=== PATIENT | male | born 1975 | race Two or more races ===

== ENCOUNTER 2017-04-29 06:54 | Emergency (ER) | payer SELFPAY, BC ==
[2017-04-29 07:35] LABS: ADD MAN DIFF? NO
[2017-04-29 07:49] LABS: ANION GAP 8 (6-14); BLOOD UREA NITROGEN 11 mg/dL (8-26); BUN/CREATININE RATIO 14 (6-20); CALCIUM 9.4 mg/dL (8.5-10.1); CARBON DIOXIDE 31 mmol/L (21-32); CHLORIDE 102 mmol/L (98-107); CREATININE 0.8 mg/dL (0.7-1.3); GFR 107.1; GLUCOSE 107 mg/dL (70-99); POTASSIUM 3.3 mmol/L (3.5-5.1); SODIUM 141 mmol/L (136-145)
[2017-04-29] MEDS: MULTIVIT INFUSN,ADULT 4,VIT K 10 ML, THIAMINE 100 MG, FOLIC ACID 1 MG in IV NORMAL SALI... IV ×2 (07:50)
[2017-04-29 07:55] LABS: ALBUMIN 4.3 g/dL (3.4-5.0); ALBUMIN/GLOBULIN RATIO 1.1 (1.0-1.7); ALK PHOS 90 U/L (46-116); ALT (SGPT) 22 U/L (16-63); AST (SGOT) 18 U/L (15-37); LIPASE 106 U/L (73-393); TOTAL BILIRUBIN 0.2 mg/dL (0.2-1.0); TOTAL PROTEIN 8.3 g/dL (6.4-8.2)
[2017-04-29 07:58] LABS: SALIC < 2.8 mg/dL (2.8-20.0)
[2017-04-29 07:58] LABS: TROPONINI < 0.017 ng/mL (0.000-0.055)
[2017-04-29] MEDS: ONDANSETRON PF 4 MG/2 ML VIAL. IV ×2 (07:58)
[2017-04-29] MEDS: ASPIRIN 325 MG TABLET PO ×2 (07:58)
[2017-04-29] MEDS: FAMOTIDINE 20 MG/2 ML VIAL IVP ×2 (07:58)
[2017-04-29 07:59] LABS: ACETAMIN < 2.0 mcg/ml (10-30)
[2017-04-29 08:00] LABS: BASO % 0 % (0-3); EOS # 0.1 x10^3/uL (0.0-0.7); EOS % 1 % (0-3); HEMATOCRIT 44.3 % (39.0-53.0); HEMOGLOBIN 14.8 g/dL (13.0-17.5); LYMPH # 2.4 x10^3/uL (1.0-4.8); LYMPH % 38 % (24-48); MEAN CORPUSCULAR HEMOGLOBIN 30 pg (25-35); MEAN CORPUSCULAR HGB CONC 34 g/dL (31-37); MEAN CORPUSCULAR VOLUME 90 fL (79-100); MONO # 0.5 x10^3/uL (0.0-1.1); MONO % 7 % (0-9); NEUT # 3.3 x10^3uL (1.8-7.7); NEUT % 53 % (31-73); PLATELET COUNT 190 x10^3/uL (140-400); RED BLOOD COUNT 4.93 x10^6/uL (4.30-5.70); WHITE BLOOD COUNT 6.2 x10^3/uL (4.0-11.0)
[2017-04-29 08:02] LABS: CKMB MASS 1.5 ng/mL (0.0-3.6); CREATINE KINASE 155 U/L (39-308)
[2017-04-29 08:02] LABS: NT-PRO BNP 11 pg/mL (0-124)
[2017-04-29] MEDS: IV NORMAL SALINE 1000ML BAG 1,000 ML IV ×2 (08:02)
[2017-04-29 08:03] LABS: BILIRUBIN,URINE NEGATIVE (NEG); CLARITY,URINE CLEAR; COLOR,URINE YELLOW; GLUCOSE,URINE NEGATIVE (NEG); NITRITE,URINE NEGATIVE (NEG); PROTEIN,URINE NEGATIVE (NEG-TRACE); UROBILINOGEN,URINE 0.2 mg/dL (0.2 mg/dL)
[2017-04-29 08:09] LABS: BARBITURATES NEG (NEG); BENZODIAZEPINES NEG (NEG); CANNABINOIDS NEG (NEG); COCAINE NEG (NEG); METHADONE NEG (NEG); OPIATES NEG (NEG); PHENCYCLIDINE NEG (NEG)
[2017-04-29 08:17] LABS: AMPHETAMINE/METHAMPHETAMINE POS (NEG); ETHANOL, URINE POS (NEG)
[2017-04-29 08:18] LABS: BACTERIA,URINE 0 /HPF (0-FEW); RBC,URINE 0 /HPF (0-2); SQUAMOUS EPITHELIAL CELL,UR FEW /LPF; WBC,URINE 0 /HPF (0-4)
[2017-04-29 09:23] LABS: NEGATIVE OBC STREP NEG; POSITIVE OBC STREP POS
[2017-04-29 09:26] LABS: INR 0.9 (0.8-1.1); PROTHROMBIN TIME PATIENT 11.8 SEC (11.7-14.0)
[2017-04-29] MEDS: KETOROLAC 30 MG/ML INJ. IV ×2 (09:33)
[2017-04-29] MEDS: POTASSIUM CHLORIDE 20 MEQ TABLET.ER. PO ×2 (09:33)
== END 2017-04-29 09:52 | disposition home or self-care (01) ==
LOC: ER 06:54
DX: R00.2 Palpitations (principal); F15.90 Other stimulant use, unspecified, uncomplicated; F10.10 Alcohol abuse, uncomplicated; E86.0 Dehydration; J02.0 Streptococcal pharyngitis
CPT/HCPCS: 36415; 71045; 80053; 80307; 80329; 81001; 82553; 83690; 83735; 83880; 84484; 85025; 85610; 87880; 93005; 96365; 96375; 99285-25; J1885; J2060; J2405; J7030; S0028

== ENCOUNTER 2017-04-30 14:53 | Emergency (ER) | payer SELFPAY ==
[2017-04-30] MEDS: diphenhydrAMINE 50 MG/ML VIAL IM ×2 (15:58)
== END 2017-04-30 17:00 | disposition home or self-care (01) ==
LOC: ER 14:53
DX: F41.9 Anxiety disorder, unspecified (principal); F15.90 Other stimulant use, unspecified, uncomplicated; R00.2 Palpitations; M79.1 Myalgia
CPT/HCPCS: 93005; 96372; 99283-25; J1200

== ENCOUNTER → 2017-08-03 | Outpatient (CLI) | payer OTHER | END | disposition home or self-care (01) | LOC: KCIC CT 11:00 | DX: J32.9 Chronic sinusitis, unspecified (principal); J34.2 Deviated nasal septum; M27.40 Unspecified cyst of jaw | CPT/HCPCS: 70486 ==

== ENCOUNTER → 2018-11-13 | Outpatient (CLI) | payer OTHER ==
[2017-04-30 15:13] VITALS: BP 132/89
[~2018-11-13] MED LIST: AMOX875T PO; DIPH25CA58 PO
--- NOTE | 2018-11-13 12:15 | KCIC ---
EXAM: Chest, 2 views. HISTORY: Cough. COMPARISON: 04/29/2017 FINDINGS: 2 views of the chest are obtained. There is no infiltrate, pleural effusion or pneumothorax. There is hyperinflation likely due to inspiratory effort. The heart is normal in size. IMPRESSION: No acute pulmonary finding. Electronically signed by: Shyann Oliveros MD (11/13/2018 12:12 PM) [place] [id number]
== END | disposition home or self-care (01) ==
LOC: KCIC 10:54
PROVIDERS: ATTEND Family Medicine
DX: R05 Cough (principal)
CPT/HCPCS: 71046

== ENCOUNTER 2019-03-22 18:31 | Emergency (ER) | payer OTHER ==
[~2019-03-22] VITALS: Ht 177.8 cm; Wt 63.5 kg
[2019-03-22] MEDS ORDERED: IV NORMAL SALINE 1000ML BAG 1,000 ML IV SCH (19:02)
--- NOTE | 2019-03-22 19:02 | PHYS DOC ---
Past Medical History Past Medical History: No Pertinent History Past Surgical History: No Surgical History Additional Information: "I SMOKE 5 CIGARETTES A DAY" Alcohol Use: Occasionally Drug Use: None Attending Signature I have participated in the care of this patient and I have reviewed and agree with all pertinent clinical information above including history, exam, and recommendations. Adult General Chief Complaint Chief Complaint: CHEST PAIN HPI HPI 44-year-old male presents to the emergency department with complaints of chest pain, palpitations. Patient states drinking makes his chest pain worse, he describes it more of a sharp sensation. Bilaterally. No radiation of the pain. He denies any nausea, vomiting, shortness of breath this time. He does state that he smokes something last night unsure exactly what it was possibly methamphetamines possibly some other sort of drug. Review of Systems Review of Systems Constitutional: Denies fever or chills [] Respiratory: Denies cough or shortness of breath [] Cardiovascular: No additional information not addressed in HPI [] GI: Denies abdominal pain, nausea, vomiting, bloody stools or diarrhea [] Musculoskeletal: Denies back pain or joint pain [] Integument: Denies rash or skin lesions [] Neurologic: Denies headache, focal weakness or sensory changes [] All other systems were reviewed and found to be within normal limits, except as documented in this note. Current Medications Current Medications Current Medications Medications (Trade) Dose Ordered Sig/Cresencio Start Time Stop Time Status Last Admin Dose Admin Al Hydroxide/Mg Hydroxide (Mylanta Plus Xs) 30 ml 1X ONCE 03/22/19 20:45 03/22/19 20:46 DC 03/22/19 20:49 30 ML Aspirin (Children'S Aspirin) 324 mg 1X ONCE 03/22/19 19:15 03/22/19 19:16 DC 03/22/19 19:55 324 MG Nitroglycerin (Nitrostat) 0.4 mg PRN Q5MIN PRN 03/22/19 19:15 03/22/19 21:29 DC 03/22/19 19:56 0.4 MG Sodium Chloride 1,000 ml @ 1,000 mls/hr Q1H 03/22/19 19:02 03/22/19 20:01 DC 03/22/19 19:45 1,000 MLS/HR Allergies Allergies Allergies Coded Allergies Type Severity Reaction Last Updated Verified No Known Drug Allergies 04/29/17 No Physical Exam Physical Exam Constitutional: Well developed, well nourished, no acute distress, non-toxic appearance. [] Cardiovascular:Heart rate regular rhythm, no murmur [] Lungs & Thorax: Bilateral breath sounds clear to auscultation [] Abdomen: Bowel sounds normal, soft, no tenderness, no masses, no pulsatile masses. [] Skin: Warm, dry, no erythema, no rash. [] Back: No tenderness, no CVA tenderness. [] Extremities: No tenderness, no edema. [] Neurologic: Alert and oriented X 3, no focal deficits noted. [] Psychologic: Affect normal, judgement normal, mood normal. [] Current Patient Data Vital Signs Vital Signs Date Time Temp Pulse Resp B/P (MAP) Pulse Ox O2 Delivery O2 Flow Rate FiO2 03/22/19 21:16 78 16 125/75 (92) 100 Room Air 03/22/19 18:42 98.6 98.6 Lab Values Laboratory Tests Test 03/22/19 19:00 03/22/19 19:45 03/22/19 21:03 White Blood Count 7.2 x10^3/uL (4.0-11.0) Red Blood Count 4.56 x10^6/uL (4.30-5.70) Hemoglobin 13.6 g/dL (13.0-17.5) Hematocrit 40.5 % (39.0-53.0) Mean Corpuscular Volume 89 fL (79-100) Mean Corpuscular Hemoglobin 30 pg (25-35) Mean Corpuscular Hemoglobin Concent 34 g/dL (31-37) Red Cell Distribution Width 12.8 % (11.5-14.5) Platelet Count 195 x10^3/uL (140-400) Neutrophils (%) (Auto) 74 % (31-73) H Lymphocytes (%) (Auto) 21 % (24-48) L Monocytes (%) (Auto) 6 % (0-9) Eosinophils (%) (Auto) 0 % (0-3) Basophils (%) (Auto) 0 % (0-3) Neutrophils # (Auto) 5.3 x10^3/uL (1.8-7.7) Lymphocytes # (Auto) 1.5 x10^3/uL (1.0-4.8) Monocytes # (Auto) 0.4 x10^3/uL (0.0-1.1) Eosinophils # (Auto) 0.0 x10^3/uL (0.0-0.7) Basophils # (Auto) 0.0 x10^3/uL (0.0-0.2) Sodium Level 139 mmol/L (136-145) Potassium Level 4.0 mmol/L (3.5-5.1) Chloride Level 100 mmol/L (98-107) Carbon Dioxide Level 29 mmol/L (21-32) Anion Gap 10 (6-14) Blood Urea Nitrogen 5 mg/dL (8-26) L Creatinine 0.7 mg/dL (0.7-1.3) Estimated GFR (Cockcroft-Gault) 123.7 BUN/Creatinine Ratio 7 (6-20) Glucose Level 110 mg/dL (70-99) H Calcium Level 10.0 mg/dL (8.5-10.1) Magnesium Level 1.9 mg/dL (1.8-2.4) Total Bilirubin 0.4 mg/dL (0.2-1.0) Aspartate Amino Transferase (AST) 20 U/L (15-37) Alanine Aminotransferase (ALT) 20 U/L (16-63) Alkaline Phosphatase 89 U/L (46-116) Troponin I Quantitative < 0.017 ng/mL (0.000-0.055) Total Protein 8.7 g/dL (6.4-8.2) H Albumin 4.5 g/dL (3.4-5.0) Albumin/Globulin Ratio 1.1 (1.0-1.7) Urine Opiates Screen Neg (NEG) Urine Methadone Screen Neg (NEG) Urine Barbiturates Neg (NEG) Urine Phencyclidine Screen Neg (NEG) Urine Amphetamine/Methamphetamine Pos (NEG) Urine Benzodiazepines Screen Neg (NEG) Urine Cocaine Screen Neg (NEG) Urine Cannabinoids Screen Neg (NEG) Urine Ethyl Alcohol Pos (NEG) POC Troponin I 0.00 ng/ml (<0.08) Laboratory Tests 03/22/19 19:00 Laboratory Tests 03/22/19 19:00 EKG EKG EKG evaluated 1849, normal axis, normal sinus rhythm, heart rate 94, no evidence of ST elevation SD[] Radiology/Procedures Radiology/Procedures [] Course & Med Decision Making Course & Med Decision Making Pertinent Labs and Imaging studies reviewed. (See chart for details) []44-year-old male presents to the emergency department with complaints of chest pain, palpitations. Patient states drinking makes his chest pain worse, he describes it more of a sharp sensation. Bilaterally. No radiation of the pain. He denies any nausea, vomiting, shortness of breath this time. He does state that he smokes something last night unsure exactly what it was possibly methamp hetamines possibly some other sort of drug. Laboratory values reviewed, white blood cell count 7.2, troponin negative, urine drug screen reveals evidence of methamphetamines. Patient complains of indigestion, Maalox given in the emergency department Chest x-ray reveals no evidence of acute cardio pulmonary process or consolidation. Discussed patient's palpitations likely associated with underlying methamphetamine use. Heart rate currently 100. Given negative workup will plan discharge further follow up as an outpatient patient's primary care physician. Dragon Disclaimer Dragon Disclaimer This electronic medical record was generated, in whole or in part, using a voice recognition dictation system. The HEART Score for CP Pts HEART Score for Chest Pain: HEART Score for Chest Pain Response (Comments) Value History Slighlty/Non-Suspicious 0 ECG Normal 0 Age < 45 0 Risk Factors 1 or 2 Risk Factors 1 Troponin < Normal Limit 0 Total 1 Risk Factors: Risk Factors: DM, Current or recent (<one month) smoker, HTN, HLP, family history of CAD, obesity. Risk Scores: Score 0 - 3: 2.5% MACE over next 6 weeks - Discharge Home Score 4 - 6: 20.3% MACE over next 6 weeks - Admit for Clinical Observation Score 7 - 10: 72.7% MACE over next 6 weeks - Early Invasive Strategies Departure Departure Impression: Primary Impression: Atypical chest pain Additional Impression: Substance abuse Disposition: HOME, SELF-CARE Condition: STABLE Referrals: RACQUEL BHAT MD (PCP) Patient Instructions: Chest Pain (Nonspecific), [id number] Additional Instructions: Recommend follow up with PCP 3 - 5 days Return to the ER with worsening symptoms, intractable pain, fever, altered mental status Tylenol/Motrin as needed for pain Rx provided for carafate to help with burning in epigastric region Scripts Sucralfate (CARAFATE) 1 Gm/10 Ml Oral.susp 10 ML PO BID for 6 Days, #120 ML 0 Refills before food Prov: SAIDA MILLARD MD 03/22/19 Problem Qualifiers SAIDA MILLARD MD Mar 22, 2019 19:02
[2019-03-22 19:08] LABS: BASO % 0 % (0-3); EOS % 0 % (0-3); HEMATOCRIT 40.5 % (39.0-53.0); HEMOGLOBIN 13.6 g/dL (13.0-17.5); LYMPH # 1.5 x10^3/uL (1.0-4.8); LYMPH % 21 % (24-48); MEAN CORPUSCULAR HEMOGLOBIN 30 pg (25-35); MEAN CORPUSCULAR HGB CONC 34 g/dL (31-37); MEAN CORPUSCULAR VOLUME 89 fL (79-100); MONO # 0.4 x10^3/uL (0.0-1.1); MONO % 6 % (0-9); NEUT # 5.3 x10^3/uL (1.8-7.7); NEUT % 74 % (31-73); PLATELET COUNT 195 x10^3/uL (140-400); RED BLOOD COUNT 4.56 x10^6/uL (4.30-5.70); RED CELL DISTRIBUTION WIDTH 12.8 % (11.5-14.5); WHITE BLOOD COUNT 7.2 x10^3/uL (4.0-11.0)
[2019-03-22] MEDS ORDERED: ASPIRIN CHEWABLE 81 MG TABLET. PO ONE (19:15)
[2019-03-22] MEDS ORDERED: NITROGLYCERIN SUBLINGUAL 0.4 MG BOTTLE OF 25. SL PRN (19:15)
[2019-03-22 19:23] LABS: CREATININE 0.7 mg/dL (0.7-1.3); GFR 123.7
[2019-03-22 19:28] LABS: ALBUMIN 4.5 g/dL (3.4-5.0); ALBUMIN/GLOBULIN RATIO 1.1 (1.0-1.7); MAGNESIUM 1.9 mg/dL (1.8-2.4); TOTAL BILIRUBIN 0.4 mg/dL (0.2-1.0); TOTAL PROTEIN 8.7 g/dL (6.4-8.2)
[2019-03-22 19:59] LABS: AMPHETAMINE/METHAMPHETAMINE POS (NEG); BARBITURATES NEG (NEG); BENZODIAZEPINES NEG (NEG); CANNABINOIDS NEG (NEG); COCAINE NEG (NEG); METHADONE NEG (NEG); OPIATES NEG (NEG); PHENCYCLIDINE NEG (NEG)
--- NOTE | 2019-03-22 20:22 | RAD ---
Examination: PORTABLE CHEST 1V History: Chest pain Comparison/Correlation: 11/13/2018 two-view chest x-ray exam Findings: Portable upright frontal view chest was obtained. Heart size and pulmonary vasculature are normal. No infiltrate or pleural effusion. No pneumothorax. Bony structures are unremarkable. Impression: No suspicious process. Electronically signed by: Gasper Young MD (03/22/2019 8:19 PM) [facility]
[2019-03-22] MEDS ORDERED: MAG HYDROX/ALUMINUM HYD/SIMETH 30 ML ORAL.SUSP PO ONE (20:45)
[2019-03-22] MEDS ORDERED: SUCR1ORA5 PO (20:53)
[2019-03-22 21:16] VITALS: BP 125/75
--- NOTE | 2019-03-24 12:47 | EKG ---
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
== END 2019-03-22 21:20 | disposition home or self-care (01) ==
LOC: ER 18:31
DX: R07.89 Other chest pain (principal); R00.2 Palpitations; F17.210 Nicotine dependence, cigarettes, uncomplicated
CPT/HCPCS: 36415; 71045; 80053; 80307; 83735; 84484; 85025; 93005; 99285; J7030

== ENCOUNTER → 2019-08-23 | Outpatient (CLI) | payer OTHER ==
[~2019-08-23] MED LIST changes: +SUCR1ORA5 PO
--- NOTE | 2019-08-23 10:03 | RAD ---
ABDOMEN COMPLETE History: Left upper quadrant abdominal pain for 2 months Comparison: October 20, 2015 Findings: Multiple sonographic images of the abdomen are submitted. Abdominal aortic caliber is within normal limits up to 1.9 cm. There is no abnormality of the visualized pancreas. There is segmental visualization of the inferior vena cava. Hepatic echotexture is within normal limits, no focal hepatic lesion demonstrated. Right lobe of the liver measured 13.3 cm longitudinal. Right kidney measured 10.2 x 4.7 x 3.7 cm, no hydronephrosis. Left kidney measured 10.6 x 4.2 x 5.6 cm, no hydronephrosis. Gallbladder is present without intraluminal abnormality, wall thickening, or pericholecystic fluid. Spleen measured up to about 9.3 cm although suboptimally seen due to bowel gas. Impression: 1. Spleen is suboptimally seen due to bowel gas, not obviously enlarged. Electronically signed by: Bay Flower MD (08/23/2019 9:59 AM) [id number]
--- NOTE | 2019-08-23 12:17 | RAD ---
MRI Brain without contrast History:Headache Technique: Multiplanar, multisequential noncontrast MR imaging was performed of the brain. Comparison: None Findings: There is some motion degradation. There is no evidence of recent infarct or cytotoxic edema. The ventricles, sulci, and cisterns are within normal limits in size and configuration. There is no significant midline shift, intraaxial mass effect, or focal abnormal extra-axial fluid collection. Allowing for motion, there is no convincing focal signal abnormality including hemosiderin deposition of the brain parenchyma. There is preservation of the major intracranial flow-voids at the skull base. The cerebellar tonsils are normal in location. There is no significant abnormality of the pineal gland or pituitary gland. There is patchy minimal ethmoid air cell mucosal thickening bilaterally. There is likely small right maxillary sinus mucous retention cyst 0.5 cm. The mastoid air cells are aerated. There is preserved marrow signal of the clivus. Impression: 1. No significant intracranial abnormality is identified. Electronically signed by: Bay Flower MD (08/23/2019 12:14 PM) [id number]
== END | disposition home or self-care (01) ==
LOC: US 09:02
PROVIDERS: ATTEND Family Medicine
DX: J34.89 Other specified disorders of nose and nasal sinuses (principal); J34.1 Cyst and mucocele of nose and nasal sinus; R10.12 Left upper quadrant pain
CPT/HCPCS: 70551; 76700

== ENCOUNTER → 2020-01-07 | Outpatient (CLI) | payer OTHER ==
--- NOTE | 2020-01-07 15:13 | KCIC ---
LUMBAR SPINE MIN 4V History: Low back pain, fall about 4-5 days ago, persistent pain Comparison: None. Findings: 5 views of the lumbar spine are submitted. Lumbar vertebral body stature and AP alignment are preserved. Intervertebral disc spaces are overall maintained. No acute osseous abnormality is identified by radiographs. Small calcification in the left pelvis is more likely due to phlebolith. Impression: 1. No acute osseous abnormality is identified by radiographs. Electronically signed by: Bay Flower MD (01/07/2020 3:10 PM) [id number]
== END ==
LOC: KCIC 12:50
PROVIDERS: ATTEND Family Medicine
DX: M54.5 Low back pain (principal)
CPT/HCPCS: 72110

== ENCOUNTER 2020-01-22 23:09 | Emergency (ER) | payer OTHER ==
[~2020-01-22] VITALS: Ht 175.3 cm; Wt 65.0 kg
[2020-01-22] MEDS ORDERED: IV NORMAL SALINE 1000ML BAG 1,000 ML IV ONE (23:30)
--- NOTE | 2020-01-22 23:53 | RAD ---
INDICATION: Reason: sob / Spl. Instructions: / History: COMPARISON: February 2019 FINDINGS: Single view of chest obtained. Cardiac silhouette is similar to prior. No definite focal airspace consolidation. No gross osseous destructive lesion IMPRESSION: * No focal airspace consolidation. Electronically signed by: Alfredo Chu MD (01/22/2020 11:51 PM) [id number]
--- NOTE | 2020-01-22 23:56 | PHYS DOC ---
Past Medical History Past Medical History: GERD Past Surgical History: No Surgical History Smoking Status: Never Smoker Alcohol Use: None Drug Use: None General Adult EDM: Chief Complaint: SHORTNESS OF BREATH HPI: HPI: Patient is a 45 year old male past medical history GERD presents with multiple chief complaints. Patient states he has had right-sided chest discomfort x2 months. He complains of shortness of breath x1 month. He complains of occipital headache x1 year and a sore throat x5 days. During my HPI he also started complaining of left-sided neck pain. He states this pain just started as I was examining him. Patient denies any fevers or chills there is no cough. Review of Systems: Review of Systems: Constitutional: Denies fever or chills. [] Eyes: Denies change in visual acuity. [] HENT: Denies nasal congestion positive sore throat. [] Respiratory: Denies cough or positive shortness of breath. [] Cardiovascular: Denies edema. [Positive chest pain] GI: Denies abdominal pain, nausea, vomiting, bloody stools or diarrhea. [] : Denies dysuria. [] Musculoskeletal: Denies back pain or joint pain. [Positive neck pain] Integument: Denies rash. [] Neurologic: Denies , focal weakness or sensory changes. [Positive headache] Endocrine: Denies polyuria or polydipsia. [] Lymphatic: Denies swollen glands. [] Psychiatric: Denies depression or anxiety. [] Heart Score: HEART Score for Chest Pain: HEART Score for Chest Pain Response (Comments) Value History Slighlty/Non-Suspicious 0 ECG Normal 0 Age < 45 0 Risk Factors No Risk Factors 0 Troponin < Normal Limit 0 Total 0 Risk Factors: Risk Factors: DM, Current or recent (<one month) smoker, HTN, HLP, family history of CAD, obesity. Risk Scores: Score 0 - 3: 2.5% MACE over next 6 weeks - Discharge Home Score 4 - 6: 20.3% MACE over next 6 weeks - Admit for Clinical Observation Score 7 - 10: 72.7% MACE over next 6 weeks - Early Invasive Strategies Current Medications: Current Medications Medications (Trade) Dose Ordered Sig/Cresencio Start Time Stop Time Status Last Admin Dose Admin Sodium Chloride 1,000 ml @ 1,000 mls/hr 1X ONCE 01/22/20 23:30 01/23/20 00:29 01/22/20 23:45 1,000 MLS/HR Allergies: Allergies: Allergies Coded Allergies Type Severity Reaction Last Updated Verified No Known Drug Allergies 04/29/17 No Physical Exam: PE: Constitutional: Well developed, well nourished, no acute distress, non-toxic appearance. [] HENT: Normocephalic, atraumatic, bilateral external ears normal, t, no oral exudates, nose normal. [pharyngeal erythema] Eyes: PERRLA, EOMI, conjunctiva normal, no discharge. [] Neck: Normal range of motion, no tenderness, supple, no stridor. [] Cardiovascular:Heart rate regular rhythm, no murmur [] Lungs & Thorax: Bilateral breath sounds clear to auscultation [] Abdomen: Bowel sounds normal, soft, no tenderness, no masses, no pulsatile masses. [] Skin: Warm, dry, no erythema, no rash. [] Back: No tenderness, no CVA tenderness. [] Extremities: No tenderness, no cyanosis, no clubbing, ROM intact, no edema. [] Neurologic: Alert and oriented X 3, normal motor function, normal sensory function, no focal deficits noted. [] Psychologic: Affect normal, judgement normal, mood normal. [] Current Patient Data: Vital Signs: Vital Signs Date Time Temp Pulse Resp B/P (MAP) Pulse Ox O2 Delivery O2 Flow Rate FiO2 01/22/20 23:19 98.0 74 24 114/79 (91) Room Air 98.0 EKG: EKG: [] 2323 heart rate 66 normal sinus rhythm no acute VT Radiology/Procedures: Radiology/Procedures: [] Impression: COMPARISON: February 2019 FINDINGS: Single view of chest obtained. Cardiac silhouette is similar to prior. No definite focal airspace consolidation. No gross osseous destructive lesion IMPRESSION: * No focal airspace consolidation. Course & Med Decision Making: Course & Med Decision Making Pertinent Labs and Imaging studies reviewed. (See chart for details) []Patient states he is concerned about a stroke-- despite his symptoms ongoing x 1 year. Patient requesting treatment with ASA-- states previous ER visit and was treated with ASA with improvement. Patient declined toradol. Treated with Decadron for throat pain. Patient requesting "medicated drink" states he was previously given during another ER visit and it helped with his chest pain. Patient also requesting acid reflux medication. Patient treated with GI cocktail. At this time I do not see any emergent conditions that require hospitalization or further work-up at this time. Patient can be discharged home with instructions to follow-up with his primary care physician. Patient will be placed on Zithromax. Patient advised he can get [id number] medications for acid reflux. Dragon Disclaimer: Dragon Disclaimer: This electronic medical record was generated, in whole or in part, using a voice recognition dictation system. Departure Departure Impression: Primary Impression: Sore throat Additional Impressions: Shortness of breath Chest pain Neck pain Disposition: DC HOME SELF CARE/HOMELESS Condition: STABLE Referrals: RACQUEL BHAT MD (PCP) Patient Instructions: Shortness of Breath, Sore Throat Additional Instructions: You have been tested for or diagnosed with COVID-19. It is an infection caused by a new type of coronavirus. COVID-19 will cause cold-like or mild flu symptoms in most. It c an cause more severe symptoms like problems breathing in some. There is no treatment for COVID-19. The body will clear the infection over time. Self-care will help to ease discomfort. Steps to Take: Self-Care Rest as needed. Healthy habits may help you feel better. Steps include: Choose healthy foods including fruits and vegetables. Drink water throughout the day. Get plenty of sleep each night. If you smoke, try to quit. It may ease breathing. Avoid alcohol. Keep Others Healthy The virus can spread to others. Droplets are released every time you sneeze or cough. The droplets can get into the mouth, nose, or eyes of people near you and lead to infection. To lower the chances of spreading COVID-19 to others: Stay at home until your doctor has said it is safe to leave. If you tested positive this will mean staying isolated until both of the following are true: At least 7 days have passed since the start of illness. You are free of fever for at least 72 hours without the use of medicine. During this time: - Avoid public areas, events, or transportation. Do not return to work or school until your doctor has said it is safe to do so. - Call ahead if you need to go to a medical center. Let them know you may have COVID-19. It will help them guide you where to go. They may also ask you to wear a facemask when you come to the office. - If you call for emergency medical services, let them know you may have COVID- 19. While at home: - Try to avoid close contact with others. Stay about 6 feet away. - If possible, spend most of your time in a separate room from others. - Use a face mask if you will be in close contact with others such as sharing a room or vehicle. - Have someone wipe down common surfaces in the home. Use household buffing wheel inspector every day on areas like doorknobs, counters, or sinks. - Cough or sneeze into a tissue. Throw the tissue away right after use. If a tissue is not available, cough or sneeze into your elbow. - Wash your hands often. Wash them after sneezing or coughing. Use soap and water and wash for at least 20 seconds. Alcohol based hand janitor cleaner can be used if soap and water is not available. - Do not prepare food for others. Avoid sharing personal items like forks, spoons, or toothbrushes. - Avoid close contact with pets while you are sick. There is no evidence of the virus passing to pets. This is a safety step until more is known about this virus. Isolation can be frustrating. Social interaction can help. Keep in touch with friends and family through phone and tech options. You can still interact with others in your home, just keep a safe distance of about 6 feet. Follow-up: Your doctors office will check in with you to see if there are any changes in your health. You may be asked to keep track of symptoms to share with them. They will also let you know when you are clear to be in public again. Problems to Look Out For: Contact your doctor if your recovery is not going as you expect. Get emergency care if you have problems such as: - Trouble breathing - Nonstop chest pain or pressure - Changes in awareness, confusion, or problems waking - Lips or face have bluish color - Worsening of symptoms If you think you have an emergency, call for emergency medical services right away. [facility] Azithromycin (ZITHROMAX) 250 Mg Tablet 1 PKG PO UD, #6 TAB Prov: JESUS HERR I DO 01/23/20 JESUS HERR I DO Jan 22, 2020 23:56
[2020-01-22 23:59] LABS: BASO % 0 % (0-3); EOS % 0 % (0-3); HEMATOCRIT 40.1 % (39.0-53.0); HEMOGLOBIN 13.6 g/dL (13.0-17.5); LYMPH # 1.1 x10^3/uL (1.0-4.8); LYMPH % 18 % (24-48); MEAN CORPUSCULAR HEMOGLOBIN 30 pg (25-35); MEAN CORPUSCULAR HGB CONC 34 g/dL (31-37); MEAN CORPUSCULAR VOLUME 88 fL (79-100); MONO # 0.5 x10^3/uL (0.0-1.1); MONO % 8 % (0-9); NEUT # 4.7 x10^3/uL (1.8-7.7); NEUT % 74 % (31-73); PLATELET COUNT 180 x10^3/uL (140-400); RED BLOOD COUNT 4.54 x10^6/uL (4.30-5.70); RED CELL DISTRIBUTION WIDTH 13.8 % (11.5-14.5); WHITE BLOOD COUNT 6.4 x10^3/uL (4.0-11.0)
[2020-01-23 00:09] LABS: CALCIUM 9.4 mg/dL (8.5-10.1); CREATININE 0.8 mg/dL (0.7-1.3); GFR 105.5; POTASSIUM 3.5 mmol/L (3.5-5.1)
[2020-01-23 00:14] LABS: ALBUMIN 4.5 g/dL (3.4-5.0); ALBUMIN/GLOBULIN RATIO 1.3 (1.0-1.7); TOTAL BILIRUBIN 0.5 mg/dL (0.2-1.0); TOTAL PROTEIN 8.1 g/dL (6.4-8.2)
[2020-01-23] MEDS: KETOROLAC 30 MG/ML VIAL. IVP ONE ×2 (00:23)
[2020-01-23] MEDS ORDERED: ASPIRIN 325 MG TABLET PO ONE (00:45)
[2020-01-23] MEDS ORDERED: AZIT250T PO (01:05)
[2020-01-23] MEDS ORDERED: BENZOCAINE ONE 20% MUCOSAL SPRAY. MM (01:15)
[2020-01-23] MEDS ORDERED: LIDO:MAALOX 1:1 20 ML SINGLE DOSE. SWSW ONE (01:15)
[2020-01-23 01:18] VITALS: BP 104/68
--- NOTE | 2020-01-24 11:37 | NUR ---
IP: Attempted to call COVID results. No answer. Unable to leave a message.
== END 2020-01-23 01:36 | disposition home or self-care (01) ==
LOC: ER 23:09
DX: J02.9 Acute pharyngitis, unspecified (principal); R06.02 Shortness of breath; R07.89 Other chest pain; M54.2 Cervicalgia; Z20.828 Contact with and (suspected) exposure to other viral communicable diseases; K21.9 Gastro-esophageal reflux disease without esophagitis
CPT/HCPCS: 36415; 71045; 80053; 84484; 85025; 93005; 96360; 99285; C9803; J7030; U0003; J1885

== ENCOUNTER 2020-02-01 14:43 | Emergency (ER) | payer OTHER ==
[~2020-02-01] VITALS: Ht 175.3 cm; Wt 68.0 kg
[~2020-02-01 14:43] MED LIST changes: +AZIT250T PO
[2020-02-01] MEDS ORDERED: LIDO:MAALOX 1:1 20 ML SINGLE DOSE. SWSW ONE (17:00)
[2020-02-01] MEDS ORDERED: IV NORMAL SALINE 1000ML BAG 1,000 ML IV ONE ×2 (17:00→18:15)
[2020-02-01] MEDS ORDERED: ASPIRIN 325 MG TABLET PO ONE (17:00)
[2020-02-01] MEDS ORDERED: DEXAMETHASONE SOD PHOS 4 MG/ML VIAL IVP ONE (17:00)
[2020-02-01 17:09] LABS: BASO # 0.1 x10^3/uL (0.0-0.2); BASO % 1 % (0-3); EOS % 0 % (0-3); HEMATOCRIT 37.1 % (39.0-53.0); HEMOGLOBIN 12.5 g/dL (13.0-17.5); LYMPH # 1.3 x10^3/uL (1.0-4.8); LYMPH % 16 % (24-48); MEAN CORPUSCULAR HEMOGLOBIN 30 pg (25-35); MEAN CORPUSCULAR HGB CONC 34 g/dL (31-37); MEAN CORPUSCULAR VOLUME 88 fL (79-100); MONO # 0.4 x10^3/uL (0.0-1.1); MONO % 6 % (0-9); NEUT # 6.1 x10^3/uL (1.8-7.7); NEUT % 77 % (31-73); PLATELET COUNT 178 x10^3/uL (140-400); RED BLOOD COUNT 4.21 x10^6/uL (4.30-5.70); RED CELL DISTRIBUTION WIDTH 13.9 % (11.5-14.5); WHITE BLOOD COUNT 7.9 x10^3/uL (4.0-11.0)
[2020-02-01 17:18] LABS: CALCIUM 9.6 mg/dL (8.5-10.1); CREATININE 0.8 mg/dL (0.7-1.3); GFR 105.5; POTASSIUM 3.9 mmol/L (3.5-5.1)
[2020-02-01 17:25] LABS: ALBUMIN 4.2 g/dL (3.4-5.0); ALBUMIN/GLOBULIN RATIO 1.2 (1.0-1.7); C-REACTIVE PROTEIN 3.2 mg/L (0-3.3); TOTAL BILIRUBIN 0.4 mg/dL (0.2-1.0); TOTAL PROTEIN 7.6 g/dL (6.4-8.2)
--- NOTE | 2020-02-01 17:35 | ED.ADGEN ---
Past Medical History Past Medical History: GERD Past Surgical History: No Surgical History Smoking Status: Never Smoker Alcohol Use: None Drug Use: None General Adult EDM: Chief Complaint: SHORTNESS OF BREATH HPI: HPI: Patient is a 45-year-old male who presents to the emergency room complaining of 1 day of cough, muscle pain, headache, reflux. He states that he felt completely normal yesterday. Today he feels like he cannot breathe and when he coughs black stuff comes up. He has a history of reflux and feels like anytime he eats or drinks anything it is coming back up. He has a right-sided pounding headache for the last 2 hours. He has not had any fevers that he knows of. She is requesting IV hydration and aspirin. He is not sure if he has been around anyone who has been ill. Review of Systems: Review of Systems: Negative other than noted Current Medications: Current Medications Medications (Trade) Dose Ordered Sig/Cresencio Start Time Stop Time Status Last Admin Dose Admin Acetaminophen (Tylenol) 650 mg 1X ONCE 02/01/20 18:00 02/01/20 18:05 DC Aspirin (Sandy Aspirin) 325 mg 1X ONCE 02/01/20 17:00 02/01/20 17:01 DC 02/01/20 17:23 325 MG Dexamethasone Sodium Phosphate (Decadron) 10 mg 1X ONCE 02/01/20 17:00 02/01/20 17:01 DC 02/01/20 17:23 10 MG Diazepam (Valium) 5 mg 1X ONCE 02/01/20 18:15 02/01/20 18:18 DC 02/01/20 18:37 5 MG Diphenhydramine HCl (Benadryl) 25 mg 1X ONCE 02/01/20 17:45 02/01/20 17:46 DC 02/01/20 18:13 25 MG Multi-Ingredient Mouthwash/Gargle (Gi Cocktail) 20 ml 1X ONCE 02/01/20 17:00 02/01/20 17:01 DC 02/01/20 17:22 20 ML Prochlorperazine Edisylate (Compazine) 10 mg 1X ONCE 02/01/20 17:45 02/01/20 17:46 DC 02/01/20 18:13 10 MG Sodium Chloride 1,000 ml @ 1,000 mls/hr 1X ONCE 02/01/20 18:15 02/01/20 19:14 DC Allergies: Allergies: Allergies Coded Allergies Type Severity Reaction Last Updated Verified No Known Drug Allergies 04/29/17 No Physical Exam: PE: General: Awake, alert, NAD. Well Nourished, well hydrated. Cooperative HEENT: Atraumatic, EOMI, PERRL, airway patent, moist oral mucosa Neck: Supple, trachea midline Respiratory: CTA bilaterally, normal effort, no wheezing/crackles CV: RRR, no murmur, cap refill <2 GI: Soft, nondistended, nontender, no masses MSK: No obvious deformities Skin: Warm, dry, intact Neuro: A&O x3, speech NL, sensory and motor grossly intact, no focal deficits Psych: Normal affect, normal mood, not suicidal or homicidal Current Patient Data: Labs: Laboratory Tests Test 02/01/20 16:57 White Blood Count 7.9 x10^3/uL (4.0-11.0) Red Blood Count 4.21 x10^6/uL (4.30-5.70) L Hemoglobin 12.5 g/dL (13.0-17.5) L Hematocrit 37.1 % (39.0-53.0) L Mean Corpuscular Volume 88 fL (79-100) Mean Corpuscular Hemoglobin 30 pg (25-35) Mean Corpuscular Hemoglobin Concent 34 g/dL (31-37) Red Cell Distribution Width 13.9 % (11.5-14.5) Platelet Count 178 x10^3/uL (140-400) Neutrophils (%) (Auto) 77 % (31-73) H Lymphocytes (%) (Auto) 16 % (24-48) L Monocytes (%) (Auto) 6 % (0-9) Eosinophils (%) (Auto) 0 % (0-3) Basophils (%) (Auto) 1 % (0-3) Neutrophils # (Auto) 6.1 x10^3/uL (1.8-7.7) Lymphocytes # (Auto) 1.3 x10^3/uL (1.0-4.8) Monocytes # (Auto) 0.4 x10^3/uL (0.0-1.1) Eosinophils # (Auto) 0.0 x10^3/uL (0.0-0.7) Basophils # (Auto) 0.1 x10^3/uL (0.0-0.2) D-Dimer (Janie) < 0.27 ug/mlFEU Sodium Level 140 mmol/L (136-145) Potassium Level 3.9 mmol/L (3.5-5.1) Chloride Level 103 mmol/L (98-107) Carbon Dioxide Level 29 mmol/L (21-32) Anion Gap 8 (6-14) Blood Urea Nitrogen 12 mg/dL (8-26) Creatinine 0.8 mg/dL (0.7-1.3) Estimated GFR (Cockcroft-Gault) 105.5 BUN/Creatinine Ratio 15 (6-20) Glucose Level 89 mg/dL (70-99) Calcium Level 9.6 mg/dL (8.5-10.1) Total Bilirubin 0.4 mg/dL (0.2-1.0) Aspartate Amino Transferase (AST) 19 U/L (15-37) Alanine Aminotransferase (ALT) 28 U/L (16-63) Alkaline Phosphatase 70 U/L (46-116) Lactate Dehydrogenase 186 U/L (85-227) Creatine Kinase 113 U/L (39-308) Troponin I Quantitative < 0.017 ng/mL (0.000-0.055) C-Reactive Protein, Quantitative 3.2 mg/L (0-3.3) BU-Qgn-N-Type Natriuretic Peptide 212 pg/mL (0-124) H Total Protein 7.6 g/dL (6.4-8.2) Albumin 4.2 g/dL (3.4-5.0) Albumin/Globulin Ratio 1.2 (1.0-1.7) Laboratory Tests 02/01/20 16:57 Laboratory Tests 02/01/20 16:57 Vital Signs: Vital Signs Date Time Temp Pulse Resp B/P (MAP) Pulse Ox O2 Delivery O2 Flow Rate FiO2 02/01/20 15:27 97.0 77 16 114/75 (88) 100 Room Air 97.0 EKG: EKG: [] Heart Score: Risk Factors: Risk Factors: DM, Current or recent (<one month) smoker, HTN, HLP, family history of CAD, obesity. Risk Scores: Score 0 - 3: 2.5% MACE over next 6 weeks - Discharge Home Score 4 - 6: 20.3% MACE over next 6 weeks - Admit for Clinical Observation Score 7 - 10: 72.7% MACE over next 6 weeks - Early Invasive Strategies Radiology/Procedures: Radiology/Procedures: [][facility] [address] [place] [address] IMAGING REPORT Signed PATIENT: HARIKA FALCON ACCOUNT: [id number] : 1975 LOCATION: ER AGE: 45 SEX: M EXAM STATUS: REG ER ORD. PHYSICIAN: MELISSA ZAVALA MD REASON: sudden headache PROCEDURE: CT HEAD WO CONTRAST EXAM: CT Head without IV contrast CLINICAL HISTORY: sudden headache COMPARISON: None. TECHNIQUE: Routine CT of the head without contrast. PQRS compliance statement - One or more of the following individualized dose reduction techniques were utilized for this study: 1. Automated exposure control 2. Adjustment of the mA and/or kV according to patient size 3. Use of iterative reconstruction technique FINDINGS: There is no evidence of hemorrhage, mass or extra-axial fluid collection. Carlos-white differentiation is maintained with no evidence of edema. There is no mass effect or shift of the intracranial structures. The ventricles, basilar cisterns and cortical sulci are normal in size and configuration for the patients stated age. The cerebellum and brainstem are unremarkable. The calvarium demonstrates no evidence of fracture or focal lesion. There is normal aeration of the visualized paranasal sinuses and mastoid air cells. The visualized portions of the orbits are normal. IMPRESSION: No evidence for acute intracranial process. Electronically signed by: Herson Tiwari MD (02/01/2020 7:08 PM) [facility] DICTATED and SIGNED BY: HERSON TIWARI MD DATE: 02/01/20 190 [facility] [address] [place] [address] IMAGING REPORT Signed PATIENT: HARIKA FALCON ACCOUNT: [id number] : 1975 LOCATION: ER AGE: 45 SEX: M EXAM STATUS: REG ER ORD. PHYSICIAN: MELISSA ZAVALA MD REASON: cough, covid? PROCEDURE: CHEST AP ONLY Exam: Chest one view INDICATION: Cough, Covid TECHNIQUE: Frontal view of the chest Comparisons: 01/22/2020 FINDINGS: The cardiomediastinal silhouette and pulmonary vessels are within normal limits. The lung and pleural spaces are clear. IMPRESSION: No acute cardiopulmonary process. Electronically signed by: Dilshad Moreno MD (02/01/2020 5:39 PM) [id number] DICTATED and SIGNED BY: DILSHAD MORENO MD DATE: 02/01/20 1739 Course & Med Decision Making: Course & Med Decision Making Pertinent Labs and Imaging studies reviewed. (See chart for details) Patient is a 45-year-old male who presents to the emergency room with headache, URI symptoms, shortness of breath, nausea. This does raise concern for possible coronavirus 19. Chest x-ray and risk stratifying labs will be ordered. Patient will be given aspirin, IV fluids, steroids. On re-evaluation patient admits to using cocaine today and then developing severe headache with syncope. Will add CT head. Patient discussed with oncoming physician who will assume care. Received signout from Dr. Zavala regarding Mr. Lanza. Patient had some URI symptoms concerning for coronavirus and has been swabbed for this. Later in the process patient used cocaine and had a headache afterwards. On my assessment patient sleeping comfortably no acute distress. CT the head is negative. Patient stable for discharge. Patient was instructed to stop using cocaine and have COVID-19 precautions. Dragon Disclaimer: Dragon Disclaimer: This electronic medical record was generated, in whole or in part, using a voice recognition dictation system. Departure Departure Impression: Primary Impression: Shortness of breath Additional Impressions: Headache Acid reflux Cocaine abuse Disposition: 01 DC HOME SELF CARE/HOMELESS Condition: STABLE Referrals: RACQUEL BHAT MD (PCP) 2-3 DAYS Patient Instructions: Cocaine Abuse-Brief, General Headache Without Cause, Viral Syndrome Additional Instructions: EMERGENCY DEPARTMENT GENERAL DISCHARGE INSTRUCTIONS THANK YOU for coming to [facility] Emergency Department (ED) today and trusting us with your care. We trust that you had a positive experience in our Emergency Department. If you wish to speak to the department Management you can contact the supervisor cigarette making department at . YOUR FOLLOW UP INSTRUCTIONS ARE FOLLOWS: Do you have a private doctor? If you do not have a private doctor, please ask for a resource list of physicians or clinics that may be able to assist you with follow up care. The Emergency Physician has interpreted your x-rays. The X-ray specialist will also review them. If there is a change in the findings you will be notified in 48 hours when at all possible. A lab test or lab culture may have been done, your results will be reviewed and you will be notified if you need a change in treatment. ADDITIONAL INSTRUCTIONS AND INFORMATION Your care today has been supervised by a physician who is specially trained in emergency care. Many problems require more than one evaluation for a complete diagnosis and treatment. We recommend that you schedule your follow up appointment as recommended to ensure complete treatment of your illness or injury. If you are unable to obtain follow up care and continue to have a problem, or if your condition worsens we recommend that you return to the ED. We are not able to safely determine your condition over the phone nor are we able to give sound medical advice over the phone. For these safety reasons, if you call for medical advice we will ask you to come to the ED for further evaluation If you have any questions regarding these discharge instructions please call the ED at . SAFETY INFORMATION In the interest of safety, wellness, and injury prevention; we encourage you to wear your seatbelt, if you smoke; quit smoking, and we encourage your family to use protective helmet for bicycling and other sporting events that present an increased risk for head injury. IF YOUR SYMPTOMS WORSEN OR NEW SYMPTOMS DEVELOP, OR YOU HAVE CONCERNS ABOUT YOUR CONDITION; OR IF YOUR CONDITION WORSENS WHILE YOU ARE WAITING FOR YOUR FOLLOW UP APPOINTMENT; EITHER CONTACT YOUR PRIMARY CARE DOCTOR, THE PHYSICIAN WHOSE NAME AND NUMBER YOU WERE GIVEN, OR RETURN TO THE ED IMMEDIATELY. You have been tested for or diagnosed with COVID-19. It is an infection caused by a new type of coronavirus. COVID-19 will cause cold-like or mild flu symptoms in most. It can cause more severe symptoms like problems breathing in some. There is no treatment for COVID-19. The body will clear the infection over time. Self-care will help to ease discomfort. Steps to Take: Self-Care Rest as needed. Healthy habits may help you feel better. Steps include: Choose healthy foods including fruits and vegetables. Drink water throughout the day. Get plenty of sleep each night. If you smoke, try to quit. It may ease breathing. Avoid alcohol. Keep Others Healthy The virus can spread to others. Droplets are released every time you sneeze or cough. The droplets can get into the mouth, nose, or eyes of people near you and lead to infection. To lower the chances of spreading COVID-19 to others: Stay at home until your doctor has said it is safe to leave. If you tested positive this will mean staying isolated until both of the following are true: At least 7 days have passed since the start of illness. You are free of fever for at least 72 hours without the use of medicine. During this time: - Avoid public areas, events, or transportation. Do not return to work or school until your doctor has said it is safe to do so. - Call ahead if you need to go to a medical center. Let them know you may have COVID-19. It will help them guide you where to go. They may also ask you to wear a facemask when you come to the office. - If you call for emergency medical services, let them know you may have COVID- 19. While at home: - Try to avoid close contact with others. Stay about 6 feet away. - If possible, spend most of your time in a separate room from others. - Use a face mask if you will be in close contact with others such as sharing a room or vehicle. - Have someone wipe down common surfaces in the home. Use household it trainee every day on areas like doorknobs, counters, or sinks. - Cough or sneeze into a tissue. Throw the tissue away right after use. If a tissue is not available, cough or sneeze into your elbow. - Wash your hands often. Wash them after sneezing or coughing. Use soap and water and wash for at least 20 seconds. Alcohol based hand drycleaner can be used if soap and water is not available. - Do not prepare food for others. Avoid sharing personal items like forks, spoons, or toothbrushes. - Avoid close contact with pets while you are sick. There is no evidence of the virus passing to pets. This is a safety step until more is known about this virus. Isolation can be frustrating. Social interaction can help. Keep in touch with friends and family through phone and tech options. You can still interact with others in your home, just keep a safe distance of about 6 feet. Follow-up: Your doctors office will check in with you to see if there are any changes in your health. You may be asked to keep track of symptoms to share with them. They will also let you know when you are clear to be in public again. Problems to Look Out For: Contact your doctor if your recovery is not going as you expect. Get emergency care if you have problems such as: - Trouble breathing - Nonstop chest pain or pressure - Changes in awareness, confusion, or problems waking - Lips or face have bluish color - Worsening of symptoms If you think you have an emergency, call for emergency medical services right away. As taken from [facility] Health Problem Qualifiers MELISSA ZAVALA MD Feb 01, 2020 17:35 JAZMÍN CANTU MD Feb 01, 2020 19:52
--- NOTE | 2020-02-01 17:42 | RAD ---
Exam: Chest one view INDICATION: Cough, Covid TECHNIQUE: Frontal view of the chest Comparisons: 01/22/2020 FINDINGS: The cardiomediastinal silhouette and pulmonary vessels are within normal limits. The lung and pleural spaces are clear. IMPRESSION: No acute cardiopulmonary process. Electronically signed by: Dilshad Garduno MD (02/01/2020 5:39 PM) [id number]
[2020-02-01] MEDS ORDERED: diphenhydrAMINE HCL 25 MG CAPSULE PO ONE (17:45)
[2020-02-01] MEDS ORDERED: PROCHLORPERAZINE 10 MG/2 ML VIAL. IV ONE (17:45)
[2020-02-01] MEDS ORDERED: ACETAMINOPHEN 325 MG TABLET. PO ONE (18:00)
[2020-02-01] MEDS ORDERED: diazePAM 5 MG TABLET PO ONE (18:15)
--- NOTE | 2020-02-01 18:40 | EKG ---
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
[2020-02-01 19:01] VITALS: BP 104/56
--- NOTE | 2020-02-01 19:11 | RAD ---
EXAM: CT Head without IV contrast CLINICAL HISTORY: sudden headache COMPARISON: None. TECHNIQUE: Routine CT of the head without contrast. PQRS compliance statement - One or more of the following individualized dose reduction techniques were utilized for this study: 1. Automated exposure control 2. Adjustment of the mA and/or kV according to patient size 3. Use of iterative reconstruction technique FINDINGS: There is no evidence of hemorrhage, mass or extra-axial fluid collection. Carlos-white differentiation is maintained with no evidence of edema. There is no mass effect or shift of the intracranial structures. The ventricles, basilar cisterns and cortical sulci are normal in size and configuration for the patients stated age. The cerebellum and brainstem are unremarkable. The calvarium demonstrates no evidence of fracture or focal lesion. There is normal aeration of the visualized paranasal sinuses and mastoid air cells. The visualized portions of the orbits are normal. IMPRESSION: No evidence for acute intracranial process. Electronically signed by: Herson Coyle MD (02/01/2020 7:08 PM) CAN
--- NOTE | 2020-02-04 18:04 | NUR ---
IP: Informed pt of negative COVID test. Pt verbalized understanding.
== END 2020-02-01 20:15 | disposition home or self-care (01) ==
LOC: ER 14:43
DX: R06.02 Shortness of breath (principal); Z20.828 Contact with and (suspected) exposure to other viral communicable diseases; R51.9 Headache, unspecified; K21.9 Gastro-esophageal reflux disease without esophagitis; F14.10 Cocaine abuse, uncomplicated; R05 Cough
CPT/HCPCS: 36415; 70450; 71045; 80053; 82550; 83615; 83880; 84484; 85025; 85379; 86140; 93005; 96361; 96374; 96375; 99285; C9803; J0780; J1100; J7030; Q0163; U0003; 96365

== ENCOUNTER 2020-07-11 04:21 | Emergency (ER) | payer OTHER ==
[~2020-07-11] VITALS: Ht 172.7 cm; Wt 72.7 kg
[2020-07-11] MEDS ORDERED: ONDANSETRON PF 4 MG/2 ML VIAL. IVP ONE (04:45)
[2020-07-11] MEDS ORDERED: IV NORMAL SALINE 1000ML BAG 1,000 ML IV SCH (04:45)
[2020-07-11] MEDS ORDERED: FAMOTIDINE 20 MG/2 ML VIAL IVP ONE (04:45)
[2020-07-11 04:59] LABS: BASO % 0 % (0-3); EOS % 0 % (0-3); HEMATOCRIT 39.1 % (39.0-53.0); HEMOGLOBIN 13.3 g/dL (13.0-17.5); LYMPH # 1.1 x10^3/uL (1.0-4.8); LYMPH % 11 % (24-48); MEAN CORPUSCULAR HEMOGLOBIN 30 pg (25-35); MEAN CORPUSCULAR HGB CONC 34 g/dL (31-37); MEAN CORPUSCULAR VOLUME 89 fL (79-100); MONO # 0.5 x10^3/uL (0.0-1.1); MONO % 6 % (0-9); NEUT # 8.1 x10^3/uL (1.8-7.7); NEUT % 83 % (31-73); PLATELET COUNT 199 x10^3/uL (140-400); RED BLOOD COUNT 4.41 x10^6/uL (4.30-5.70); RED CELL DISTRIBUTION WIDTH 12.9 % (11.5-14.5); WHITE BLOOD COUNT 9.7 x10^3/uL (4.0-11.0)
[2020-07-11 05:00] LABS: BILIRUBIN,URINE NEGATIVE (NEG); CLARITY,URINE CLEAR; COLOR,URINE YELLOW; NITRITE,URINE NEGATIVE (NEG); PH,URINE 6.5 (<5.0-8.0); PROTEIN,URINE NEGATIVE (NEG-TRACE); UROBILINOGEN,URINE 0.2 mg/dL (0.2 mg/dL)
[2020-07-11 05:11] LABS: BACTERIA,URINE 0 /HPF (0-FEW)
--- NOTE | 2020-07-11 05:13 | RAD ---
XR CHEST 1V Clinical History: Reason: CHEST PAIN, SOB / Spl. Instructions: / History: Technique: AP view of the chest was obtained at 07/11/2020 4:51 AM. Comparison: February 01, 2020. Findings: The cardiomediastinal silhouette is normal. The pulmonary vasculature is normal. The lungs and pleura l margins are clear. Impression: No evidence of an acute cardiopulmonary process. Electronically signed by: Danny Smart III, MD (07/11/2020 5:11 AM) [facility]
[2020-07-11 05:29] LABS: CALCIUM 8.8 mg/dL (8.5-10.1); CREATININE 0.7 mg/dL (0.7-1.3); GFR 123.1; POTASSIUM 3.9 mmol/L (3.5-5.1)
[2020-07-11 05:33] LABS: ALBUMIN 4.7 g/dL (3.4-5.0); ALBUMIN/GLOBULIN RATIO 1.3 (1.0-1.7); MAGNESIUM 1.8 mg/dL (1.8-2.4); TOTAL BILIRUBIN 0.3 mg/dL (0.2-1.0); TOTAL PROTEIN 8.2 g/dL (6.4-8.2)
[2020-07-11 05:33] LABS: BARBITURATES NEG (NEG); BENZODIAZEPINES NEG (NEG); CANNABINOIDS NEG (NEG); COCAINE POS (NEG); METHADONE NEG (NEG); OPIATES NEG (NEG); PHENCYCLIDINE NEG (NEG)
[2020-07-11 05:34] LABS: AMPHETAMINE/METHAMPHETAMINE NEG (NEG)
--- NOTE | 2020-07-11 05:54 | PHYS DOC ---
Past Medical History Past Medical History: GERD Past Surgical History: No Surgical History Smoking Status: Never Smoker Alcohol Use: None Drug Use: None Adult General Chief Complaint Chief Complaint: MULTIPLE COMPLAINTS HPI HPI Patient is a 45 year old male no significant pathologic presents emergency department complaining new onset of chest pain. Patient states that approximate 3 hours prior to arrival he started having new onset of left anterior chest pain radiation to left shoulder as well as new onset of nausea. Denies any associated vomiting. Does complain of some sensation of shortness of breath primarily when he takes deep breath. Denies any fevers, chills or cough or recent sick contacts. Does admit to using a large amount of cocaine last night because he states that he was been stressed out by home life Review of Systems Review of Systems Constitutional: Denies fever or chills [] Eyes: Denies change in visual acuity, redness, or eye pain [] HENT: Denies nasal congestion or sore throat [] Respiratory: Denies cough or shortness of breath [] Cardiovascular: No additional information not addressed in HPI [] GI: Denies abdominal pain, nausea, vomiting, bloody stools or diarrhea [] : Denies dysuria or hematuria [] Musculoskeletal: Denies back pain or joint pain [] Integument: Denies rash or skin lesions [] Neurologic: Denies headache, focal weakness or sensory changes [] Endocrine: Denies polyuria or polydipsia [] All other systems were reviewed and found to be within normal limits, except as documented in this note. Current Medications Current Medications Current Medications Medications (Trade) Dose Ordered Sig/Cresencio Start Time Stop Time Status Last Admin Dose Admin Famotidine (Pepcid Vial) 20 mg 1X ONCE 07/11/20 04:45 07/11/20 04:46 DC 07/11/20 05:03 20 MG Lorazepam (Ativan Inj) 0.5 mg 1X ONCE 07/11/20 05:00 07/11/20 05:01 DC 07/11/20 05:03 0.5 MG Ondansetron HCl (Zofran) 4 mg 1X ONCE 07/11/20 04:45 07/11/20 04:46 DC 07/11/20 05:03 4 MG Sodium Chloride 1,000 ml @ 1,000 mls/hr Q1H 07/11/20 04:45 07/11/20 05:45 DC 07/11/20 05:03 1,000 MLS/HR Allergies Allergies Allergies Coded Allergies Type Severity Reaction Last Updated Verified No Known Drug Allergies 04/29/17 No Physical Exam Physical Exam Constitutional: Well developed, well nourished, no acute distress, non-toxic appearance. [] HENT: Normocephalic, atraumatic, bilateral external ears normal, oropharynx moist, no oral exudates, nose normal. [] Eyes: PERRLA, EOMI, conjunctiva normal, no discharge. [] Neck: Normal range of motion, no tenderness, supple, no stridor. [] Cardiovascular:Heart rate regular rhythm, no murmur [] Lungs & Thorax: Bilateral breath sounds clear to auscultation [] Abdomen: Bowel sounds normal, soft, no tenderness, no masses, no pulsatile masses. [] Skin: Warm, dry, no erythema, no rash. [] Back: No tenderness, no CVA tenderness. [] Extremities: No tenderness, no cyanosis, no clubbing, ROM intact, no edema. [] Neurologic: Alert and oriented X 3, normal motor function, normal sensory function, no focal deficits noted. [] Psychologic: Affect normal, judgement normal, mood normal. [] Current Patient Data Lab Values Laboratory Tests Test 07/11/20 04:35 07/11/20 04:40 White Blood Count 9.7 x10^3/uL (4.0-11.0) Red Blood Count 4.41 x10^6/uL (4.30-5.70) Hemoglobin 13.3 g/dL (13.0-17.5) Hematocrit 39.1 % (39.0-53.0) Mean Corpuscular Volume 89 fL (79-100) Mean Corpuscular Hemoglobin 30 pg (25-35) Mean Corpuscular Hemoglobin Concent 34 g/dL (31-37) Red Cell Distribution Width 12.9 % (11.5-14.5) Platelet Count 199 x10^3/uL (140-400) Neutrophils (%) (Auto) 83 % (31-73) H Lymphocytes (%) (Auto) 11 % (24-48) L Monocytes (%) (Auto) 6 % (0-9) Eosinophils (%) (Auto) 0 % (0-3) Basophils (%) (Auto) 0 % (0-3) Neutrophils # (Auto) 8.1 x10^3/uL (1.8-7.7) H Lymphocytes # (Auto) 1.1 x10^3/uL (1.0-4.8) Monocytes # (Auto) 0.5 x10^3/uL (0.0-1.1) Eosinophils # (Auto) 0.0 x10^3/uL (0.0-0.7) Basophils # (Auto) 0.0 x10^3/uL (0.0-0.2) Urine Collection Type Void Urine Color Yellow Urine Clarity Clear Urine pH 6.5 (<5.0-8.0) Urine Specific [place] 1.010 (1.000-1.030) Urine Protein Negative mg/dL (NEG-TRACE) Urine Glucose (UA) 100 mg/dL (NEG) Urine Ketones (Stick) Negative mg/dL (NEG) Urine Blood Negative (NEG) Urine Nitrite Negative (NEG) Urine Bilirubin Negative (NEG) Urine Urobilinogen Dipstick 0.2 mg/dL (0.2 mg/dL) Urine Leukocyte Esterase Negative (NEG) Urine RBC 3-5 /HPF (0-2) Urine WBC 1-4 /HPF (0-4) Urine Squamous Epithelial Cells Few /LPF Urine Bacteria 0 /HPF (0-FEW) Sodium Level 140 mmol/L (136-145) Potassium Level 3.9 mmol/L (3.5-5.1) Chloride Level 101 mmol/L (98-107) Carbon Dioxide Level 27 mmol/L (21-32) Anion Gap 12 (6-14) Blood Urea Nitrogen 12 mg/dL (8-26) Creatinine 0.7 mg/dL (0.7-1.3) Estimated GFR (Cockcroft-Gault) 123.1 BUN/Creatinine Ratio 17 (6-20) Glucose Level 124 mg/dL (70-99) H Calcium Level 8.8 mg/dL (8.5-10.1) Magnesium Level 1.8 mg/dL (1.8-2.4) Total Bilirubin 0.3 mg/dL (0.2-1.0) Aspartate Amino Transferase (AST) 28 U/L (15-37) Alanine Aminotransferase (ALT) 60 U/L (16-63) Alkaline Phosphatase 87 U/L (46-116) Troponin I Quantitative < 0.017 ng/mL (0.000-0.055) Total Protein 8.2 g/dL (6.4-8.2) Albumin 4.7 g/dL (3.4-5.0) Albumin/Globulin Ratio 1.3 (1.0-1.7) Lipase 77 U/L (73-393) Urine Opiates Screen Neg (NEG) Urine Methadone Screen Neg (NEG) Urine Barbiturates Neg (NEG) Urine Phencyclidine Screen Neg (NEG) Urine Amphetamine/Methamphetamine Neg (NEG) Urine Benzodiazepines Screen Neg (NEG) Urine Cocaine Screen Pos (NEG) Urine Cannabinoids Screen Neg (NEG) Urine Ethyl Alcohol Neg (NEG) Laboratory Tests 07/11/20 04:35 Laboratory Tests 07/11/20 04:35 EKG EKG [] Radiology/Procedures Radiology/Procedures [] Course & Med Decision Making Course & Med Decision Making Pertinent Labs and Imaging studies reviewed. (See chart for details) 45-year-old male presenting emergency department likely suffering side effects from significant cocaine use. EKG was obtained without any evidence of ST elevation VA. Troponin negative. Patient symptoms resolved with Ativan. At this time will discharge home. I counseled the patient on the significance of cocaine use and potential dangers. Patient verbalized understanding agreement discharge plan Dragon Disclaimer Dragon Disclaimer This electronic medical record was generated, in whole or in part, using a voice recognition dictation system. Departure Departure Impression: Primary Impression: Chest pain Disposition: HOME / SELF CARE / HOMELESS Condition: GOOD Referrals: SON ROMAN MD Patient Instructions: Chest Pain (Nonspecific) Additional Instructions: EMERGENCY DEPARTMENT GENERAL DISCHARGE INSTRUCTIONS Thank you for coming to [facility] Emergency Department (ED) today and trusting us with you care. We trust that you had a positive experience in our Emergency Department. If you wish to speak to the department management, you may call the Director at [phone]. YOUR FOLLOW UP INSTRUCTIONS ARE FOLLOWS: 1. Do you have a private Doctor? If you do not have a private doctor, please ask for a resource list of physicians or clinics that may be able to assist you with follow up care. 2. The Emergency Physicain has interpreted your x-rays. The X-Ray specialist will also review them. If there is a change in the findings, you will be notified in 48 hours when at all possible. 3. A lab test or culture has been done, your results will be reviewed and you will be notified if you need a change in treatment. ADDITIONAL INSTRUCTIONS AND INFORMATION: 1. Your care today has been supervised by a physician who is specially trained in emergency care. Many problems require more than one evaluation for a complete diagnosis and treatment. We recommend that you schedule your follow up appointment as recommended to ensure complete treatment of you illness or injury. If you are unable to obtain follow up care and continue to have a problem, or if your condition worsens, we recommend that you return to the ED. 2. We are not able to safely determine your condition over the phone nor are we able to give sound medical advice over the phone. For these safety reasons, if you call for medical advice we will ask you to come to the ED for further evaluation. 3. If you have any questions regarding these discharge instructions please call the ED at [phone]. SAFETY INFORMATION: In the interest of safety, wellness, and injury prevention; we encourage you to wear your sealbelt, if you smoke; quite smoking, and we encourage family to use a protective helmet for bicycling and other sporting events that present an increased risk for head injury. IF YOUR SYMPTOMS WORSEN OR NEW SYMPTOMS DEVELOP, OR YOU HAVE CONCERNS ABOUT YOUR CONDITION; OR IF YOUR CONDITION WORSENS WHILE YOU ARE WAITING FOR YOUR FOLLOW UP APPOINTMENT; EITHER CONTACT YOUR PRIMARY CARE DOCTOR, THE PHYSICIAN WHOSE NAME AND NUMBER YOU WERE GIVEN, OR RETURN TO THE ED IMMEDIATELY. JIGNA CHISHOLM MD Jul 11, 2020 05:54
[2020-07-11] MEDS ORDERED: ASPIRIN ENTERIC COATED 81 MG TABLET.DR. PO ONE (06:00)
[2020-07-11] MEDS ORDERED: ASPIRIN 325 MG TABLET PO ONE (06:00)
--- NOTE | 2020-07-11 06:28 | EKG ---
[facility] [address] [place] [address] Test Date: 2020-07-11 Test Time: 04:29:04 Pat Name: HARIKA FALCON Department: Room: Gender: M Rn Neurosurgical: : 1975 Requested By: JIGNA CHISHOLM Order Number: [id number] Reading MD: Measurements Intervals [place] Rate: 76 P: 51 GA: 142 QRS: 57 QRSD: 82 T: 38 QT: 372 QTc: 423 Interpretive Statements SINUS RHYTHM LEFT ATRIAL ABNORMALITY ABNORMAL ECG RI6.01 No previous ECG available for comparison
[2020-07-11 06:37] VITALS: BP 103/65
== END 2020-07-11 06:40 | disposition home or self-care (01) ==
LOC: ER 04:21
DX: R07.89 Other chest pain (principal); R06.02 Shortness of breath; R11.0 Nausea; K21.9 Gastro-esophageal reflux disease without esophagitis; F14.90 Cocaine use, unspecified, uncomplicated
CPT/HCPCS: 36415; 71045; 80053; 80307; 81001; 83690; 83735; 84484; 85025; 93005; 96361; 96374; 96375; 99285; J2060; J2405; J3490; J7030

== ENCOUNTER 2020-09-13 15:28 | Inpatient (IN) | payer OTHER ==
[~2020-09-13] VITALS: Ht 175.3 cm; Wt 61.1 kg
[2020-09-13] MEDS ORDERED: fentaNYL PF VIAL 100 MCG/2 ML VIAL IVP ONE (16:30)
[2020-09-13] MEDS ORDERED: ONDANSETRON PF 4 MG/2 ML VIAL. IVP ONE (16:30)
[2020-09-13] MEDS ORDERED: CONTRAST GIVEN. MC PRN (16:45)
[2020-09-13] MEDS ORDERED: IV NORMAL SALINE 1000ML BAG 1,000 ML IV ONE ×2 (16:45→18:00)
[2020-09-13] MEDS ORDERED: IOHEXOL 300 MG/ML 100ML VIAL. IV ONE (16:45)
--- NOTE | 2020-09-13 16:49 | RAD ---
Exam: CT head INDICATION: Numbness on right side with headache TECHNIQUE: Sequential axial images through the head were obtained without the administration of IV co ntrast. Exposure: One or more of the following in the visualized dose reduction techniques were utilized for this examination: 1. Automated exposure control 2. Adjustment of the MA and/or KV according to patient size 3. Use of iterative of reconstructive technique Comparisons: None FINDINGS: No focal parenchymal lesion or hemorrhage is identified. There is no midline shift or sulcal effaceme nt. No acute vascular territory infarction is identified. Wetzel-white distinction is preserved. The ventricular system is within normal limits without compression hydrocephalus. The basal cisterns are well maintained. The visualized portions of the paranasal sinuses and mastoid air cells are well-pneumatized. No acute fractures. IMPRESSION: No acute intracranial abnormality. Electronically signed by: Dilshad Garduno MD (09/13/2020 4:47 PM) [facility]
--- NOTE | 2020-09-13 17:13 | RAD ---
Exam: CT of abdomen and pelvis with contrast INDICATION: Abdominal tenderness, left-sided pain TECHNIQUE: Sequential axial images through the abdomen and pelvis obtained following the administrati on of 75 mL of Isovue-370 IV contrast. Sagittal and coronal reformatted images were reconstructed fro m the axial data and reviewed. Exposure: One or more of the following in the visualized dose reduction techniques were utilized for this examination: 1. Automated exposure control 2. Adjustment of the MA and/or KV according to patient size 3. Use of iterative of reconstructive technique Comparisons: None FINDINGS: Heart size is normal. No pericardial visualized lung bases are clear. No pleural effusion. Liver, spleen, pancreas, gallbladder and adrenals are unremarkable. No perinephric inflammation or hydronephrosis. No renal or ureteral calculi are identified. Bladder is decompressed not well evaluated. Prostate is not enlarged. There is a soft tissue mass which is enhancing noted in the right hemiabdomen mesentery measuring theron roximately 5.0 x 4.1 cm. Large and small bowel are unremarkable. Appendix is normal. No free intra-abdominal air or fluid. No obstruction. Abdominal aorta has a normal course and caliber. Abdominal vasculature is patent. No enlarged intra-abdominal lymph nodes are identified. No suspicious osseous lesions or acute fractures. IMPRESSION: There is a 5.0 x 4.1 cm soft tissue mass centered within the mesentery of the right hemiabdomen. This is nonspecific in etiology differential considerations include GIST. Correlate for malignancy histor y. MRI of the abdomen without and with contrast would better evaluate. Electronically signed by: Dilshad Garduno MD (09/13/2020 5:11 PM) [facility]
--- NOTE | 2020-09-13 17:23 | PHYS DOC ---
Past Medical History Past Medical History: Anxiety, GERD Past Surgical History: No Surgical History Smoking Status: Current Every Day Smoker Alcohol Use: None Drug Use: None General Adult EDM: Chief Complaint: MULTIPLE COMPLAINTS HPI: HPI: Patient is a 45 year old Male who presents with this morning began having right side of the face, right arm and leg numbness or heaviness and tingling that he rates about a 4 out of 10. He states that he also had some nausea and is having left-sided abdominal pain with pain with urination also. This all started 2 hours prior to arrival. Patient denies fever, vomiting, diarrhea, constipation, cough, focal weakness, vision change, syncope, dizziness. He has a history of smoking, anxiety, GERD. Patient admits to smoking cocaine yesterday. He states he did this once before a couple years ago and ended up in the hospital. Patient states that he has not slept all night. Review of Systems: Review of Systems: Constitutional: Denies fever or chills. [] Eyes: Denies change in visual acuity. [] HENT: Denies nasal congestion or sore throat. [] Respiratory: Denies cough or shortness of breath. [] Cardiovascular: Denies chest pain or edema. [] GI: + abdominal pain, +nausea, denies vomiting, bloody stools or diarrhea. [] : Denies dysuria. [] Musculoskeletal: Denies back pain or joint pain. [] Integument: Denies rash. [] Neurologic: + Right-sided headache, denies focal weakness or sensory changes. + Tingling and numbness to right side of face, arm and leg [] Endocrine: Denies polyuria or polydipsia. [] Lymphatic: Denies swollen glands. [] Psychiatric: Denies depression or anxiety. [] Heart Score: C/O Chest Pain: Yes HEART Score for Chest Pain: HEART Score for Chest Pain Response (Comments) Value History Slighlty/Non-Suspicious 0 ECG Normal 0 Age < 45 0 Risk Factors 1 or 2 Risk Factors 1 Troponin < Normal Limit 0 Total 1 Risk Factors: Risk Factors: DM, Current or recent (<one month) smoker, HTN, HLP, family history of CAD, obesity. Risk Scores: Score 0 - 3: 2.5% MACE over next 6 weeks - Discharge Home Score 4 - 6: 20.3% MACE over next 6 weeks - Admit for Clinical Observation Score 7 - 10: 72.7% MACE over next 6 weeks - Early Invasive Strategies Current Medications: Current Medications Medications (Trade) Dose Ordered Sig/[facility] Start Time Stop Time Status Last Admin Dose Admin Fentanyl Citrate (Fentanyl 2ml Vial) 50 mcg 1X ONCE 09/13/20 16:30 09/13/20 16:31 DC Info (CONTRAST GIVEN -- Rx MONITORING) 1 each PRN DAILY PRN 09/13/20 16:45 09/15/20 16:44 Iohexol (Omnipaque 300 Mg/ml) 75 ml 1X ONCE 09/13/20 16:45 09/13/20 16:46 DC 09/13/20 16:57 75 ML Ondansetron HCl (Zofran) 4 mg 1X ONCE 09/13/20 16:30 09/13/20 16:31 DC Sodium Chloride 1,000 ml @ 1,000 mls/hr 1X ONCE 09/13/20 16:45 09/13/20 17:44 Allergies: Allergies: Allergies Coded Allergies Type Severity Reaction Last Updated Verified No Known Drug Allergies 04/29/17 No Physical Exam: PE: Constitutional: Well developed, well nourished, no acute distress, non-toxic appearance. [] HENT: Normocephalic, atraumatic, bilateral external ears normal, oropharynx moist, no oral exudates, nose normal. [] Eyes: PERRLA, EOMI, conjunctiva normal, no discharge. [] Neck: Normal range of motion, no tenderness, supple, no stridor. [] Cardiovascular:Heart rate regular rhythm, no murmur [] Lungs & Thorax: Bilateral breath sounds clear to auscultation [] Abdomen: Bowel sounds normal, soft, no tenderness, no masses, no pulsatile masses. [] Skin: Warm, dry, no erythema, no rash. [] Back: No tenderness, no CVA tenderness. [] Extremities: No tenderness, no cyanosis, no clubbing, ROM intact, no edema. [] Neurologic: Alert and oriented X 3, normal motor function, normal sensory function, no focal deficits noted. [] Psychologic: Affect normal, judgement normal, mood normal. Anxious [] Current Patient Data: Labs: Laboratory Tests Test 09/13/20 16:09 Glucose (Fingerstick) 91 mg/dL (70-99) Vital Signs: Vital Signs Date Time Temp Pulse Resp B/P (MAP) Pulse Ox O2 Delivery O2 Flow Rate FiO2 09/13/20 15:50 99.2 97 20 122/76 (91) 100 Room Air 99.2 EKG: EK and read by Dr. Castro as a sinus tachycardia no STEMI Radiology/Procedures: Radiology/Procedures: [] Impression: [id number] [place] [id number] IMAGING REPORT Signed PATIENT: HARIKA FALCON ACCOUNT: [id number] : 1975 LOCATION: ER AGE: 45 SEX: M EXAM STATUS: REG ER ORD. PHYSICIAN: TESSY ZAMBRANO APRN REASON: numbness on right side with headache PROCEDURE: CT HEAD WO CONTRAST Exam: CT head INDICATION: Numbness on right side with headache TECHNIQUE: Sequential axial images through the head were obtained without the administration of IV contrast. Exposure: One or more of the following in the visualized dose reduction techniques were utilized for this examination: 1. Automated exposure control 2. Adjustment of the MA and/or KV according to patient size 3. Use of iterative of reconstructive technique Comparisons: None FINDINGS: No focal parenchymal lesion or hemorrhage is identified. There is no midline shift or sulcal effacement. No acute vascular territory infarction is identified. Wetzel-white distinction is preserved. The ventricular system is within normal limits without compression hydrocephal us. The basal cisterns are well maintained. The visualized portions of the paranasal sinuses and mastoid air cells are well-pneumatized. No acute fractures. IMPRESSION: No acute intracranial abnormality. Electronically signed by: Dilshad Moreno MD (09/13/2020 4:47 PM) [facility] DICTATED and SIGNED BY: DILSHAD MORENO MD DATE: 09/13/20 [id number] [id number] [place] [address] IMAGING REPORT Signed PATIENT: HARIKA FALCON ACCOUNT: [id number] : 1975 LOCATION: ER AGE: 45 SEX: M EXAM STATUS: REG ER ORD. PHYSICIAN: TESSY ZAMBRANO APRN REASON: abd tenderness, left sided pain PROCEDURE: CT ABD PELV W/ IV CONTRST ONLY Exam: CT of abdomen and pelvis with contrast INDICATION: Abdominal tenderness, left-sided pain TECHNIQUE: Sequential axial images through the abdomen and pelvis obtained following the administration of 75 mL of Isovue-370 IV contrast. Sagittal and coronal reformatted images were reconstructed from the axial data and reviewed. Exposure: One or more of the following in the visualized dose reduction techniques were utilized for this examination: 1. Automated exposure control 2. Adjustment of the MA and/or KV according to patient size 3. Use of iterative of reconstructive technique Comparisons: None FINDINGS: Heart size is normal. No pericardial visualized lung bases are clear. No pleural effusion. Liver, spleen, pancreas, gallbladder and adrenals are unremarkable. No perinephric inflammation or hydronephrosis. No renal or ureteral calculi are identified. Bladder is decompressed not well evaluated. Prostate is not enlarged. There is a soft tissue mass which is enhancing noted in the right hemiabdomen mesentery measuring approximately 5.0 x 4.1 cm. Large and small bowel are unremarkable. Appendix is normal. No free intra- abdominal air or fluid. No obstruction. Abdominal aorta has a normal course and caliber. Abdominal vasculature is patent. No enlarged intra-abdominal lymph nodes are identified. No suspicious osseous lesions or acute fractures. IMPRESSION: There is a 5.0 x 4.1 cm soft tissue mass centered within the mesentery of the right hemiabdomen. This is nonspecific in etiology differential considerations include GIST. Correlate for malignancy history. MRI of the abdomen without and with contrast would better evaluate. Electronically signed by: Dilshad Moreno MD (09/13/2020 5:11 PM) [facility] DICTATED and SIGNED BY: DILSHAD MORENO MD DATE: 09/13/20 [id number] [facility] [address] [place], [place] [id number] IMAGING REPORT Signed PATIENT: HARIKA FALCON ACCOUNT: [id number] : 1975 LOCATION: ER AGE: 45 SEX: M EXAM STATUS: REG ER ORD. PHYSICIAN: TESSY ZAMBRANO APRN REASON: neuro symptoms PROCEDURE: PORTABLE CHEST 1V EXAM: XR CHEST 1V 09/13/2020 4:40 PM CLINICAL INDICATION: Neuro symptoms COMPARISON: Chest radiograph 07/11/2020 TECHNIQUE: AP upright view of the chest FINDINGS: The heart and mediastinum are normal. Lungs are well-expanded and clear. No consolidation, pleural effusion, or pneumothorax. Pulmonary vascularity is normal. The thoracic skeleton is intact. There is contrast in the left kidney from recent CT scan. IMPRESSION: No acute cardiopulmonary abnormality. Electronically signed by: Madeleine Fuchs MD (09/13/2020 5:36 PM) [id number] DICTATED and SIGNED BY: MADELEINE FUCHS MD DATE: 09/13/20 [id number] 0 Course & Med Decision Making: Course & Med Decision Making Pertinent Labs and Imaging studies reviewed. (See chart for details) See HPI. Patient is having left sided abdominal tenderness with palpation. Abdomen is otherwise soft and nontender. No CVA tenderness. Denies concern for sexually transmitted disease or penile discharge. He had also stated that at times he feels like his heart is beating fast. His EKG just show a sinus tachycardia at 102. There is no STEMI. Only thing that was abnormal and an NIH scale was less than sensation on the right arm and leg. Patient states that he only has right sided headache when he closes his eyes. He is afebrile. Ambulatory to the ED room and ambulatory into the ED. He is moving all of his extremities equally with equal strengths. Skin pink warm and dry. He is alert and oriented x4. Speaks in full clear sentences. Lungs are clear to auscultation all lobes. Patient admitted by Dr. Franco. [] Garth Disclaimer: Garth Disclaimer: This electronic medical record was generated, in whole or in part, using a voice recognition dictation system. Departure Departure Impression: Primary Impression: Abdominal mass Qualified Codes: R19.00 - Intra-abdominal and pelvic swelling, mass and lump, unspecified site Additional Impression: Cocaine use Disposition: ADMITTED INPATIENT Admitting Physician: BRENDA Condition: STABLE Referrals: NO PCP (PCP) TESSY ZAMBRANO APRN Sep 13, 2020 17:23
[2020-09-13 17:27] LABS: BILIRUBIN,URINE NEGATIVE (NEG); CLARITY,URINE CLEAR; COLOR,URINE YELLOW; NITRITE,URINE NEGATIVE (NEG); PROTEIN,URINE 30 mg/dL (NEG-TRACE); UROBILINOGEN,URINE 0.2 mg/dL (0.2 mg/dL)
[2020-09-13 17:28] LABS: BASO % 0 % (0-3); EOS % 0 % (0-3); HEMATOCRIT 37.5 % (39.0-53.0); HEMOGLOBIN 12.9 g/dL (13.0-17.5); LYMPH # 1.4 x10^3/uL (1.0-4.8); LYMPH % 20 % (24-48); MEAN CORPUSCULAR HEMOGLOBIN 31 pg (25-35); MEAN CORPUSCULAR HGB CONC 34 g/dL (31-37); MEAN CORPUSCULAR VOLUME 89 fL (79-100); MONO # 0.6 x10^3/uL (0.0-1.1); MONO % 8 % (0-9); NEUT % 71 % (31-73); PLATELET COUNT 184 x10^3/uL (140-400); RED BLOOD COUNT 4.19 x10^6/uL (4.30-5.70); RED CELL DISTRIBUTION WIDTH 13.1 % (11.5-14.5)
[2020-09-13 17:36] LABS: BARBITURATES NEG (NEG); BENZODIAZEPINES NEG (NEG); CANNABINOIDS NEG (NEG); COCAINE POS (NEG); METHADONE NEG (NEG); OPIATES NEG (NEG); PHENCYCLIDINE NEG (NEG)
[2020-09-13 17:37] LABS: CALCIUM 9.1 mg/dL (8.5-10.1); GFR 81.6; POTASSIUM 3.8 mmol/L (3.5-5.1)
--- NOTE | 2020-09-13 17:38 | RAD ---
EXAM: XR CHEST 1V 09/13/2020 4:40 PM CLINICAL INDICATION: Neuro symptoms COMPARISON: Chest radiograph 07/11/2020 TECHNIQUE: AP upright view of the chest FINDINGS: The heart and mediastinum are normal. Lungs are well-expanded and clear. No consolidatio n, pleural effusion, or pneumothorax. Pulmonary vascularity is normal. The thoracic skeleton is int act. There is contrast in the left kidney from recent CT scan. IMPRESSION: No acute cardiopulmonary abnormality. Electronically signed by: Madeleine Fuchs MD (09/13/2020 5:36 PM) [id number]
[2020-09-13 17:40] LABS: AMPHETAMINE/METHAMPHETAMINE NEG (NEG)
[2020-09-13 17:43] LABS: ALBUMIN 4.3 g/dL (3.4-5.0); ALBUMIN/GLOBULIN RATIO 1.3 (1.0-1.7); TOTAL BILIRUBIN 0.4 mg/dL (0.2-1.0); TOTAL PROTEIN 7.6 g/dL (6.4-8.2)
[2020-09-13 17:46] LABS: BACTERIA,URINE 0 /HPF (0-FEW); RBC,URINE OCC /HPF (0-2); WBC,URINE OCC /HPF (0-4)
--- NOTE | 2020-09-13 17:56 | EKG ---
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
[2020-09-13] MEDS ORDERED: ACETAMINOPHEN 500 MG TABLET PO ONE (22:30)
[2020-09-14] VITALS (7 sets, daily range): BP systolic 90–104; BP diastolic 48–69
[2020-09-14] MEDS ORDERED: ACET325T9 PO (01:26)
--- NOTE | 2020-09-14 08:53 | PDOC1 ---
History and Physical Date of Admission Date of Admission DATE: 09/14/20 TIME: 08:51 Identification/Chief Complaint Chief Complaint right upper abdominal discomfort, right facial numbness that has improved since admit History of Present Illness History of Present Illness 45 year old Male from [place] who presented to the ER began having right side of the face, right arm and leg numbness or heaviness and tingling that he rates about a 4 out of 10. He states that he also had some nausea and is having left-sided abdominal pain with pain with urination as well //. RIGHT leg paresthesia described as medial upper leg radiates to right ankle Patient denies fever, vomiting, diarrhea, constipation, cough, focal weakness, vision change, syncope, dizziness. He has a history of smoking, anxiety, GERD. Patient admits to smoking cocaine yesterday. he has lost 20 lbs in last year on CT Abdomen, a 5.0 x 4.1 cm soft tissue mass is centered within the mesentery of the right hemiabdomen. // differential considerations include GIST. Correlate for malignancy MRI of the abdomen would better evaluate. plan GI CONSULT / GEN SURGERY CONSULT Neurology consult Past Medical History Past Medical History Past Medical History Past Medical History Past Medical History: Anxiety, GERD Past Surgical History: No Surgical History Smoking Status: Current Every Day Smoker Alcohol Use: None Drug Use: None FHX COPD Cardiovascular: No pertinent hx Pulmonary: No pertinent hx GI: GERD Psych: Anxiety, Addictions Infectious disease: No pertinent hx ENT: No pertinent hx Renal/: No pertinent hx Endocrine: No pertinent hx Dermatology: No pertinent hx Family History Family History: Diabetes, Heart Disease Family History: Parent (father) Social History Smoke: <1 pack per day ALCOHOL: occassional Drugs: Cocaine Current Problem List Problem List Problems Medical Problems: (1) Abdominal mass Status: Acute (2) Cocaine use Status: Acute Current Medications Current Medications Current Medications Ondansetron HCl (Zofran) 4 mg 1X ONCE IVP Last administered on 09/13/20at 16:30; Start 09/13/20 at 16:30; Stop 09/13/20 at 16:31; Status DC Fentanyl Citrate (Fentanyl 2ml Vial) 50 mcg 1X ONCE IVP ; Start 09/13/20 at 16:30; Stop 09/13/20 at 16:31; Status DC Iohexol (Omnipaque 300 Mg/ml) 75 ml 1X ONCE IV Last administered on 09/13/20at 16:57; Start 09/13/20 at 16:45; Stop 09/13/20 at 16:46; Status DC Info (CONTRAST GIVEN -- Rx MONITORING) 1 each PRN DAILY PRN MC SEE COMMENTS; Start 09/13/20 at 16:45; Stop 09/15/20 at 16:44 Sodium Chloride 1,000 ml @ 1,000 mls/hr 1X ONCE IV Last administered on 09/13/20at 16:45; Start 09/13/20 at 16:45; Stop 09/13/20 at 17:44; Status DC Sodium Chloride 1,000 ml @ 1,000 mls/hr 1X ONCE IV Last administered on 09/13/20at 18:00; Start 09/13/20 at 18:00; Stop 09/13/20 at 18:59; Status DC Acetaminophen (Tylenol) 1,000 mg 1X ONCE PO Last administered on 09/13/20at 22:30; Start 09/13/20 at 22:30; Stop 09/13/20 at 22:31; Status DC Active Scripts Active Reported Tylenol (Acetaminophen) 325 Mg Tablet 1,000 Mg PO PRN Q6HRS PRN Allergies Allergies: Coded Allergies: No Known Drug Allergies (Unverified , 04/29/17) ROS Review of System Constitutional: Denies fever or chills. [] Eyes: Denies change in visual acuity. [] HENT: Denies nasal congestion or sore throat. [] Respiratory: Denies cough or shortness of breath. [] Cardiovascular: Denies chest pain or edema. [] GI: + abdominal pain, +nausea, denies vomiting, bloody stools or diarrhea. [] : Denies dysuria. [] Musculoskeletal: Denies back pain or joint pain. [] Integument: Denies rash. [] Neurologic: + Right-sided headache, denies focal weakness or sensory changes. + Tingling and numbness to right side of face, arm and leg [] improved since admit Endocrine: Denies polyuria or polydipsia. [] Lymphatic: Denies swollen glands. [] Psychiatric: Denies depression or anxiety. [] 14 pt ros otherwise neg PSYCHOLOGICAL ROS: No: Anxiety, Behavioral Disorder, Concentration difficultie, Decreased libido, Depression, Disorientation, Hallucinations, Hostility, Irritablity, Memory difficulties, Mood Swings, Obsessive thoughts, Physical abuse, Sexual abuse, Sleep disturbances, Suicidal ideation, Other Eyes: No Blurry vision, No Decreased vision, No Double vision, No Dry eyes, No Excessive tearing, No Eye Pain, No Itchy Eyes, No Loss of vision, No Photophobia, No Scotomata, No Uses contacts, No Uses glasses, No Other HEENT: YES: Heacaches; No: Visual Changes, Hearing change, Nasal congestion, Nasal discharge, Oral lesions, Sinus pain, Sore Throat, Epistaxis, Sneezing, Snoring, Tinnitus, Vertigo, Vocal changes, Other ALLERGY AND IMMUNOLOGY: No: Hives, Insect Bite Sensitivity, Itchy/Watery Eyes, Nasal Congestion, Post Nasal Drip, Seasonal Allergies, Other Hematological and Lymphatic: No: Bleeding Problems, Blood Clots, Blood Transfusions, Brusing, Night Sweats, Pallor, Swollen Lymph Nodes, Other ENDOCRINE: No: Breast Changes, Galactorrhea, Hair Pattern Changes, Hot Flashes, Malaise/lethargy, Mood Swings, Palpitations, Polydipsia/polyuria, Skin Changes, Temperature Intolerance, Unexpected Weight Changes, Other Breast: No New/Changing Breast Lumps, No Nipple changes, No Nipple discharge, No Other Cardiovascular: No Chest Pain, No Palpitations, No Orthopnea, No Paroxysmal Noc. Dyspnea, No Edema, No Lt Headedness, No Other Gastrointestinal: Yes Abdominal Pain; No Nausea, No Vomiting, No Diarrhea, No Constipation, No Melena, No Hematochezia, No Other Genitourinary: No Dysuria, No Frequency, No Incontinence, No Hematuria, No Retention, No Discharge, No Urgency, No Pain, No Flank Pain, No Other, No , No , No , No , No , No , No Neurological: Yes Gait Disturbance; No Behavorial Changes, No Bowel/Bladder ControlChng, No Confusion, No Dizziness, No Headaches, No Impaired Coord/balance, No Memory Loss, No Numbness/Tingling, No Seizures, No Speech Problems, No Tremors, No Visual Changes, No Weakness, No Other Skin: Yes Dry Skin; No Eczema, No Hair Changes, No Lumps, No Mole Changes, No Mottling, No Nail Changes, No Pruritus, No Rash, No Skin Lesion Changes, No Other, No Acne Physical Exam Physical Exam Constitutional: Well developed, well nourished, no acute distress, non-toxic appearance. [] HENT: Normocephalic, atraumatic, bilateral external ears normal, oropharynx m oist, no oral exudates, nose normal. [] Eyes: PERRLA, EOMI, conjunctiva normal, no discharge. [] Neck: Normal range of motion, no tenderness, supple, no stridor. [] Cardiovascular:Heart rate regular rhythm, no murmur [] Lungs & Thorax: Bilateral breath sounds clear to auscultation [] Abdomen: Bowel sounds normal, soft, no tenderness, no masses, no pulsatile masses. [] Skin: Warm, dry, no erythema, no rash. [] Back: No tenderness, no CVA tenderness. [] Extremities: No tenderness, no cyanosis, no clubbing, ROM intact, no edema. [] Neurologic: Alert and oriented X 3, normal motor function, normal sensory function, no focal deficits noted. [] Psychologic: Affect normal, judgment normal, mood normal. Anxious [] General: Alert, Oriented X3, Cooperative, No acute distress HEENT: Atraumatic, PERRLA, EOMI, Mucous membr. moist/pink Lungs: Clear to auscultation, Normal air movement Heart: S1S2, RRR, no jug vein distention Breasts: Not examined Abdomen: Normal bowel sounds, Soft, No tenderness, Other (thin) Rectal Exam: not examined PELVIC: Examination not indicated Extremities: No cyanosis Neuro: Normal speech, Strength at 5/5 X4 ext, Sensation intact, Cranial nerves 3-12 NL Psych/Mental Status: Mental status NL, Mood NL Vitals Vitals Vital Signs Date Time Temp Pulse Resp B/P (MAP) Pulse Ox O2 Delivery O2 Flow Rate FiO2 09/14/20 07:00 97.9 52 17 90/48 (62) 97 Room Air 97.9 Labs Labs Laboratory Tests Test 09/13/20 16:09 09/13/20 17:10 Glucose (Fingerstick) 91 mg/dL (70-99) White Blood Count 7.0 x10^3/uL (4.0-11.0) Red Blood Count 4.19 x10^6/uL (4.30-5.70) Hemoglobin 12.9 g/dL (13.0-17.5) Hematocrit 37.5 % (39.0-53.0) Mean Corpuscular Volume 89 fL (79-100) Mean Corpuscular Hemoglobin 31 pg (25-35) Mean Corpuscular Hemoglobin Concent 34 g/dL (31-37) Red Cell Distribution Width 13.1 % (11.5-14.5) Platelet Count 184 x10^3/uL (140-400) Neutrophils (%) (Auto) 71 % (31-73) Lymphocytes (%) (Auto) 20 % (24-48) Monocytes (%) (Auto) 8 % (0-9) Eosinophils (%) (Auto) 0 % (0-3) Basophils (%) (Auto) 0 % (0-3) Neutrophils # (Auto) 5.0 x10^3/uL (1.8-7.7) Lymphocytes # (Auto) 1.4 x10^3/uL (1.0-4.8) Monocytes # (Auto) 0.6 x10^3/uL (0.0-1.1) Eosinophils # (Auto) 0.0 x10^3/uL (0.0-0.7) Basophils # (Auto) 0.0 x10^3/uL (0.0-0.2) Urine Collection Type Unknown Urine Color Yellow Urine Clarity Clear Urine pH 6.0 (<5.0-8.0) Urine Specific [place] >=1.030 (1.000-1.030) Urine Protein 30 mg/dL (NEG-TRACE) Urine Glucose (UA) Negative mg/dL (NEG) Urine Ketones (Stick) >=80 mg/dL (NEG) Urine Blood Negative (NEG) Urine Nitrite Negative (NEG) Urine Bilirubin Negative (NEG) Urine Urobilinogen Dipstick 0.2 mg/dL (0.2 mg/dL) Urine Leukocyte Esterase Negative (NEG) Urine RBC Occ /HPF (0-2) Urine WBC Occ /HPF (0-4) Urine Squamous Epithelial Cells Few /LPF Urine Bacteria 0 /HPF (0-FEW) Urine Mucus Slight /LPF Sodium Level 144 mmol/L (136-145) Potassium Level 3.8 mmol/L (3.5-5.1) Chloride Level 107 mmol/L (98-107) Carbon Dioxide Level 25 mmol/L (21-32) Anion Gap 12 (6-14) Blood Urea Nitrogen 15 mg/dL (8-26) Creatinine 1.0 mg/dL (0.7-1.3) Estimated GFR (Cockcroft-Gault) 81.6 BUN/Creatinine Ratio 15 (6-20) Glucose Level 85 mg/dL (70-99) Calcium Level 9.1 mg/dL (8.5-10.1) Total Bilirubin 0.4 mg/dL (0.2-1.0) Aspartate Amino Transf (AST/SGOT) 14 U/L (15-37) Alanine Aminotransferase (ALT/SGPT) 18 U/L (16-63) Alkaline Phosphatase 65 U/L (46-116) Troponin I Quantitative < 0.017 ng/mL (0.000-0.055) Total Protein 7.6 g/dL (6.4-8.2) Albumin 4.3 g/dL (3.4-5.0) Albumin/Globulin Ratio 1.3 (1.0-1.7) Lipase 51 U/L (73-393) Urine Opiates Screen Neg (NEG) Urine Methadone Screen Neg (NEG) Urine Barbiturates Neg (NEG) Urine Phencyclidine Screen Neg (NEG) Urine Amphetamine/Methamphetamine Neg (NEG) Urine Benzodiazepines Screen Neg (NEG) Urine Cocaine Screen Pos (NEG) Urine Cannabinoids Screen Neg (NEG) Ethyl Alcohol Level < 10 mg/dL (0-10) Urine Ethyl Alcohol Neg (NEG) Laboratory Tests Test 09/13/20 16:09 09/13/20 17:10 Glucose (Fingerstick) 91 mg/dL (70-99) White Blood Count 7.0 x10^3/uL (4.0-11.0) Red Blood Count 4.19 x10^6/uL (4.30-5.70) Hemoglobin 12.9 g/dL (13.0-17.5) Hematocrit 37.5 % (39.0-53.0) Mean Corpuscular Volume 89 fL (79-100) Mean Corpuscular Hemoglobin 31 pg (25-35) Mean Corpuscular Hemoglobin Concent 34 g/dL (31-37) Red Cell Distribution Width 13.1 % (11.5-14.5) Platelet Count 184 x10^3/uL (140-400) Neutrophils (%) (Auto) 71 % (31-73) Lymphocytes (%) (Auto) 20 % (24-48) Monocytes (%) (Auto) 8 % (0-9) Eosinophils (%) (Auto) 0 % (0-3) Basophils (%) (Auto) 0 % (0-3) Neutrophils # (Auto) 5.0 x10^3/uL (1.8-7.7) Lymphocytes # (Auto) 1.4 x10^3/uL (1.0-4.8) Monocytes # (Auto) 0.6 x10^3/uL (0.0-1.1) Eosinophils # (Auto) 0.0 x10^3/uL (0.0-0.7) Basophils # (Auto) 0.0 x10^3/uL (0.0-0.2) Urine Collection Type Unknown Urine Color Yellow Urine Clarity Clear Urine pH 6.0 (<5.0-8.0) Urine Specific [place] >=1.030 (1.000-1.030) Urine Protein 30 mg/dL (NEG-TRACE) Urine Glucose (UA) Negative mg/dL (NEG) Urine Ketones (Stick) >=80 mg/dL (NEG) Urine Blood Negative (NEG) Urine Nitrite Negative (NEG) Urine Bilirubin Negative (NEG) Urine Urobilinogen Dipstick 0.2 mg/dL (0.2 mg/dL) Urine Leukocyte Esterase Negative (NEG) Urine RBC Occ /HPF (0-2) Urine WBC Occ /HPF (0-4) Urine Squamous Epithelial Cells Few /LPF Urine Bacteria 0 /HPF (0-FEW) Urine Mucus Slight /LPF Sodium Level 144 mmol/L (136-145) Potassium Level 3.8 mmol/L (3.5-5.1) Chloride Level 107 mmol/L (98-107) Carbon Dioxide Level 25 mmol/L (21-32) Anion Gap 12 (6-14) Blood Urea Nitrogen 15 mg/dL (8-26) Creatinine 1.0 mg/dL (0.7-1.3) Estimated GFR (Cockcroft-Gault) 81.6 BUN/Creatinine Ratio 15 (6-20) Glucose Level 85 mg/dL (70-99) Calcium Level 9.1 mg/dL (8.5-10.1) Total Bilirubin 0.4 mg/dL (0.2-1.0) Aspartate Amino Transf (AST/SGOT) 14 U/L (15-37) Alanine Aminotransferase (ALT/SGPT) 18 U/L (16-63) Alkaline Phosphatase 65 U/L (46-116) Troponin I Quantitative < 0.017 ng/mL (0.000-0.055) Total Protein 7.6 g/dL (6.4-8.2) Albumin 4.3 g/dL (3.4-5.0) Albumin/Globulin Ratio 1.3 (1.0-1.7) Lipase 51 U/L (73-393) Urine Opiates Screen Neg (NEG) Urine Methadone Screen Neg (NEG) Urine Barbiturates Neg (NEG) Urine Phencyclidine Screen Neg (NEG) Urine Amphetamine/Methamphetamine Neg (NEG) Urine Benzodiazepines Screen Neg (NEG) Urine Cocaine Screen Pos (NEG) Urine Cannabinoids Screen Neg (NEG) Ethyl Alcohol Level < 10 mg/dL (0-10) Urine Ethyl Alcohol Neg (NEG) Images Images PATIENT: HARIKA FALCON ACCOUNT: [id number] : 1975 LOCATION: ER AGE: 45 SEX: M EXAM STATUS: REG ER ORD. PHYSICIAN: TESSY ZAMBRANO APRN REASON: numbness on right side with headache PROCEDURE: CT HEAD WO CONTRAST Exam: CT head INDICATION: Numbness on right side with headache TECHNIQUE: Sequential axial images through the head were obtained without the administration of IV contrast. Exposure: One or more of the following in the visualized dose reduction techniques were utilized for this examination: 1. Automated exposure control 2. Adjustment of the MA and/or KV according to patient size 3. Use of iterative of reconstructive technique Comparisons: None FINDINGS: No focal parenchymal lesion or hemorrhage is identified. There is no midline shift or sulcal effacement. No acute vascular territory infarction is identified. Wetzel-white distinction is preserved. The ventricular system is within normal limits without compression hydrocephalus. The basal cisterns are well maintained. The visualized portions of the paranasal sinuses and mastoid air cells are well- pneumatized. No acute fractures. IMPRESSION: No acute intracranial abnormality. Electronically signed by: Dilshad Moreno MD (09/13/2020 4:47 PM) [facility] PATIENT: HARIKA FALCON ACCOUNT: [id number] : 1975 LOCATION: ER AGE: 45 SEX: M EXAM STATUS: REG ER ORD. PHYSICIAN: TESSY ZAMBRANO APRN REASON: abd tenderness, left sided pain PROCEDURE: CT ABD PELV W/ IV CONTRST ONLY Exam: CT of abdomen and pelvis with contrast INDICATION: Abdominal tenderness, left-sided pain TECHNIQUE: Sequential axial images through the abdomen and pelvis obtained following the administration of 75 mL of Isovue-370 IV contrast. Sagittal and coronal reformatted images were reconstructed from the axial data and reviewed. Exposure: One or more of the following in the visualized dose reduction techniques were utilized for this examination: 1. Automated exposure control 2. Adjustment of the MA and/or KV according to patient size 3. Use of iterative of reconstructive technique Comparisons: None FINDINGS: Heart size is normal. No pericardial visualized lung bases are clear. No pleural effusion. Liver, spleen, pancreas, gallbladder and adrenals are unremarkable. No perinephric inflammation or hydronephrosis. No renal or ureteral calculi are identified. Bladder is decompressed not well evaluated. Prostate is not enlarged. There is a soft tissue mass which is enhancing noted in the right hemiabdomen mesentery measuring approximately 5.0 x 4.1 cm. Large and small bowel are unremarkable. Appendix is normal. No free intra- abdominal air or fluid. No obstruction. Abdominal aorta has a normal course and caliber. Abdominal vasculature is patent. No enlarged intra-abdominal lymph nodes are identified. No suspicious osseous lesions or acute fractures. IMPRESSION: There is a 5.0 x 4.1 cm soft tissue mass centered within the mesentery of the right hemiabdomen. This is nonspecific in etiology differential considerations include GIST. Correlate for malignancy history. MRI of the abdomen without and with contrast would better evaluate. Electronically signed by: Dilshad Moreno MD (09/13/2020 5:11 PM) [facility] DICTATED and SIGNED BY: DILSHAD MORENO MD DATE: 09/13/20 [id number] VTE Prophylaxis Ordered VTE Prophylaxis Devices: Yes VTE Pharmacological Prophylaxi: Yes Assessment/Plan Assessment/Plan IMPRESSION: Abdominal pain 5.0 x 4.1 cm soft tissue mass centered within the mesentery of the right hemiabdomen. differential considerations include GIST. Correlate for malignancy MRI of the abdomen would better evaluate. abdominal mass Cocaine use bradycardia, asymptomatic, mild Right-sided numbness/ paresthesia , headache, sinus congestion, ON ct head, No acute intracranial abnormality. will consult neurology, consider MRI HEAD unintentional weight loss Tobacco abuse disorder right lower leg paresthesia PLAN ADMITTED dvt prophylaxis mri abdomen GI CONSULT GEN SURGERY CONSULT Neurology consult consider MRI HEAD Justifications for Admission Other Justification ARMIN URBANO MD Sep 14, 2020 08:53
--- NOTE | 2020-09-14 08:58 | PDOC2 ---
GI CONSULT Date of Service: DATE: 09/14/20 TIME: 08:58 Reason For Consult: abd mass HPI: HPI: 45 y/o male admitted through ER. ER note mentions right-sided numbness. He tells me he came to the ER w/ sinus congestion, headache, and "my lung hurt." Also reports fatigue. Has also had some LLQ pain for about a month - "gurgling" - better after stooling, might be worse after eating. Additionally, one time last week had a sharp pain in right abdomen after picking up his child - quickly resolved/no recurrence. GI history includes acid reflux (previously on Nexium, Desi Hatch, and Pepcid - now Tums) and soft stools w/ occasional diarrhea after eating spicy foods. Says "I never really gain weight" but recently weight has fluctuated - might have lost some. No dysphagia, n/v, early satiety, bloating, constipation, hematochezia, or melena. No previous EGD or colonoscopy. No GB, liver, pancreas, or PUD history. No NSAIDs. Says his father and he made stupid decisions due to grief. PMH: PMH: anxiety, GERD FH: Family History: No pertinent hx (denies cancers) Social History: Smoke: <1 pack per day ALCOHOL: occassional Drugs: Cocaine, Other (tox screen + meth and alcohol (urine) in past) ROS: GEN: +fatigue HEENT: +sinus congestion CV: Denies chest pain RESP: ?SOA GI: Per HPI : Denies hematuria, dysuria ENDO: ?weight loss NEURO: +right-sided numbness +headache MSK: Denies weakness, joint pain/swelling SKIN: Denies jaundice, pruritus Vitals: Vitals: Vital Signs Date Time Temp Pulse Resp B/P (MAP) Pulse Ox O2 Delivery O2 Flow Rate FiO2 09/14/20 07:00 97.9 52 17 90/48 (62) 97 Room Air 97.9 Labs: Labs: Laboratory Tests Test 09/13/20 16:09 09/13/20 17:10 Glucose (Fingerstick) 91 mg/dL (70-99) White Blood Count 7.0 x10^3/uL (4.0-11.0) Red Blood Count 4.19 x10^6/uL (4.30-5.70) Hemoglobin 12.9 g/dL (13.0-17.5) Hematocrit 37.5 % (39.0-53.0) Mean Corpuscular Volume 89 fL (79-100) Mean Corpuscular Hemoglobin 31 pg (25-35) Mean Corpuscular Hemoglobin Concent 34 g/dL (31-37) Red Cell Distribution Width 13.1 % (11.5-14.5) Platelet Count 184 x10^3/uL (140-400) Neutrophils (%) (Auto) 71 % (31-73) Lymphocytes (%) (Auto) 20 % (24-48) Monocytes (%) (Auto) 8 % (0-9) Eosinophils (%) (Auto) 0 % (0-3) Basophils (%) (Auto) 0 % (0-3) Neutrophils # (Auto) 5.0 x10^3/uL (1.8-7.7) Lymphocytes # (Auto) 1.4 x10^3/uL (1.0-4.8) Monocytes # (Auto) 0.6 x10^3/uL (0.0-1.1) Eosinophils # (Auto) 0.0 x10^3/uL (0.0-0.7) Basophils # (Auto) 0.0 x10^3/uL (0.0-0.2) Urine Collection Type Unknown Urine Color Yellow Urine Clarity Clear Urine pH 6.0 (<5.0-8.0) Urine Specific [place] >=1.030 (1.000-1.030) Urine Protein 30 mg/dL (NEG-TRACE) Urine Glucose (UA) Negative mg/dL (NEG) Urine Ketones (Stick) >=80 mg/dL (NEG) Urine Blood Negative (NEG) Urine Nitrite Negative (NEG) Urine Bilirubin Negative (NEG) Urine Urobilinogen Dipstick 0.2 mg/dL (0.2 mg/dL) Urine Leukocyte Esterase Negative (NEG) Urine RBC Occ /HPF (0-2) Urine WBC Occ /HPF (0-4) Urine Squamous Epithelial Cells Few /LPF Urine Bacteria 0 /HPF (0-FEW) Urine Mucus Slight /LPF Sodium Level 144 mmol/L (136-145) Potassium Level 3.8 mmol/L (3.5-5.1) Chloride Level 107 mmol/L (98-107) Carbon Dioxide Level 25 mmol/L (21-32) Anion Gap 12 (6-14) Blood Urea Nitrogen 15 mg/dL (8-26) Creatinine 1.0 mg/dL (0.7-1.3) Estimated GFR (Cockcroft-Gault) 81.6 BUN/Creatinine Ratio 15 (6-20) Glucose Level 85 mg/dL (70-99) Calcium Level 9.1 mg/dL (8.5-10.1) Total Bilirubin 0.4 mg/dL (0.2-1.0) Aspartate Amino Transf (AST/SGOT) 14 U/L (15-37) Alanine Aminotransferase (ALT/SGPT) 18 U/L (16-63) Alkaline Phosphatase 65 U/L (46-116) Troponin I Quantitative < 0.017 ng/mL (0.000-0.055) Total Protein 7.6 g/dL (6.4-8.2) Albumin 4.3 g/dL (3.4-5.0) Albumin/Globulin Ratio 1.3 (1.0-1.7) Lipase 51 U/L (73-393) Urine Opiates Screen Neg (NEG) Urine Methadone Screen Neg (NEG) Urine Barbiturates Neg (NEG) Urine Phencyclidine Screen Neg (NEG) Urine Amphetamine/Methamphetamine Neg (NEG) Urine Benzodiazepines Screen Neg (NEG) Urine Cocaine Screen Pos (NEG) Urine Cannabinoids Screen Neg (NEG) Ethyl Alcohol Level < 10 mg/dL (0-10) Urine Ethyl Alcohol Neg (NEG) Allergies: Coded Allergies: No Known Drug Allergies (Unverified , 04/29/17) Medications: Current Medications Medications (Trade) Dose Ordered Sig/Cresencio Route PRN Reason Start Time Stop Time Status Last Admin Dose Admin Ondansetron HCl (Zofran) 4 mg 1X ONCE IVP 09/13/20 16:30 09/13/20 16:31 DC 09/13/20 16:30 Iohexol (Omnipaque 300 Mg/ml) 75 ml 1X ONCE IV 09/13/20 16:45 09/13/20 16:46 DC 09/13/20 16:57 Sodium Chloride 1,000 ml @ 1,000 mls/hr 1X ONCE IV 09/13/20 16:45 09/13/20 17:44 DC 09/13/20 16:45 Sodium Chloride 1,000 ml @ 1,000 mls/hr 1X ONCE IV 09/13/20 18:00 09/13/20 18:59 DC 09/13/20 18:00 Acetaminophen (Tylenol) 1,000 mg 1X ONCE PO 09/13/20 22:30 09/13/20 22:31 DC 09/13/20 22:30 Imaging: Imaging: CXR IMPRESSION: No acute cardiopulmonary abnormality. CT Head IMPRESSION: No acute intracranial abnormality. CT A/P IMPRESSION: There is a 5.0 x 4.1 cm soft tissue mass centered within the mesentery of the right hemiabdomen. This is nonspecific in etiology differential considerations include GIST. Correlate for malignancy history. MRI of the abdomen without and with contrast would better evaluate. PE: GEN: NAD, was sleeping soundly - bit difficult to rouse, thin HEENT: Atraumatic, PERRL LUNGS: CTAB HEART: bradycardic ABD: NABS, S/ND, mild LLQ discomfort EXTREMITY: No edema SKIN: No rashes, no jaundice NEURO/PSYCH: A & O 3 A/P: A/P: Right-sided numbness, headache, sinus congestion, LLQ pain, right-sided pain x 1, ?weight loss Mild anemia Soft tissue mesenteric mass in right abdomen GERD, ?IBS CRC screen - average risk +cocaine -- Varying history with abnormal imaging. Will ask for surgery opinion re: CT findings, ?need for MRI, etc. Can pursue outpt EGD and colonoscopy for chronic GI symptoms. ALYSSA BRANCH Sep 14, 2020 08:58
--- NOTE | 2020-09-14 10:35 | PDOC2 ---
FIDELINA JAMA Stephany NUCLEAR MEDICINE OFFICER 09/14/20 1035: CONSULT Date of Consult Date of Consult DATE: 09/14/20 TIME: 10:04 Reason for Consult Reason for Consult: abdominal mass Referring Physician Referring Physician: Dr Silva Identification/Chief Complaint Chief Complaint multiple complaints Source Source: Chart review, Patient History of Present Illness Reason for Visit: Patient admitted with multiple issues Reports tingling and numbness to right side of face, arm, leg--reported cocaine use prior to admission Ongoing issues with diarrhea, constipation, pain in left abdomen, nausea, complaints of pain with urinating--these have been worse seen he returned a month ago from [facility] [place] 10 years did have a previous episode with cocaine use and was hospitalized Past Medical History GI: GERD Psych: Depression Past Surgical History Past Surgical History: No pertinent history Social History <1 pack per day Drugs: Cocaine Current Problem List Problem List Problems Medical Problems: (1) Abdominal mass Status: Acute (2) Cocaine use Status: Acute Current Medications Current Medications Current Medications Ondansetron HCl (Zofran) 4 mg 1X ONCE IVP Last administered on 09/13/20at 16:30; Start 09/13/20 at 16:30; Stop 09/13/20 at 16:31; Status DC Fentanyl Citrate (Fentanyl 2ml Vial) 50 mcg 1X ONCE IVP ; Start 09/13/20 at 16:30; Stop 09/13/20 at 16:31; Status DC Iohexol (Omnipaque 300 Mg/ml) 75 ml 1X ONCE IV Last administered on 09/13/20at 16:57; Start 09/13/20 at 16:45; Stop 09/13/20 at 16:46; Status DC Info (CONTRAST GIVEN -- Rx MONITORING) 1 each PRN DAILY PRN MC SEE COMMENTS; Start 09/13/20 at 16:45; Stop 09/15/20 at 16:44 Sodium Chloride 1,000 ml @ 1,000 mls/hr 1X ONCE IV Last administered on 09/13/20at 16:45; Start 09/13/20 at 16:45; Stop 09/13/20 at 17:44; Status DC Sodium Chloride 1,000 ml @ 1,000 mls/hr 1X ONCE IV Last administered on 09/13/20at 18:00; Start 09/13/20 at 18:00; Stop 09/13/20 at 18:59; Status DC Acetaminophen (Tylenol) 1,000 mg 1X ONCE PO Last administered on 09/13/20at 22:30; Start 09/13/20 at 22:30; Stop 09/13/20 at 22:31; Status DC Active Scripts Active Reported Tylenol (Acetaminophen) 325 Mg Tablet 1,000 Mg PO PRN Q6HRS PRN Allergies Allergies: Coded Allergies: No Known Drug Allergies (Unverified , 04/29/17) ROS General: YES: Fatigue; No: Chills PSYCHOLOGICAL ROS: YES: Anxiety, Depression Eyes: No Blurry vision, No Double vision HEENT: YES: Heacaches; No: Sore Throat Hematological and Lymphatic: No: Bleeding Problems, Blood Clots Respiratory: No: Cough, Shortness of breath Cardiovascular: No Chest Pain, No Palpitations Gastrointestinal: Yes Abdominal Pain; No Nausea Genitourinary: YES Dysuria; No Hematuria Musculoskeletal: No Joint Pain, No Muscle Pain Neurological: No Impaired Coord/balance, No Numbness/Tingling Skin: No Pruritus, No Rash Physical Exam General: Cooperative, No acute distress HEENT: Atraumatic, PERRLA Lungs: Clear to auscultation, Normal air movement Heart: Regular rate, Normal S1, Normal S2 Abdomen: Soft, Other (Nontender, no peritoneal signs ) Extremities: No clubbing, No cyanosis Skin: No rashes, No breakdown Neuro: Normal speech, Sensation intact Psych/Mental Status: Mental status NL, Mood NL MUSCULOSKELETAL: No deformity, No swelling Vitals VITALS Vital Signs Date Time Temp Pulse Resp B/P (MAP) Pulse Ox O2 Delivery O2 Flow Rate FiO2 09/14/20 10:03 98.2 47 17 90/51 (64) 100 Room Air 98.2 Labs Labs Laboratory Tests Test 09/13/20 16:09 09/13/20 17:10 Glucose (Fingerstick) 91 mg/dL (70-99) White Blood Count 7.0 x10^3/uL (4.0-11.0) Red Blood Count 4.19 x10^6/uL (4.30-5.70) Hemoglobin 12.9 g/dL (13.0-17.5) Hematocrit 37.5 % (39.0-53.0) Mean Corpuscular Volume 89 fL (79-100) Mean Corpuscular Hemoglobin 31 pg (25-35) Mean Corpuscular Hemoglobin Concent 34 g/dL (31-37) Red Cell Distribution Width 13.1 % (11.5-14.5) Platelet Count 184 x10^3/uL (140-400) Neutrophils (%) (Auto) 71 % (31-73) Lymphocytes (%) (Auto) 20 % (24-48) Monocytes (%) (Auto) 8 % (0-9) Eosinophils (%) (Auto) 0 % (0-3) Basophils (%) (Auto) 0 % (0-3) Neutrophils # (Auto) 5.0 x10^3/uL (1.8-7.7) Lymphocytes # (Auto) 1.4 x10^3/uL (1.0-4.8) Monocytes # (Auto) 0.6 x10^3/uL (0.0-1.1) Eosinophils # (Auto) 0.0 x10^3/uL (0.0-0.7) Basophils # (Auto) 0.0 x10^3/uL (0.0-0.2) Urine Collection Type Unknown Urine Color Yellow Urine Clarity Clear Urine pH 6.0 (<5.0-8.0) Urine Specific [place] >=1.030 (1.000-1.030) Urine Protein 30 mg/dL (NEG-TRACE) Urine Glucose (UA) Negative mg/dL (NEG) Urine Ketones (Stick) >=80 mg/dL (NEG) Urine Blood Negative (NEG) Urine Nitrite Negative (NEG) Urine Bilirubin Negative (NEG) Urine Urobilinogen Dipstick 0.2 mg/dL (0.2 mg/dL) Urine Leukocyte Esterase Negative (NEG) Urine RBC Occ /HPF (0-2) Urine WBC Occ /HPF (0-4) Urine Squamous Epithelial Cells Few /LPF Urine Bacteria 0 /HPF (0-FEW) Urine Mucus Slight /LPF Sodium Level 144 mmol/L (136-145) Potassium Level 3.8 mmol/L (3.5-5.1) Chloride Level 107 mmol/L (98-107) Carbon Dioxide Level 25 mmol/L (21-32) Anion Gap 12 (6-14) Blood Urea Nitrogen 15 mg/dL (8-26) Creatinine 1.0 mg/dL (0.7-1.3) Estimated GFR (Cockcroft-Gault) 81.6 BUN/Creatinine Ratio 15 (6-20) Glucose Level 85 mg/dL (70-99) Calcium Level 9.1 mg/dL (8.5-10.1) Total Bilirubin 0.4 mg/dL (0.2-1.0) Aspartate Amino Transf (AST/SGOT) 14 U/L (15-37) Alanine Aminotransferase (ALT/SGPT) 18 U/L (16-63) Alkaline Phosphatase 65 U/L (46-116) Troponin I Quantitative < 0.017 ng/mL (0.000-0.055) Total Protein 7.6 g/dL (6.4-8.2) Albumin 4.3 g/dL (3.4-5.0) Albumin/Globulin Ratio 1.3 (1.0-1.7) Lipase 51 U/L (73-393) Urine Opiates Screen Neg (NEG) Urine Methadone Screen Neg (NEG) Urine Barbiturates Neg (NEG) Urine Phencyclidine Screen Neg (NEG) Urine Amphetamine/Methamphetamine Neg (NEG) Urine Benzodiazepines Screen Neg (NEG) Urine Cocaine Screen Pos (NEG) Urine Cannabinoids Screen Neg (NEG) Ethyl Alcohol Level < 10 mg/dL (0-10) Urine Ethyl Alcohol Neg (NEG) Laboratory Tests Test 09/13/20 16:09 09/13/20 17:10 Glucose (Fingerstick) 91 mg/dL (70-99) White Blood Count 7.0 x10^3/uL (4.0-11.0) Red Blood Count 4.19 x10^6/uL (4.30-5.70) Hemoglobin 12.9 g/dL (13.0-17.5) Hematocrit 37.5 % (39.0-53.0) Mean Corpuscular Volume 89 fL (79-100) Mean Corpuscular Hemoglobin 31 pg (25-35) Mean Corpuscular Hemoglobin Concent 34 g/dL (31-37) Red Cell Distribution Width 13.1 % (11.5-14.5) Platelet Count 184 x10^3/uL (140-400) Neutrophils (%) (Auto) 71 % (31-73) Lymphocytes (%) (Auto) 20 % (24-48) Monocytes (%) (Auto) 8 % (0-9) Eosinophils (%) (Auto) 0 % (0-3) Basophils (%) (Auto) 0 % (0-3) Neutrophils # (Auto) 5.0 x10^3/uL (1.8-7.7) Lymphocytes # (Auto) 1.4 x10^3/uL (1.0-4.8) Monocytes # (Auto) 0.6 x10^3/uL (0.0-1.1) Eosinophils # (Auto) 0.0 x10^3/uL (0.0-0.7) Basophils # (Auto) 0.0 x10^3/uL (0.0-0.2) Urine Collection Type Unknown Urine Color Yellow Urine Clarity Clear Urine pH 6.0 (<5.0-8.0) Urine Specific [place] >=1.030 (1.000-1.030) Urine Protein 30 mg/dL (NEG-TRACE) Urine Glucose (UA) Negative mg/dL (NEG) Urine Ketones (Stick) >=80 mg/dL (NEG) Urine Blood Negative (NEG) Urine Nitrite Negative (NEG) Urine Bilirubin Negative (NEG) Urine Urobilinogen Dipstick 0.2 mg/dL (0.2 mg/dL) Urine Leukocyte Esterase Negative (NEG) Urine RBC Occ /HPF (0-2) Urine WBC Occ /HPF (0-4) Urine Squamous Epithelial Cells Few /LPF Urine Bacteria 0 /HPF (0-FEW) Urine Mucus Slight /LPF Sodium Level 144 mmol/L (136-145) Potassium Level 3.8 mmol/L (3.5-5.1) Chloride Level 107 mmol/L (98-107) Carbon Dioxide Level 25 mmol/L (21-32) Anion Gap 12 (6-14) Blood Urea Nitrogen 15 mg/dL (8-26) Creatinine 1.0 mg/dL (0.7-1.3) Estimated GFR (Cockcroft-Gault) 81.6 BUN/Creatinine Ratio 15 (6-20) Glucose Level 85 mg/dL (70-99) Calcium Level 9.1 mg/dL (8.5-10.1) Total Bilirubin 0.4 mg/dL (0.2-1.0) Aspartate Amino Transf (AST/SGOT) 14 U/L (15-37) Alanine Aminotransferase (ALT/SGPT) 18 U/L (16-63) Alkaline Phosphatase 65 U/L (46-116) Troponin I Quantitative < 0.017 ng/mL (0.000-0.055) Total Protein 7.6 g/dL (6.4-8.2) Albumin 4.3 g/dL (3.4-5.0) Albumin/Globulin Ratio 1.3 (1.0-1.7) Lipase 51 U/L (73-393) Urine Opiates Screen Neg (NEG) Urine Methadone Screen Neg (NEG) Urine Barbiturates Neg (NEG) Urine Phencyclidine Screen Neg (NEG) Urine Amphetamine/Methamphetamine Neg (NEG) Urine Benzodiazepines Screen Neg (NEG) Urine Cocaine Screen Pos (NEG) Urine Cannabinoids Screen Neg (NEG) Ethyl Alcohol Level < 10 mg/dL (0-10) Urine Ethyl Alcohol Neg (NEG) Assessment/Plan Assessment/Plan Multiple complaints acute on chronic issues including facial/arm numbness abdominal pain, nausea, bowel issues cocaine use Imaging with abdominal mass--MRI ordered, will review with BIANKA Sullivan MD 09/14/20 1615: CONSULT Assessment/Plan Assessment/Plan Pt seen and examined. Agree with Ms. Jama's note Pt with c/o diffuse abd pain and back pain, mild TTP RUQ will ask for IR biopsy, if possible, to determine surgical vs medical management. Favor GIST tumor and hence will look towards surgical excision, pending biopsy D/w pt and pt's SO extensively. Thanks for consult! FIDELINA JAMA APRN Sep 14, 2020 10:35 BIANKA CARDENAS MD Sep 14, 2020 16:15
[2020-09-14] MEDS: PANTOPRAZOLE 40 MG TABLET.DR. PO SCH (11:57)
[2020-09-14] MEDS ORDERED: DOCUSATE SODIUM 100 MG CAPSULE. PO PRN (12:45)
[2020-09-14] MEDS ORDERED: SODIUM PHOSPHATES 19/7GM 133 ML ENEMA. PR PRN (12:45)
[2020-09-14] MEDS ORDERED: LORazepam 0.5 MG TABLET PO PRN (12:45)
[2020-09-14] MEDS ORDERED: guaiFENesin ORAL 200 MG/10 ML LIQUID. PO PRN (12:45)
[2020-09-14] MEDS ORDERED: MAG HYDROX/ALUMINUM HYD/SIMETH 30 ML ORAL.SUSP PO PRN (12:45)
[2020-09-14] MEDS ORDERED: ALBUTEROL SULFATE 2.5 MG/3 ML NEBU. NEB PRN (12:45)
[2020-09-14] MEDS ORDERED: 0.9 % SODIUM CHLORIDE 10 ML DISP.SYRIN. IV PRN (12:45)
[2020-09-14] MEDS ORDERED: ACETAMINOPHEN 325 MG TABLET. PO PRN ×2 (12:45→15:15)
[2020-09-14] MEDS ORDERED: ONDANSETRON PF 4 MG/2 ML VIAL. IV PRN (12:45)
--- NOTE | 2020-09-14 13:37 | EKG ---
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
[2020-09-14] MEDS: ENOXAPARIN 40 MG/0.4 ML SYRINGE. SQ SCH (14:00)
[2020-09-14] MEDS ORDERED: IV NORMAL SALINE 1000ML BAG 1,000 ML IV ONE (14:00)
[2020-09-14 14:33] LABS: PROTHROMBIN TIME PATIENT 13.5 SEC (11.7-14.0)
[2020-09-14] MEDS ORDERED: ASPIRIN RECTAL 300 MG SUPP. PR PRN (15:15)
--- NOTE | 2020-09-14 15:31 | PDOC2 ---
NEUROLOGY CONSULT Date of Service DOS: DATE: 09/14/20 TIME: 15:25 Reason for Consult Reason for Consult: Right-sided numbness Referring Physician Referring Physician: Dr. Bowman Source Source: Caregiver (), Chart review, Patient History of Present Illness History of Present Illness Patient is a 45-year-old right-handed male who noticed burning numbness on the right side of the face, arm, and leg starting last night after he took some cocaine. He had a bad reaction to cocaine 2 years ago. He does have some chronic abdominal pain and has been found to have an abdominal mass. There is no history of stroke, seizure, or head injury. 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 tobacco, no alcohol, cocaine rarely Current Medications Current Medications Current Medications Ondansetron HCl (Zofran) 4 mg 1X ONCE IVP Last administered on 09/13/20at 16:30; Start 09/13/20 at 16:30; Stop 09/13/20 at 16:31; Status DC Fentanyl Citrate (Fentanyl 2ml Vial) 50 mcg 1X ONCE IVP ; Start 09/13/20 at 16:30; Stop 09/13/20 at 16:31; Status DC Iohexol (Omnipaque 300 Mg/ml) 75 ml 1X ONCE IV Last administered on 09/13/20at 16:57; Start 09/13/20 at 16:45; Stop 09/13/20 at 16:46; Status DC Info (CONTRAST GIVEN -- Rx MONITORING) 1 each PRN DAILY PRN MC SEE COMMENTS; Start 09/13/20 at 16:45; Stop 09/15/20 at 16:44 Sodium Chloride 1,000 ml @ 1,000 mls/hr 1X ONCE IV Last administered on 09/13/20at 16:45; Start 09/13/20 at 16:45; Stop 09/13/20 at 17:44; Status DC Sodium Chloride 1,000 ml @ 1,000 mls/hr 1X ONCE IV Last administered on 09/13/20at 18:00; Start 09/13/20 at 18:00; Stop 09/13/20 at 18:59; Status DC Acetaminophen (Tylenol) 1,000 mg 1X ONCE PO Last administered on 09/13/20at 22:30; Start 09/13/20 at 22:30; Stop 09/13/20 at 22:31; Status DC Pantoprazole Sodium (Protonix) 40 mg DAILYAC PO Last administered on 09/14/20at 11:57; Start 09/14/20 at 11:30 Acetaminophen (Tylenol) 1,000 mg PRN Q6HRS PRN PO MILD PAIN / TEMP > 100.3'F; Start 09/14/20 at 12:45 Sodium Chloride (Normal Saline Flush) 3 ml QSHIFT PRN IV AFTER MEDS AND BLOOD DRAWS; Start 09/14/20 at 12:45 Ondansetron HCl (Zofran) 4 mg PRN Q4HRS PRN IV NAUSEA/VOMITING; Start 09/14/20 at 12:45 Al Hydroxide/Mg Hydroxide (Mylanta Plus Xs) 30 ml PRN DAILY PRN PO HEARTBURN / GAS; Start 09/14/20 at 12:45 Sodium Monofluorophosphate (Fleet Adult) 133 ml PRN DAILY PRN [place] CONSTIPATION; Start 09/14/20 at 12:45 Docusate Sodium (Colace) 100 mg PRN BID PRN PO HARD STOOLS; Start 09/14/20 at 12:45 Albuterol Sulfate (Ventolin Neb Soln) 2.5 mg PRN Q4HRS PRN NEB SHORTNESS OF BREATH; Start 09/14/20 at 12:45 Guaifenesin (Robitussin) 200 mg PRN Q4HRS PRN PO COUGH; Start 09/14/20 at 12:45 Lorazepam (Ativan) 0.5 mg PRN Q4HRS PRN PO ANXIETY / AGITATION; Start 09/14/20 at 12:45 Enoxaparin Sodium (Lovenox 40mg Syringe) 40 mg Q24H SQ ; Start 09/14/20 at 14:00 Sodium Chloride 1,000 ml @ 100 mls/hr 1X ONCE IV Last administered on 09/14/20at 14:23; Start 09/14/20 at 14:00; Stop 09/14/20 at 23:59 Sodium Chloride 1,000 ml @ 100 mls/hr Q10H IV ; Start 09/14/20 at 16:00 Acetaminophen (Tylenol) 650 mg PRN Q6HRS PRN PO MILD PAIN / TEMP > 100.3'F; Start 09/14/20 at 15:15; Stop 09/14/20 at 15:10; Status DC Aspirin (Ecotrin) 325 mg DAILYWBKFT PO ; Start 09/14/20 at 16:00 Aspirin (Aspirin Rectal Supp) 300 mg PRN DAILY PRN [place] IF UNABLE TO TAKE PO; Start 09/14/20 at 15:15 Active Scripts Active Reported Tylenol (Acetaminophen) 325 Mg Tablet 1,000 Mg PO PRN Q6HRS PRN Allergies Allergies: Coded Allergies: No Known Drug Allergies (Unverified , 04/29/17) ROS Review of System Negative for fever, chills, weight loss, shortness of breath, chest pain, indigestion, hematochezia, melena, and dysuria. Full 14-point review of systems is negative. Physical Exam Physical Examination General: Well-developed, well-nourished [place] male in no acute distress HEENT: Normocephalic andatraumatic. Temporal arteriespulsatile and nontender. Neck: Supple without bruit, no meningismus Musculoskeletal: Stability:see neurologic. Gait exam:see neurologic. Tone:see neurologic.Strength:see neurologic. Neurological: Mental Status:intact, orientation, memory, attention span/concentration, language, fund of knowledge normal. Cranial Nerves:Pupils equal and reactive to light, extraocular movements areintact, visual bennett are full to confrontation. Facial sensation is normal. There is no facial asymmetry. Vestibulo-ocular reflex is intact. Palate elevates and tongue protrudes in midline. All other cranial related problems are negative except as mentioned before.Reflexes:2+ and symmetric with flexor plantar responses. Motor:5/5 strength with normal tone and bulk. Coordination:Finger-nose finger and [id number] testing are normal. Rapid alternating movements and fine finger movements are intact. Gait:Normal, including tandem. Sensory:Right sided hemihypesthesia Vitals VITALS Vital Signs Date Time Temp Pulse Resp B/P (MAP) Pulse Ox O2 Delivery O2 Flow Rate FiO2 09/14/20 14:05 97.8 44 90/58 (69) 98 Room Air 97.8 09/14/20 10:03 17 Labs Labs Laboratory Tests Test 09/13/20 16:09 09/13/20 17:10 09/14/20 11:25 09/14/20 13:50 Glucose (Fingerstick) 91 mg/dL (70-99) White Blood Count 7.0 x10^3/uL (4.0-11.0) Red Blood Count 4.19 x10^6/uL (4.30-5.70) Hemoglobin 12.9 g/dL (13.0-17.5) Hematocrit 37.5 % (39.0-53.0) Mean Corpuscular Volume 89 fL (79-100) Mean Corpuscular Hemoglobin 31 pg (25-35) Mean Corpuscular Hemoglobin Concent 34 g/dL (31-37) Red Cell Distribution Width 13.1 % (11.5-14.5) Platelet Count 184 x10^3/uL (140-400) Neutrophils (%) (Auto) 71 % (31-73) Lymphocytes (%) (Auto) 20 % (24-48) Monocytes (%) (Auto) 8 % (0-9) Eosinophils (%) (Auto) 0 % (0-3) Basophils (%) (Auto) 0 % (0-3) Neutrophils # (Auto) 5.0 x10^3/uL (1.8-7.7) Lymphocytes # (Auto) 1.4 x10^3/uL (1.0-4.8) Monocytes # (Auto) 0.6 x10^3/uL (0.0-1.1) Eosinophils # (Auto) 0.0 x10^3/uL (0.0-0.7) Basophils # (Auto) 0.0 x10^3/uL (0.0-0.2) Urine Collection Type Unknown Urine Color Yellow Urine Clarity Clear Urine pH 6.0 (<5.0-8.0) Urine Specific [place] >=1.030 (1.000-1.030) Urine Protein 30 mg/dL (NEG-TRACE) Urine Glucose (UA) Negative mg/dL (NEG) Urine Ketones (Stick) >=80 mg/dL (NEG) Urine Blood Negative (NEG) Urine Nitrite Negative (NEG) Urine Bilirubin Negative (NEG) Urine Urobilinogen Dipstick 0.2 mg/dL (0.2 mg/dL) Urine Leukocyte Esterase Negative (NEG) Urine RBC Occ /HPF (0-2) Urine WBC Occ /HPF (0-4) Urine Squamous Epithelial Cells Few /LPF Urine Bacteria 0 /HPF (0-FEW) Urine Mucus Slight /LPF Sodium Level 144 mmol/L (136-145) Potassium Level 3.8 mmol/L (3.5-5.1) Chloride Level 107 mmol/L (98-107) Carbon Dioxide Level 25 mmol/L (21-32) Anion Gap 12 (6-14) Blood Urea Nitrogen 15 mg/dL (8-26) Creatinine 1.0 mg/dL (0.7-1.3) Estimated GFR (Cockcroft-Gault) 81.6 BUN/Creatinine Ratio 15 (6-20) Glucose Level 85 mg/dL (70-99) Calcium Level 9.1 mg/dL (8.5-10.1) Total Bilirubin 0.4 mg/dL (0.2-1.0) Aspartate Amino Transf (AST/SGOT) 14 U/L (15-37) Alanine Aminotransferase (ALT/SGPT) 18 U/L (16-63) Alkaline Phosphatase 65 U/L (46-116) Troponin I Quantitative < 0.017 ng/mL (0.000-0.055) Total Protein 7.6 g/dL (6.4-8.2) Albumin 4.3 g/dL (3.4-5.0) Albumin/Globulin Ratio 1.3 (1.0-1.7) Lipase 51 U/L (73-393) Urine Opiates Screen Neg (NEG) Urine Methadone Screen Neg (NEG) Urine Barbiturates Neg (NEG) Urine Phencyclidine Screen Neg (NEG) Urine Amphetamine/Methamphetamine Neg (NEG) Urine Benzodiazepines Screen Neg (NEG) Urine Cocaine Screen Pos (NEG) Urine Cannabinoids Screen Neg (NEG) Ethyl Alcohol Level < 10 mg/dL (0-10) Urine Ethyl Alcohol Neg (NEG) Iron Level 151 ug/dL (65-175) Total Iron Binding Capacity 266 ug/dL (250-450) Iron Saturation 57 % (15-34) Lactate Dehydrogenase 145 U/L (85-227) Vitamin B12 Level 656 pg/mL (247-911) Prothrombin Time 13.5 SEC (11.7-14.0) Prothromb Time International Ratio 1.0 (0.8-1.1) Laboratory Tests Test 09/13/20 16:09 09/13/20 17:10 09/14/20 11:25 09/14/20 13:50 Glucose (Fingerstick) 91 mg/dL (70-99) White Blood Count 7.0 x10^3/uL (4.0-11.0) Red Blood Count 4.19 x10^6/uL (4.30-5.70) Hemoglobin 12.9 g/dL (13.0-17.5) Hematocrit 37.5 % (39.0-53.0) Mean Corpuscular Volume 89 fL (79-100) Mean Corpuscular Hemoglobin 31 pg (25-35) Mean Corpuscular Hemoglobin Concent 34 g/dL (31-37) Red Cell Distribution Width 13.1 % (11.5-14.5) Platelet Count 184 x10^3/uL (140-400) Neutrophils (%) (Auto) 71 % (31-73) Lymphocytes (%) (Auto) 20 % (24-48) Monocytes (%) (Auto) 8 % (0-9) Eosinophils (%) (Auto) 0 % (0-3) Basophils (%) (Auto) 0 % (0-3) Neutrophils # (Auto) 5.0 x10^3/uL (1.8-7.7) Lymphocytes # (Auto) 1.4 x10^3/uL (1.0-4.8) Monocytes # (Auto) 0.6 x10^3/uL (0.0-1.1) Eosinophils # (Auto) 0.0 x10^3/uL (0.0-0.7) Basophils # (Auto) 0.0 x10^3/uL (0.0-0.2) Urine Collection Type Unknown Urine Color Yellow Urine Clarity Clear Urine pH 6.0 (<5.0-8.0) Urine Specific [place] >=1.030 (1.000-1.030) Urine Protein 30 mg/dL (NEG-TRACE) Urine Glucose (UA) Negative mg/dL (NEG) Urine Ketones (Stick) >=80 mg/dL (NEG) Urine Blood Negative (NEG) Urine Nitrite Negative (NEG) Urine Bilirubin Negative (NEG) Urine Urobilinogen Dipstick 0.2 mg/dL (0.2 mg/dL) Urine Leukocyte Esterase Negative (NEG) Urine RBC Occ /HPF (0-2) Urine WBC Occ /HPF (0-4) Urine Squamous Epithelial Cells Few /LPF Urine Bacteria 0 /HPF (0-FEW) Urine Mucus Slight /LPF Sodium Level 144 mmol/L (136-145) Potassium Level 3.8 mmol/L (3.5-5.1) Chloride Level 107 mmol/L (98-107) Carbon Dioxide Level 25 mmol/L (21-32) Anion Gap 12 (6-14) Blood Urea Nitrogen 15 mg/dL (8-26) Creatinine 1.0 mg/dL (0.7-1.3) Estimated GFR (Cockcroft-Gault) 81.6 BUN/Creatinine Ratio 15 (6-20) Glucose Level 85 mg/dL (70-99) Calcium Level 9.1 mg/dL (8.5-10.1) Total Bilirubin 0.4 mg/dL (0.2-1.0) Aspartate Amino Transf (AST/SGOT) 14 U/L (15-37) Alanine Aminotransferase (ALT/SGPT) 18 U/L (16-63) Alkaline Phosphatase 65 U/L (46-116) Troponin I Quantitative < 0.017 ng/mL (0.000-0.055) Total Protein 7.6 g/dL (6.4-8.2) Albumin 4.3 g/dL (3.4-5.0) Albumin/Globulin Ratio 1.3 (1.0-1.7) Lipase 51 U/L (73-393) Urine Opiates Screen Neg (NEG) Urine Methadone Screen Neg (NEG) Urine Barbiturates Neg (NEG) Urine Phencyclidine Screen Neg (NEG) Urine Amphetamine/Methamphetamine Neg (NEG) Urine Benzodiazepines Screen Neg (NEG) Urine Cocaine Screen Pos (NEG) Urine Cannabinoids Screen Neg (NEG) Ethyl Alcohol Level < 10 mg/dL (0-10) Urine Ethyl Alcohol Neg (NEG) Iron Level 151 ug/dL (65-175) Total Iron Binding Capacity 266 ug/dL (250-450) Iron Saturation 57 % (15-34) Lactate Dehydrogenase 145 U/L (85-227) Vitamin B12 Level 656 pg/mL (247-911) Prothrombin Time 13.5 SEC (11.7-14.0) Prothromb Time International Ratio 1.0 (0.8-1.1) Images Images CT head INDICATION: Numbness on right side with headache TECHNIQUE: Sequential axial images through the head were obtained without the administration of IV contrast. Exposure: One or more of the following in the visualized dose reduction techniques were utilized for this examination: 1. Automated exposure control 2. Adjustment of the MA and/or KV according to patient size 3. Use of iterative of reconstructive technique Comparisons: None FINDINGS: No focal parenchymal lesion or hemorrhage is identified. There is no midline shift or sulcal effacement. No acute vascular territory infarction is identified. Wetzel-white distinction is preserved. The ventricular system is within normal limits without compression hydrocephalus. The basal cisterns are well maintained. The visualized portions of the paranasal sinuses and mastoid air cells are well- pneumatized. No acute fractures. IMPRESSION: No acute intracranial abnormality. Assessment/Plan Assessment/Plan Impression: Stroke symptoms following cocaine use, sensory loss on the right side is the only finding. Recommendations: Carotid Doppler studies have already been done, so I will hold off on getting CT angiogram MRI of the brain Further work-up and treatment depending on the results. Patient intends to abstain from cocaine indefinitely He also needs to stop smoking, I told him, daily aspirin for now Check lipids and start statin depending on results Also undergoing GI and surgical work-up for the abdominal mass. Discussed with patient and his . Thank you for letting me help with the patient's care. YAQUELIN KULKARNI MD Sep 14, 2020 15:31
--- NOTE | 2020-09-14 15:47 | RAD ---
EXAM: Bilateral carotid duplex with waveform analysis. CLINICAL HISTORY: Paresthesia TECHNIQUE: Longitudinal and transverse sonographic images of the bilateral carotid arteries was perfo rmed utilizing grayscale, color and spectral Doppler techniques. COMPARISON: None FINDINGS: Right Carotid: No visible stenosis or significant plaque. Left Carotid: No visible stenosis or significant plaque. Vertebrals: Antegrade flow bilaterally. Right Left PSV CCA 83 113 PSV ICA 81 82 EDV ICA 32 34 PSV ECA 71 64 ICA/CCA 0.97 0.86 IMPRESSION: No stenosis of the internal carotid arteries. Consensus Panel Wetzel-scale and Doppler US Criteria for Diagnosis of ICA Stenosis Degree of Stenosis (%) ICA PSV (Cm/sec) Plaque Estimate (%)* Normal <125 None <50 <125 <50 50-69 125-230 >50 >70 but < near occlusion >230 >50 Near occlusion High, low, or undetectable Visible Total occlusion Undetectable Visible, no detectable lumen *Plaque estimate (diameter reduction) with wetzel-scale and color Doppler US Degree of Stenosis (%) ICA/CCA PSV Ratio ICA EDV (cm/sec) Normal <2.0 <40 <50 <2.0 <40 50-69 2.0-4.0 40-100 >70 but < near occlusion >4.0 >100 Near occlusion Variable Variable Total occlusion Not applicable Not applicable Electronically signed by: Madeleine Fuchs MD (09/14/2020 3:45 PM) [id number]
[2020-09-14] MEDS: ASPIRIN ENTERIC COATED 325 MG TABLET.DR. PO SCH (16:27)
[2020-09-14] MEDS: IV NORMAL SALINE 1000ML BAG 1,000 ML IV SCH ×2 (16:28→23:13)
--- NOTE | 2020-09-14 17:40 | NUR ---
Pt was see by Dr. Mcclure this AM for consult. Order noted for cardiac monitoring, NIH stroke scale, stroke education, and Neuro checks for stroke sx, sensory loss to right side of body was the only finding related to cocaine use. Spoke to Dr. Sebastian to notify of order per Dr. Mcclure. Dr. Sebastian gave order to transfer to [facility] unit. Call placed to establish bed. Waiting donkey doctor back from [facility]. Pt and his are aware of transfer. Covid rapid and PCR has been obtained at 1635 for procedure that will be performed tomorrow, CT guided biopsy of ABD mass, consents have been signed and placed in chart. Pt has been educated on procedure of what will happen.
--- NOTE | 2020-09-14 19:49 | NUR ---
Patient was transferred to [facility] per Dr. Mcclure ordered.
--- NOTE | 2020-09-14 19:50 | NUR ---
pt transferred to room 262 via bed accompanied by staff and . pt alert and oriented x4, pt answered questions appropriately. NIH scale-0 performed by leonor steel and adrianne steel, neuro check done as per order, gretchen swallow done. pt moves all extremities well w/o difficulty. pt has no s/s of swallow difficulty. assessment complete, call light in reach, explained poc , pt verbalized understanding, will cont to monitor pt status and safety.pmrn
[2020-09-15] VITALS (10 sets, daily range): BP systolic 86–127; BP diastolic 54–80
[2020-09-15] MEDS: PANTOPRAZOLE 40 MG TABLET.DR. PO SCH (07:30)
--- NOTE | 2020-09-15 07:33 | NUR ---
PT HR IN THE 30S-40S THROUGHTOUT NIGHT DR GARIBAY NOTIFIED ORDER GIVEN TO CONSULT CARDIOLOGY, WILL CONT TO MONITOR. PMRN
[2020-09-15 07:54] LABS: CHOLESTEROL/HDL RATIO 3.4
[2020-09-15] MEDS: ASPIRIN ENTERIC COATED 325 MG TABLET.DR. PO SCH (08:00)
[2020-09-15] MEDS: IV NORMAL SALINE 1000ML BAG 1,000 ML IV SCH (09:13)
--- NOTE | 2020-09-15 09:42 | PDOC ---
Date of Service: DATE: 09/15/20 TIME: 09:37 Subjective: Subjective: Now reports right-sided pain. "I've had it for awhile but ignored it." Can't really elaborate - not sure of aggravating or alleviating factors. Hasn't stooled since Monday, feels constipated. Ate yesterday - apparently tolerated. Some numbness in head. Objective: Objective: D/w nurse - MRIs ordered, noted w/ bradycardia - IR would like cardiology eval before pursuing biopsy/sedation. Refused pantoprazole. Vital Signs: Vital Signs Date Time Temp Pulse Resp B/P (MAP) Pulse Ox O2 Delivery O2 Flow Rate FiO2 09/15/20 07:50 98.3 52 18 102/58 (73) 96 Room Air 98.3 Labs: Laboratory Tests Test 09/14/20 11:25 09/14/20 13:50 09/14/20 16:30 09/15/20 06:10 Iron Level 151 ug/dL Total Iron Binding Capacity 266 ug/dL Iron Saturation 57 % Lactate Dehydrogenase 145 U/L Vitamin B12 Level 656 pg/mL Prothrombin Time 13.5 SEC Prothromb Time International Ratio 1.0 SARS-CoV-2 Antigen (Rapid) Negative Triglycerides Level 37 mg/dL Cholesterol Level 138 mg/dL LDL Cholesterol, Calculated 90 mg/dL VLDL Cholesterol, Calculated 7 mg/dL Non-HDL Cholesterol Calculated 97 mg/dL HDL Cholesterol 41 mg/dL Cholesterol/HDL Ratio 3.4 Imaging: Carotid Doppler 09/14 IMPRESSION: No stenosis of the internal carotid arteries. 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 Plans as above, will follow. Outpt scopes. Address constipation. Justicifation of Admission Dx: Justifications for Admission: Justification of Admission Dx: Yes ALYSSA BRANCH Sep 15, 2020 09:42
[2020-09-15] MEDS ORDERED: BISACODYL 5 MG TABLET.DR. PO ONE (09:45)
--- NOTE | 2020-09-15 09:46 | PDOC ---
PROGRESS NOTES Date of Service DATE: 09/15/20 TIME: 09:44 Assessment Problems Medical Problems: (1) Abdominal mass Status: Acute (2) Cocaine use Status: Acute Stroke symptoms following cocaine use, sensory loss on the right side is the only finding, improving, only subjective now. Plan Await MRI of the brain Further work-up and treatment depending on the results. Patient intends to abstain from cocaine indefinitely Stop smoking Daily aspirin Favorable lipids, does not need statin Also undergoing GI and surgical work-up for the abdominal mass. Subjective Still feels a little numb on the right side Objective Vital Signs Date Time Temp Pulse Resp B/P (MAP) Pulse Ox O2 Delivery O2 Flow Rate FiO2 09/15/20 07:50 98.3 52 18 102/58 (73) 96 Room Air 98.3 Intake and Output 09/15/20 06:59 Intake Total 1200 ml Output Total 850 ml Balance 350 ml Intake Oral 200 ml IV Total 1000 ml Output Urine Total 850 ml # Voids 1 PHYSICAL EXAM Alert. Oriented to time, place and person. PERRL. EOMI. CN: no focal findings. Muscle tone: normal. Muscle strength: 5/5 DTR: 2+ Plantar reflex: Flexor Gait: not examined in bed. Sensory exam: no abnormal findings. No cerebellar signs elicited Review of Relevant I have reviewed the following items dina (where applicable) has been applied. Labs Laboratory Tests Test 09/13/20 16:09 09/13/20 17:10 09/14/20 11:25 09/14/20 13:50 Glucose (Fingerstick) 91 mg/dL (70-99) White Blood Count 7.0 x10^3/uL (4.0-11.0) Red Blood Count 4.19 x10^6/uL (4.30-5.70) Hemoglobin 12.9 g/dL (13.0-17.5) Hematocrit 37.5 % (39.0-53.0) Mean Corpuscular Volume 89 fL (79-100) Mean Corpuscular Hemoglobin 31 pg (25-35) Mean Corpuscular Hemoglobin Concent 34 g/dL (31-37) Red Cell Distribution Width 13.1 % (11.5-14.5) Platelet Count 184 x10^3/uL (140-400) Neutrophils (%) (Auto) 71 % (31-73) Lymphocytes (%) (Auto) 20 % (24-48) Monocytes (%) (Auto) 8 % (0-9) Eosinophils (%) (Auto) 0 % (0-3) Basophils (%) (Auto) 0 % (0-3) Neutrophils # (Auto) 5.0 x10^3/uL (1.8-7.7) Lymphocytes # (Auto) 1.4 x10^3/uL (1.0-4.8) Monocytes # (Auto) 0.6 x10^3/uL (0.0-1.1) Eosinophils # (Auto) 0.0 x10^3/uL (0.0-0.7) Basophils # (Auto) 0.0 x10^3/uL (0.0-0.2) Urine Collection Type Unknown Urine Color Yellow Urine Clarity Clear Urine pH 6.0 (<5.0-8.0) Urine Specific [place] >=1.030 (1.000-1.030) Urine Protein 30 mg/dL (NEG-TRACE) Urine Glucose (UA) Negative mg/dL (NEG) Urine Ketones (Stick) >=80 mg/dL (NEG) Urine Blood Negative (NEG) Urine Nitrite Negative (NEG) Urine Bilirubin Negative (NEG) Urine Urobilinogen Dipstick 0.2 mg/dL (0.2 mg/dL) Urine Leukocyte Esterase Negative (NEG) Urine RBC Occ /HPF (0-2) Urine WBC Occ /HPF (0-4) Urine Squamous Epithelial Cells Few /LPF Urine Bacteria 0 /HPF (0-FEW) Urine Mucus Slight /LPF Sodium Level 144 mmol/L (136-145) Potassium Level 3.8 mmol/L (3.5-5.1) Chloride Level 107 mmol/L (98-107) Carbon Dioxide Level 25 mmol/L (21-32) Anion Gap 12 (6-14) Blood Urea Nitrogen 15 mg/dL (8-26) Creatinine 1.0 mg/dL (0.7-1.3) Estimated GFR (Cockcroft-Gault) 81.6 BUN/Creatinine Ratio 15 (6-20) Glucose Level 85 mg/dL (70-99) Calcium Level 9.1 mg/dL (8.5-10.1) Total Bilirubin 0.4 mg/dL (0.2-1.0) Aspartate Amino Transf (AST/SGOT) 14 U/L (15-37) Alanine Aminotransferase (ALT/SGPT) 18 U/L (16-63) Alkaline Phosphatase 65 U/L (46-116) Troponin I Quantitative < 0.017 ng/mL (0.000-0.055) Total Protein 7.6 g/dL (6.4-8.2) Albumin 4.3 g/dL (3.4-5.0) Albumin/Globulin Ratio 1.3 (1.0-1.7) Lipase 51 U/L (73-393) Urine Opiates Screen Neg (NEG) Urine Methadone Screen Neg (NEG) Urine Barbiturates Neg (NEG) Urine Phencyclidine Screen Neg (NEG) Urine Amphetamine/Methamphetamine Neg (NEG) Urine Benzodiazepines Screen Neg (NEG) Urine Cocaine Screen Pos (NEG) Urine Cannabinoids Screen Neg (NEG) Ethyl Alcohol Level < 10 mg/dL (0-10) Urine Ethyl Alcohol Neg (NEG) Iron Level 151 ug/dL (65-175) Total Iron Binding Capacity 266 ug/dL (250-450) Iron Saturation 57 % (15-34) Lactate Dehydrogenase 145 U/L (85-227) Vitamin B12 Level 656 pg/mL (247-911) Prothrombin Time 13.5 SEC (11.7-14.0) Prothromb Time International Ratio 1.0 (0.8-1.1) Test 09/14/20 16:30 09/15/20 06:10 SARS-CoV-2 Antigen (Rapid) Negative (NEGATIVE) Triglycerides Level 37 mg/dL (0-150) Cholesterol Level 138 mg/dL (0-200) LDL Cholesterol, Calculated 90 mg/dL (0-100) VLDL Cholesterol, Calculated 7 mg/dL (0-40) Non-HDL Cholesterol Calculated 97 mg/dL (0-129) HDL Cholesterol 41 mg/dL (40-60) Cholesterol/HDL Ratio 3.4 Laboratory Tests Test 09/14/20 11:25 09/14/20 13:50 09/14/20 16:30 09/15/20 06:10 Iron Level 151 ug/dL (65-175) Total Iron Binding Capacity 266 ug/dL (250-450) Iron Saturation 57 % (15-34) Lactate Dehydrogenase 145 U/L (85-227) Vitamin B12 Level 656 pg/mL (247-911) Prothrombin Time 13.5 SEC (11.7-14.0) Prothromb Time International Ratio 1.0 (0.8-1.1) SARS-CoV-2 Antigen (Rapid) Negative (NEGATIVE) Triglycerides Level 37 mg/dL (0-150) Cholesterol Level 138 mg/dL (0-200) LDL Cholesterol, Calculated 90 mg/dL (0-100) VLDL Cholesterol, Calculated 7 mg/dL (0-40) Non-HDL Cholesterol Calculated 97 mg/dL (0-129) HDL Cholesterol 41 mg/dL (40-60) Cholesterol/HDL Ratio 3.4 Medications Current Medications Ondansetron HCl (Zofran) 4 mg 1X ONCE IVP Last administered on 09/13/20at 16:30; Start 09/13/20 at 16:30; Stop 09/13/20 at 16:31; Status DC Fentanyl Citrate (Fentanyl 2ml Vial) 50 mcg 1X ONCE IVP ; Start 09/13/20 at 16:30; Stop 09/13/20 at 16:31; Status DC Iohexol (Omnipaque 300 Mg/ml) 75 ml 1X ONCE IV Last administered on 09/13/20at 16:57; Start 09/13/20 at 16:45; Stop 09/13/20 at 16:46; Status DC Info (CONTRAST GIVEN -- Rx MONITORING) 1 each PRN DAILY PRN MC SEE COMMENTS; Start 09/13/20 at 16:45; Stop 09/15/20 at 16:44 Sodium Chloride 1,000 ml @ 1,000 mls/hr 1X ONCE IV Last administered on at 16:45; Start 09/13/20 at 16:45; Stop 09/13/20 at 17:44; Status DC Sodium Chloride 1,000 ml @ 1,000 mls/hr 1X ONCE IV Last administered on 09/13/20at 18:00; Start 09/13/20 at 18:00; Stop 09/13/20 at 18:59; Status DC Acetaminophen (Tylenol) 1,000 mg 1X ONCE PO Last administered on 09/13/20at 22:30; Start 09/13/20 at 22:30; Stop 09/13/20 at 22:31; Status DC Pantoprazole Sodium (Protonix) 40 mg DAILYAC PO Last administered on 09/14/20at 11:57; Start 09/14/20 at 11:30 Acetaminophen (Tylenol) 1,000 mg PRN Q6HRS PRN PO MILD PAIN / TEMP > 100.3'F; Start 09/14/20 at 12:45 Sodium Chloride (Normal Saline Flush) 3 ml QSHIFT PRN IV AFTER MEDS AND BLOOD DRAWS; Start 09/14/20 at 12:45 Ondansetron HCl (Zofran) 4 mg PRN Q4HRS PRN IV NAUSEA/VOMITING; Start 09/14/20 at 12:45 Al Hydroxide/Mg Hydroxide (Mylanta Plus Xs) 30 ml PRN DAILY PRN PO HEARTBURN / GAS; Start 09/14/20 at 12:45 Sodium Monofluorophosphate (Fleet Adult) 133 ml PRN DAILY PRN [place] CONSTIPATION; Start 09/14/20 at 12:45 Docusate Sodium (Colace) 100 mg PRN BID PRN PO HARD STOOLS; Start 09/14/20 at 12:45 Albuterol Sulfate (Ventolin Neb Soln) 2.5 mg PRN Q4HRS PRN NEB SHORTNESS OF BREATH; Start 09/14/20 at 12:45 Guaifenesin (Robitussin) 200 mg PRN Q4HRS PRN PO COUGH; Start 09/14/20 at 12:45 Lorazepam (Ativan) 0.5 mg PRN Q4HRS PRN PO ANXIETY / AGITATION; Start 09/14/20 at 12:45 Enoxaparin Sodium (Lovenox 40mg Syringe) 40 mg Q24H SQ ; Start 09/14/20 at 14:00 Sodium Chloride 1,000 ml @ 100 mls/hr 1X ONCE IV Last administered on 09/14/20at 14:23; Start 09/14/20 at 14:00; Stop 09/14/20 at 23:59; Status DC Sodium Chloride 1,000 ml @ 100 mls/hr Q10H IV Last administered on 09/15/20at 09:13; Start 09/14/20 at 16:00 Acetaminophen (Tylenol) 650 mg PRN Q6HRS PRN PO MILD PAIN / TEMP > 100.3'F; Start 09/14/20 at 15:15; Stop 09/14/20 at 15:10; Status DC Aspirin (Ecotrin) 325 mg DAILYWBKFT PO Last administered on 09/14/20at 16:27; Start 09/14/20 at 16:00 Aspirin (Aspirin Rectal Supp) 300 mg PRN DAILY PRN [place] IF UNABLE TO TAKE PO; Start 09/14/20 at 15:15 Active Scripts Active Reported Tylenol (Acetaminophen) 325 Mg Tablet 1,000 Mg PO PRN Q6HRS PRN Vitals/I & O Vital Sign - Last 24 Hours 09/14/20 09/14/20 09/14/20 09/14/20 10:03 14:05 19:00 20:00 Temp 98.2 97.8 97.6 97.8 98.2 97.8 97.6 97.8 Pulse 47 44 46 48 Resp 17 18 18 B/P (MAP) 90/51 (64) 90/58 (69) 102/65 (77) 104/69 (81) Pulse Ox 100 98 97 98 O2 Delivery Room Air Room Air Room Air Room Air 09/14/20 09/14/20 09/15/20 09/15/20 20:30 23:00 03:35 04:42 Temp 97.9 97.7 97.9 97.7 Pulse 49 38 Resp 18 18 B/P (MAP) 94/49 (64) 86/55 (65) 95/67 (76) Pulse Ox 98 97 O2 Delivery Room Air Room Air Room Air 09/15/20 07:50 Temp 98.3 98.3 Pulse 52 Resp 18 B/P (MAP) 102/58 (73) Pulse Ox 96 O2 Delivery Room Air Intake and Output 09/14/20 09/14/20 09/15/20 14:59 22:59 06:59 Intake Total 1200 ml Output Total 850 ml Balance 350 ml Images Bilateral carotid duplex with waveform analysis. CLINICAL HISTORY: Paresthesia TECHNIQUE: Longitudinal and transverse sonographic images of the bilateral carotid arteries was performed utilizing grayscale, color and spectral Doppler techniques. COMPARISON: None FINDINGS: Right Carotid: No visible stenosis or significant plaque. Left Carotid: No visible stenosis or significant plaque. Vertebrals: Antegrade flow bilaterally. Right Left PSV CCA 83 113 PSV ICA 81 82 EDV ICA 32 34 PSV ECA 71 64 ICA/CCA 0.97 0.86 IMPRESSION: No stenosis of the internal carotid arteries. Justicifation of Admission Dx: Justifications for Admission: Justification of Admission Dx: Yes APPELBAUM,YAQUELIN S MD Sep 15, 2020 09:46
--- NOTE | 2020-09-15 09:49 | PDOC ---
FIDELINA HOGAN D[employer] TENDER 09/15/20 0949: SURGICAL PROGRESS NOTE DATE: 09/15/20 TIME: 09:45 Subjective resting feels constipated concerned with cancer Vital Signs Vital Signs Date Time Temp Pulse Resp B/P (MAP) Pulse Ox O2 Delivery O2 Flow Rate FiO2 09/15/20 07:50 98.3 52 18 102/58 (73) 96 Room Air 98.3 I&O Intake and Output 09/15/20 06:59 Intake Total 1200 ml Output Total 850 ml Balance 350 ml Intake Oral 200 ml IV Total 1000 ml Output Urine Total 850 ml # Voids 1 General: Alert, Oriented X3, Cooperative Abdomen: Soft Labs Laboratory Tests Test 09/13/20 16:09 09/13/20 17:10 09/14/20 11:25 09/14/20 13:50 Glucose (Fingerstick) 91 mg/dL (70-99) White Blood Count 7.0 x10^3/uL (4.0-11.0) Red Blood Count 4.19 x10^6/uL (4.30-5.70) Hemoglobin 12.9 g/dL (13.0-17.5) Hematocrit 37.5 % (39.0-53.0) Mean Corpuscular Volume 89 fL (79-100) Mean Corpuscular Hemoglobin 31 pg (25-35) Mean Corpuscular Hemoglobin Concent 34 g/dL (31-37) Red Cell Distribution Width 13.1 % (11.5-14.5) Platelet Count 184 x10^3/uL (140-400) Neutrophils (%) (Auto) 71 % (31-73) Lymphocytes (%) (Auto) 20 % (24-48) Monocytes (%) (Auto) 8 % (0-9) Eosinophils (%) (Auto) 0 % (0-3) Basophils (%) (Auto) 0 % (0-3) Neutrophils # (Auto) 5.0 x10^3/uL (1.8-7.7) Lymphocytes # (Auto) 1.4 x10^3/uL (1.0-4.8) Monocytes # (Auto) 0.6 x10^3/uL (0.0-1.1) Eosinophils # (Auto) 0.0 x10^3/uL (0.0-0.7) Basophils # (Auto) 0.0 x10^3/uL (0.0-0.2) Urine Collection Type Unknown Urine Color Yellow Urine Clarity Clear Urine pH 6.0 (<5.0-8.0) Urine Specific [place] >=1.030 (1.000-1.030) Urine Protein 30 mg/dL (NEG-TRACE) Urine Glucose (UA) Negative mg/dL (NEG) Urine Ketones (Stick) >=80 mg/dL (NEG) Urine Blood Negative (NEG) Urine Nitrite Negative (NEG) Urine Bilirubin Negative (NEG) Urine Urobilinogen Dipstick 0.2 mg/dL (0.2 mg/dL) Urine Leukocyte Esterase Negative (NEG) Urine RBC Occ /HPF (0-2) Urine WBC Occ /HPF (0-4) Urine Squamous Epithelial Cells Few /LPF Urine Bacteria 0 /HPF (0-FEW) Urine Mucus Slight /LPF Sodium Level 144 mmol/L (136-145) Potassium Level 3.8 mmol/L (3.5-5.1) Chloride Level 107 mmol/L (98-107) Carbon Dioxide Level 25 mmol/L (21-32) Anion Gap 12 (6-14) Blood Urea Nitrogen 15 mg/dL (8-26) Creatinine 1.0 mg/dL (0.7-1.3) Estimated GFR (Cockcroft-Gault) 81.6 BUN/Creatinine Ratio 15 (6-20) Glucose Level 85 mg/dL (70-99) Calcium Level 9.1 mg/dL (8.5-10.1) Total Bilirubin 0.4 mg/dL (0.2-1.0) Aspartate Amino Transf (AST/SGOT) 14 U/L (15-37) Alanine Aminotransferase (ALT/SGPT) 18 U/L (16-63) Alkaline Phosphatase 65 U/L (46-116) Troponin I Quantitative < 0.017 ng/mL (0.000-0.055) Total Protein 7.6 g/dL (6.4-8.2) Albumin 4.3 g/dL (3.4-5.0) Albumin/Globulin Ratio 1.3 (1.0-1.7) Lipase 51 U/L (73-393) Urine Opiates Screen Neg (NEG) Urine Methadone Screen Neg (NEG) Urine Barbiturates Neg (NEG) Urine Phencyclidine Screen Neg (NEG) Urine Amphetamine/Methamphetamine Neg (NEG) Urine Benzodiazepines Screen Neg (NEG) Urine Cocaine Screen Pos (NEG) Urine Cannabinoids Screen Neg (NEG) Ethyl Alcohol Level < 10 mg/dL (0-10) Urine Ethyl Alcohol Neg (NEG) Iron Level 151 ug/dL (65-175) Total Iron Binding Capacity 266 ug/dL (250-450) Iron Saturation 57 % (15-34) Lactate Dehydrogenase 145 U/L (85-227) Vitamin B12 Level 656 pg/mL (247-911) Prothrombin Time 13.5 SEC (11.7-14.0) Prothromb Time International Ratio 1.0 (0.8-1.1) Test 09/14/20 16:30 09/15/20 06:10 SARS-CoV-2 Antigen (Rapid) Negative (NEGATIVE) Triglycerides Level 37 mg/dL (0-150) Cholesterol Level 138 mg/dL (0-200) LDL Cholesterol, Calculated 90 mg/dL (0-100) VLDL Cholesterol, Calculated 7 mg/dL (0-40) Non-HDL Cholesterol Calculated 97 mg/dL (0-129) HDL Cholesterol 41 mg/dL (40-60) Cholesterol/HDL Ratio 3.4 Laboratory Tests Test 09/14/20 11:25 09/14/20 13:50 09/14/20 16:30 09/15/20 06:10 Iron Level 151 ug/dL (65-175) Total Iron Binding Capacity 266 ug/dL (250-450) Iron Saturation 57 % (15-34) Lactate Dehydrogenase 145 U/L (85-227) Vitamin B12 Level 656 pg/mL (247-911) Prothrombin Time 13.5 SEC (11.7-14.0) Prothromb Time International Ratio 1.0 (0.8-1.1) SARS-CoV-2 Antigen (Rapid) Negative (NEGATIVE) Triglycerides Level 37 mg/dL (0-150) Cholesterol Level 138 mg/dL (0-200) LDL Cholesterol, Calculated 90 mg/dL (0-100) VLDL Cholesterol, Calculated 7 mg/dL (0-40) Non-HDL Cholesterol Calculated 97 mg/dL (0-129) HDL Cholesterol 41 mg/dL (40-60) Cholesterol/HDL Ratio 3.4 Problem List Problems Medical Problems: (1) Abdominal mass Status: Acute (2) Cocaine use Status: Acute Assessment/Plan HR 35--IR holding off on bx,cardiac consult pending Justicifation of Admission Dx: Justifications for Admission: Justification of Admission Dx: Yes BIANKA CARDENAS MD 09/15/20 1229: SURGICAL PROGRESS NOTE Assessment/Plan Pt seen and examined. Agree with Ms. Hogan's note Pt with c/o mild bloating abd soft NTTP agree with cards and neuro w/u prior to biopsy surgical plans based on biopsy FIDELINA HOGAN APRN Sep 15, 2020 09:49 BIANKA CARDENAS MD Sep 15, 2020 12:29
--- NOTE | 2020-09-15 10:00 | PDOC ---
PROGRESS NOTES Date of Service: DATE: 09/15/20 TIME: 10:00 Chief Complaint Chief Complaint VTE Prophylaxis Ordered VTE Prophylaxis Devices: Yes VTE Pharmacological Prophylaxi: Yes Assessment/Plan Assessment/Plan IMPRESSION: Abdominal pain 5.0 x 4.1 cm soft tissue mass centered within the mesentery of the right hemiabdomen. differential considerations include GIST. Correlate for malignancy MRI of the abdomen would better evaluate. abdominal mass Cocaine use bradycardia, asymptomatic, mild Right-sided numbness/ paresthesia , headache, sinus congestion, ON ct head, No acute intracranial abnormality. will consult neurology, consider MRI HEAD unintentional weight loss Tobacco abuse disorder right lower leg paresthesia PLAN ADMITTED dvt prophylaxis mri abdomen GI CONSULT GEN SURGERY CONSULT Neurology consult consider MRI HEAD Justifications for Admission Other Justification History of Present Illness History of Present Illness Identification/Chief Complaint Chief Complaint right upper abdominal discomfort, right facial numbness that has improved since admit History of Present Illness History of Present Illness 45 year old Male from [place] who presented to the ER began having right side of the face, right arm and leg numbness or heaviness and tingling that he rates about a 4 out of 10. He states that he also had some nausea and is having left-sided abdominal pain with pain with urination as well //. RIGHT leg paresthesia described as medial upper leg radiates to right ankle Patient denies fever, vomiting, diarrhea, constipation, cough, focal weakness, vision change, syncope, dizziness. He has a history of smoking, anxiety, GERD. Patient admits to smoking cocaine yesterday. he has lost 20 lbs in last year on CT Abdomen, a 5.0 x 4.1 cm soft tissue mass is centered within the mesentery of the right hemiabdomen. // differential considerations include GIST. Correlate for malignancy MRI of the abdomen would better evaluate. plan GI CONSULT / GEN SURGERY CONSULT Neurology consult Past Medical History Past Medical History Past Medical History Past Medical History Past Medical History: Anxiety, GERD Past Surgical History: No Surgical History Smoking Status: Current Every Day Smoker Alcohol Use: None Drug Use: None FHX COPD Cardiovascular: No pertinent hx Pulmonary: No pertinent hx GI: GERD Psych: Anxiety, Addictions Infectious disease: No pertinent hx ENT: No pertinent hx Renal/: No pertinent hx Endocrine: No pertinent hx Dermatology: No pertinent hx Family History Family History: Diabetes, Heart Disease Family History: Parent (father) Social History Smoke: <1 pack per day ALCOHOL: occassional Drugs: Cocaine Current Problem List Problem List Problems Medical Problems: (1) Abdominal mass Status: Acute (2) Cocaine use Status: Acute Current Medications Current Medications Current Medications Ondansetron HCl (Zofran) 4 mg 1X ONCE IVP Last administered on 09/13/20at 16:30; Start 09/13/20 at 16:30; Stop 09/13/20 at 16:31; Status DC Fentanyl Citrate (Fentanyl 2ml Vial) 50 mcg 1X ONCE IVP ; Start 09/13/20 at 16:30; Stop 09/13/20 at 16:31; Status DC Iohexol (Omnipaque 300 Mg/ml) 75 ml 1X ONCE IV Last administered on 09/13/20at 16:57; Start 09/13/20 at 16:45; Stop 09/13/20 at 16:46; Status DC Info (CONTRAST GIVEN -- Rx MONITORING) 1 each PRN DAILY PRN MC SEE COMMENTS; Start 09/13/20 at 16:45; Stop 09/15/20 at 16:44 Sodium Chloride 1,000 ml @ 1,000 mls/hr 1X ONCE IV Last administered on 09/13/20at 16:45; Start 09/13/20 at 16:45; Stop 09/13/20 at 17:44; Status DC Sodium Chloride 1,000 ml @ 1,000 mls/hr 1X ONCE IV Last administered on 09/13/20at 18:00; Start 09/13/20 at 18:00; Stop 09/13/20 at 18:59; Status DC Acetaminophen (Tylenol) 1,000 mg 1X ONCE PO Last administered on 09/13/20at 22:30; Start 09/13/20 at 22:30; Stop 09/13/20 at 22:31; Status DC Active Scripts Active Reported Tylenol (Acetaminophen) 325 Mg Tablet 1,000 Mg PO PRN Q6HRS PRN Allergies Allergies: Coded Allergies: No Known Drug Allergies (Unverified , 04/29/17) ROS Review of System Constitutional: Denies fever or chills. [] Eyes: Denies change in visual acuity. [] HENT: Denies nasal congestion or sore throat. [] Respiratory: Denies cough or shortness of breath. [] Cardiovascular: Denies chest pain or edema. [] GI: + abdominal pain, +nausea, denies vomiting, bloody stools or diarrhea. [] : Denies dysuria. [] Musculoskeletal: Denies back pain or joint pain. [] Integument: Denies rash. [] Neurologic: + Right-sided headache, denies focal weakness or sensory changes. + Tingling and numbness to right side of face, arm and leg [] improved since admit Endocrine: Denies polyuria or polydipsia. [] Lymphatic: Denies swollen glands. [] Psychiatric: Denies depression or anxiety. [] 14 pt ros otherwise neg PSYCHOLOGICAL ROS: No: Anxiety, Behavioral Disorder, Concentration difficultie, Decreased libido, Depression, Disorientation, Hallucinations, Hostility, Irritablity, Memory difficulties, Mood Swings, Obsessive thoughts, Physical abuse, Sexual abuse, Sleep disturbances, Suicidal ideation, Other Eyes: No Blurry vision, No Decreased vision, No Double vision, No Dry eyes, No Excessive tearing, No Eye Pain, No Itchy Eyes, No Loss of vision, No Photophobia, No Scotomata, No Uses contacts, No Uses glasses, No Other HEENT: YES: Heacaches; No: Visual Changes, Hearing change, Nasal congestion, Nasal discharge, Oral lesions, Sinus pain, Sore Throat, Epistaxis, Sneezing, Snoring, Tinnitus, Vertigo, Vocal changes, Other ALLERGY AND IMMUNOLOGY: No: Hives, Insect Bite Sensitivity, Itchy/Watery Eyes, Nasal Congestion, Post Nasal Drip, Seasonal Allergies, Other Hematological and Lymphatic: No: Bleeding Problems, Blood Clots, Blood Transfusions, Brusing, Night Sweats, Pallor, Swollen Lymph Nodes, Other ENDOCRINE: No: Breast Changes, Galactorrhea, Hair Pattern Changes, Hot Flashes, Malaise/lethargy, Mood Swings, Palpitations, Polydipsia/polyuria, Skin Changes, Temperature Intolerance, Unexpected Weight Changes, Other Breast: No New/Changing Breast Lumps, No Nipple changes, No Nipple discharge, No Other Cardiovascular: No Chest Pain, No Palpitations, No Orthopnea, No Paroxysmal Noc. Dyspnea, No Edema, No Lt Headedness, No Other Gastrointestinal: Yes Abdominal Pain; No Nausea, No Vomiting, No Diarrhea, No Constipation, No Melena, No Hematochezia, No Other Genitourinary: No Dysuria, No Frequency, No Incontinence, No Hematuria, No Retention, No Discharge, No Urgency, No Pain, No Flank Pain, No Other, No , No , No , No , No , No , No Neurological: Yes Gait Disturbance; No Behavorial Changes, No Bowel/Bladder ControlChng, No Confusion, No Dizziness, No Headaches, No Impaired Coord/balance, No Memory Loss, No Numbness/Tingling, No Seizures, No Speech Problems, No Tremors, No Visual Changes, No Weakness, No Other Skin: Yes Dry Skin; No Eczema, No Hair Changes, No Lumps, No Mole Changes, No Mottling, No Nail Changes, No Pruritus, No Rash, No Skin Lesion Changes, No Other, No Acne 09-15 mri head and abdomen pending Abdominal pain 5.0 x 4.1 cm soft tissue mass centered within the mesentery of the right hemiabdomen. differential considerations include GIST. Correlate for malignancy MRI of the abdomen would better evaluate. abdominal mass Cocaine use bradycardia, asymptomatic, mild MOVED TO CVC Right-sided numbness/ paresthesia , headache, sinus congestion, ON ct head, No acute intracranial abnormality. will consult neurology, consider MRI HEAD unintentional weight loss Tobacco abuse disorder right lower leg paresthesia mri abdomen pending GI CONSULT GEN SURGERY CONSULT Neurology consult d/w RN Vitals Vitals Vital Signs Date Time Temp Pulse Resp B/P (MAP) Pulse Ox O2 Delivery O2 Flow Rate FiO2 09/15/20 07:50 98.3 52 18 102/58 (73) 96 Room Air 98.3 Physical Exam General: Alert, Oriented X3, Cooperative Heart: Regular rate, Normal S1, Normal S2 Abdomen: Soft Extremities: No cyanosis Skin: No rashes, No breakdown Labs LABS Laboratory Tests Test 09/14/20 11:25 09/14/20 13:50 09/14/20 16:30 09/15/20 06:10 Iron Level 151 ug/dL (65-175) Total Iron Binding Capacity 266 ug/dL (250-450) Iron Saturation 57 % (15-34) Lactate Dehydrogenase 145 U/L (85-227) Vitamin B12 Level 656 pg/mL (247-911) Prothrombin Time 13.5 SEC (11.7-14.0) Prothromb Time International Ratio 1.0 (0.8-1.1) SARS-CoV-2 Antigen (Rapid) Negative (NEGATIVE) Triglycerides Level 37 mg/dL (0-150) Cholesterol Level 138 mg/dL (0-200) LDL Cholesterol, Calculated 90 mg/dL (0-100) VLDL Cholesterol, Calculated 7 mg/dL (0-40) Non-HDL Cholesterol Calculated 97 mg/dL (0-129) HDL Cholesterol 41 mg/dL (40-60) Cholesterol/HDL Ratio 3.4 Assessment and Plan Assessmemt and Plan Problems Medical Problems: (1) Abdominal mass Status: Acute (2) Cocaine use Status: Acute Comment Review of Relevant I have reviewed the following items dina (where applicable) has been applied. Labs Laboratory Tests Test 09/13/20 16:09 09/13/20 17:10 09/14/20 11:25 09/14/20 13:50 Glucose (Fingerstick) 91 mg/dL (70-99) White Blood Count 7.0 x10^3/uL (4.0-11.0) Red Blood Count 4.19 x10^6/uL (4.30-5.70) Hemoglobin 12.9 g/dL (13.0-17.5) Hematocrit 37.5 % (39.0-53.0) Mean Corpuscular Volume 89 fL (79-100) Mean Corpuscular Hemoglobin 31 pg (25-35) Mean Corpuscular Hemoglobin Concent 34 g/dL (31-37) Red Cell Distribution Width 13.1 % (11.5-14.5) Platelet Count 184 x10^3/uL (140-400) Neutrophils (%) (Auto) 71 % (31-73) Lymphocytes (%) (Auto) 20 % (24-48) Monocytes (%) (Auto) 8 % (0-9) Eosinophils (%) (Auto) 0 % (0-3) Basophils (%) (Auto) 0 % (0-3) Neutrophils # (Auto) 5.0 x10^3/uL (1.8-7.7) Lymphocytes # (Auto) 1.4 x10^3/uL (1.0-4.8) Monocytes # (Auto) 0.6 x10^3/uL (0.0-1.1) Eosinophils # (Auto) 0.0 x10^3/uL (0.0-0.7) Basophils # (Auto) 0.0 x10^3/uL (0.0-0.2) Urine Collection Type Unknown Urine Color Yellow Urine Clarity Clear Urine pH 6.0 (<5.0-8.0) Urine Specific [place] >=1.030 (1.000-1.030) Urine Protein 30 mg/dL (NEG-TRACE) Urine Glucose (UA) Negative mg/dL (NEG) Urine Ketones (Stick) >=80 mg/dL (NEG) Urine Blood Negative (NEG) Urine Nitrite Negative (NEG) Urine Bilirubin Negative (NEG) Urine Urobilinogen Dipstick 0.2 mg/dL (0.2 mg/dL) Urine Leukocyte Esterase Negative (NEG) Urine RBC Occ /HPF (0-2) Urine WBC Occ /HPF (0-4) Urine Squamous Epithelial Cells Few /LPF Urine Bacteria 0 /HPF (0-FEW) Urine Mucus Slight /LPF Sodium Level 144 mmol/L (136-145) Potassium Level 3.8 mmol/L (3.5-5.1) Chloride Level 107 mmol/L (98-107) Carbon Dioxide Level 25 mmol/L (21-32) Anion Gap 12 (6-14) Blood Urea Nitrogen 15 mg/dL (8-26) Creatinine 1.0 mg/dL (0.7-1.3) Estimated GFR (Cockcroft-Gault) 81.6 BUN/Creatinine Ratio 15 (6-20) Glucose Level 85 mg/dL (70-99) Calcium Level 9.1 mg/dL (8.5-10.1) Total Bilirubin 0.4 mg/dL (0.2-1.0) Aspartate Amino Transf (AST/SGOT) 14 U/L (15-37) Alanine Aminotransferase (ALT/SGPT) 18 U/L (16-63) Alkaline Phosphatase 65 U/L (46-116) Troponin I Quantitative < 0.017 ng/mL (0.000-0.055) Total Protein 7.6 g/dL (6.4-8.2) Albumin 4.3 g/dL (3.4-5.0) Albumin/Globulin Ratio 1.3 (1.0-1.7) Lipase 51 U/L (73-393) Urine Opiates Screen Neg (NEG) Urine Methadone Screen Neg (NEG) Urine Barbiturates Neg (NEG) Urine Phencyclidine Screen Neg (NEG) Urine Amphetamine/Methamphetamine Neg (NEG) Urine Benzodiazepines Screen Neg (NEG) Urine Cocaine Screen Pos (NEG) Urine Cannabinoids Screen Neg (NEG) Ethyl Alcohol Level < 10 mg/dL (0-10) Urine Ethyl Alcohol Neg (NEG) Iron Level 151 ug/dL (65-175) Total Iron Binding Capacity 266 ug/dL (250-450) Iron Saturation 57 % (15-34) Lactate Dehydrogenase 145 U/L (85-227) Vitamin B12 Level 656 pg/mL (247-911) Prothrombin Time 13.5 SEC (11.7-14.0) Prothromb Time International Ratio 1.0 (0.8-1.1) Test 09/14/20 16:30 09/15/20 06:10 SARS-CoV-2 Antigen (Rapid) Negative (NEGATIVE) Triglycerides Level 37 mg/dL (0-150) Cholesterol Level 138 mg/dL (0-200) LDL Cholesterol, Calculated 90 mg/dL (0-100) VLDL Cholesterol, Calculated 7 mg/dL (0-40) Non-HDL Cholesterol Calculated 97 mg/dL (0-129) HDL Cholesterol 41 mg/dL (40-60) Cholesterol/HDL Ratio 3.4 Laboratory Tests Test 09/14/20 11:25 09/14/20 13:50 09/14/20 16:30 09/15/20 06:10 Iron Level 151 ug/dL (65-175) Total Iron Binding Capacity 266 ug/dL (250-450) Iron Saturation 57 % (15-34) Lactate Dehydrogenase 145 U/L (85-227) Vitamin B12 Level 656 pg/mL (247-911) Prothrombin Time 13.5 SEC (11.7-14.0) Prothromb Time International Ratio 1.0 (0.8-1.1) SARS-CoV-2 Antigen (Rapid) Negative (NEGATIVE) Triglycerides Level 37 mg/dL (0-150) Cholesterol Level 138 mg/dL (0-200) LDL Cholesterol, Calculated 90 mg/dL (0-100) VLDL Cholesterol, Calculated 7 mg/dL (0-40) Non-HDL Cholesterol Calculated 97 mg/dL (0-129) HDL Cholesterol 41 mg/dL (40-60) Cholesterol/HDL Ratio 3.4 Medications Current Medications Ondansetron HCl (Zofran) 4 mg 1X ONCE IVP Last administered on 09/13/20at 16:30; Start 09/13/20 at 16:30; Stop 09/13/20 at 16:31; Status DC Fentanyl Citrate (Fentanyl 2ml Vial) 50 mcg 1X ONCE IVP ; Start 09/13/20 at 16:30; Stop 09/13/20 at 16:31; Status DC Iohexol (Omnipaque 300 Mg/ml) 75 ml 1X ONCE IV Last administered on 09/13/20at 16:57; Start 09/13/20 at 16:45; Stop 09/13/20 at 16:46; Status DC Info (CONTRAST GIVEN -- Rx MONITORING) 1 each PRN DAILY PRN MC SEE COMMENTS; Start 09/13/20 at 16:45; Stop 09/15/20 at 16:44 Sodium Chloride 1,000 ml @ 1,000 mls/hr 1X ONCE IV Last administered on 09/13/20at 16:45; Start 09/13/20 at 16:45; Stop 09/13/20 at 17:44; Status DC Sodium Chloride 1,000 ml @ 1,000 mls/hr 1X ONCE IV Last administered on 09/13/20at 18:00; Start 09/13/20 at 18:00; Stop 09/13/20 at 18:59; Status DC Acetaminophen (Tylenol) 1,000 mg 1X ONCE PO Last administered on 09/13/20at 22:30; Start 09/13/20 at 22:30; Stop 09/13/20 at 22:31; Status DC Pantoprazole Sodium (Protonix) 40 mg DAILYAC PO Last administered on 09/14/20at 11:57; Start 09/14/20 at 11:30 Acetaminophen (Tylenol) 1,000 mg PRN Q6HRS PRN PO MILD PAIN / TEMP > 100.3'F; Start 09/14/20 at 12:45 Sodium Chloride (Normal Saline Flush) 3 ml QSHIFT PRN IV AFTER MEDS AND BLOOD DRAWS; Start 09/14/20 at 12:45 Ondansetron HCl (Zofran) 4 mg PRN Q4HRS PRN IV NAUSEA/VOMITING; Start 09/14/20 at 12:45 Al Hydroxide/Mg Hydroxide (Mylanta Plus Xs) 30 ml PRN DAILY PRN PO HEARTBURN / GAS; Start 09/14/20 at 12:45 Sodium Monofluorophosphate (Fleet Adult) 133 ml PRN DAILY PRN NC CONSTIPATION; Start 09/14/20 at 12:45 Docusate Sodium (Colace) 100 mg PRN BID PRN PO HARD STOOLS; Start 09/14/20 at 12:45 Albuterol Sulfate (Ventolin Neb Soln) 2.5 mg PRN Q4HRS PRN NEB SHORTNESS OF BREATH; Start 09/14/20 at 12:45 Guaifenesin (Robitussin) 200 mg PRN Q4HRS PRN PO COUGH; Start 09/14/20 at 12:45 Lorazepam (Ativan) 0.5 mg PRN Q4HRS PRN PO ANXIETY / AGITATION; Start 09/14/20 at 12:45 Enoxaparin Sodium (Lovenox 40mg Syringe) 40 mg Q24H SQ ; Start 09/14/20 at 14:00 Sodium Chloride 1,000 ml @ 100 mls/hr 1X ONCE IV Last administered on 09/14/20at 14:23; Start 09/14/20 at 14:00; Stop 09/14/20 at 23:59; Status DC Sodium Chloride 1,000 ml @ 100 mls/hr Q10H IV Last administered on 09/15/20at 09:13; Start 09/14/20 at 16:00 Acetaminophen (Tylenol) 650 mg PRN Q6HRS PRN PO MILD PAIN / TEMP > 100.3'F; Start 09/14/20 at 15:15; Stop 09/14/20 at 15:10; Status DC Aspirin (Ecotrin) 325 mg DAILYWBKFT PO Last administered on 09/14/20at 16:27; Start 09/14/20 at 16:00 Aspirin (Aspirin Rectal Supp) 300 mg PRN DAILY PRN NC IF UNABLE TO TAKE PO; Start 09/14/20 at 15:15 Polyethylene Glycol (miraLAX PACKET) 17 gm DAILY PO ; Start 09/15/20 at 10:00 Bisacodyl (Dulcolax Tab) 5 mg 1X ONCE PO ; Start 09/15/20 at 09:45; Stop 09/15/20 at 09:46; Status DC Active Scripts Active Reported Tylenol (Acetaminophen) 325 Mg Tablet 1,000 Mg PO PRN Q6HRS PRN Vitals/I & O Vital Sign - Last 24 Hours 09/14/20 09/14/20 09/14/20 09/14/20 10:03 14:05 19:00 20:00 Temp 98.2 97.8 97.6 97.8 98.2 97.8 97.6 97.8 Pulse 47 44 46 48 Resp 17 18 18 B/P (MAP) 90/51 (64) 90/58 (69) 102/65 (77) 104/69 (81) Pulse Ox 100 98 97 98 O2 Delivery Room Air Room Air Room Air Room Air 09/14/20 09/14/20 09/15/20 09/15/20 20:30 23:00 03:35 04:42 Temp 97.9 97.7 97.9 97.7 Pulse 49 38 Resp 18 18 B/P (MAP) 94/49 (64) 86/55 (65) 95/67 (76) Pulse Ox 98 97 O2 Delivery Room Air Room Air Room Air 09/15/20 07:50 Temp 98.3 98.3 Pulse 52 Resp 18 B/P (MAP) 102/58 (73) Pulse Ox 96 O2 Delivery Room Air Intake and Output 09/14/20 09/14/20 09/15/20 15:00 23:00 07:00 Intake Total 200 ml 1000 ml Output Total 450 ml 400 ml Balance -250 ml 600 ml Justicifation of Admission Dx: Justifications for Admission: Justification of Admission Dx: Yes ARMIN URBANO MD Sep 15, 2020 10:00
--- NOTE | 2020-09-15 11:34 | PDOC2 ---
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 He was then noted with abdominal mass. He was at 6S and was noted with bradycardia and was having paresthesia symptoms to right face and arm and leg hence he was evaluated by neurology and transferred to [facility] for further monitoring. No visual or auditory disturbances. No unilateral weakness. He has l ost 10 pounds in the last 3 months, he has been having insomnia. His father also from cardiac arrest at age 75. He has been having abdominal pain nausea or vomiting. Some chills but no recorded fever. He does not take any medications not even OTC. He smokes tobacco and occasionally smokes cocaine with last use last Monday. He denies any passing out or frequent dizziness but has been fatigue lately. No changes to his appetite. He also complains of right sided sharp chest pain and has been coughing up sputum with dark red blood. PAST MEDICAL HISTORY Past Medical History HLP not medicated PAST SURGICAL HISTORY Past Surgical History: No pertinent history FAMILY HISTORY Family History: Coronary Artery Disease (father), Diabetes (father) SOCIAL HISTORY Smoke: <1 pack per day ALCOHOL: occassional Drugs: Cocaine Lives: with Family CURRENT MEDICATIONS CURRENT MEDICATIONS Current Medications Medications (Trade) Dose Ordered Sig/Cresencio Route PRN Reason Start Time Stop Time Status Last Admin Dose Admin Pantoprazole Sodium (Protonix) 40 mg DAILYAC PO 09/14/20 11:30 09/14/20 11:57 Sodium Chloride 1,000 ml @ 100 mls/hr 1X ONCE IV 09/14/20 14:00 09/14/20 23:59 DC 09/14/20 14:23 Sodium Chloride 1,000 ml @ 100 mls/hr Q10H IV 09/14/20 16:00 09/15/20 09:13 Aspirin (Ecotrin) 325 mg DAILYWBKFT PO 09/14/20 16:00 09/14/20 16:27 ALLERGIES ALLERGIES: Coded Allergies: No Known Drug Allergies (Unverified , 2/3/18) ROS Review of System 14 point ROS evaluated with pertinent positives noted per HPI PHYSICAL EXAM General: Alert, Oriented X3, Cooperative, No acute distress HEENT: Atraumatic, Mucous membr. moist/pink Lungs: Clear to auscultation, Normal air movement Heart: Regular rate, Normal S1, Normal S2, No murmurs Abdomen: Soft, No tenderness Extremities: No cyanosis, No edema Skin: No breakdown, No significant lesion Neuro: Normal speech, Sensation intact Psych/Mental Status: Mental status NL, Mood NL MUSCULOSKELETAL: Full range of motion without pain VITALS/I&O VITALS/I&O: Vital Signs Date Time Temp Pulse Resp B/P (MAP) Pulse Ox O2 Delivery O2 Flow Rate FiO2 09/15/20 07:50 98.3 52 18 102/58 (73) 96 Room Air 98.3 I & O 09/14/20 09/14/20 09/15/20 15:00 23:00 07:00 Intake Total 200 ml 1000 ml Output Total 450 ml 400 ml Balance -250 ml 600 ml LABS Lab: Laboratory Tests Test 09/14/20 11:25 09/14/20 13:50 09/14/20 16:30 09/15/20 06:10 Iron Level 151 ug/dL (65-175) Total Iron Binding Capacity 266 ug/dL (250-450) Iron Saturation 57 % (15-34) H Lactate Dehydrogenase 145 U/L (85-227) Vitamin B12 Level 656 pg/mL (247-911) Prothrombin Time 13.5 SEC (11.7-14.0) Prothrombin Time INR 1.0 (0.8-1.1) SARS-CoV-2 Antigen (Rapid) Negative (NEGATIVE) Triglycerides Level 37 mg/dL (0-150) Cholesterol Level 138 mg/dL (0-200) LDL Cholesterol, Calculated 90 mg/dL (0-100) VLDL Cholesterol, Calculated 7 mg/dL (0-40) Non-HDL Cholesterol Calculated 97 mg/dL (0-129) HDL Cholesterol 41 mg/dL (40-60) Cholesterol/HDL Ratio 3.4 ASSESSMENT/PLAN ASSESSMENT/PLAN 1. Atypical Chest pain: pleuritic? 2. Hemoptysis 3. Abdominal pain: 5.0 x 4.1 cm soft tissue mass centered within the mesentery of the right hemiabdomen per CT 4. Sinus bradycardia: lowest in the upper 30s with no pauses and EKG SB with early repolarization 5. Fatigue 6. Hypotension 7. Cocaine use 8. Tobaccoism 9. TIA vs cocaine related paresthesia vs cerebral hypoperfusion secondary to bradycardia/hypotension Recommendations 1. Brain/abd MRI pending 2. TTE today adn TSH 3. Have dopamine on standby if any invasive procedure is warranted for biopsy 4. No AV yolette blocking agents. Continue IVF. So far good chronotropic response with PT. Monitor rhythm 5. Recommend pulmonary consult AMENA GREEN MD 09/15/20 1523: CARDIAC CONSULT ASSESSMENT/PLAN ASSESSMENT/PLAN Pt. seen and examined. Agree with above AIRPLANE FLIGHT ATTENDANT SUPERVISOR note. Supportive care. Normal SR. Adequate chronotropic response. Low suspicion for cardiac process. AMBER CASTELAN APRN Sep 15, 2020 11:34 AMENA GREEN MD Sep 15, 2020 15:23
[2020-09-15] MEDS ORDERED: GADOTERATE 7.5 MMOL/15ML VIAL. IVP ONE (11:45)
[2020-09-15] MEDS ORDERED: LIDOCAINE WITH 8.4% SOD BICARB 3 ML DISP.SYRIN. ONE (12:25)
[2020-09-15] MEDS: ENOXAPARIN 40 MG/0.4 ML SYRINGE. SQ SCH (14:00)
--- NOTE | 2020-09-15 14:17 | RAD ---
EXAM: Brain MRI without contrast. HISTORY: Left-sided numbness. Stroke. TECHNIQUE: Multiplanar, multisequence magnetic resonance imaging of the brain was performed without c ontrast. COMPARISON: Head CT dated 09/13/2020 and brain MRI dated 08/23/2019. FINDINGS: There is no restricted diffusion to suggest acute or subacute infarction. There is no susce ptibility effect to suggest hemorrhage. There is no mass effect or midline shift. There is no hydroce phalus. Evaluation for white matter lesions is limited due to motion on FLAIR images. However, no con vincing white matter lesion is seen. The orbits are unremarkable. There is a tiny right maxillary sin us mucous retention cyst. The mastoid air cells are clear. There are normal flow voids within the cer ebral vessels. There is no suspicious calvarial lesion. IMPRESSION: No acute intracranial finding. Electronically signed by: Shyann Oliveros MD (09/15/2020 2:14 PM) [id number]
[2020-09-15] MEDS ORDERED: IOHEXOL 300 MG/ML 100ML VIAL. ONE (14:29)
[2020-09-15] MEDS ORDERED: LIDOCAINE WITH 8.4% SOD BICARB 3 ML DISP.SYRIN. INJ ONE (14:45)
[2020-09-15] MEDS ORDERED: IOHEXOL 300 MG/ML 100ML VIAL. IV ONE (14:45)
[2020-09-15] MEDS ORDERED: GELATIN SPONGE SIZE 12-7MM SPONGE. ONE (14:55)
--- NOTE | 2020-09-15 15:04 | PDOC ---
BRIEF OPERATIVE NOTE Pre-Op Diagnosis Abdominal mass Post-Op Diagnosis same Procedure Performed CT biopsy Surgeon Vadim SOLORIO minimal Anesthesia Type: Local Specimens Obtained 5 x 18g cores Findings CT abdominal mass biopsy. Mass is migratory and suspected to be of omental origin VISH LOUIS MD Sep 15, 2020 15:04
--- NOTE | 2020-09-15 16:12 | NUR ---
SS following for discharge planning. SS reviewed pt chart and discussed with pt RN. Pt is from home with family and is currently on room air. PT/OT recommended home independent. SS will continue to follow for discharge planning.
--- NOTE | 2020-09-15 16:18 | PDOC ---
PULMONARY PROGRESS NOTES DATE: 09/15/20 TIME: 16:17 Vitals Vital Signs Date Time Temp Pulse Resp B/P (MAP) Pulse Ox O2 Delivery O2 Flow Rate FiO2 09/15/20 15:00 40 15 113/75 (88) 97 Room Air 09/15/20 11:06 98.7 98.7 Labs Laboratory Tests Test 09/13/20 17:10 09/14/20 11:25 09/14/20 13:50 09/14/20 16:30 White Blood Count 7.0 x10^3/uL (4.0-11.0) Red Blood Count 4.19 x10^6/uL (4.30-5.70) Hemoglobin 12.9 g/dL (13.0-17.5) Hematocrit 37.5 % (39.0-53.0) Mean Corpuscular Volume 89 fL (79-100) Mean Corpuscular Hemoglobin 31 pg (25-35) Mean Corpuscular Hemoglobin Concent 34 g/dL (31-37) Red Cell Distribution Width 13.1 % (11.5-14.5) Platelet Count 184 x10^3/uL (140-400) Neutrophils (%) (Auto) 71 % (31-73) Lymphocytes (%) (Auto) 20 % (24-48) Monocytes (%) (Auto) 8 % (0-9) Eosinophils (%) (Auto) 0 % (0-3) Basophils (%) (Auto) 0 % (0-3) Neutrophils # (Auto) 5.0 x10^3/uL (1.8-7.7) Lymphocytes # (Auto) 1.4 x10^3/uL (1.0-4.8) Monocytes # (Auto) 0.6 x10^3/uL (0.0-1.1) Eosinophils # (Auto) 0.0 x10^3/uL (0.0-0.7) Basophils # (Auto) 0.0 x10^3/uL (0.0-0.2) Urine Collection Type Unknown Urine Color Yellow Urine Clarity Clear Urine pH 6.0 (<5.0-8.0) Urine Specific [place] >=1.030 (1.000-1.030) Urine Protein 30 mg/dL (NEG-TRACE) Urine Glucose (UA) Negative mg/dL (NEG) Urine Ketones (Stick) >=80 mg/dL (NEG) Urine Blood Negative (NEG) Urine Nitrite Negative (NEG) Urine Bilirubin Negative (NEG) Urine Urobilinogen Dipstick 0.2 mg/dL (0.2 mg/dL) Urine Leukocyte Esterase Negative (NEG) Urine RBC Occ /HPF (0-2) Urine WBC Occ /HPF (0-4) Urine Squamous Epithelial Cells Few /LPF Urine Bacteria 0 /HPF (0-FEW) Urine Mucus Slight /LPF Sodium Level 144 mmol/L (136-145) Potassium Level 3.8 mmol/L (3.5-5.1) Chloride Level 107 mmol/L (98-107) Carbon Dioxide Level 25 mmol/L (21-32) Anion Gap 12 (6-14) Blood Urea Nitrogen 15 mg/dL (8-26) Creatinine 1.0 mg/dL (0.7-1.3) Estimated GFR (Cockcroft-Gault) 81.6 BUN/Creatinine Ratio 15 (6-20) Glucose Level 85 mg/dL (70-99) Calcium Level 9.1 mg/dL (8.5-10.1) Total Bilirubin 0.4 mg/dL (0.2-1.0) Aspartate Amino Transf (AST/SGOT) 14 U/L (15-37) Alanine Aminotransferase (ALT/SGPT) 18 U/L (16-63) Alkaline Phosphatase 65 U/L (46-116) Troponin I Quantitative < 0.017 ng/mL (0.000-0.055) Total Protein 7.6 g/dL (6.4-8.2) Albumin 4.3 g/dL (3.4-5.0) Albumin/Globulin Ratio 1.3 (1.0-1.7) Lipase 51 U/L (73-393) Urine Opiates Screen Neg (NEG) Urine Methadone Screen Neg (NEG) Urine Barbiturates Neg (NEG) Urine Phencyclidine Screen Neg (NEG) Urine Amphetamine/Methamphetamine Neg (NEG) Urine Benzodiazepines Screen Neg (NEG) Urine Cocaine Screen Pos (NEG) Urine Cannabinoids Screen Neg (NEG) Ethyl Alcohol Level < 10 mg/dL (0-10) Urine Ethyl Alcohol Neg (NEG) Iron Level 151 ug/dL (65-175) Total Iron Binding Capacity 266 ug/dL (250-450) Iron Saturation 57 % (15-34) Lactate Dehydrogenase 145 U/L (85-227) Vitamin B12 Level 656 pg/mL (247-911) Prothrombin Time 13.5 SEC (11.7-14.0) Prothromb Time International Ratio 1.0 (0.8-1.1) Coronavirus (COVID-19)(PCR) Negative (NEGATIVE) SARS-CoV-2 Antigen (Rapid) Negative (NEGATIVE) Test 09/15/20 06:10 Triglycerides Level 37 mg/dL (0-150) Cholesterol Level 138 mg/dL (0-200) LDL Cholesterol, Calculated 90 mg/dL (0-100) VLDL Cholesterol, Calculated 7 mg/dL (0-40) Non-HDL Cholesterol Calculated 97 mg/dL (0-129) HDL Cholesterol 41 mg/dL (40-60) Cholesterol/HDL Ratio 3.4 Laboratory Tests Test 09/14/20 16:30 09/15/20 06:10 Coronavirus (COVID-19)(PCR) Negative (NEGATIVE) SARS-CoV-2 Antigen (Rapid) Negative (NEGATIVE) Triglycerides Level 37 mg/dL (0-150) Cholesterol Level 138 mg/dL (0-200) LDL Cholesterol, Calculated 90 mg/dL (0-100) VLDL Cholesterol, Calculated 7 mg/dL (0-40) Non-HDL Cholesterol Calculated 97 mg/dL (0-129) HDL Cholesterol 41 mg/dL (40-60) Cholesterol/HDL Ratio 3.4 Medications Active Scripts Medications Dose Route/Sig Max Daily Dose Days Date Category Tylenol (Acetaminophen) 325 Mg Tablet 1,000 Mg PO PRN Q6HRS PRN 09/14/20 Reported Impression . Hemoptysis related to cocaine inhalation Tobacco dependent Shortness of air related to COPD and anxiety Monitor no additional work-up necessary HERB WAYNE MD Sep 15, 2020 16:18
--- NOTE | 2020-09-15 17:25 | CARD ---
MR#: [id number] Date of Study: 09/15/2020 Ordering Physician: AMBER CASTELAN, Referring Physician: AMBER CASTELAN Tech: Danny Traylor [facility] APPROVED REPORT EXAM: Two-dimensional and M-mode echocardiogram with Doppler and color Doppler. Other Information Quality : GoodHR: 39bpm Rhythm : Bradycardia INDICATION Chest Pain Chest pressure Abdominal mass RISK FACTORS Family History Etoh and polysubstance abuse 2D DIMENSIONS Left Atrium(2D)2.9 (1.6-4.0cm)IVSd0.8 (0.7-1.1cm) Aortic Root(2D)3.4 (2.0-3.7cm)LVDd4.6 (3.9-5.9cm) LVOT Diameter2.2 (1.8-2.4cm)PWd0.9 (0.7-1.1cm) LVDs2.8 (2.5-4.0cm)FS (%) 38.9 % SV66.4 mlLVEF(%)69.4 (>50%) Aortic Valve AoV Peak Baron.105.1cm/sAoV VTI24.5cm AO Peak GR.4.4mmHgLVOT Peak Baron.79.1cm/s AO Mean GR.2mmHgAVA (VMAX)2.90cm2 Mitral Valve MV E Cuznufwe60.4cm/sMV E Peak Gr.3mmHg MV DECEL [id number] A Uqoihcrv29.4cm/s MV E Mean Gr.1mmHgE/A Ratio1.5 Pulmonary Valve PV Peak Pjhydjtm84.2cm/s Tricuspid Valve TR P. Sugysuvt753tt/sTR Peak Gr.18mmHg LEFT VENTRICLE The left ventricle is normal size. There is normal left ventricular wall thickness. The left ventricu lar systolic function is normal and the ejection fraction is within normal range. EF 55% There is nor mal LV segmental wall motion. The left ventricular diastolic function and filling is normal for age. No left ventricle thrombus noted on this study. RIGHT VENTRICLE The right ventricle is normal size. There is normal right ventricular wall thickness. The right ventr icular systolic function is normal. ATRIA The left atrium size is normal. The right atrium size is normal. The interatrial septum is intact wit h no evidence for an atrial septal defect or patent foramen ovale as noted on 2-D or Doppler imaging. AORTIC VALVE The aortic valve is normal in structure and function. Doppler and Color Flow revealed no significant aortic regurgitation. There is no significant aortic valvular stenosis. There is no aortic valvular v egetation. MITRAL VALVE The mitral valve is normal in structure and function. There is no evidence of mitral valve prolapse. There is no mitral valve stenosis. Doppler and Color-flow revealed trace to mild mitral regurgitation . TRICUSPID VALVE The tricuspid valve is normal in structure and function. Doppler and Color Flow revealed trace tricus pid regurgitation. There is no tricuspid valve prolapse or vegetation. There is no tricuspid valve st enosis. PULMONIC VALVE Doppler and Color Flow revealed no pulmonic valvular regurgitation. There is no pulmonic valvular dara nosis. GREAT VESSELS The aortic root is normal in size. The ascending aorta is normal in size. The IVC is normal in size a nd collapses >50% with inspiration. PERICARDIAL EFFUSION There is no pleural effusion. There is no evidence of significant pericardial effusion. Critical Notification Critical Value: No <Conclusion> The left ventricular systolic function is normal and the ejection fraction is within normal range. EF 55% There is normal LV segmental wall motion. Signed by : Esau Cuellar, Electronically Approved : 09/15/2020 17:25:20
[2020-09-15] MEDS: POLYETHYLENE GLYCOL 3350 17 GM PACKET. PO SCH (18:03)
--- NOTE | 2020-09-15 21:37 | CONS ---
DATE OF CONSULTATION: 09/15/2020 ATTENDING PHYSICIAN: Dr. Bowman. REASON FOR CONSULTATION: The patient is seen in pulmonary consultation at the request of Dr. Bowman for hemoptysis. HISTORY OF PRESENT ILLNESS: The patient is a 45-year-old that presented to the emergency room with multiple complaints. He presented at the morning of his admission with right-sided facial pain, right arm pain, left numbness, heaviness, tingling sensation. He also had some nausea. He has some chest pain and increasing shortness of breath with exertion. He has been evaluated by multiple subspecialties. He did test positive for cocaine and admitted smoking cocaine. He had been seen in consult by Dr. Steele. Dr. Steele felt that he had stroke symptoms following cocaine use. MRI of the brain was performed. It is showing no acute intracranial findings. Part of the patient's workup included a chest x-ray, which I personally reviewed, revealing no acute process. He had CT abdomen and pelvis revealing a 5 x 0 x 4.1 soft cm tissue mass. He underwent biopsy today. The patient does not have an established diagnosis of asthma or chronic obstructive pulmonary disease. PAST MEDICAL HISTORY: Remarkable for anxiety, gastroesophageal reflux. PAST SURGICAL HISTORY: None. CURRENT MEDICATIONS: List was reviewed. SOCIAL HISTORY: He smokes on a daily basis. He admits to smoking cocaine. REVIEW OF SYSTEMS: As indicated above, otherwise a 10-point system was reviewed and negative. PHYSICAL EXAMINATION: VITAL SIGNS: Stable. O2 saturation was greater than 92%. HEENT: Eyes, the sclerae are nonicteric. NECK: Jugular venous distention was not elevated. No lymphadenopathy. CHEST: Full expansion. LUNGS: Adequate flow with no wheezes. CARDIOVASCULAR: Regular rate and rhythm with S1, S2, no S3. ABDOMEN: Soft, nontender. EXTREMITIES: No clubbing, cyanosis or edema. LABORATORY DATA: Serology for influenza was negative. Toxicology screen was positive for cocaine. Electrolytes were noted. BUN and creatinine were noted. White count was normal. IMPRESSION: 1. Hemoptysis, suspect secondary to cocaine inhalation and nonspecific acute bronchitis. 2. Tobacco dependent. 3. Anxiety disorder. 4. Positive toxicology screen for cocaine. 5. Abdominal mass, status post biopsy. 6. Possible stroke symptoms following cocaine use. PLAN: 1. Respiratory status appears to be compensated, no further workup needed. 2. Suspect patient's symptoms of shortness of breath related to anxiety more than anything else. 3. P.r.n. albuterol. ELIZABET DR: Donald TID: [id number]
[2020-09-16] VITALS (8 sets, daily range): BP systolic 99–140; BP diastolic 58–89
[2020-09-16] MEDS: IV NORMAL SALINE 1000ML BAG 1,000 ML IV SCH ×3 (00:49→23:00)
[2020-09-16] MEDS: PANTOPRAZOLE 40 MG TABLET.DR. PO SCH (07:30)
[2020-09-16] MEDS: ASPIRIN ENTERIC COATED 325 MG TABLET.DR. PO SCH (08:00)
--- NOTE | 2020-09-16 08:12 | PDOC ---
PULMONARY PROGRESS NOTES DATE: 09/16/20 TIME: 08:12 Subjective Pt. is resting on room air no further hemoptysis increased ABD pain at biopsy site Vitals Vital Signs Date Time Temp Pulse Resp B/P (MAP) Pulse Ox O2 Delivery O2 Flow Rate FiO2 09/16/20 02:59 98.2 64 16 112/58 (76) 98 Room Air 98.2 ROS: No Nausea, No Chest Pain, No Increase Cough General: Alert Lungs: Clear Cardiovascular: S1, S2 Abdomen: Soft Extremities: No Edema Skin: Warm Labs Laboratory Tests Test 09/14/20 11:25 09/14/20 13:50 09/14/20 16:30 09/15/20 06:10 Iron Level 151 ug/dL (65-175) Total Iron Binding Capacity 266 ug/dL (250-450) Iron Saturation 57 % (15-34) Lactate Dehydrogenase 145 U/L (85-227) Vitamin B12 Level 656 pg/mL (247-911) Prothrombin Time 13.5 SEC (11.7-14.0) Prothromb Time International Ratio 1.0 (0.8-1.1) Coronavirus (COVID-19)(PCR) Negative (NEGATIVE) SARS-CoV-2 Antigen (Rapid) Negative (NEGATIVE) Triglycerides Level 37 mg/dL (0-150) Cholesterol Level 138 mg/dL (0-200) LDL Cholesterol, Calculated 90 mg/dL (0-100) VLDL Cholesterol, Calculated 7 mg/dL (0-40) Non-HDL Cholesterol Calculated 97 mg/dL (0-129) HDL Cholesterol 41 mg/dL (40-60) Cholesterol/HDL Ratio 3.4 Medications Active Scripts Medications Dose Route/Sig Max Daily Dose Days Date Category Tylenol (Acetaminophen) 325 Mg Tablet 1,000 Mg PO PRN Q6HRS PRN 09/14/[address] chest reviewed : 1. No evidence of metastatic disease or acute infiltrates. No endobronchial lesions. Recommend ongoing follow-up for hemoptysis. Impression . Hemoptysis related to cocaine inhalation Tobacco dependent Substance Abuse + Cocaine Shortness of air related to COPD and anxiety Monitor no additional work-up necessary Abdominal mass s/p biopsy on 09/15/20 GERD Plan . Updated 09/16/20 Pt. respiratory status is compensated, remains on room air No Further hemoptysis NEBS PRN CT chest reviewed Follow surgery recs--Abdominal mass s/p biopsy on 09/15/20 Follow GI recs Educated on importance of cessation of smoking and drug use Anxiety per PCP DVT/GI PPX D/W RN Pancho MORA today from our standpoint follow up in Office with me in November PLAN: 09/15/20 1. Respiratory status appears to be compensated, no further workup needed. 2. Suspect patient's symptoms of shortness of breath related to anxiety more than anything else. 3. P.r.n. albuterol. HERB WAYNE MD Sep 16, 2020 08:12
--- NOTE | 2020-09-16 09:00 | RAD ---
EXAM: MRI ABDOMEN WITH AND WITHOUT CONTRAST. HISTORY: Abdominal mass. TECHNIQUE: MRI of the abdomen was performed before and after the intravenous administration of 12 mL Clariscan. COMPARISON: CT 09/13/2020. FINDINGS: A mass just inferior to the greater curvature/antrum of the stomach measures 5.0 x 3.7 x 4. 4 cm. Previously it was seen in the right upper quadrant rather than the left upper quadrant. It enha nces avidly with a greater delay than pancreatic parenchyma. Parenchymal signal characteristics are s imilar but not identical to the spleen as it contains small regions of T2 hyperintensity. It does not clearly arise from the stomach or surrounding bowel loops, though a long thin pedicle cannot be excl uded. No additional mesenteric masses are seen. There is a normal spleen in the left upper quadrant. Liver: There is no significant steatosis. There are no suspicious hepatic lesions. Biliary tree: The gallbladder wall thickening has developed since the prior study. No stones or surro unding inflammatory changes are identified. The common duct is not dilated. There are no suspicious p ancreatic parenchymal lesions. The pancreatic duct is not dilated. Other findings: The kidneys and adrenal glands are unremarkable. IMPRESSION: 1. The 5.0 cm mass of concern is now in the left upper quadrant, indicating that it is mobile. Consid erations include a large wandering accessory spleen, a mesenteric mass such as a mesenchymal neoplasm , or gastrointestinal stromal tumor arising from a bowel loop or the stomach via a thin pedicle. Surg ical consultation is recommended. 2. Gallbladder wall thickening has developed in the interval. This is most likely related to intraven ous hydration or possibly hepatic inflammation rather than cholecystitis. Correlate with other data. Electronically signed by: Alden Pope MD (09/16/2020 8:58 AM) [place] [id number]
--- NOTE | 2020-09-16 09:13 | PDOC ---
PROGRESS NOTES Date of Service DATE: 09/16/20 TIME: 09:11 Assessment Problems Medical Problems: (1) Abdominal mass Status: Acute (2) Cocaine use Status: Acute Stroke symptoms following cocaine use, sensory loss on the right side is the only finding, improving, only subjective now. Stroke work-up is negative. Work-up for GI mass in progress Plan No additional neurological studies needed Patient intends to abstain from cocaine indefinitely Stop smoking Daily aspirin Subjective Numbness continues to improve, not totally gone yet. Intermittent mild headache Objective Vital Signs Date Time Temp Pulse Resp B/P (MAP) Pulse Ox O2 Delivery O2 Flow Rate FiO2 09/16/20 07:00 98.6 57 16 105/62 (76) 99 Room Air 98.6 Intake and Output 09/16/20 07:00 Intake Total 1150 ml Output Total 1150 ml Balance 0 ml Intake Oral 1150 ml Output Urine Total 1150 ml # Voids 1 PHYSICAL EXAM Alert. Oriented to time, place and person. PERRL. EOMI. CN: no focal findings. Muscle tone: normal. Muscle strength: 5/5 DTR: 2+ Plantar reflex: Flexor Gait: not examined in bed. Sensory exam: no abnormal findings. No cerebellar signs elicited Review of Relevant I have reviewed the following items dina (where applicable) has been applied. Labs Laboratory Tests Test 09/14/20 11:25 09/14/20 13:50 09/14/20 16:30 09/15/20 06:10 Iron Level 151 ug/dL (65-175) Total Iron Binding Capacity 266 ug/dL (250-450) Iron Saturation 57 % (15-34) Lactate Dehydrogenase 145 U/L (85-227) Vitamin B12 Level 656 pg/mL (247-911) Prothrombin Time 13.5 SEC (11.7-14.0) Prothromb Time International Ratio 1.0 (0.8-1.1) Coronavirus (COVID-19)(PCR) Negative (NEGATIVE) SARS-CoV-2 Antigen (Rapid) Negative (NEGATIVE) Triglycerides Level 37 mg/dL (0-150) Cholesterol Level 138 mg/dL (0-200) LDL Cholesterol, Calculated 90 mg/dL (0-100) VLDL Cholesterol, Calculated 7 mg/dL (0-40) Non-HDL Cholesterol Calculated 97 mg/dL (0-129) HDL Cholesterol 41 mg/dL (40-60) Cholesterol/HDL Ratio 3.4 Medications Current Medications Ondansetron HCl (Zofran) 4 mg 1X ONCE IVP Last administered on 09/13/20at 16:30; Start 09/13/20 at 16:30; Stop 09/13/20 at 16:31; Status DC Fentanyl Citrate (Fentanyl 2ml Vial) 50 mcg 1X ONCE IVP ; Start 09/13/20 at 16:30; Stop 09/13/20 at 16:31; Status DC Iohexol (Omnipaque 300 Mg/ml) 75 ml 1X ONCE IV Last administered on 09/13/20at 16:57; Start 09/13/20 at 16:45; Stop 09/13/20 at 16:46; Status DC Info (CONTRAST GIVEN -- Rx MONITORING) 1 each PRN DAILY PRN MC SEE COMMENTS; Start 09/13/20 at 16:45; Stop 09/15/20 at 16:44; Status DC Sodium Chloride 1,000 ml @ 1,000 mls/hr 1X ONCE IV Last administered on 09/13/20at 16:45; Start 09/13/20 at 16:45; Stop 09/13/20 at 17:44; Status DC Sodium Chloride 1,000 ml @ 1,000 mls/hr 1X ONCE IV Last administered on 09/13/20at 18:00; Start 09/13/20 at 18:00; Stop 09/13/20 at 18:59; Status DC Acetaminophen (Tylenol) 1,000 mg 1X ONCE PO Last administered on 09/13/20at 22:30; Start 09/13/20 at 22:30; Stop 09/13/20 at 22:31; Status DC Pantoprazole Sodium (Protonix) 40 mg DAILYAC PO Last administered on 09/14/20at 11:57; Start 09/14/20 at 11:30 Acetaminophen (Tylenol) 1,000 mg PRN Q6HRS PRN PO MILD PAIN / TEMP > 100.3'F; Start 09/14/20 at 12:45 Sodium Chloride (Normal Saline Flush) 3 ml QSHIFT PRN IV AFTER MEDS AND BLOOD DRAWS; Start 09/14/20 at 12:45 Ondansetron HCl (Zofran) 4 mg PRN Q4HRS PRN IV NAUSEA/VOMITING; Start 09/14/20 at 12:45 Al Hydroxide/Mg Hydroxide (Mylanta Plus Xs) 30 ml PRN DAILY PRN PO HEARTBURN / GAS; Start 09/14/20 at 12:45 Sodium Monofluorophosphate (Fleet Adult) 133 ml PRN DAILY PRN OK CONSTIPATION; Start 09/14/20 at 12:45 Docusate Sodium (Colace) 100 mg PRN BID PRN PO HARD STOOLS; Start 09/14/20 at 12:45 Albuterol Sulfate (Ventolin Neb Soln) 2.5 mg PRN Q4HRS PRN NEB SHORTNESS OF BREATH; Start 09/14/20 at 12:45 Guaifenesin (Robitussin) 200 mg PRN Q4HRS PRN PO COUGH; Start 09/14/20 at 12:45 Lorazepam (Ativan) 0.5 mg PRN Q4HRS PRN PO ANXIETY / AGITATION; Start 09/14/20 at 12:45 Enoxaparin Sodium (Lovenox 40mg Syringe) 40 mg Q24H SQ ; Start 09/14/20 at 14:00 Sodium Chloride 1,000 ml @ 100 mls/hr 1X ONCE IV Last administered on 09/14/20at 14:23; Start 09/14/20 at 14:00; Stop 09/14/20 at 23:59; Status DC Sodium Chloride 1,000 ml @ 100 mls/hr Q10H IV Last administered on 09/16/20at 00:49; Start 09/14/20 at 16:00 Acetaminophen (Tylenol) 650 mg PRN Q6HRS PRN PO MILD PAIN / TEMP > 100.3'F; Start 09/14/20 at 15:15; Stop 09/14/20 at 15:10; Status DC Aspirin (Ecotrin) 325 mg DAILYWBKFT PO Last administered on 09/14/20at 16:27; Start 09/14/20 at 16:00 Aspirin (Aspirin Rectal Supp) 300 mg PRN DAILY PRN OK IF UNABLE TO TAKE PO; Start 09/14/20 at 15:15 Polyethylene Glycol (miraLAX PACKET) 17 gm DAILY PO Last administered on 09/15/20at 18:03; Start 09/15/20 at 10:00 Bisacodyl (Dulcolax Tab) 5 mg 1X ONCE PO ; Start 09/15/20 at 09:45; Stop 09/15/20 at 09:46; Status DC Gadoterate Meglumine (Clariscan) 12 ml 1X ONCE IVP Last administered on 09/15/20at 11:30; Start 09/15/20 at 11:45; Stop 09/15/20 at 11:46; Status DC Lidocaine HCl (Buffered Lidocaine 1%) 9 ml 1X ONCE INJ Last administered on 09/15/20at 14:45; Start 09/15/20 at 14:45; Stop 09/15/20 at 14:53; Status DC Iohexol (Omnipaque 300 Mg/ml) 75 ml 1X ONCE IV Last administered on 09/15/20at 14:45; Start 09/15/20 at 14:45; Stop 09/15/20 at 14:53; Status DC Bisacodyl (Dulcolax Tab) 5 mg 1X ONCE PO ; Start 09/16/20 at 09:30; Stop 09/16/20 at 09:31 Active Scripts Active Reported Tylenol (Acetaminophen) 325 Mg Tablet 1,000 Mg PO PRN Q6HRS PRN Vitals/I & O Vital Sign - Last 24 Hours 09/15/20 09/15/20 09/15/20 09/15/20 11:06 14:47 14:54 15:00 Temp 98.7 98.7 Pulse 45 43 39 40 Resp 18 15 B/P (MAP) 98/70 (79) 127/77 (94) 118/78 (91) 113/75 (88) Pulse Ox 100 97 97 97 O2 Delivery Room Air Room Air Room Air 09/15/20 09/15/20 09/15/20 09/15/20 16:21 19:00 20:15 22:51 Temp 98.0 98.0 98.0 98.0 Pulse 44 49 56 Resp 16 18 B/P (MAP) 125/80 (95) 115/66 (82) 98/54 (69) Pulse Ox 98 99 O2 Delivery Room Air Room Air Room Air 09/16/20 09/16/20 02:59 07:00 Temp 98.2 98.6 98.2 98.6 Pulse 64 57 Resp 16 16 B/P (MAP) 112/58 (76) 105/62 (76) Pulse Ox 98 99 O2 Delivery Room Air Room Air Intake and Output 09/15/20 09/15/20 09/16/20 15:00 23:00 07:00 Intake Total 0 ml 550 ml 600 ml Output Total 350 ml 800 ml Balance 0 ml 200 ml -200 ml Images Brain MRI without contrast. HISTORY: Left-sided numbness. Stroke. TECHNIQUE: Multiplanar, multisequence magnetic resonance imaging of the brain was performed without contrast. COMPARISON: Head CT dated 09/13/2020 and brain MRI dated 08/23/2019. FINDINGS: There is no restricted diffusion to suggest acute or subacute infarction. There is no susceptibility effect to suggest hemorrhage. There is no mass effect or midline shift. There is no hydrocephalus. Evaluation for white matter lesions is limited due to motion on FLAIR images. However, no convincing white matter lesion is seen. The orbits are unremarkable. There is a tiny right maxillary sinus mucous retention cyst. The mastoid air cells are clear. There are normal flow voids within the cerebral vessels. There is no suspicious calvarial lesion. IMPRESSION: No acute intracranial finding. Echocardiogram: LEFT VENTRICLE The left ventricle is normal size. There is normal left ventricular wall thickness. The left ventricular systolic function is normal and the ejection fraction is within normal range. EF 55% There is normal LV segmental wall rosalia on. The left ventricular diastolic function and filling is normal for age. No left ventricle thrombus noted on this study. RIGHT VENTRICLE The right ventricle is normal size. There is normal right ventricular wall thickness. The right ventricular systolic function is normal. ATRIA The left atrium size is normal. The right atrium size is normal. The interatrial septum is intact with no evidence for an atrial septal defect or patent foramen ovale as noted on 2-D or Doppler imaging. AORTIC VALVE The aortic valve is normal in structure and function. Doppler and Color Flow revealed no significant aortic regurgitation. There is no significant aortic valvular stenosis. There is no aortic valvular vegetation. MITRAL VALVE The mitral valve is normal in structure and function. There is no evidence of mitral valve prolapse. There is no mitral valve stenosis. Doppler and Color-flow revealed trace to mild mitral regurgitation. TRICUSPID VALVE The tricuspid valve is normal in structure and function. Doppler and Color Flow revealed trace tricuspid regurgitation. There is no tricuspid valve prolapse or vegetation. There is no tricuspid valve stenosis. PULMONIC VALVE Doppler and Color Flow revealed no pulmonic valvular regurgitation. There is no pulmonic valvular stenosis. GREAT VESSELS The aortic root is normal in size. The ascending aorta is normal in size. The IVC is normal in size and collapses >50% with inspiration. PERICARDIAL EFFUSION There is no pleural effusion. There is no evidence of significant pericardial effusion. Critical Notification Critical Value: No <Conclusion> The left ventricular systolic function is normal and the ejection fraction is within normal range. EF 55% There is normal LV segmental wall motion. Justicifation of Admission Dx: Justifications for Admission: Justification of Admission Dx: Yes YAQUELIN KULKARNI MD Sep 16, 2020 09:13
--- NOTE | 2020-09-16 09:20 | RAD ---
EXAM: CT OF THE CHEST WITHOUT CONTRAST. HISTORY: Hemoptysis, abdominal mass. TECHNIQUE: Computed tomography of the chest was performed without intravenous contrast. One or more o f the following individualized dose reduction techniques were utilized for this examination: 1. Automated exposure control. 2. Adjustment of the mA and/or kV according to patient size. 3. Use of iterative reconstruction technique. COMPARISON: None. FINDINGS: Images of the upper abdomen reveal no acute abnormality. Bone windows reveal no suspicious lesions. There are no pathologically enlarged mediastinal or axillary lymph nodes. Mild soft tissue density wi thin the anterior mediastinal fat is likely a thymic remnant or mild rebound thymic hyperplasia. Ther e is no pleural or pericardial effusion. The heart is not enlarged. Lung windows reveal mild atelectasis or scarring in the bases. There are no acute infiltrates or susp icious nodules. No endobronchial lesions are identified. IMPRESSION: 1. No evidence of metastatic disease or acute infiltrates. No endobronchial lesions. Recommend ongoin g follow-up for hemoptysis. Electronically signed by: Alden Pope MD (09/16/2020 9:17 AM) [id number]
--- NOTE | 2020-09-16 09:24 | PDOC ---
PROGRESS NOTES Date of Service: DATE: 09/16/20 TIME: 09:30 Chief Complaint Chief Complaint VTE Prophylaxis Ordered VTE Prophylaxis Devices: Yes VTE Pharmacological Prophylaxi: Yes Assessment/Plan Assessment/Plan IMPRESSION: Abdominal pain 5.0 x 4.1 cm soft tissue mass centered within the mesentery of the right hemiabdomen. differential considerations include GIST. Correlate for malignancy MRI of the abdomen would better evaluate. abdominal mass The 5.0 cm mass of concern is now in the left upper quadrant, indicating that it is mobile. Considerations include a large wandering accessory spleen, a mesenteric mass such as a mesenchymal neoplasm, or gastrointestinal stromal tumor arising from a bowel loop or the stomach via a thin pedicle. Surgical consultation reviewed Cocaine use bradycardia, asymptomatic, mild Right-sided numbness/ paresthesia , headache, sinus congestion, ON ct head, No acute intracranial abnormality. will consult neurology, neg MRI HEAD Stroke symptoms following cocaine use, sensory loss on the right side is the only finding, improving, only subjective now. unintentional weight loss Tobacco abuse disorder right lower leg paresthesia PLAN ADMITTED dvt prophylaxis mri abdomen GI CONSULT GEN SURGERY CONSULT Neurology consult consider MRI HEAD ct guided bx 09-15 Justifications for Admission Other Justification History of Present Illness History of Present Illness Identification/Chief Complaint Chief Complaint right upper abdominal discomfort, right facial numbness that has improved since admit History of Present Illness History of Present Illness 45 year old Male from [place] who presented to the ER began having right side of the face, right arm and leg numbness or heaviness and tingling that he rates about a 4 out of 10. He states that he also had some nausea and is having left-sided abdominal pain with pain with urination as well //. RIGHT leg paresthesia described as medial upper leg radiates to right ankle Patient denies fever, vomiting, diarrhea, constipation, cough, focal weakness, vision change, syncope, dizziness. He has a history of smoking, anxiety, GERD. Patient admits to smoking cocaine yesterday. he has lost 20 lbs in last year on CT Abdomen, a 5.0 x 4.1 cm soft tissue mass is centered within the mesentery of the right hemiabdomen. // differential considerations include GIST. Correlate for malignancy MRI of the abdomen would better evaluate. plan GI CONSULT / GEN SURGERY CONSULT Neurology consult Past Medical History Past Medical History Past Medical History Past Medical History Past Medical History: Anxiety, GERD Past Surgical History: No Surgical History Smoking Status: Current Every Day Smoker Alcohol Use: None Drug Use: None FHX COPD Cardiovascular: No pertinent hx Pulmonary: No pertinent hx GI: GERD Psych: Anxiety, Addictions Infectious disease: No pertinent hx ENT: No pertinent hx Renal/: No pertinent hx Endocrine: No pertinent hx Dermatology: No pertinent hx Family History Family History: Diabetes, Heart Disease Family History: Parent (father) Social History Smoke: <1 pack per day ALCOHOL: occassional Drugs: Cocaine Current Problem List Problem List Problems Medical Problems: (1) Abdominal mass Status: Acute (2) Cocaine use Status: Acute Current Medications Current Medications Current Medications Ondansetron HCl (Zofran) 4 mg 1X ONCE IVP Last administered on 09/13/20at 16:30; Start 09/13/20 at 16:30; Stop 09/13/20 at 16:31; Status DC Fentanyl Citrate (Fentanyl 2ml Vial) 50 mcg 1X ONCE IVP ; Start 09/13/20 at 16:30; Stop 09/13/20 at 16:31; Status DC Iohexol (Omnipaque 300 Mg/ml) 75 ml 1X ONCE IV Last administered on 09/13/20at 16:57; Start 09/13/20 at 16:45; Stop 09/13/20 at 16:46; Status DC Info (CONTRAST GIVEN -- Rx MONITORING) 1 each PRN DAILY PRN MC SEE COMMENTS; Start 09/13/20 at 16:45; Stop 09/15/20 at 16:44 Sodium Chloride 1,000 ml @ 1,000 mls/hr 1X ONCE IV Last administered on 09/13/20at 16:45; Start 09/13/20 at 16:45; Stop 09/13/20 at 17:44; Status DC Sodium Chloride 1,000 ml @ 1,000 mls/hr 1X ONCE IV Last administered on 09/13/20at 18:00; Start 09/13/20 at 18:00; Stop 09/13/20 at 18:59; Status DC Acetaminophen (Tylenol) 1,000 mg 1X ONCE PO Last administered on 09/13/20at 22:30; Start 09/13/20 at 22:30; Stop 09/13/20 at 22:31; Status DC Active Scripts Active Reported Tylenol (Acetaminophen) 325 Mg Tablet 1,000 Mg PO PRN Q6HRS PRN Allergies Allergies: Coded Allergies: No Known Drug Allergies (Unverified , 04/29/17) ROS Review of System Constitutional: Denies fever or chills. [] Eyes: Denies change in visual acuity. [] HENT: Denies nasal congestion or sore throat. [] Respiratory: Denies cough or shortness of breath. [] Cardiovascular: Denies chest pain or edema. [] GI: + abdominal pain, +nausea, denies vomiting, bloody stools or diarrhea. [] : Denies dysuria. [] Musculoskeletal: Denies back pain or joint pain. [] Integument: Denies rash. [] Neurologic: + Right-sided headache, denies focal weakness or sensory changes. + Tingling and numbness to right side of face, arm and leg [] improved since admit Endocrine: Denies polyuria or polydipsia. [] Lymphatic: Denies swollen glands. [] Psychiatric: Denies depression or anxiety. [] 14 pt ros otherwise neg PSYCHOLOGICAL ROS: No: Anxiety, Behavioral Disorder, Concentration difficultie, Decreased libido, Depression, Disorientation, Hallucinations, Hostility, Irritablity, Memory difficulties, Mood Swings, Obsessive thoughts, Physical abuse, Sexual abuse, Sleep disturbances, Suicidal ideation, Other Eyes: No Blurry vision, No Decreased vision, No Double vision, No Dry eyes, No Excessive tearing, No Eye Pain, No Itchy Eyes, No Loss of vision, No Photophobia, No Scotomata, No Uses contacts, No Uses glasses, No Other HEENT: YES: Heacaches; No: Visual Changes, Hearing change, Nasal congestion, Nasal discharge, Oral lesions, Sinus pain, Sore Throat, Epistaxis, Sneezing, Snoring, Tinnitus, Vertigo, Vocal changes, Other ALLERGY AND IMMUNOLOGY: No: Hives, Insect Bite Sensitivity, Itchy/Watery Eyes, Nasal Congestion, Post Nasal Drip, Seasonal Allergies, Other Hematological and Lymphatic: No: Bleeding Problems, Blood Clots, Blood Transfusions, Brusing, Night Sweats, Pallor, Swollen Lymph Nodes, Other ENDOCRINE: No: Breast Changes, Galactorrhea, Hair Pattern Changes, Hot Flashes, Malaise/lethargy, Mood Swings, Palpitations, Polydipsia/polyuria, Skin Changes, Temperature Intolerance, Unexpected Weight Changes, Other Breast: No New/Changing Breast Lumps, No Nipple changes, No Nipple discharge, No Other Cardiovascular: No Chest Pain, No Palpitations, No Orthopnea, No Paroxysmal Noc. Dyspnea, No Edema, No Lt Headedness, No Other Gastrointestinal: Yes Abdominal Pain; No Nausea, No Vomiting, No Diarrhea, No Constipation, No Melena, No Hemat ochezia, No Other Genitourinary: No Dysuria, No Frequency, No Incontinence, No Hematuria, No Retention, No Discharge, No Urgency, No Pain, No Flank Pain, No Other, No , No , No , No , No , No , No Neurological: Yes Gait Disturbance; No Behavorial Changes, No Bowel/Bladder ControlChng, No Confusion, No Dizziness, No Headaches, No Impaired Coord/balance, No Memory Loss, No Numbness/Tingling, No Seizures, No Speech Problems, No Tremors, No Visual Changes, No Weakness, No Other Skin: Yes Dry Skin; No Eczema, No Hair Changes, No Lumps, No Mole Changes, No Mottling, No Nail Changes, No Pruritus, No Rash, No Skin Lesion Changes, No Other, No Acne 6-22 mri head and abdomen pending Abdominal pain 5.0 x 4.1 cm soft tissue mass centered within the mesentery of the right hemiabdomen. differential considerations include GIST. Correlate for malignancy MRI of the abdomen would better evaluate. abdominal mass Cocaine use bradycardia, asymptomatic, mild MOVED TO CVC Right-sided numbness/ paresthesia , headache, sinus congestion, ON ct head, No acute intracranial abnormality. will consult neurology, consider MRI HEAD unintentional weight loss Tobacco abuse disorder right lower leg paresthesia mri abdomen pending GI CONSULT GEN SURGERY CONSULT Neurology consult d/w RN 6-23 The 5.0 cm mass of concern is now in the left upper quadrant, indicating that it is mobile. Considerations include a large wandering accessory spleen, a mesenteric mass such as a mesenchymal neoplasm, or gastrointestinal stromal tumor arising from a bowel loop or the stomach via a thin pedicle. Surgical consultation reviewed states abd pain is more severe RLQ and mild luq 7/10 will check cbc and re- eval prior to discharge D/W Gaby GANNON in room mri head and abdomen reviewed Abdominal pain post bx 5.0 x 4.1 cm soft tissue mass centered within the mesentery of the right hemiabdomen. differential considerations include GIST. Correlate for malignancy MRI of the abdomen would better evaluate. abdominal mass Cocaine use bradycardia, asymptomatic, mild MOVED TO CVC Right-sided numbness/ paresthesia , headache, sinus congestion, ON ct head, No acute intracranial abnormality. will consult neurology, consider MRI HEAD unintentional weight loss Tobacco abuse disorder right lower leg paresthesia mri abdomen pending GI CONSULT GEN SURGERY CONSULT Neurology consult d/w RN Vitals Vitals Vital Signs Date Time Temp Pulse Resp B/P (MAP) Pulse Ox O2 Delivery O2 Flow Rate FiO2 09/16/20 07:00 98.6 57 16 105/62 (76) 99 Room Air 98.6 Physical Exam General: Alert, Oriented X3, Cooperative, No acute distress Heart: Regular rate, Normal S1, Normal S2, No murmurs Abdomen: Normal bowel sounds, Soft, No tenderness Extremities: No cyanosis, No edema Skin: No breakdown, No significant lesion Labs LABS PATIENT: HARIKA FALCON ACCOUNT: [id number] : 1975 LOCATION: [address] [place] [address] AGE: 45 SEX: M EXAM STATUS: ADM IN ORD. PHYSICIAN: FIDELINA HOGAN APRN REASON: abdominal mass on CT /12mL CLARISCAN PROCEDURE: ABDOMEN WO/W CONTRAST EXAM: MRI ABDOMEN WITH AND WITHOUT CONTRAST. HISTORY: Abdominal mass. TECHNIQUE: MRI of the abdomen was performed before and after the intravenous administration of 12 mL Clariscan. COMPARISON: CT 09/13/2020. FINDINGS: A mass just inferior to the greater curvature/antrum of the stomach measures 5.0 x 3.7 x 4.4 cm. Previously it was seen in the right upper quadrant rather than the left upper quadrant. It enhances avidly with a greater delay than pancreatic parenchyma. Parenchymal signal characteristics are similar but not identical to the spleen as it contains small regions of T2 hyperintensity. It does not clearly arise from the stomach or surrounding bowel loops, though a long thin pedicle cannot be excluded. No additional mesenteric masses are seen. There is a normal spleen in the left upper quadrant. Liver: There is no significant steatosis. There are no suspicious hepatic lesions. Biliary tree: The gallbladder wall thickening has developed since the prior study. No stones or surrounding inflammatory changes are identified. The common duct is not dilated. There are no suspicious pancreatic parenchymal lesions. The pancreatic duct is not dilated. Other findings: The kidneys and adrenal glands are unremarkable. IMPRESSION: 1. The 5.0 cm mass of concern is now in the left upper quadrant, indicating that it is mobile. Considerations include a large wandering accessory spleen, a mesenteric mass such as a mesenchymal neoplasm, or gastrointestinal stromal tumor arising from a bowel loop or the stomach via a thin pedicle. Surgical consultation is recommended. 2. Gallbladder wall thickening has developed in the interval. This is most likely related to intravenous hydration or possibly hepatic inflammation rather than cholecystitis. Correlate with other data. Electronically signed by: Alden Pope MD (09/16/2020 8:58 AM) [id number] DICTATED and SIGNED BY: PATO POPE MD DATE: 09/15/20 [id number] PATIENT: HARIKA FALCON ACCOUNT: [id number] : 1975 LOCATION: [address] [place] [address] AGE: 45 SEX: M EXAM STATUS: ADM IN ORD. PHYSICIAN: HERB WAYNE MD REASON: hemoptysis PROCEDURE: CT CHEST WO CONTRAST EXAM: CT OF THE CHEST WITHOUT CONTRAST. HISTORY: Hemoptysis, abdominal mass. TECHNIQUE: Computed tomography of the chest was performed without intravenous contrast. One or more of the following individualized dose reduction techniques were utilized for this examination: 1. Automated exposure control. 2. Adjustment of the mA and/or kV according to patient size. 3. Use of iterative reconstruction technique. COMPARISON: None. FINDINGS: Images of the upper abdomen reveal no acute abnormality. Bone windows reveal no suspicious lesions. There are no pathologically enlarged mediastinal or axillary lymph nodes. Mild soft tissue density within the anterior mediastinal fat is likely a thymic remnant or mild rebound thymic hyperplasia. There is no pleural or pericardial effusion. The heart is not enlarged. Lung windows reveal mild atelectasis or scarring in the bases. There are no acute infiltrates or suspicious nodules. No endobronchial lesions are identified. IMPRESSION: 1. No evidence of metastatic disease or acute infiltrates. No endobronchial lesions. Recommend ongoing follow-up for hemoptysis. Electronically signed by: Alden Pope MD (09/16/2020 9:17 AM) [id number] DICTATED and SIGNED BY: PATO POPE MD DATE: 09/16/20 [id number] Assessment and Plan Assessmemt and Plan Problems Medical Problems: (1) Abdominal mass Status: Acute (2) Cocaine use Status: Acute Comment Review of Relevant I have reviewed the following items dina (where applicable) has been applied. Labs Laboratory Tests Test 09/14/20 11:25 09/14/20 13:50 09/14/20 16:30 09/15/20 06:10 Iron Level 151 ug/dL (65-175) Total Iron Binding Capacity 266 ug/dL (250-450) Iron Saturation 57 % (15-34) Lactate Dehydrogenase 145 U/L (85-227) Vitamin B12 Level 656 pg/mL (247-911) Prothrombin Time 13.5 SEC (11.7-14.0) Prothromb Time International Ratio 1.0 (0.8-1.1) Coronavirus (COVID-19)(PCR) Negative (NEGATIVE) SARS-CoV-2 Antigen (Rapid) Negative (NEGATIVE) Triglycerides Level 37 mg/dL (0-150) Cholesterol Level 138 mg/dL (0-200) LDL Cholesterol, Calculated 90 mg/dL (0-100) VLDL Cholesterol, Calculated 7 mg/dL (0-40) Non-HDL Cholesterol Calculated 97 mg/dL (0-129) HDL Cholesterol 41 mg/dL (40-60) Cholesterol/HDL Ratio 3.4 Medications Current Medications Ondansetron HCl (Zofran) 4 mg 1X ONCE IVP Last administered on 09/13/20at 16:30; Start 09/13/20 at 16:30; Stop 09/13/20 at 16:31; Status DC Fentanyl Citrate (Fentanyl 2ml Vial) 50 mcg 1X ONCE IVP ; Start 09/13/20 at 16:30; Stop 09/13/20 at 16:31; Status DC Iohexol (Omnipaque 300 Mg/ml) 75 ml 1X ONCE IV Last administered on 09/13/20at 16:57; Start 09/13/20 at 16:45; Stop 09/13/20 at 16:46; Status DC Info (CONTRAST GIVEN -- Rx MONITORING) 1 each PRN DAILY PRN MC SEE COMMENTS; Start 09/13/20 at 16:45; Stop 09/15/20 at 16:44; Status DC Sodium Chloride 1,000 ml @ 1,000 mls/hr 1X ONCE IV Last administered on 09/13/20at 16:45; Start 09/13/20 at 16:45; Stop 09/13/20 at 17:44; Status DC Sodium Chloride 1,000 ml @ 1,000 mls/hr 1X ONCE IV Last administered on 09/13/20at 18:00; Start 09/13/20 at 18:00; Stop 09/13/20 at 18:59; Status DC Acetaminophen (Tylenol) 1,000 mg 1X ONCE PO Last administered on 09/13/20at 22:30; Start 09/13/20 at 22:30; Stop 09/13/20 at 22:31; Status DC Pantoprazole Sodium (Protonix) 40 mg DAILYAC PO Last administered on 09/14/20at 11:57; Start 09/14/20 at 11:30 Acetaminophen (Tylenol) 1,000 mg PRN Q6HRS PRN PO MILD PAIN / TEMP > 100.3'F; Start 09/14/20 at 12:45 Sodium Chloride (Normal Saline Flush) 3 ml QSHIFT PRN IV AFTER MEDS AND BLOOD DRAWS; Start 09/14/20 at 12:45 Ondansetron HCl (Zofran) 4 mg PRN Q4HRS PRN IV NAUSEA/VOMITING; Start 09/14/20 at 12:45 Al Hydroxide/Mg Hydroxide (Mylanta Plus Xs) 30 ml PRN DAILY PRN PO HEARTBURN / GAS; Start 09/14/20 at 12:45 Sodium Monofluorophosphate (Fleet Adult) 133 ml PRN DAILY PRN AL CONSTIPATION; Start 09/14/20 at 12:45 Docusate Sodium (Colace) 100 mg PRN BID PRN PO HARD STOOLS; Start 09/14/20 at 12:45 Albuterol Sulfate (Ventolin Neb Soln) 2.5 mg PRN Q4HRS PRN NEB SHORTNESS OF BREATH; Start 09/14/20 at 12:45 Guaifenesin (Robitussin) 200 mg PRN Q4HRS PRN PO COUGH; Start 09/14/20 at 12:45 Lorazepam (Ativan) 0.5 mg PRN Q4HRS PRN PO ANXIETY / AGITATION; Start 09/14/20 at 12:45 Enoxaparin Sodium (Lovenox 40mg Syringe) 40 mg Q24H SQ ; Start 09/14/20 at 14:00 Sodium Chloride 1,000 ml @ 100 mls/hr 1X ONCE IV Last administered on 09/14/20at 14:23; Start 09/14/20 at 14:00; Stop 09/14/20 at 23:59; Status DC Sodium Chloride 1,000 ml @ 100 mls/hr Q10H IV Last administered on 09/16/20at 00:49; Start 09/14/20 at 16:00 Acetaminophen (Tylenol) 650 mg PRN Q6HRS PRN PO MILD PAIN / TEMP > 100.3'F; Start 09/14/20 at 15:15; Stop 09/14/20 at 15:10; Status DC Aspirin (Ecotrin) 325 mg DAILYWBKFT PO Last administered on 09/14/20at 16:27; Start 09/14/20 at 16:00 Aspirin (Aspirin Rectal Supp) 300 mg PRN DAILY PRN AL IF UNABLE TO TAKE PO; Start 09/14/20 at 15:15 Polyethylene Glycol (miraLAX PACKET) 17 gm DAILY PO Last administered on 09/15/20at 18:03; Start 09/15/20 at 10:00 Bisacodyl (Dulcolax Tab) 5 mg 1X ONCE PO ; Start 09/15/20 at 09:45; Stop 09/15/20 at 09:46; Status DC Gadoterate Meglumine (Clariscan) 12 ml 1X ONCE IVP Last administered on 09/15/20at 11:30; Start 09/15/20 at 11:45; Stop 09/15/20 at 11:46; Status DC Lidocaine HCl (Buffered Lidocaine 1%) 9 ml 1X ONCE INJ Last administered on 09/15/20at 14:45; Start 09/15/20 at 14:45; Stop 09/15/20 at 14:53; Status DC Iohexol (Omnipaque 300 Mg/ml) 75 ml 1X ONCE IV Last administered on 09/15/20at 14:45; Start 09/15/20 at 14:45; Stop 09/15/20 at 14:53; Status DC Bisacodyl (Dulcolax Tab) 5 mg 1X ONCE PO ; Start 09/16/20 at 09:30; Stop 09/16/20 at 09:31 Active Scripts Active Reported Tylenol (Acetaminophen) 325 Mg Tablet 1,000 Mg PO PRN Q6HRS PRN Vitals/I & O Vital Sign - Last 24 Hours 09/15/20 09/15/20 09/15/20 09/15/20 11:06 14:47 14:54 15:00 Temp 98.7 98.7 Pulse 45 43 39 40 Resp 18 15 B/P (MAP) 98/70 (79) 127/77 (94) 118/78 (91) 113/75 (88) Pulse Ox 100 97 97 97 O2 Delivery Room Air Room Air Room Air 09/15/20 09/15/20 09/15/20 09/15/20 16:21 19:00 20:15 22:51 Temp 98.0 98.0 98.0 98.0 Pulse 44 49 56 Resp 16 18 B/P (MAP) 125/80 (95) 115/66 (82) 98/54 (69) Pulse Ox 98 99 O2 Delivery Room Air Room Air Room Air 09/16/20 09/16/20 02:59 07:00 Temp 98.2 98.6 98.2 98.6 Pulse 64 57 Resp 16 16 B/P (MAP) 112/58 (76) 105/62 (76) Pulse Ox 98 99 O2 Delivery Room Air Room Air Intake and Output 09/15/20 09/15/20 09/16/20 14:53 22:53 06:53 Intake Total 0 ml 550 ml 600 ml Output Total 350 ml 800 ml Balance 0 ml 200 ml -200 ml Justicifation of Admission Dx: Justifications for Admission: Justification of Admission Dx: Yes ARMIN URBANO MD Sep 16, 2020 09:24
[2020-09-16] MEDS: POLYETHYLENE GLYCOL 3350 17 GM PACKET. PO SCH (09:29)
[2020-09-16] MEDS ORDERED: BISACODYL 5 MG TABLET.DR. PO ONE (09:30)
--- NOTE | 2020-09-16 10:16 | RAD ---
Procedure: CT-guided biopsy of a mobile abdominal mass Clinical Indication: Adult male with abdominal mass which is somewhat mobile and may arise from the m esentery, the omentum, or small bowel. Differential diagnostic considerations include desmoid, lympho ma, GIST, or sarcoma. Sedation: Local anesthesia only. Antibiotics: None CT Exposure: One or more of the following individualized dose reduction techniques were utilized for this examination: 1. Automated exposure control 2. Adjustment of the mA and/or kV according to sylwia ent size 3. Use of iterative reconstruction technique Contrast: None Sterility: All elements of maximal sterile barrier technique including the use of a cap, mask, steril e gown, sterile gloves, large sterile sheet, appropriate hand hygiene, and 2% chlorhexidine for cutan eous antisepsis (or acceptable alternative antiseptic per current guidelines) were followed for this procedure. Consent: The procedure was explained in its entirety to the patient or the patients designated repres entative by a member of the treatment team, including a discussion of the risks, benefits and commonl y accepted alternatives to the procedure, as well as the expected consequences of not performing the procedure. Discussion of the risks included, but was not limited to, those that are most frequent an d those that are rare but possibly severe or life-threatening, as well as the possibility of unforese en complications. Time Out: Immediately prior to initiation a procedural pause was conducted in the presence of the mem bers of the treatment team to verify correct patient identity, correct procedure, correct side if theron licable, correct patient position, availability of specialized equipment, review of patients allergie s, and assessment of current level of consciousness and arousability. Technique and Findings: Following informed consent, the patient was prepped and draped in the usual s terile fashion. Preliminary CT scan of the area of interest was performed. 1 percent lidocaine was us ed to achieve local anesthesia over the area of interest. A small dermatotomy was made. Under periodi c CT surveillance, a 17-gauge needle guide was advanced into the target lesion and 5 separate 18-gaug e core biopsy specimens were obtained and divided between formalin and RPMI. Gelfoam pledgets were ap plied as the needle guide was removed and hemostasis was achieved with manual compression. Complications: No immediate Impression: 1. CT-guided abdominal mass biopsy as described. Electronically signed by: Jose Fierro MD (09/16/2020 10:14 AM) [id number]
--- NOTE | 2020-09-16 10:45 | PDOC ---
SURGICAL PROGRESS NOTE DATE: 09/16/20 TIME: 10:44 Subjective Pt with c/o mild pain, miki diet, some pain at biopsy site Vital Signs Vital Signs Date Time Temp Pulse Resp B/P (MAP) Pulse Ox O2 Delivery O2 Flow Rate FiO2 09/16/20 07:00 98.6 57 16 105/62 (76) 99 Room Air 98.6 I&O Intake and Output 09/16/20 07:00 Intake Total 1150 ml Output Total 1150 ml Balance 0 ml Intake Oral 1150 ml Output Urine Total 1150 ml # Voids 1 General: Alert, Oriented X3, Cooperative, No acute distress Abdomen: Soft, No tenderness, Other (dressing intact) Labs Laboratory Tests Test 09/14/20 11:25 09/14/20 13:50 09/14/20 16:30 09/15/20 06:10 Iron Level 151 ug/dL (65-175) Total Iron Binding Capacity 266 ug/dL (250-450) Iron Saturation 57 % (15-34) Lactate Dehydrogenase 145 U/L (85-227) Vitamin B12 Level 656 pg/mL (247-911) Prothrombin Time 13.5 SEC (11.7-14.0) Prothromb Time International Ratio 1.0 (0.8-1.1) Coronavirus (COVID-19)(PCR) Negative (NEGATIVE) SARS-CoV-2 Antigen (Rapid) Negative (NEGATIVE) Triglycerides Level 37 mg/dL (0-150) Cholesterol Level 138 mg/dL (0-200) LDL Cholesterol, Calculated 90 mg/dL (0-100) VLDL Cholesterol, Calculated 7 mg/dL (0-40) Non-HDL Cholesterol Calculated 97 mg/dL (0-129) HDL Cholesterol 41 mg/dL (40-60) Cholesterol/HDL Ratio 3.4 Problem List Problems Medical Problems: (1) Abdominal mass Status: Acute (2) Cocaine use Status: Acute Assessment/Plan abd mass await biopsy results prior to surgery encouraged avoiding cocaine or smoking prior to surgery. Justicifation of Admission Dx: Justifications for Admission: Justification of Admission Dx: Yes BIANKA CARDENAS MD Sep 16, 2020 10:45
[2020-09-16] MEDS ORDERED: HYDROcodone/APAP 5/325MG 1 TAB TABLET PO PRN (11:30)
[2020-09-16 11:33] LABS: BASO % 0 % (0-3); EOS # 0.1 x10^3/uL (0.0-0.7); EOS % 1 % (0-3); HEMATOCRIT 38.8 % (39.0-53.0); HEMOGLOBIN 12.9 g/dL (13.0-17.5); LYMPH # 1.1 x10^3/uL (1.0-4.8); LYMPH % 18 % (24-48); MEAN CORPUSCULAR HEMOGLOBIN 30 pg (25-35); MEAN CORPUSCULAR HGB CONC 33 g/dL (31-37); MEAN CORPUSCULAR VOLUME 91 fL (79-100); MONO # 0.5 x10^3/uL (0.0-1.1); MONO % 7 % (0-9); NEUT # 4.7 x10^3/uL (1.8-7.7); NEUT % 74 % (31-73); PLATELET COUNT 158 x10^3/uL (140-400); RED BLOOD COUNT 4.27 x10^6/uL (4.30-5.70); RED CELL DISTRIBUTION WIDTH 12.6 % (11.5-14.5); WHITE BLOOD COUNT 6.4 x10^3/uL (4.0-11.0)
--- NOTE | 2020-09-16 11:39 | NUR ---
SS following up with discharge planning. SS reviewed pt chart and discussed with pt RN. Pt is from home with family and is currently on room air. PT/OT recommended home independent. Surgery to follow up outpatient. SS will continue to follow for discharge planning.
--- NOTE | 2020-09-16 11:48 | PDOC ---
Date of Service: DATE: 09/16/20 TIME: 11:41 Subjective: Subjective: More pain today - shoots from biopsy site to left abdomen, feels short of breath. Tolerating diet. Passing gas, no stool. Wants to go home but says pain is worse and he didn't have this before. Objective: Objective: D/w nurse - no GI concerns - ?DC today Vital Signs: Vital Signs Date Time Temp Pulse Resp B/P (MAP) Pulse Ox O2 Delivery O2 Flow Rate FiO2 09/16/20 11:00 99.1 54 18 107/63 (78) 100 Room Air 99.1 Labs: Laboratory Tests Test 09/16/20 11:15 White Blood Count 6.4 x10^3/uL Red Blood Count 4.27 x10^6/uL Hemoglobin 12.9 g/dL Hematocrit 38.8 % Mean Corpuscular Volume 91 fL Mean Corpuscular Hemoglobin 30 pg Mean Corpuscular Hemoglobin Concent 33 g/dL Red Cell Distribution Width 12.6 % Platelet Count 158 x10^3/uL Neutrophils (%) (Auto) 74 % Lymphocytes (%) (Auto) 18 % Monocytes (%) (Auto) 7 % Eosinophils (%) (Auto) 1 % Basophils (%) (Auto) 0 % Neutrophils # (Auto) 4.7 x10^3/uL Lymphocytes # (Auto) 1.1 x10^3/uL Monocytes # (Auto) 0.5 x10^3/uL Eosinophils # (Auto) 0.1 x10^3/uL Basophils # (Auto) 0.0 x10^3/uL Imaging: Abd MRI IMPRESSION: 1. The 5.0 cm mass of concern is now in the left upper quadrant, indicating that it is mobile. Considerations include a large wandering accessory spleen, a m esenteric mass such as a mesenchymal neoplasm, or gastrointestinal stromal tumor arising from a bowel loop or the stomach via a thin pedicle. Surgical consultation is recommended. 2. Gallbladder wall thickening has developed in the interval. This is most l ikely related to intravenous hydration or possibly hepatic inflammation rather than cholecystitis. Correlate with other data. Brain MRI IMPRESSION: No acute intracranial finding. Chest CT IMPRESSION: 1. No evidence of metastatic disease or acute infiltrates. No endobronchial lesions. Recommend ongoing follow-up for hemoptysis. Echo <Conclusion> The left ventricular systolic function is normal and the ejection fraction is within normal range. EF 55% There is normal LV segmental wall motion. PE: GEN: NAD LUNGS: CTAB HEART: bradycardic ABD: soft, non-specific left-sided discomfort, BS+ NEURO/PSYCH: A & O 3 A/P: Abdominal mass s/p biopsy - differential diagnostic considerations include desmoid, lymphoma, GIST, or sarcoma Abd pain - varying locations - worse today H/o GERD, irregular bowel habits - declines some medications +cocaine COVID negative -- Awaiting pathology report. Continue per primary/surgery. MRI noted - mobile mass. He can pursue outpt EGD and colonoscopy for chronic GI issues later on. Justicifation of Admission Dx: Justifications for Admission: Justification of Admission Dx: Yes ALYSSA BRANCH Sep 16, 2020 11:48
[2020-09-16] MEDS: ENOXAPARIN 40 MG/0.4 ML SYRINGE. SQ SCH (14:00)
[2020-09-16] MEDS ORDERED: BISACODYL 5 MG TABLET.DR. PO PRN (14:15)
[2020-09-16] MEDS ORDERED: HYDROmorphone 2 MG/ML VIAL IVP PRN (15:00)
[2020-09-16] MEDS ORDERED: CONTRAST GIVEN. MC PRN (16:15)
[2020-09-16] MEDS ORDERED: IOHEXOL 300 MG/ML 100ML VIAL. IV ONE (16:15)
--- NOTE | 2020-09-16 16:43 | RAD ---
CT abdomen pelvis with contrast. HISTORY: Severe abdominal pain recent biopsy in the abdomen CT scan of the abdomen pelvis was done using 75 mL Omnipaque 300 contrast. Comparison made with a arash dy from September 15 and with a previous exam from September 13. Lung bases are clear except for mild atelectas is. There is no effusion. A liver lesion is not identified. There is mild fluid about the liver and g allbladder. Stomach is distended. Pancreas is unremarkable. There is no mass or hydronephrosis in the kidneys. There is fluid surrounding the mass in the right upper quadrant which is high in density dai ggesting hemorrhage. There is no free air. There is no small bowel obstruction. Appendix is normal. T here is mild fluid consistent with hemorrhage in the pelvis. IMPRESSION: 1. Hemorrhage surrounding the mass in the right upper quadrant hemorrhagic area measures 9.3 x 5.1 x 5 cm. 2. Small amount of free fluid noted in the upper abdomen and the pelvis. 3. No bowel obstruction. 4. Mild bladder distention. PQRS Compliance Statement: One or more of the following individualized dose reduction techniques were utilized for this examinat ion: 1. Automated exposure control 2. Adjustment of the mA and/or kV according to patient size 3. Use of iterative reconstruction technique Electronically signed by: Rylan Gentile MD (09/16/2020 4:40 PM) [facility]
--- NOTE | 2020-09-16 17:11 | PDOC ---
PROGRESS NOTES Date of Service: DATE: 09/16/20 TIME: 17:08 Chief Complaint Chief Complaint VTE Prophylaxis Ordered VTE Prophylaxis Devices: Yes VTE Pharmacological Prophylaxi: Yes Assessment/Plan Assessment/Plan IMPRESSION: Abdominal pain 5.0 x 4.1 cm soft tissue mass centered within the mesentery of the right hemiabdomen. differential considerations include GIST. Correlate for malignancy MRI of the abdomen would better evaluate. abdominal mass The 5.0 cm mass of concern is now in the left upper quadrant, indicating that it is mobile. Considerations include a large wandering accessory spleen, a mesenteric mass such as a mesenchymal neoplasm, or gastrointestinal stromal tumor arising from a bowel loop or the stomach via a thin pedicle. Surgical consultation reviewed Cocaine use bradycardia, asymptomatic, mild Right-sided numbness/ paresthesia , headache, sinus congestion, ON ct head, No acute intracranial abnormality. will consult neurology, neg MRI HEAD Stroke symptoms following cocaine use, sensory loss on the right side is the only finding, improving, only subjective now. unintentional weight loss Tobacco abuse disorder right lower leg paresthesia Hemorrhage surrounding the mass in the right upper quadrant hemorrhagic area measures 9.3 x 5.1 x 5 cm. 09-16 PLAN ADMITTED dvt prophylaxis mri abdomen GI CONSULT GEN SURGERY CONSULT Neurology consult consider MRI HEAD ct guided bx 09-15 Justifications for Admission Other Justification History of Present Illness History of Present Illness Identification/Chief Complaint Chief Complaint right upper abdominal discomfort, right facial numbness that has improved since admit History of Present Illness History of Present Illness 45 year old Male from [place] who presented to the ER began having right side of the face, right arm and leg numbness or heaviness and tingling that he rates about a 4 out of 10. He states that he also had some nausea and is having left-sided abdominal pain with pain with urination as well //. RIGHT leg paresthesia described as medial upper leg radiates to right ankle Patient denie s fever, vomiting, diarrhea, constipation, cough, focal weakness, vision change, syncope, dizziness. He has a history of smoking, anxiety, GERD. Patient admits to smoking cocaine yesterday. he has lost 20 lbs in last year on CT Abdomen, a 5.0 x 4.1 cm soft tissue mass is centered within the mesentery of the right hemiabdomen. // differential considerations include GIST. Correlate for malignancy MRI of the abdomen would better evaluate. plan GI CONSULT / GEN SURGERY CONSULT Neurology consult Past Medical History Past Medical History Past Medical History Past Medical History Past Medical History: Anxiety, GERD Past Surgical History: No Surgical History Smoking Status: Current Every Day Smoker Alcohol Use: None Drug Use: None FHX COPD Cardiovascular: No pertinent hx Pulmonary: No pertinent hx GI: GERD Psych: Anxiety, Addictions Infectious disease: No pertinent hx ENT: No pertinent hx Renal/: No pertinent hx Endocrine: No pertinent hx Dermatology: No pertinent hx Family History Family History: Diabetes, Heart Disease Family History: Parent (father) Social History Smoke: <1 pack per day ALCOHOL: occassional Drugs: Cocaine Current Problem List Problem List Problems Medical Problems: (1) Abdominal mass Status: Acute (2) Cocaine use Status: Acute Current Medications Current Medications Current Medications Ondansetron HCl (Zofran) 4 mg 1X ONCE IVP Last administered on 09/13/20at 16:30; Start 09/13/20 at 16:30; Stop 09/13/20 at 16:31; Status DC Fentanyl Citrate (Fentanyl 2ml Vial) 50 mcg 1X ONCE IVP ; Start 09/13/20 at 16:30; Stop 09/13/20 at 16:31; Status DC Iohexol (Omnipaque 300 Mg/ml) 75 ml 1X ONCE IV Last administered on 09/13/20at 16:57; Start 09/13/20 at 16:45; Stop 09/13/20 at 16:46; Status DC Info (CONTRAST GIVEN -- Rx MONITORING) 1 each PRN DAILY PRN MC SEE COMMENTS; Start 09/13/20 at 16:45; Stop 09/15/20 at 16:44 Sodium Chloride 1,000 ml @ 1,000 mls/hr 1X ONCE IV Last administered on 09/13/20at 16:45; Start 09/13/20 at 16:45; Stop 09/13/20 at 17:44; Status DC Sodium Chloride 1,000 ml @ 1,000 mls/hr 1X ONCE IV Last administered on 09/13/20at 18:00; Start 09/13/20 at 18:00; Stop 09/13/20 at 18:59; Status DC Acetaminophen (Tylenol) 1,000 mg 1X ONCE PO Last administered on 09/13/20at 22:30; Start 09/13/20 at 22:30; Stop 09/13/20 at 22:31; Status DC Active Scripts Active Reported Tylenol (Acetaminophen) 325 Mg Tablet 1,000 Mg PO PRN Q6HRS PRN Allergies Allergies: Coded Allergies: No Known Drug Allergies (Unverified , 04/29/17) ROS Review of System Constitutional: Denies fever or chills. [] Eyes: Denies change in visual acuity. [] HENT: Denies nasal congestion or sore throat. [] Respiratory: Denies cough or shortness of breath. [] Cardiovascular: Denies chest pain or edema. [] GI: + abdominal pain, +nausea, denies vomiting, bloody stools or diarrhea. [] : Denies dysuria. [] Musculoskeletal: Denies back pain or joint pain. [] Integument: Denies rash. [] Neurologic: + Right-sided headache, denies focal weakness or sensory changes. + Tingling and numbness to right side of face, arm and leg [] improved since admit Endocrine: Denies polyuria or polydipsia. [] Lymphatic: Denies swollen glands. [] Psychiatric: Denies depression or anxiety. [] 14 pt ros otherwise neg PSYCHOLOGICAL ROS: No: Anxiety, Behavioral Disorder, Concentration difficultie, Decreased libido, Depression, Disorientation, Hallucinations, Hostility, Irritablity, Memory difficulties, Mood Swings, Obsessive thoughts, Physical abuse, Sexual abuse, Sleep disturbances, Suicidal ideation, Other Eyes: No Blurry vision, No Decreased vision, No Double vision, No Dry eyes, No Excessive tearing, No Eye Pain, No Itchy Eyes, No Loss of vision, No Photophobia, No Scotomata, No Uses contacts, No Uses glasses, No Other HEENT: YES: Heacaches; No: Visual Changes, Hearing change, Nasal congestion, Nasal discharge, Oral lesions, Sinus pain, Sore Throat, Epistaxis, Sneezing, Snoring, Tinnitus, Vertig o, Vocal changes, Other ALLERGY AND IMMUNOLOGY: No: Hives, Insect Bite Sensitivity, Itchy/Watery Eyes, Nasal Congestion, Post Nasal Drip, Seasonal Allergies, Other Hematological and Lymphatic: No: Bleeding Problems, Blood Clots, Blood Transfusions, Brusing, Night Sweats, Pallor, Swollen Lymph Nodes, Other ENDOCRINE: No: Breast Changes, Galactorrhea, Hair Pattern Changes, Hot Flashes, Malaise/lethargy, Mood Swings, Palpitations, Polydipsia/polyuria, Skin Changes, Temperature Intolerance, Unexpected Weight Changes, Other Breast: No New/Changing Breast Lumps, No Nipple changes, No Nipple discharge, No Other Cardiovascular: No Chest Pain, No Palpitations, No Orthopnea, No Paroxysmal Noc. Dyspnea, No Edema, No Lt Headedness, No Other Gastrointestinal: Yes Abdominal Pain; No Nausea, No Vomiting, No Diarrhea, No Constipation, No Melena, No Hematochezia, No Other Genitourinary: No Dysuria, No Frequency, No Incontinence, No Hematuria, No Retention, No Discharge, No Urgency, No Pain, No Flank Pain, No Other, No , No , No , No , No , No , No Neurological: Yes Gait Disturbance; No Behavorial Changes, No Bowel/Bladder ControlChng, No Confusion, No Dizziness, No Headaches, No Impaired Coord/balance, No Memory Loss, No Numbness/Tingling, No Seizures, No Speech Problems, No Tremors, No Visual Changes, No Weakness, No Other Skin: Yes Dry Skin; No Eczema, No Hair Changes, No Lumps, No Mole Changes, No Mottling, No Nail Changes, No Pruritus, No Rash, No Skin Lesion Changes, No Other, No Acne 6-22 mri head and abdomen pending Abdominal pain 5.0 x 4.1 cm soft tissue mass centered within the mesentery of the right hemiabdomen. differential considerations include GIST. Correlate for malignancy MRI of the abdomen would better evaluate. abdominal mass Cocaine use bradycardia, asymptomatic, mild MOVED TO CVC Right-sided numbness/ paresthesia , headache, sinus congestion, ON ct head, No acute intracranial abnormality. will consult neurology, consider MRI HEAD unintentional weight loss Tobacco abuse disorder right lower leg paresthesia mri abdomen pending GI CONSULT GEN SURGERY CONSULT Neurology consult d/w RN 6-23 The 5.0 cm mass of concern is now in the left upper quadrant, indicating that it is mobile. Considerations include a large wandering accessory spleen, a mesenteric mass such as a mesenchymal neoplasm, or gastrointestinal stromal tumor arising from a bowel loop or the stomach via a thin pedicle. Surgical consultation reviewed states abd pain is more severe RLQ and mild luq 7/10 will check cbc and re-e hussein prior to discharge D/W Gaby RN in room mri head and abdomen reviewed Abdominal pain post bx 5.0 x 4.1 cm soft tissue mass centered within the mesentery of the right hemiabdomen. differential considerations include GIST. Correlate for malignancy MRI of the abdomen would better evaluate. abdominal mass Cocaine use bradycardia, asymptomatic, mild MOVED TO CVC Right-sided numbness/ paresthesia , headache, sinus congestion, ON ct head, No acute intracranial abnormality. will consult neurology, consider MRI HEAD unintentional weight loss Tobacco abuse disorder right lower leg paresthesia mri abdomen REVIEWED GI CONSULT GEN SURGERY CONSULT STAT Neurology consult D/C ASA, LOVENOX, ALL PO MEDS NPO H/H Q 6 HRS TYPE, CROSS 2 UNITS PRBC'S Hemorrhage surrounding the mass in the right upper quadrant hemorrhagic area measures 9.3 x 5.1 x 5 cm. 6 d/w RN 35 MIN CC TIME Vitals Vitals Vital Signs Date Time Temp Pulse Resp B/P (MAP) Pulse Ox O2 Delivery O2 Flow Rate FiO2 09/16/20 15:00 98.8 60 18 140/77 (98) 99 Room Air 98.8 Physical Exam General: Alert, Oriented X3, Cooperative, No acute distress Heart: Regular rate, Normal S1, Normal S2, No murmurs Lungs: Clear Abdomen: Soft, No tenderness, Other (dressing intact) Extremities: No cyanosis, No edema Skin: No breakdown, No significant lesion Labs LABS BRIEF OPERATIVE NOTE Pre-Op Diagnosis Abdominal mass Post-Op Diagnosis same Procedure Performed CT biopsy Surgeon Vadim EBL minimal Anesthesia Type: Local Specimens Obtained 5 x 18g cores Findings CT abdominal mass biopsy. Mass is migratory and suspected to be of omental origin VISH LOUIS MD Sep 15, 2020 15:04 PATIENT: HARIKA FALCON ACCOUNT: [id number] : 1975 LOCATION: 2 [facility]TH AGE: 45 SEX: M EXAM STATUS: ADM IN ORD. PHYSICIAN: ARMIN URBANO MD REASON: severe abdominal pain PROCEDURE: CT ABD PELV W/ IV CONTRST ONLY CT abdomen pelvis with contrast. HISTORY: Severe abdominal pain recent biopsy in the abdomen CT scan of the abdomen pelvis was done using 75 mL Omnipaque 300 contrast. Comparison made with a study from September 15 and with a previous exam from September 13. Lung bases are clear except for mild atelectasis. There is no effusion. A liver lesion is not identified. There is mild fluid about the liver and gallbladder. Stomach is distended. Pancreas is unremarkable. There is no mass or hydronephrosis in the kidneys. There is fluid surrounding the mass in the right upper quadrant which is high in density suggesting hemorrhage. There is no free air. There is no small bowel obstruction. Appendix is normal. There is mild fluid consistent with hemorrhage in the pelvis. IMPRESSION: 1. Hemorrhage surrounding the mass in the right upper quadrant hemorrhagic area measures 9.3 x 5.1 x 5 cm. 2. Small amount of free fluid noted in the upper abdomen and the pelvis. 3. No bowel obstruction. 4. Mild bladder distention. RS Compliance Statement: One or more of the following individualized dose reduction techniques were utilized for this examination: 1. Automated exposure control 2. Adjustment of the mA and/or kV according to patient size 3. Use of iterative reconstruction technique Electronically signed by: Rylan Gentile MD (09/16/2020 4:40 PM) [facility] DICTATED and SIGNED BY: RYLAN GENTILE MD DATE: 09/16/20 [id number] Laboratory Tests Test 09/16/20 11:15 White Blood Count 6.4 x10^3/uL (4.0-11.0) Red Blood Count 4.27 x10^6/uL (4.30-5.70) Hemoglobin 12.9 g/dL (13.0-17.5) Hematocrit 38.8 % (39.0-53.0) Mean Corpuscular Volume 91 fL (79-100) Mean Corpuscular Hemoglobin 30 pg (25-35) Mean Corpuscular Hemoglobin Concent 33 g/dL (31-37) Red Cell Distribution Width 12.6 % (11.5-14.5) Platelet Count 158 x10^3/uL (140-400) Neutrophils (%) (Auto) 74 % (31-73) Lymphocytes (%) (Auto) 18 % (24-48) Monocytes (%) (Auto) 7 % (0-9) Eosinophils (%) (Auto) 1 % (0-3) Basophils (%) (Auto) 0 % (0-3) Neutrophils # (Auto) 4.7 x10^3/uL (1.8-7.7) Lymphocytes # (Auto) 1.1 x10^3/uL (1.0-4.8) Monocytes # (Auto) 0.5 x10^3/uL (0.0-1.1) Eosinophils # (Auto) 0.1 x10^3/uL (0.0-0.7) Basophils # (Auto) 0.0 x10^3/uL (0.0-0.2) Assessment and Plan Assessmemt and Plan Problems Medical Problems: (1) Abdominal mass Status: Acute (2) Cocaine use Status: Acute Comment Review of Relevant I have reviewed the following items dina (where applicable) has been applied. Labs Laboratory Tests Test 09/15/20 06:10 09/16/20 11:15 Triglycerides Level 37 mg/dL (0-150) Cholesterol Level 138 mg/dL (0-200) LDL Cholesterol, Calculated 90 mg/dL (0-100) VLDL Cholesterol, Calculated 7 mg/dL (0-40) Non-HDL Cholesterol Calculated 97 mg/dL (0-129) HDL Cholesterol 41 mg/dL (40-60) Cholesterol/HDL Ratio 3.4 White Blood Count 6.4 x10^3/uL (4.0-11.0) Red Blood Count 4.27 x10^6/uL (4.30-5.70) Hemoglobin 12.9 g/dL (13.0-17.5) Hematocrit 38.8 % (39.0-53.0) Mean Corpuscular Volume 91 fL (79-100) Mean Corpuscular Hemoglobin 30 pg (25-35) Mean Corpuscular Hemoglobin Concent 33 g/dL (31-37) Red Cell Distribution Width 12.6 % (11.5-14.5) Platelet Count 158 x10^3/uL (140-400) Neutrophils (%) (Auto) 74 % (31-73) Lymphocytes (%) (Auto) 18 % (24-48) Monocytes (%) (Auto) 7 % (0-9) Eosinophils (%) (Auto) 1 % (0-3) Basophils (%) (Auto) 0 % (0-3) Neutrophils # (Auto) 4.7 x10^3/uL (1.8-7.7) Lymphocytes # (Auto) 1.1 x10^3/uL (1.0-4.8) Monocytes # (Auto) 0.5 x10^3/uL (0.0-1.1) Eosinophils # (Auto) 0.1 x10^3/uL (0.0-0.7) Basophils # (Auto) 0.0 x10^3/uL (0.0-0.2) Laboratory Tests Test 09/16/20 11:15 White Blood Count 6.4 x10^3/uL (4.0-11.0) Red Blood Count 4.27 x10^6/uL (4.30-5.70) Hemoglobin 12.9 g/dL (13.0-17.5) Hematocrit 38.8 % (39.0-53.0) Mean Corpuscular Volume 91 fL (79-100) Mean Corpuscular Hemoglobin 30 pg (25-35) Mean Corpuscular Hemoglobin Concent 33 g/dL (31-37) Red Cell Distribution Width 12.6 % (11.5-14.5) Platelet Count 158 x10^3/uL (140-400) Neutrophils (%) (Auto) 74 % (31-73) Lymphocytes (%) (Auto) 18 % (24-48) Monocytes (%) (Auto) 7 % (0-9) Eosinophils (%) (Auto) 1 % (0-3) Basophils (%) (Auto) 0 % (0-3) Neutrophils # (Auto) 4.7 x10^3/uL (1.8-7.7) Lymphocytes # (Auto) 1.1 x10^3/uL (1.0-4.8) Monocytes # (Auto) 0.5 x10^3/uL (0.0-1.1) Eosinophils # (Auto) 0.1 x10^3/uL (0.0-0.7) Basophils # (Auto) 0.0 x10^3/uL (0.0-0.2) Medications Current Medications Ondansetron HCl (Zofran) 4 mg 1X ONCE IVP Last administered on 09/13/20at 16:30; Start 09/13/20 at 16:30; Stop 09/13/20 at 16:31; Status DC Fentanyl Citrate (Fentanyl 2ml Vial) 50 mcg 1X ONCE IVP ; Start 09/13/20 at 16:30; Stop 09/13/20 at 16:31; Status DC Iohexol (Omnipaque 300 Mg/ml) 75 ml 1X ONCE IV Last administered on 09/13/20at 16:57; Start 09/13/20 at 16:45; Stop 09/13/20 at 16:46; Status DC Info (CONTRAST GIVEN -- Rx MONITORING) 1 each PRN DAILY PRN MC SEE COMMENTS; Start 09/13/20 at 16:45; Stop 09/15/20 at 16:44; Status DC Sodium Chloride 1,000 ml @ 1,000 mls/hr 1X ONCE IV Last administered on 09/13/20at 16:45; Start 09/13/20 at 16:45; Stop 09/13/20 at 17:44; Status DC Sodium Chloride 1,000 ml @ 1,000 mls/hr 1X ONCE IV Last administered on 09/13/20at 18:00; Start 09/13/20 at 18:00; Stop 09/13/20 at 18:59; Status DC Acetaminophen (Tylenol) 1,000 mg 1X ONCE PO Last administered on 09/13/20at 22:30; Start 09/13/20 at 22:30; Stop 09/13/20 at 22:31; Status DC Pantoprazole Sodium (Protonix) 40 mg DAILYAC PO Last administered on 09/14/20at 11:57; Start 09/14/20 at 11:30 Acetaminophen (Tylenol) 1,000 mg PRN Q6HRS PRN PO MILD PAIN / TEMP > 100.3'F; Start 09/14/20 at 12:45 Sodium Chloride (Normal Saline Flush) 3 ml QSHIFT PRN IV AFTER MEDS AND BLOOD DRAWS; Start 09/14/20 at 12:45 Ondansetron HCl (Zofran) 4 mg PRN Q4HRS PRN IV NAUSEA/VOMITING; Start 09/14/20 at 12:45 Al Hydroxide/Mg Hydroxide (Mylanta Plus Xs) 30 ml PRN DAILY PRN PO HEARTBURN / GAS; Start 09/14/20 at 12:45 Sodium Monofluorophosphate (Fleet Adult) 133 ml PRN DAILY PRN OK CONSTIPATION; Start 09/14/20 at 12:45 Docusate Sodium (Colace) 100 mg PRN BID PRN PO HARD STOOLS Last administered on 09/16/20at 09:26; Start 09/14/20 at 12:45 Albuterol Sulfate (Ventolin Neb Soln) 2.5 mg PRN Q4HRS PRN NEB SHORTNESS OF BREATH; Start 09/14/20 at 12:45 Guaifenesin (Robitussin) 200 mg PRN Q4HRS PRN PO COUGH; Start 09/14/20 at 12:45 Lorazepam (Ativan) 0.5 mg PRN Q4HRS PRN PO ANXIETY / AGITATION; Start 09/14/20 at 12:45 Enoxaparin Sodium (Lovenox 40mg Syringe) 40 mg Q24H SQ ; Start 09/14/20 at 14:00 Sodium Chloride 1,000 ml @ 100 mls/hr 1X ONCE IV Last administered on 09/14/20at 14:23; Start 09/14/20 at 14:00; Stop 09/14/20 at 23:59; Status DC Sodium Chloride 1,000 ml @ 100 mls/hr Q10H IV Last administered on 09/16/20at 11:49; Start 09/14/20 at 16:00 Acetaminophen (Tylenol) 650 mg PRN Q6HRS PRN PO MILD PAIN / TEMP > 100.3'F; Start 09/14/20 at 15:15; Stop 09/14/20 at 15:10; Status DC Aspirin (Ecotrin) 325 mg DAILYWBKFT PO Last administered on 09/14/20at 16:27; Start 09/14/20 at 16:00 Aspirin (Aspirin Rectal Supp) 300 mg PRN DAILY PRN OK IF UNABLE TO TAKE PO; Start 09/14/20 at 15:15 Polyethylene Glycol (miraLAX PACKET) 17 gm DAILY PO Last administered on 09/16/20at 09:29; Start 09/15/20 at 10:00 Bisacodyl (Dulcolax Tab) 5 mg 1X ONCE PO ; Start 09/15/20 at 09:45; Stop 09/15/20 at 09:46; Status DC Gadoterate Meglumine (Clariscan) 12 ml 1X ONCE IVP Last administered on 09/15/20at 11:30; Start 09/15/20 at 11:45; Stop 09/15/20 at 11:46; Status DC Lidocaine HCl (Buffered Lidocaine 1%) 9 ml 1X ONCE INJ Last administered on 09/15/20at 14:45; Start 09/15/20 at 14:45; Stop 09/15/20 at 14:53; Status DC Iohexol (Omnipaque 300 Mg/ml) 75 ml 1X ONCE IV Last administered on 09/15/20at 14:45; Start 09/15/20 at 14:45; Stop 09/15/20 at 14:53; Status DC Bisacodyl (Dulcolax Tab) 5 mg 1X ONCE PO ; Start 09/16/20 at 09:30; Stop 09/16/20 at 09:31; Status DC Acetaminophen/ Hydrocodone Bitart (Lortab 5/325) 1 tab PRN Q4HRS PRN PO MODERATE-SEVERE PAIN Last administered on 09/16/20at 11:47; Start 09/16/20 at 11:30 Bisacodyl (Dulcolax Tab) 5 mg PRN DAILY PRN PO CONSTIPATION; Start 09/16/20 at 14:15 Hydromorphone HCl (Dilaudid) 0.6 mg PRN Q3HRS PRN IVP PAIN Last administered on 09/16/20at 15:02; Start 09/16/20 at 15:00 Iohexol (Omnipaque 300 Mg/ml) 75 ml 1X ONCE IV Last administered on 09/16/20at 16:14; Start 09/16/20 at 16:15; Stop 09/16/20 at 16:16; Status DC Info (CONTRAST GIVEN -- Rx MONITORING) 1 each PRN DAILY PRN MC SEE COMMENTS; Start 09/16/20 at 16:15; Stop 09/18/20 at 16:14 Active Scripts Active Reported Tylenol (Acetaminophen) 325 Mg Tablet 1,000 Mg PO PRN Q6HRS PRN Vitals/I & O Vital Sign - Last 24 Hours 09/15/20 09/15/20 09/15/20 09/16/20 19:00 20:15 22:51 02:59 Temp 98.0 98.0 98.2 98.0 98.0 98.2 Pulse 49 56 64 Resp 16 18 16 B/P (MAP) 115/66 (82) 98/54 (69) 112/58 (76) Pulse Ox 98 99 98 O2 Delivery Room Air Room Air Room Air Room Air 09/16/20 09/16/20 09/16/20 09/16/20 07:00 08:10 11:00 15:00 Temp 98.6 99.1 98.8 98.6 99.1 98.8 Pulse 57 54 60 Resp 16 18 18 B/P (MAP) 105/62 (76) 107/63 (78) 140/77 (98) Pulse Ox 99 100 99 O2 Delivery Room Air Room Air Room Air Room Air Intake and Output 09/15/20 09/15/20 09/16/20 15:00 23:00 07:00 Intake Total 0 ml 550 ml 600 ml Output Total 350 ml 800 ml Balance 0 ml 200 ml -200 ml Justicifation of Admission Dx: Justifications for Admission: Justification of Admission Dx: Yes ARMIN URBANO MD Sep 16, 2020 17:11
[2020-09-16] MEDS ORDERED: 0.9 % SODIUM CHLORIDE 10 ML DISP.SYRIN. IV PRN (17:15)
[2020-09-16] MEDS ORDERED: ONDANSETRON PF 4 MG/2 ML VIAL. IVP PRN (17:15)
[2020-09-16] MEDS: HYDROmorphone 2 MG/ML VIAL IVP PRN (17:41)
--- NOTE | 2020-09-16 17:44 | NUR ---
Nursing; Patient experiencing excruciating abdominal pain. Called and spoke with Dr. Bowman. Order stat CT and Dilaudid ordered see orders. Patient rating pain 10/10. Once CT resulted i called results to Dr. Bowman. 170 I paged surgery, Dr. Caldera director online marketing. H&H ordered. Dr. Bowman requested i called surgery back to clarify orders and CT result. [id number] called and spoke with Dr. Valentin. Dr. Valentin would like me to call him back when labs return, patient NPO. Vitals stable. Will continue to closely monitor.
[2020-09-16 18:44] LABS: HEMOGLOBIN 12.7 g/dL (13.0-17.5)
[2020-09-16 19:04] LABS: PROTHROMBIN TIME PATIENT 13.6 SEC (11.7-14.0)
--- NOTE | 2020-09-16 20:15 | NUR ---
LAB RESULTS CALLED TO DR CARDENAS, UPDATE GIVEN ON PT STATUS, ORDER GIVEN TO MAKE PT NPO WITH POSSIBLE ABDOMINAL SURGERY IN THE MORNING, WILL CONT TO MONITOR PT STATUS AND SAFETY. PMRN
[2020-09-16] MEDS: FAMOTIDINE 20 MG/2 ML VIAL IVP SCH (20:41)
[2020-09-17] VITALS (16 sets, daily range): BP systolic 93–125; BP diastolic 58–78
[2020-09-17] MEDS: IV NORMAL SALINE 1000ML BAG 1,000 ML IV SCH ×4 (06:35→21:55)
--- NOTE | 2020-09-17 07:00 | NUR ---
NS EMAR Addendum: 09/17/20 at 0919 by AURELIA RINALDI RN RN EMAR CLEANED UP FOR NS 150ML/HR.
[2020-09-17] MEDS ORDERED: cefOXitin SODIUM IV Push 2 GM VIAL. IVP ONE (07:30)
[2020-09-17 07:48] LABS: ALBUMIN 3.2 g/dL (3.4-5.0); ALBUMIN/GLOBULIN RATIO 1.1 (1.0-1.7); CALCIUM 8.1 mg/dL (8.5-10.1); CREATININE 0.8 mg/dL (0.7-1.3); GFR 105.5; POTASSIUM 3.8 mmol/L (3.5-5.1); TOTAL BILIRUBIN 0.4 mg/dL (0.2-1.0); TOTAL PROTEIN 6.2 g/dL (6.4-8.2)
[2020-09-17 07:54] LABS: BASO % 0 % (0-3); EOS # 0.1 x10^3/uL (0.0-0.7); EOS % 2 % (0-3); HEMATOCRIT 33.8 % (39.0-53.0); HEMOGLOBIN 11.2 g/dL (13.0-17.5); LYMPH # 1.7 x10^3/uL (1.0-4.8); LYMPH % 25 % (24-48); MEAN CORPUSCULAR HEMOGLOBIN 30 pg (25-35); MEAN CORPUSCULAR HGB CONC 33 g/dL (31-37); MEAN CORPUSCULAR VOLUME 90 fL (79-100); MONO # 0.6 x10^3/uL (0.0-1.1); MONO % 9 % (0-9); NEUT # 4.3 x10^3/uL (1.8-7.7); NEUT % 65 % (31-73); PLATELET COUNT 148 x10^3/uL (140-400); RED BLOOD COUNT 3.78 x10^6/uL (4.30-5.70); RED CELL DISTRIBUTION WIDTH 12.8 % (11.5-14.5); WHITE BLOOD COUNT 6.7 x10^3/uL (4.0-11.0)
[2020-09-17 08:11] LABS: PROTHROMBIN TIME PATIENT 13.8 SEC (11.7-14.0)
--- NOTE | 2020-09-17 08:14 | NUR ---
PT WANTS TO TALK TO DR CARDENAS PRIOR TO SIGNING CONSENT FORMS AND PLACING CRUZ CATHETER. PT IS QUESTIONING WHETHER OR NOT THE SURGERY IS NECESSARY BECAUSE HE "FEELS BETTER". DR CARDENAS PAGED THROUGH [facility].
[2020-09-17] MEDS ORDERED: LIDOCAINE 2% PF 5 ML VIAL. ONE (08:56)
[2020-09-17] MEDS ORDERED: PROPOFOL 10 MG/ML (20ML) VIAL. IV ONE (08:56)
[2020-09-17] MEDS ORDERED: ROCURONIUM 50 MG/5 ML VIAL. ONE (08:56)
[2020-09-17] MEDS ORDERED: MIDAZOLAM HCL/PF 2 MG/2 ML VIAL. ONE (08:57)
[2020-09-17] MEDS ORDERED: fentaNYL PF VIAL 100 MCG/2 ML VIAL ONE (08:57)
[2020-09-17] MEDS ORDERED: PROCHLORPERAZINE 10 MG/2 ML VIAL. IVP PRN (09:00)
[2020-09-17] MEDS ORDERED: IV RINGERS,LACTATED 1000ML 1,000 ML IV SCH ×2 (09:00→11:30)
[2020-09-17] MEDS ORDERED: fentaNYL PF VIAL 100 MCG/2 ML VIAL IVP PRN ×2 (09:00)
[2020-09-17] MEDS ORDERED: HYDROmorphone 2 MG/ML VIAL IVP PRN (09:00)
[2020-09-17] MEDS ORDERED: MORPHINE SULFATE 2 MG/ML VIAL. IVP PRN (09:00)
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
[2020-09-17] MEDS ORDERED: KETAMINE HCL IN NACL, ISO-OSM 50 MG/5 ML SYRINGE ONE (09:22)
[2020-09-17] MEDS ORDERED: DEXMEDETOMIDINE 200 MCG/2 ML VIAL. IV ONE (09:25)
[2020-09-17] MEDS ORDERED: MAGNESIUM SULFATE 5 GM/10 ML VIAL. ONE (09:25)
[2020-09-17] MEDS ORDERED: ROPIVacaine 0.5% PF 20 ML VIAL. ONE (09:26)
[2020-09-17] MEDS ORDERED: BUPIVACAINE-EPI 0.5% 30 ML VIAL KIT. ONE (09:51)
--- NOTE | 2020-09-17 10:12 | PDOC ---
SURGICAL PROGRESS NOTE DATE: 09/17/20 TIME: 10:09 Subjective Pre-Op Note 45 yo M with abd mass, mobile s/p biopsy (c/w low grad GIST tumor) yesterday, but with increased pain. Imaging demonstrates some hemorrhage and mild decrease in hgb. VSS However, would favor proceeding with excision of mass now, given bleeding and increased pain and need for resection regardless. R/R/B/A d/w pt and pt's SO. Risks, including, but not limited to: bleeding, infection, damage to surrounding structures, risk of anesthesia. They appear to understand, their questions are answered and they elect to proc eed. Vital Signs Vital Signs Date Time Temp Pulse Resp B/P (MAP) Pulse Ox O2 Delivery O2 Flow Rate FiO2 09/17/20 08:51 98.9 68 16 119/75 99 Room Air 98.9 I&O Intake and Output 09/17/20 07:00 Intake Total 1504.56 ml Output Total 1250 ml Balance 254.56 ml Intake Oral 250 ml IV Total 1254.56 ml Output Urine Total 1250 ml # Voids 2 Labs Laboratory Tests Test 09/16/20 11:15 09/16/20 18:20 09/16/20 18:30 09/17/20 00:35 White Blood Count 6.4 x10^3/uL (4.0-11.0) Red Blood Count 4.27 x10^6/uL (4.30-5.70) Hemoglobin 12.9 g/dL (13.0-17.5) 12.7 g/dL (13.0-17.5) 11.4 g/dL (13.0-17.5) Hematocrit 38.8 % (39.0-53.0) 38.0 % (39.0-53.0) Mean Corpuscular Volume 91 fL (79-100) Mean Corpuscular Hemoglobin 30 pg (25-35) Mean Corpuscular Hemoglobin Concent 33 g/dL (31-37) 34 g/dL (31-37) Red Cell Distribution Width 12.6 % (11.5-14.5) Platelet Count 158 x10^3/uL (140-400) Neutrophils (%) (Auto) 74 % (31-73) Lymphocytes (%) (Auto) 18 % (24-48) Monocytes (%) (Auto) 7 % (0-9) Eosinophils (%) (Auto) 1 % (0-3) Basophils (%) (Auto) 0 % (0-3) Neutrophils # (Auto) 4.7 x10^3/uL (1.8-7.7) Lymphocytes # (Auto) 1.1 x10^3/uL (1.0-4.8) Monocytes # (Auto) 0.5 x10^3/uL (0.0-1.1) Eosinophils # (Auto) 0.1 x10^3/uL (0.0-0.7) Basophils # (Auto) 0.0 x10^3/uL (0.0-0.2) Prothrombin Time 13.6 SEC (11.7-14.0) Prothromb Time International Ratio 1.0 (0.8-1.1) Test 09/17/20 05:45 White Blood Count 6.7 x10^3/uL (4.0-11.0) Red Blood Count 3.78 x10^6/uL (4.30-5.70) Hemoglobin 11.2 g/dL (13.0-17.5) Hematocrit 33.8 % (39.0-53.0) Mean Corpuscular Volume 90 fL (79-100) Mean Corpuscular Hemoglobin 30 pg (25-35) Mean Corpuscular Hemoglobin Concent 33 g/dL (31-37) Red Cell Distribution Width 12.8 % (11.5-14.5) Platelet Count 148 x10^3/uL (140-400) Neutrophils (%) (Auto) 65 % (31-73) Lymphocytes (%) (Auto) 25 % (24-48) Monocytes (%) (Auto) 9 % (0-9) Eosinophils (%) (Auto) 2 % (0-3) Basophils (%) (Auto) 0 % (0-3) Neutrophils # (Auto) 4.3 x10^3/uL (1.8-7.7) Lymphocytes # (Auto) 1.7 x10^3/uL (1.0-4.8) Monocytes # (Auto) 0.6 x10^3/uL (0.0-1.1) Eosinophils # (Auto) 0.1 x10^3/uL (0.0-0.7) Basophils # (Auto) 0.0 x10^3/uL (0.0-0.2) Prothrombin Time 13.8 SEC (11.7-14.0) Prothromb Time International Ratio 1.1 (0.8-1.1) Activated Partial Thromboplast Time 34 SEC (24-38) Sodium Level 144 mmol/L (136-145) Potassium Level 3.8 mmol/L (3.5-5.1) Chloride Level 107 mmol/L (98-107) Carbon Dioxide Level 28 mmol/L (21-32) Anion Gap 9 (6-14) Blood Urea Nitrogen 9 mg/dL (8-26) Creatinine 0.8 mg/dL (0.7-1.3) Estimated GFR (Cockcroft-Gault) 105.5 BUN/Creatinine Ratio 11 (6-20) Glucose Level 90 mg/dL (70-99) Calcium Level 8.1 mg/dL (8.5-10.1) Total Bilirubin 0.4 mg/dL (0.2-1.0) Aspartate Amino Transf (AST/SGOT) 9 U/L (15-37) Alanine Aminotransferase (ALT/SGPT) 17 U/L (16-63) Alkaline Phosphatase 60 U/L (46-116) Total Protein 6.2 g/dL (6.4-8.2) Albumin 3.2 g/dL (3.4-5.0) Albumin/Globulin Ratio 1.1 (1.0-1.7) Laboratory Tests Test 09/16/20 11:15 09/16/20 18:20 09/16/20 18:30 09/17/20 00:35 White Blood Count 6.4 x10^3/uL (4.0-11.0) Red Blood Count 4.27 x10^6/uL (4.30-5.70) Hemoglobin 12.9 g/dL (13.0-17.5) 12.7 g/dL (13.0-17.5) 11.4 g/dL (13.0-17.5) Hematocrit 38.8 % (39.0-53.0) 38.0 % (39.0-53.0) Mean Corpuscular Volume 91 fL (79-100) Mean Corpuscular Hemoglobin 30 pg (25-35) Mean Corpuscular Hemoglobin Concent 33 g/dL (31-37) 34 g/dL (31-37) Red Cell Distribution Width 12.6 % (11.5-14.5) Platelet Count 158 x10^3/uL (140-400) Neutrophils (%) (Auto) 74 % (31-73) Lymphocytes (%) (Auto) 18 % (24-48) Monocytes (%) (Auto) 7 % (0-9) Eosinophils (%) (Auto) 1 % (0-3) Basophils (%) (Auto) 0 % (0-3) Neutrophils # (Auto) 4.7 x10^3/uL (1.8-7.7) Lymphocytes # (Auto) 1.1 x10^3/uL (1.0-4.8) Monocytes # (Auto) 0.5 x10^3/uL (0.0-1.1) Eosinophils # (Auto) 0.1 x10^3/uL (0.0-0.7) Basophils # (Auto) 0.0 x10^3/uL (0.0-0.2) Prothrombin Time 13.6 SEC (11.7-14.0) Prothromb Time International Ratio 1.0 (0.8-1.1) Test 09/17/20 05:45 White Blood Count 6.7 x10^3/uL (4.0-11.0) Red Blood Count 3.78 x10^6/uL (4.30-5.70) Hemoglobin 11.2 g/dL (13.0-17.5) Hematocrit 33.8 % (39.0-53.0) Mean Corpuscular Volume 90 fL (79-100) Mean Corpuscular Hemoglobin 30 pg (25-35) Mean Corpuscular Hemoglobin Concent 33 g/dL (31-37) Red Cell Distribution Width 12.8 % (11.5-14.5) Platelet Count 148 x10^3/uL (140-400) Neutrophils (%) (Auto) 65 % (31-73) Lymphocytes (%) (Auto) 25 % (24-48) Monocytes (%) (Auto) 9 % (0-9) Eosinophils (%) (Auto) 2 % (0-3) Basophils (%) (Auto) 0 % (0-3) Neutrophils # (Auto) 4.3 x10^3/uL (1.8-7.7) Lymphocytes # (Auto) 1.7 x10^3/uL (1.0-4.8) Monocytes # (Auto) 0.6 x10^3/uL (0.0-1.1) Eosinophils # (Auto) 0.1 x10^3/uL (0.0-0.7) Basophils # (Auto) 0.0 x10^3/uL (0.0-0.2) Prothrombin Time 13.8 SEC (11.7-14.0) Prothromb Time International Ratio 1.1 (0.8-1.1) Activated Partial Thromboplast Time 34 SEC (24-38) Sodium Level 144 mmol/L (136-145) Potassium Level 3.8 mmol/L (3.5-5.1) Chloride Level 107 mmol/L (98-107) Carbon Dioxide Level 28 mmol/L (21-32) Anion Gap 9 (6-14) Blood Urea Nitrogen 9 mg/dL (8-26) Creatinine 0.8 mg/dL (0.7-1.3) Estimated GFR (Cockcroft-Gault) 105.5 BUN/Creatinine Ratio 11 (6-20) Glucose Level 90 mg/dL (70-99) Calcium Level 8.1 mg/dL (8.5-10.1) Total Bilirubin 0.4 mg/dL (0.2-1.0) Aspartate Amino Transf (AST/SGOT) 9 U/L (15-37) Alanine Aminotransferase (ALT/SGPT) 17 U/L (16-63) Alkaline Phosphatase 60 U/L (46-116) Total Protein 6.2 g/dL (6.4-8.2) Albumin 3.2 g/dL (3.4-5.0) Albumin/Globulin Ratio 1.1 (1.0-1.7) Problem List Problems Medical Problems: (1) Abdominal mass Status: Acute (2) Cocaine use Status: Acute Justicifation of Admission Dx: Justifications for Admission: Justification of Admission Dx: Yes BIANKA CARDENAS MD Sep 17, 2020 10:12
--- NOTE | 2020-09-17 10:27 | PDOC ---
PROGRESS NOTES Date of Service: DATE: 09/17/20 TIME: 10:24 Chief Complaint Chief Complaint VTE Prophylaxis Ordered VTE Prophylaxis Devices: Yes VTE Pharmacological Prophylaxi: Yes Assessment/Plan Assessment/Plan IMPRESSION: Abdominal pain 5.0 x 4.1 cm soft tissue mass centered within the mesentery of the right hemiabdomen. differential considerations include GIST. Correlate for malignancy MRI of the abdomen would better evaluate. abdominal mass The 5.0 cm mass of concern is now in the left upper quadrant, indicating that it is mobile. Considerations include a large wandering accessory spleen, a mesenteric mass such as a mesenchymal neoplasm, or gastrointestinal stromal tumor arising from a bowel loop or the stomach via a thin pedicle. Surgical consultation reviewed Cocaine use bradycardia, asymptomatic, mild Right-sided numbness/ paresthesia , headache, sinus congestion, ON ct head, No acute intracranial abnormality. will consult neurology, neg MRI HEAD Stroke symptoms following cocaine use, sensory loss on the right side is the only finding, improving, only subjective now. unintentional weight loss Tobacco abuse disorder right lower leg paresthesia Hemorrhage surrounding the mass in the right upper quadrant hemorrhagic area measures 9.3 x 5.1 x 5 cm. 09-16 PLAN ADMITTED dvt prophylaxis mri abdomen GI CONSULT GEN SURGERY CONSULT Neurology consult consider MRI HEAD ct guided bx 09-15 Justifications for Admission Other Justification History of Present Illness History of Present Illness Identification/Chief Complaint Chief Complaint right upper abdominal discomfort, right facial numbness that has improved since admit History of Present Illness History of Present Illness 45 year old Male from [place] who presented to the ER began having right side of the face, right arm and leg numbness or heaviness and tingling that he rates about a 4 out of 10. He states that he also had some nausea and is having left-sided abdominal pain with pain with urination as well //. RIGHT leg paresthesia described as medial upper leg radiates to right ankle Patient denie s fever, vomiting, diarrhea, constipation, cough, focal weakness, vision change, syncope, dizziness. He has a history of smoking, anxiety, GERD. Patient admits to smoking cocaine yesterday. he has lost 20 lbs in last year on CT Abdomen, a 5.0 x 4.1 cm soft tissue mass is centered within the mesentery of the right hemiabdomen. // differential considerations include GIST. Correlate for malignancy MRI of the abdomen would better evaluate. plan GI CONSULT / GEN SURGERY CONSULT Neurology consult Past Medical History Past Medical History Past Medical History Past Medical History Past Medical History: Anxiety, GERD Past Surgical History: No Surgical History Smoking Status: Current Every Day Smoker Alcohol Use: None Drug Use: None FHX COPD Cardiovascular: No pertinent hx Pulmonary: No pertinent hx GI: GERD Psych: Anxiety, Addictions Infectious disease: No pertinent hx ENT: No pertinent hx Renal/: No pertinent hx Endocrine: No pertinent hx Dermatology: No pertinent hx Family History Family History: Diabetes, Heart Disease Family History: Parent (father) Social History Smoke: <1 pack per day ALCOHOL: occassional Drugs: Cocaine Current Problem List Problem List Problems Medical Problems: (1) Abdominal mass Status: Acute (2) Cocaine use Status: Acute Current Medications Current Medications Current Medications Ondansetron HCl (Zofran) 4 mg 1X ONCE IVP Last administered on 09/13/20at 16:30; Start 09/13/20 at 16:30; Stop 09/13/20 at 16:31; Status DC Fentanyl Citrate (Fentanyl 2ml Vial) 50 mcg 1X ONCE IVP ; Start 09/13/20 at 16:30; Stop 09/13/20 at 16:31; Status DC Iohexol (Omnipaque 300 Mg/ml) 75 ml 1X ONCE IV Last administered on 09/13/20at 16:57; Start 09/13/20 at 16:45; Stop 09/13/20 at 16:46; Status DC Info (CONTRAST GIVEN -- Rx MONITORING) 1 each PRN DAILY PRN MC SEE COMMENTS; Start 09/13/20 at 16:45; Stop 09/15/20 at 16:44 Sodium Chloride 1,000 ml @ 1,000 mls/hr 1X ONCE IV Last administered on 09/13/20at 16:45; Start 09/13/20 at 16:45; Stop 09/13/20 at 17:44; Status DC Sodium Chloride 1,000 ml @ 1,000 mls/hr 1X ONCE IV Last administered on 09/13/20at 18:00; Start 09/13/20 at 18:00; Stop 09/13/20 at 18:59; Status DC Acetaminophen (Tylenol) 1,000 mg 1X ONCE PO Last administered on 09/13/20at 22:30; Start 09/13/20 at 22:30; Stop 09/13/20 at 22:31; Status DC Active Scripts Active Reported Tylenol (Acetaminophen) 325 Mg Tablet 1,000 Mg PO PRN Q6HRS PRN Allergies Allergies: Coded Allergies: No Known Drug Allergies (Unverified , 04/29/17) ROS Review of System Constitutional: Denies fever or chills. [] Eyes: Denies change in visual acuity. [] HENT: Denies nasal congestion or sore throat. [] Respiratory: Denies cough or shortness of breath. [] Cardiovascular: Denies chest pain or edema. [] GI: + abdominal pain, +nausea, denies vomiting, bloody stools or diarrhea. [] : Denies dysuria. [] Musculoskeletal: Denies back pain or joint pain. [] Integument: Denies rash. [] Neurologic: + Right-sided headache, denies focal weakness or sensory changes. + Tingling and numbness to right side of face, arm and leg [] improved since admit Endocrine: Denies polyuria or polydipsia. [] Lymphatic: Denies swollen glands. [] Psychiatric: Denies depression or anxiety. [] 14 pt ros otherwise neg PSYCHOLOGICAL ROS: No: Anxiety, Behavioral Disorder, Concentration difficultie, Decreased libido, Depression, Disorientation, Hallucinations, Hostility, Irritablity, Memory difficulties, Mood Swings, Obsessive thoughts, Physical abuse, Sexual abuse, Sleep disturbances, Suicidal ideation, Other Eyes: No Blurry vision, No Decreased vision, No Double vision, No Dry eyes, No Excessive tearing, No Eye Pain, No Itchy Eyes, No Loss of vision, No Photophobia, No Scotomata, No Uses contacts, No Uses glasses, No Other HEENT: YES: Heacaches; No: Visual Changes, Hearing change, Nasal congestion, Nasal discharge, Oral lesions, Sinus pain, Sore Throat, Epistaxis, Sneezing, Snoring, Tinnitus, Vertig o, Vocal changes, Other ALLERGY AND IMMUNOLOGY: No: Hives, Insect Bite Sensitivity, Itchy/Watery Eyes, Nasal Congestion, Post Nasal Drip, Seasonal Allergies, Other Hematological and Lymphatic: No: Bleeding Problems, Blood Clots, Blood Transfusions, Brusing, Night Sweats, Pallor, Swollen Lymph Nodes, Other ENDOCRINE: No: Breast Changes, Galactorrhea, Hair Pattern Changes, Hot Flashes, Malaise/lethargy, Mood Swings, Palpitations, Polydipsia/polyuria, Skin Changes, Temperature Intolerance, Unexpected Weight Changes, Other Breast: No New/Changing Breast Lumps, No Nipple changes, No Nipple discharge, No Other Cardiovascular: No Chest Pain, No Palpitations, No Orthopnea, No Paroxysmal Noc. Dyspnea, No Edema, No Lt Headedness, No Other Gastrointestinal: Yes Abdominal Pain; No Nausea, No Vomiting, No Diarrhea, No Constipation, No Melena, No Hematochezia, No Other Genitourinary: No Dysuria, No Frequency, No Incontinence, No Hematuria, No Retention, No Discharge, No Urgency, No Pain, No Flank Pain, No Other, No , No , No , No , No , No , No Neurological: Yes Gait Disturbance; No Behavorial Changes, No Bowel/Bladder ControlChng, No Confusion, No Dizziness, No Headaches, No Impaired Coord/balance, No Memory Loss, No Numbness/Tingling, No Seizures, No Speech Problems, No Tremors, No Visual Changes, No Weakness, No Other Skin: Yes Dry Skin; No Eczema, No Hair Changes, No Lumps, No Mole Changes, No Mottling, No Nail Changes, No Pruritus, No Rash, No Skin Lesion Changes, No Other, No Acne 6-22 mri head and abdomen pending Abdominal pain 5.0 x 4.1 cm soft tissue mass centered within the mesentery of the right hemiabdomen. differential considerations include GIST. Correlate for malignancy MRI of the abdomen would better evaluate. abdominal mass Cocaine use bradycardia, asymptomatic, mild MOVED TO CVC Right-sided numbness/ paresthesia , headache, sinus congestion, ON ct head, No acute intracranial abnormality. will consult neurology, consider MRI HEAD unintentional weight loss Tobacco abuse disorder right lower leg paresthesia mri abdomen pending GI CONSULT GEN SURGERY CONSULT Neurology consult d/w RN 6-23 The 5.0 cm mass of concern is now in the left upper quadrant, indicating that it is mobile. Considerations include a large wandering accessory spleen, a mesenteric mass such as a mesenchymal neoplasm, or gastrointestinal stromal tumor arising from a bowel loop or the stomach via a thin pedicle. Surgical consultation reviewed states abd pain is more severe RLQ and mild luq 7/10 will check cbc and re-e hussein prior to discharge D/W Gaby RN in room mri head and abdomen reviewed Abdominal pain post bx 5.0 x 4.1 cm soft tissue mass centered within the mesentery of the right hemiabdomen. differential considerations include GIST. Correlate for malignancy MRI of the abdomen would better evaluate. abdominal mass Cocaine use bradycardia, asymptomatic, mild MOVED TO CVC Right-sided numbness/ paresthesia , headache, sinus congestion, ON ct head, No acute intracranial abnormality. will consult neurology, consider MRI HEAD unintentional weight loss Tobacco abuse disorder right lower leg paresthesia mri abdomen REVIEWED GI CONSULT GEN SURGERY CONSULT STAT Neurology consult D/C ASA, LOVENOX, ALL PO MEDS NPO H/H Q 6 HRS TYPE, CROSS 2 UNITS PRBC'S Hemorrhage surrounding the mass in the right upper quadrant hemorrhagic area measures 9.3 x 5.1 x 5 cm. 6 d/w RN 35 MIN CC TIME 6-24 LOW grade fever overnight , blood cultured 6-24, ID consult PLAN proceeding with excision of mass now, given bleeding and increased pain and need for resection The 5.0 cm mass of concern is now in the left upper quadrant, indicating that it is mobile. Considerations include a large wandering accessory spleen, a mesenteric mass such as a mesenchymal neoplasm, or gastrointestinal stromal tumor arising from a bowel loop or the stomach via a thin pedicle. Surgical consultation reviewed states abd pain is more severe RLQ and mild luq 7/10 will check cbc and re- eval prior to discharge D/W Gaby RN in room mri head and abdomen reviewed Abdominal pain post bx 5.0 x 4.1 cm soft tissue mass centered within the mesentery of the right he miabdomen. differential considerations include GIST. Correlate for malignancy MRI of the abdomen would better evaluate. abdominal mass Cocaine use bradycardia, asymptomatic, mild MOVED TO CVC Right-sided numbness/ paresthesia , headache, sinus congestion, ON ct head, No acute intracranial abnormality. will consult neurology, consider MRI HEAD unintentional weight loss Tobacco abuse disorder right lower leg paresthesia mri abdomen REVIEWED GI CONSULT GEN SURGERY CONSULT STAT Neurology consult D/C ASA, LOVENOX, ALL PO MEDS NPO H/H Q 6 HRS TYPE, CROSS 2 UNITS PRBC'S Hemorrhage surrounding the mass in the right upper quadrant hemorrhagic area measures 9.3 x 5.1 x 5 cm. 6- TO OR TODAY moderate size mass (7 cm), arising from anterior distal stomach, with 1 cm stalk, moderate hemoperitoneum d/w RN Vitals Vitals Vital Signs Date Time Temp Pulse Resp B/P (MAP) Pulse Ox O2 Delivery O2 Flow Rate FiO2 09/17/20 08:51 98.9 68 16 119/75 99 Room Air 98.9 Physical Exam General: Alert, Oriented X3, Cooperative, No acute distress Heart: Regular rate, Normal S1, Normal S2, No murmurs Lungs: Clear Abdomen: Normal bowel sounds, Soft, No tenderness, Other (dressing intact) Extremities: No cyanosis, No edema Skin: No breakdown, No significant lesion Labs LABS Date: Sep 17, 2020 Pre-Op Diagnosis: Intraabdominal mass, favor GIST Post-Op Diagnosis: same, pedunculated mass off stomach 7 cm diameter Procedure Performed: laparoscopic partial gastrectomy Surgeon: Donell Valentin Anesthesia Type: GETA plus local Blood Loss: 500 (old blood) Specimans Obtained: stomach mass Findings: moderate size mass (7 cm), arising from anterior distal stomach, with 1 cm stalk, moderate hemoperitoneum Complications: none Operative Note: PATIENT: HARIKA FALCON ACCOUNT: [id number] : 1975 LOCATION: [facility] AGE: 45 SEX: M EXAM STATUS: ADM IN ORD. PHYSICIAN: ARMIN URBANO MD REASON: severe abdominal pain PROCEDURE: CT ABD PELV W/ IV CONTRST ONLY CT abdomen pelvis with contrast. HISTORY: Severe abdominal pain recent biopsy in the abdomen CT scan of the abdomen pelvis was done using 75 mL Omnipaque 300 contrast. Comparison made with a study from September 15 and with a previous exam from September 13. Lung bases are clear except for mild atelectasis. There is no effusion. A liver lesion is not identified. There is mild fluid about the liver and gallbladder. Stomach is distended. Pancreas is unremarkable. There is no mass or hydronephrosis in the kidneys. There is fluid surrounding the mass in the right upper quadrant which is high in density suggesting hemorrhage. There is no free air. There is no small bowel obstruction. Appendix is normal. There is mild fluid consistent with hemorrhage in the pelvis. IMPRESSION: 1. Hemorrhage surrounding the mass in the right upper quadrant hemorrhagic area measures 9.3 x 5.1 x 5 cm. 2. Small amount of free fluid noted in the upper abdomen and the pelvis. 3. No bowel obstruction. 4. Mild bladder distention. PQRS Compliance Statement: One or more of the following individualized dose reduction techniques were utilized for this examination: 1. Automated exposure control 2. Adjustment of the mA and/or kV according to patient size 3. Use of iterative reconstruction technique Electronically signed by: Rylan Gentile MD (09/16/2020 4:40 PM) [facility] DICTATED and SIGNED BY: RYLAN GENTILE MD DATE: 09/16/20 [id number] Laboratory Tests Test 09/16/20 11:15 09/16/20 18:20 09/16/20 18:30 09/17/20 00:35 White Blood Count 6.4 x10^3/uL (4.0-11.0) Red Blood Count 4.27 x10^6/uL (4.30-5.70) Hemoglobin 12.9 g/dL (13.0-17.5) 12.7 g/dL (13.0-17.5) 11.4 g/dL (13.0-17.5) Hematocrit 38.8 % (39.0-53.0) 38.0 % (39.0-53.0) Mean Corpuscular Volume 91 fL (79-100) Mean Corpuscular Hemoglobin 30 pg (25-35) Mean Corpuscular Hemoglobin Concent 33 g/dL (31-37) 34 g/dL (31-37) Red Cell Distribution Width 12.6 % (11.5-14.5) Platelet Count 158 x10^3/uL (140-400) Neutrophils (%) (Auto) 74 % (31-73) Lymphocytes (%) (Auto) 18 % (24-48) Monocytes (%) (Auto) 7 % (0-9) Eosinophils (%) (Auto) 1 % (0-3) Basophils (%) (Auto) 0 % (0-3) Neutrophils # (Auto) 4.7 x10^3/uL (1.8-7.7) Lymphocytes # (Auto) 1.1 x10^3/uL (1.0-4.8) Monocytes # (Auto) 0.5 x10^3/uL (0.0-1.1) Eosinophils # (Auto) 0.1 x10^3/uL (0.0-0.7) Basophils # (Auto) 0.0 x10^3/uL (0.0-0.2) Prothrombin Time 13.6 SEC (11.7-14.0) Prothromb Time International Ratio 1.0 (0.8-1.1) Test 09/17/20 05:45 White Blood Count 6.7 x10^3/uL (4.0-11.0) Red Blood Count 3.78 x10^6/uL (4.30-5.70) Hemoglobin 11.2 g/dL (13.0-17.5) Hematocrit 33.8 % (39.0-53.0) Mean Corpuscular Volume 90 fL (79-100) Mean Corpuscular Hemoglobin 30 pg (25-35) Mean Corpuscular Hemoglobin Concent 33 g/dL (31-37) Red Cell Distribution Width 12.8 % (11.5-14.5) Platelet Count 148 x10^3/uL (140-400) Neutrophils (%) (Auto) 65 % (31-73) Lymphocytes (%) (Auto) 25 % (24-48) Monocytes (%) (Auto) 9 % (0-9) Eosinophils (%) (Auto) 2 % (0-3) Basophils (%) (Auto) 0 % (0-3) Neutrophils # (Auto) 4.3 x10^3/uL (1.8-7.7) Lymphocytes # (Auto) 1.7 x10^3/uL (1.0-4.8) Monocytes # (Auto) 0.6 x10^3/uL (0.0-1.1) Eosinophils # (Auto) 0.1 x10^3/uL (0.0-0.7) Basophils # (Auto) 0.0 x10^3/uL (0.0-0.2) Prothrombin Time 13.8 SEC (11.7-14.0) Prothromb Time International Ratio 1.1 (0.8-1.1) Activated Partial Thromboplast Time 34 SEC (24-38) Sodium Level 144 mmol/L (136-145) Potassium Level 3.8 mmol/L (3.5-5.1) Chloride Level 107 mmol/L (98-107) Carbon Dioxide Level 28 mmol/L (21-32) Anion Gap 9 (6-14) Blood Urea Nitrogen 9 mg/dL (8-26) Creatinine 0.8 mg/dL (0.7-1.3) Estimated GFR (Cockcroft-Gault) 105.5 BUN/Creatinine Ratio 11 (6-20) Glucose Level 90 mg/dL (70-99) Calcium Level 8.1 mg/dL (8.5-10.1) Total Bilirubin 0.4 mg/dL (0.2-1.0) Aspartate Amino Transf (AST/SGOT) 9 U/L (15-37) Alanine Aminotransferase (ALT/SGPT) 17 U/L (16-63) Alkaline Phosphatase 60 U/L (46-116) Total Protein 6.2 g/dL (6.4-8.2) Albumin 3.2 g/dL (3.4-5.0) Albumin/Globulin Ratio 1.1 (1.0-1.7) Assessment and Plan Assessmemt and Plan Problems Medical Problems: (1) Abdominal mass Status: Acute (2) Cocaine use Status: Acute Comment Review of Relevant I have reviewed the following items dina (where applicable) has been applied. Labs Laboratory Tests Test 09/16/20 11:15 09/16/20 18:20 09/16/20 18:30 09/17/20 00:35 White Blood Count 6.4 x10^3/uL (4.0-11.0) Red Blood Count 4.27 x10^6/uL (4.30-5.70) Hemoglobin 12.9 g/dL (13.0-17.5) 12.7 g/dL (13.0-17.5) 11.4 g/dL (13.0-17.5) Hematocrit 38.8 % (39.0-53.0) 38.0 % (39.0-53.0) Mean Corpuscular Volume 91 fL (79-100) Mean Corpuscular Hemoglobin 30 pg (25-35) Mean Corpuscular Hemoglobin Concent 33 g/dL (31-37) 34 g/dL (31-37) Red Cell Distribution Width 12.6 % (11.5-14.5) Platelet Count 158 x10^3/uL (140-400) Neutrophils (%) (Auto) 74 % (31-73) Lymphocytes (%) (Auto) 18 % (24-48) Monocytes (%) (Auto) 7 % (0-9) Eosinophils (%) (Auto) 1 % (0-3) Basophils (%) (Auto) 0 % (0-3) Neutrophils # (Auto) 4.7 x10^3/uL (1.8-7.7) Lymphocytes # (Auto) 1.1 x10^3/uL (1.0-4.8) Monocytes # (Auto) 0.5 x10^3/uL (0.0-1.1) Eosinophils # (Auto) 0.1 x10^3/uL (0.0-0.7) Basophils # (Auto) 0.0 x10^3/uL (0.0-0.2) Prothrombin Time 13.6 SEC (11.7-14.0) Prothromb Time International Ratio 1.0 (0.8-1.1) Test 09/17/20 05:45 White Blood Count 6.7 x10^3/uL (4.0-11.0) Red Blood Count 3.78 x10^6/uL (4.30-5.70) Hemoglobin 11.2 g/dL (13.0-17.5) Hematocrit 33.8 % (39.0-53.0) Mean Corpuscular Volume 90 fL (79-100) Mean Corpuscular Hemoglobin 30 pg (25-35) Mean Corpuscular Hemoglobin Concent 33 g/dL (31-37) Red Cell Distribution Width 12.8 % (11.5-14.5) Platelet Count 148 x10^3/uL (140-400) Neutrophils (%) (Auto) 65 % (31-73) Lymphocytes (%) (Auto) 25 % (24-48) Monocytes (%) (Auto) 9 % (0-9) Eosinophils (%) (Auto) 2 % (0-3) Basophils (%) (Auto) 0 % (0-3) Neutrophils # (Auto) 4.3 x10^3/uL (1.8-7.7) Lymphocytes # (Auto) 1.7 x10^3/uL (1.0-4.8) Monocytes # (Auto) 0.6 x10^3/uL (0.0-1.1) Eosinophils # (Auto) 0.1 x10^3/uL (0.0-0.7) Basophils # (Auto) 0.0 x10^3/uL (0.0-0.2) Prothrombin Time 13.8 SEC (11.7-14.0) Prothromb Time International Ratio 1.1 (0.8-1.1) Activated Partial Thromboplast Time 34 SEC (24-38) Sodium Level 144 mmol/L (136-145) Potassium Level 3.8 mmol/L (3.5-5.1) Chloride Level 107 mmol/L (98-107) Carbon Dioxide Level 28 mmol/L (21-32) Anion Gap 9 (6-14) Blood Urea Nitrogen 9 mg/dL (8-26) Creatinine 0.8 mg/dL (0.7-1.3) Estimated GFR (Cockcroft-Gault) 105.5 BUN/Creatinine Ratio 11 (6-20) Glucose Level 90 mg/dL (70-99) Calcium Level 8.1 mg/dL (8.5-10.1) Total Bilirubin 0.4 mg/dL (0.2-1.0) Aspartate Amino Transf (AST/SGOT) 9 U/L (15-37) Alanine Aminotransferase (ALT/SGPT) 17 U/L (16-63) Alkaline Phosphatase 60 U/L (46-116) Total Protein 6.2 g/dL (6.4-8.2) Albumin 3.2 g/dL (3.4-5.0) Albumin/Globulin Ratio 1.1 (1.0-1.7) Laboratory Tests Test 09/16/20 11:15 09/16/20 18:20 09/16/20 18:30 09/17/20 00:35 White Blood Count 6.4 x10^3/uL (4.0-11.0) Red Blood Count 4.27 x10^6/uL (4.30-5.70) Hemoglobin 12.9 g/dL (13.0-17.5) 12.7 g/dL (13.0-17.5) 11.4 g/dL (13.0-17.5) Hematocrit 38.8 % (39.0-53.0) 38.0 % (39.0-53.0) Mean Corpuscular Volume 91 fL (79-100) Mean Corpuscular Hemoglobin 30 pg (25-35) Mean Corpuscular Hemoglobin Concent 33 g/dL (31-37) 34 g/dL (31-37) Red Cell Distribution Width 12.6 % (11.5-14.5) Platelet Count 158 x10^3/uL (140-400) Neutrophils (%) (Auto) 74 % (31-73) Lymphocytes (%) (Auto) 18 % (24-48) Monocytes (%) (Auto) 7 % (0-9) Eosinophils (%) (Auto) 1 % (0-3) Basophils (%) (Auto) 0 % (0-3) Neutrophils # (Auto) 4.7 x10^3/uL (1.8-7.7) Lymphocytes # (Auto) 1.1 x10^3/uL (1.0-4.8) Monocytes # (Auto) 0.5 x10^3/uL (0.0-1.1) Eosinophils # (Auto) 0.1 x10^3/uL (0.0-0.7) Basophils # (Auto) 0.0 x10^3/uL (0.0-0.2) Prothrombin Time 13.6 SEC (11.7-14.0) Prothromb Time International Ratio 1.0 (0.8-1.1) Test 09/17/20 05:45 White Blood Count 6.7 x10^3/uL (4.0-11.0) Red Blood Count 3.78 x10^6/uL (4.30-5.70) Hemoglobin 11.2 g/dL (13.0-17.5) Hematocrit 33.8 % (39.0-53.0) Mean Corpuscular Volume 90 fL (79-100) Mean Corpuscular Hemoglobin 30 pg (25-35) Mean Corpuscular Hemoglobin Concent 33 g/dL (31-37) Red Cell Distribution Width 12.8 % (11.5-14.5) Platelet Count 148 x10^3/uL (140-400) Neutrophils (%) (Auto) 65 % (31-73) Lymphocytes (%) (Auto) 25 % (24-48) Monocytes (%) (Auto) 9 % (0-9) Eosinophils (%) (Auto) 2 % (0-3) Basophils (%) (Auto) 0 % (0-3) Neutrophils # (Auto) 4.3 x10^3/uL (1.8-7.7) Lymphocytes # (Auto) 1.7 x10^3/uL (1.0-4.8) Monocytes # (Auto) 0.6 x10^3/uL (0.0-1.1) Eosinophils # (Auto) 0.1 x10^3/uL (0.0-0.7) Basophils # (Auto) 0.0 x10^3/uL (0.0-0.2) Prothrombin Time 13.8 SEC (11.7-14.0) Prothromb Time International Ratio 1.1 (0.8-1.1) Activated Partial Thromboplast Time 34 SEC (24-38) Sodium Level 144 mmol/L (136-145) Potassium Level 3.8 mmol/L (3.5-5.1) Chloride Level 107 mmol/L (98-107) Carbon Dioxide Level 28 mmol/L (21-32) Anion Gap 9 (6-14) Blood Urea Nitrogen 9 mg/dL (8-26) Creatinine 0.8 mg/dL (0.7-1.3) Estimated GFR (Cockcroft-Gault) 105.5 BUN/Creatinine Ratio 11 (6-20) Glucose Level 90 mg/dL (70-99) Calcium Level 8.1 mg/dL (8.5-10.1) Total Bilirubin 0.4 mg/dL (0.2-1.0) Aspartate Amino Transf (AST/SGOT) 9 U/L (15-37) Alanine Aminotransferase (ALT/SGPT) 17 U/L (16-63) Alkaline Phosphatase 60 U/L (46-116) Total Protein 6.2 g/dL (6.4-8.2) Albumin 3.2 g/dL (3.4-5.0) Albumin/Globulin Ratio 1.1 (1.0-1.7) Medications Current Medications Ondansetron HCl (Zofran) 4 mg 1X ONCE IVP Last administered on 09/13/20at 16:30; Start 09/13/20 at 16:30; Stop 09/13/20 at 16:31; Status DC Fentanyl Citrate (Fentanyl 2ml Vial) 50 mcg 1X ONCE IVP ; Start 09/13/20 at 16:30; Stop 09/13/20 at 16:31; Status DC Iohexol (Omnipaque 300 Mg/ml) 75 ml 1X ONCE IV Last administered on 09/13/20at 16:57; Start 09/13/20 at 16:45; Stop 09/13/20 at 16:46; Status DC Info (CONTRAST GIVEN -- Rx MONITORING) 1 each PRN DAILY PRN MC SEE COMMENTS; Start 09/13/20 at 16:45; Stop 09/15/20 at 16:44; Status DC Sodium Chloride 1,000 ml @ 1,000 mls/hr 1X ONCE IV Last administered on 09/13/20at 16:45; Start 09/13/20 at 16:45; Stop 09/13/20 at 17:44; Status DC Sodium Chloride 1,000 ml @ 1,000 mls/hr 1X ONCE IV Last administered on 09/13/20at 18:00; Start 09/13/20 at 18:00; Stop 09/13/20 at 18:59; Status DC Acetaminophen (Tylenol) 1,000 mg 1X ONCE PO Last administered on 09/13/20at 22:30; Start 09/13/20 at 22:30; Stop 09/13/20 at 22:31; Status DC Pantoprazole Sodium (Protonix) 40 mg DAILYAC PO Last administered on 09/14/20at 11:57; Start 09/14/20 at 11:30; Stop 09/16/20 at 17:08; Status DC Acetaminophen (Tylenol) 1,000 mg PRN Q6HRS PRN PO MILD PAIN / TEMP > 100.3'F; Start 09/14/20 at 12:45; Stop 09/16/20 at 17:08; Status DC Sodium Chloride (Normal Saline Flush) 3 ml QSHIFT PRN IV AFTER MEDS AND BLOOD DRAWS; Start 09/14/20 at 12:45; Stop 09/16/20 at 17:11; Status DC Ondansetron HCl (Zofran) 4 mg PRN Q4HRS PRN IV NAUSEA/VOMITING; Start 09/14/20 at 12:45 Al Hydroxide/Mg Hydroxide (Mylanta Plus Xs) 30 ml PRN DAILY PRN PO HEARTBURN / GAS; Start 09/14/20 at 12:45 Sodium Monofluorophosphate (Fleet Adult) 133 ml PRN DAILY PRN NV CONSTIPATION; Start 09/14/20 at 12:45 Docusate Sodium (Colace) 100 mg PRN BID PRN PO HARD STOOLS Last administered on 09/16/20at 09:26; Start 09/14/20 at 12:45; Stop 09/16/20 at 17:08; Status DC Albuterol Sulfate (Ventolin Neb Soln) 2.5 mg PRN Q4HRS PRN NEB SHORTNESS OF BREATH; Start 09/14/20 at 12:45 Guaifenesin (Robitussin) 200 mg PRN Q4HRS PRN PO COUGH; Start 09/14/20 at 12:45 Lorazepam (Ativan) 0.5 mg PRN Q4HRS PRN PO ANXIETY / AGITATION; Start 09/14/20 at 12:45; Stop 09/16/20 at 17:08; Status DC Enoxaparin Sodium (Lovenox 40mg Syringe) 40 mg Q24H SQ ; Start 09/14/20 at 14:00; Stop 09/16/20 at 17:08; Status DC Sodium Chloride 1,000 ml @ 100 mls/hr 1X ONCE IV Last administered on 09/14/20at 14:23; Start 09/14/20 at 14:00; Stop 09/14/20 at 23:59; Status DC Sodium Chloride 1,000 ml @ 100 mls/hr Q10H IV Last administered on 09/16/20at 11:49; Start 09/14/20 at 16:00; Stop 09/16/20 at 17:08; Status DC Acetaminophen (Tylenol) 650 mg PRN Q6HRS PRN PO MILD PAIN / TEMP > 100.3'F; Start 09/14/20 at 15:15; Stop 09/14/20 at 15:10; Status DC Aspirin (Ecotrin) 325 mg DAILYWBKFT PO Last administered on 09/14/20at 16:27; Start 09/14/20 at 16:00; Stop 09/16/20 at 17:08; Status DC Aspirin (Aspirin Rectal Supp) 300 mg PRN DAILY PRN NV IF UNABLE TO TAKE PO; Start 09/14/20 at 15:15; Stop 09/16/20 at 17:08; Status DC Polyethylene Glycol (miraLAX PACKET) 17 gm DAILY PO Last administered on 09/16/20at 09:29; Start 09/15/20 at 10:00; Stop 09/16/20 at 17:08; Status DC Bisacodyl (Dulcolax Tab) 5 mg 1X ONCE PO ; Start 09/15/20 at 09:45; Stop 09/15 at 09:46; Status DC Gadoterate Meglumine (Clariscan) 12 ml 1X ONCE IVP Last administered on 09/15/20at 11:30; Start 09/15/20 at 11:45; Stop 09/15/20 at 11:46; Status DC Lidocaine HCl (Buffered Lidocaine 1%) 9 ml 1X ONCE INJ Last administered on at 14:45; Start 09/15/20 at 14:45; Stop 09/15/20 at 14:53; Status DC Iohexol (Omnipaque 300 Mg/ml) 75 ml 1X ONCE IV Last administered on 09/15/20at 14:45; Start 09/15/20 at 14:45; Stop 09/15/20 at 14:53; Status DC Bisacodyl (Dulcolax Tab) 5 mg 1X ONCE PO ; Start 09/16/20 at 09:30; Stop 09/16/20 at 17:08; Status DC Acetaminophen/ Hydrocodone Bitart (Lortab 5/325) 1 tab PRN Q4HRS PRN PO MODERATE-SEVERE PAIN Last administered on 09/16/20at 11:47; Start 09/16/20 at 11:30; Stop 09/16/20 at 17:08; Status DC Bisacodyl (Dulcolax Tab) 5 mg PRN DAILY PRN PO CONSTIPATION; Start 09/16/20 at 14:15 Hydromorphone HCl (Dilaudid) 0.6 mg PRN Q3HRS PRN IVP PAIN Last administered on 09/16/20at 15:02; Start 09/16/20 at 15:00; Stop 09/16/20 at 17:24; Status DC Iohexol (Omnipaque 300 Mg/ml) 75 ml 1X ONCE IV Last administered on 09/16/20at 16:14; Start 09/16/20 at 16:15; Stop 09/16/20 at 16:16; Status DC Info (CONTRAST GIVEN -- Rx MONITORING) 1 each PRN DAILY PRN MC SEE COMMENTS; Start 09/16/20 at 16:15; Stop 09/18/20 at 16:14 Ondansetron HCl (Zofran) 4 mg PRN Q6HRS PRN IVP NAUSEA/VOMITING; Start 09/16/20 at 17:15 Famotidine (Pepcid Vial) 20 mg BID IVP Last administered on 09/16/20at 20:41; Start 09/16/20 at 21:00 Sodium Chloride (Normal Saline Flush) 3 ml QSHIFT PRN IV AFTER MEDS AND BLOOD DRAWS; Start 09/16/20 at 17:15 Sodium Chloride 1,000 ml @ 150 mls/hr Q6H40M IV Last administered on 09/17/20at 08:16; Start 09/16/20 at 17:15 Hydromorphone HCl (Dilaudid) 1 mg PRN Q3HRS PRN IVP PAIN Last administered on 09/16/20at 17:41; Start 09/16/20 at 17:30 Cefoxitin Sodium (Mefoxin) 2 gm 1X PREOP ONCE IVP ; Start 09/17/20 at 07:30; Stop 09/17/20 at 07:32; Status DC Fentanyl Citrate (Fentanyl 2ml Vial) 25 mcg PRN Q5MIN PRN IVP MILD PAIN 1-3; Start 09/17/20 at 09:00; Stop 09/18/20 at 08:59 Fentanyl Citrate (Fentanyl 2ml Vial) 50 mcg PRN Q5MIN PRN IVP MODERATE PAIN 4- 6; Start 09/17/20 at 09:00; Stop 09/18/20 at 08:59 Morphine Sulfate (Morphine Sulfate) 1 mg PRN Q10MIN PRN IVP SEVERE PAIN 7-10; Start 09/17/20 at 09:00; Stop 09/18/20 at 08:59 Ringer's Solution 1,000 ml @ 30 mls/hr Q24H IV ; Start 09/17/20 at 09:00; Stop 09/17/20 at 20:59 Hydromorphone HCl (Dilaudid) 0.5 mg PRN Q10MIN PRN IVP SEVERE PAIN 7-10, 2nd CHOICE; Start 09/17/20 at 09:00; Stop 09/18/20 at 08:59 Prochlorperazine Edisylate (Compazine) 5 mg PACU PRN PRN IVP NAUSEA, MRX1; Start 09/17/20 at 09:00; Stop 09/18/20 at 08:59 Dexmedetomidine HCl (Precedex) 200 mcg STK-MED ONCE IV ; Start 09/17/20 at 09:25; Stop 09/17/20 at 09:25; Status DC Magnesium Sulfate (Magnesium Sulfate) 5 gm STK-MED ONCE .ROUTE ; Start 09/17/20 at 09:25; Stop 09/17/20 at 09:25; Status DC Active Scripts Active Reported Tylenol (Acetaminophen) 325 Mg Tablet 1,000 Mg PO PRN Q6HRS PRN Vitals/I & O Vital Sign - Last 24 Hours 09/16/20 09/16/20 09/16/20 09/16/20 11:00 15:00 18:00 18:30 Temp 99.1 98.8 99.1 98.8 Pulse 54 60 64 59 Resp 18 18 B/P (MAP) 107/63 (78) 140/77 (98) 134/76 (95) 133/76 (95) Pulse Ox 100 99 O2 Delivery Room Air Room Air 09/16/20 09/16/20 09/16/20 09/16/20 19:00 19:46 21:06 22:59 Temp 98.1 99.5 98.1 99.5 Pulse 89 80 Resp 18 18 B/P (MAP) 127/89 (102) 99/62 (74) Pulse Ox 99 99 O2 Delivery Room Air Room Air Room Air Room Air 09/17/20 09/17/20 09/17/20 02:30 07:55 08:51 Temp 99.8 99.0 98.9 99.8 99.0 98.9 Pulse 76 68 68 Resp 16 16 16 B/P (MAP) 96/58 (71) 125/71 (89) 119/75 Pulse Ox 97 98 99 O2 Delivery Room Air Room Air Room Air Intake and Output 09/16/20 09/16/20 09/17/20 15:00 23:00 07:00 Intake Total 250 ml 1254.56 ml Output Total 500 ml 750 ml Balance 250 ml -500 ml 504.56 ml Justicifation of Admission Dx: Justifications for Admission: Justification of Admission Dx: Yes ARMIN URBANO MD Sep 17, 2020 10:27
[2020-09-17] MEDS ORDERED: BUPIVACAINE-EPI 0.5% 30 ML VIAL KIT. INJ ONE (10:33)
--- NOTE | 2020-09-17 10:40 | PDOC ---
Date of Service: DATE: 09/17/20 TIME: 10:37 Objective: Vital Signs: Vital Signs Date Time Temp Pulse Resp B/P (MAP) Pulse Ox O2 Delivery O2 Flow Rate FiO2 09/17/20 08:51 98.9 68 16 119/75 99 Room Air 98.9 Labs: Laboratory Tests Test 09/16/20 11:15 09/16/20 18:20 09/16/20 18:30 09/17/20 00:35 White Blood Count 6.4 x10^3/uL Red Blood Count 4.27 x10^6/uL Hemoglobin 12.9 g/dL 12.7 g/dL 11.4 g/dL Hematocrit 38.8 % 38.0 % Mean Corpuscular Volume 91 fL Mean Corpuscular Hemoglobin 30 pg Mean Corpuscular Hemoglobin Concent 33 g/dL 34 g/dL Red Cell Distribution Width 12.6 % Platelet Count 158 x10^3/uL Neutrophils (%) (Auto) 74 % Lymphocytes (%) (Auto) 18 % Monocytes (%) (Auto) 7 % Eosinophils (%) (Auto) 1 % Basophils (%) (Auto) 0 % Neutrophils # (Auto) 4.7 x10^3/uL Lymphocytes # (Auto) 1.1 x10^3/uL Monocytes # (Auto) 0.5 x10^3/uL Eosinophils # (Auto) 0.1 x10^3/uL Basophils # (Auto) 0.0 x10^3/uL Prothrombin Time 13.6 SEC Prothromb Time International Ratio 1.0 Test 09/17/20 05:45 White Blood Count 6.7 x10^3/uL Red Blood Count 3.78 x10^6/uL Hemoglobin 11.2 g/dL Hematocrit 33.8 % Mean Corpuscular Volume 90 fL Mean Corpuscular Hemoglobin 30 pg Mean Corpuscular Hemoglobin Concent 33 g/dL Red Cell Distribution Width 12.8 % Platelet Count 148 x10^3/uL Neutrophils (%) (Auto) 65 % Lymphocytes (%) (Auto) 25 % Monocytes (%) (Auto) 9 % Eosinophils (%) (Auto) 2 % Basophils (%) (Auto) 0 % Neutrophils # (Auto) 4.3 x10^3/uL Lymphocytes # (Auto) 1.7 x10^3/uL Monocytes # (Auto) 0.6 x10^3/uL Eosinophils # (Auto) 0.1 x10^3/uL Basophils # (Auto) 0.0 x10^3/uL Prothrombin Time 13.8 SEC Prothromb Time International Ratio 1.1 Activated Partial Thromboplast Time 34 SEC Sodium Level 144 mmol/L Potassium Level 3.8 mmol/L Chloride Level 107 mmol/L Carbon Dioxide Level 28 mmol/L Anion Gap 9 Blood Urea Nitrogen 9 mg/dL Creatinine 0.8 mg/dL Estimated GFR (Cockcroft-Gault) 105.5 BUN/Creatinine Ratio 11 Glucose Level 90 mg/dL Calcium Level 8.1 mg/dL Total Bilirubin 0.4 mg/dL Aspartate Amino Transf (AST/SGOT) 9 U/L Alanine Aminotransferase (ALT/SGPT) 17 U/L Alkaline Phosphatase 60 U/L Total Protein 6.2 g/dL Albumin 3.2 g/dL Albumin/Globulin Ratio 1.1 Imaging: CT A/P IMPRESSION: 1. Hemorrhage surrounding the mass in the right upper quadrant hemorrhagic area measures 9.3 x 5.1 x 5 cm. 2. Small amount of free fluid noted in the upper abdomen and the pelvis. 3. No bowel obstruction. 4. Mild bladder distention. PE: no exam A/P: Abdominal mass s/p biopsy - interval CT concerning for hemorrhage as above H/o GERD, irregular bowel habits +cocaine -- Out of room (assume in OR), will follow. Justicifation of Admission Dx: Justifications for Admission: Justification of Admission Dx: Yes ALYSSA BRANCH Sep 17, 2020 10:40
[2020-09-17] MEDS ORDERED: NEOSTIGMINE METHYLSULFATE 5 MG/5 ML SYRINGE. ONE (10:50)
[2020-09-17] MEDS ORDERED: GLYCOPYRROLATE 1 MG/5 ML VIAL. ONE (10:50)
[2020-09-17] MEDS ORDERED: SURGICEL HEMOSTAT 4X8 EACH. ONE (11:08)
[2020-09-17] MEDS ORDERED: 0.9 % SODIUM CHLORIDE 10 ML DISP.SYRIN. IV PRN (11:30)
[2020-09-17] MEDS ORDERED: CALCIUM CARBONATE 500 MG TAB.CHEW PO PRN (11:30)
[2020-09-17] MEDS ORDERED: IV NORMAL SALINE 1000ML BAG 1,000 ML IV SCH (11:30)
[2020-09-17] MEDS ORDERED: ONDANSETRON PF 4 MG/2 ML VIAL. IVP PRN (11:30)
[2020-09-17] MEDS ORDERED: NALOXONE 0.4 MG/ML VIAL. IV PRN (11:30)
--- NOTE | 2020-09-17 11:32 | PDOC4 ---
OPERATIVE NOTE Date: Date: Sep 17, 2020 Pre-Op Diagnosis: Intraabdominal mass, favor GIST Post-Op Diagnosis: same, pedunculated mass off stomach 7 cm diameter Procedure Performed: laparoscopic partial gastrectomy Surgeon: Donell Cardenas Anesthesia Type: GETA plus local Blood Loss: 500 (old blood) Specimans Obtained: stomach mass Findings: moderate size mass (7 cm), arising from anterior distal stomach, with 1 cm stalk, moderate hemoperitoneum Complications: none Operative Note: After obtaining informed consent, patient was taken to OR, induced under GETA and prepped in the usual fashion. 5 mm ports placed infraumbilical, LLQ and LUQ with 12 port placed LUQ. Abdominal cavity was explored and normal except as listed above. Mass was grasped and exposed. It was not attached, except to stalk from anterior distal stomach. General load CAMI stapler was used to divide stalk well onto stomach with good margin. No compromise of stomach lumen. Additional hemostasis was obtained using clips on staple line. Mass placed in bag, delivered and sent to pathology. Copious irrigation and evacuation of hemoperitoneum. No evidence of bleeding or other pathology noted. Ports removed without bleeding. Posterior fascia LUQ repaired with 0 vicryl. Anterior fascia repaired with 0 looped PDS. Skin repaired with 3 0 vicryl and 4 0 monocryl. Dressing placed. Patient tolerated procedure well and sent to PACU in stable condition. All counts correct. Wound class is 2. BIANKA CARDENAS MD Sep 17, 2020 11:32
[2020-09-17] MEDS ORDERED: SEVOFLURANE 61 TO 120 MINUTES. IH ONE (11:44)
--- NOTE | 2020-09-17 12:27 | NUR ---
ISABEL FROM PACU CALLED TO REPORT LAPAROSCOPIC PARTIAL GASTROSTOMY, REMOVING MASS FROM STOMACH WALL. PT HAS 4 ISLAND DRESSINGS WITH STERI STRIPS AND TELFA. PT HAS 18G IV IN LT FOREARM PLACED PRE-SURGERY. CRUZ HAS BEEN DC'D. PT HAD 500ML ESBL. PT RECEIVED FENTANYL 50MCG AND ABDOMINAL BLOCK.
[2020-09-17] MEDS: MORPHINE SULFATE 2 MG/ML VIAL. IV PRN (14:27)
[2020-09-17] MEDS: FAMOTIDINE 20 MG/2 ML VIAL IVP SCH (14:27)
--- NOTE | 2020-09-17 15:02 | NUR ---
SS following up with discharge planning. SS reviewed pt chart and discussed with pt RN. Pt is currently on room air. PT/OT recommended home independent. Pt had surgery today for abdominal mass. SS will continue to follow for discharge planning.
[2020-09-17] MEDS ORDERED: ONDANSETRON PF 4 MG/2 ML VIAL. ONE (17:53)
[2020-09-17] MEDS ORDERED: PHENYLEPHRINE in 0.9% NACL PF 1 MG/10 ML SYRINGE. IV ONE (17:53)
[2020-09-17] MEDS ORDERED: DEXAMETHASONE SOD PHOS 4 MG/ML VIAL ONE (17:53)
[2020-09-17] MEDS: HYDROcodone/APAP 5/325MG 1 TAB TABLET PO PRN ×2 (18:46→23:59)
[2020-09-17] MEDS: HYDROmorphone 2 MG/ML VIAL IVP PRN (21:10)
[2020-09-17] MEDS: DOCUSATE SODIUM 100 MG CAPSULE. PO SCH (21:55)
[2020-09-17] MEDS: FAMOTIDINE 20 MG TABLET. PO SCH (21:55)
[2020-09-18] MEDS: HYDROmorphone 2 MG/ML VIAL IVP PRN ×2 (01:50→20:48)
--- NOTE | 2020-09-18 02:35 | CONS ---
DATE OF CONSULTATION: 09/17/2020 REFERRING PHYSICIAN: Marky Bowman MD REASON FOR CONSULTATION: Low-grade fever. HISTORY OF PRESENT ILLNESS: A 45-year-old male who presented to the ER on 09/13/2020 with complaints of having right-sided face, right arm and leg numbness and heaviness with tingling. The patient also had abdominal pain. Denies any fevers, nausea, vomiting, diarrhea, abdominal pain. History obtained from chart and medical staff. The patient had history of cocaine abuse. White count on admission was normal. Creatinine was normal. He underwent head CT, which was negative. CT abdomen and pelvis showed a 5 x 4.1 cm soft tissue mass centered around the mesentery of the right nando-abdomen. Differential diagnosis was GIST. The patient underwent abdominal retroperitoneal biopsy on 09/16. 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 He started having increased pain. Repeat CT showed hemorrhage surrounding the mass in the right upper quadrant about 9.3 x 5.1 x 5 cm, small amount of free fluid noted in the upper abdomen and pelvis, no bowel obstruction, mild bladder distention. Dr. Valentin performed laparoscopic partial gastrectomy this morning with copious irrigation and evacuation of hemoperitoneum. No evidence of bleeding or other pathology was noted. Ports removed without bleeding. The patient is back from recovery room as his postop pain is under control. Denies any headache, fevers, chills, nausea, vomiting, diarrhea, symptoms. PAST MEDICAL HISTORY: GERD, anxiety. SOCIAL HISTORY: Every day smoker. No alcohol. Cocaine positive. . CURRENT MEDICATIONS: No antibiotics. Other medications reviewed in medication list. ALLERGIES: No known drug allergies. REVIEW OF SYSTEMS: Limited, but negative except for above in HPI. PHYSICAL EXAMINATION: VITAL SIGNS: Temperature 97.7, T-max 99.8, pulse 70, respiration 16, blood pressure 111/82, oxygen saturation 100% on room air. GENERAL: Sedated, but arousable male in no acute distress. HEENT: Normocephalic, atraumatic. Anicteric. NECK: Supple. No JVD. LUNGS: Clear bilaterally. No wheezing. HEART: S1, S2. No gallops. No murmurs. ABDOMEN: Soft, nondistended. Dressing from recent surgery in place. Bowel sounds present. EXTREMITIES: No edema, no cyanosis. CENTRAL NERVOUS SYSTEM: Alert, awake, moves all 4 extremities. DERMATOLOGIC: Warm, dry. No generalized rash. PIV looks clean. LABORATORY AND IMAGING: Abdominal pelvic CT, chest CT, brain MRI, abdominal MRI, carotid Doppler, CT head, chest x-ray reviewed. IMPRESSION: 1. Low grade fever ,likely from hemoperitoneum 2. Abdominal wall mass, status post biopsy on 09/15/2020. Pathology with gastrointestinal stromal tumor. 3. Moderate hemoperitoneum, moderate mass, status post laparoscopic partial gastrectomy 09/17/2020. 4. Numbness of face,extremities 5. Tobacco dependence. Substance dependence with cocaine. 6. Gastroesophageal reflux disease. 7. Hemoptysis 8. Anxiety. RECOMMENDATIONS: 1. Continue observation off antibiotics. Pt just returned from surgery and is hemodynamically stable. 2. Wound care per General Surgery. 3. Oncology has been consulted. 4. Maintain aspiration precaution. 5. Monitor labs and cultures. 6. Continue supportive care. Thank you for allowing me to participate in this patient's care. If you have any questions, do not hesitate to contact me. GHASSAN DR: Carrol TID: [phone] [facility]
[2020-09-18 02:52] VITALS: BP 134/76
[2020-09-18] MEDS: IV NORMAL SALINE 1000ML BAG 1,000 ML IV SCH ×4 (06:01→22:20)
--- NOTE | 2020-09-18 06:53 | PDOC ---
Infectious Disease Note Subjective: Subjective Patient complains of postop abdominal pain Complains of being hungry Does not pass any flatus Denies any fever, chills, nausea, vomiting, diarrhea, symptoms, rash Vital Signs: Vital Signs Vital Signs Date Time Temp Pulse Resp B/P (MAP) Pulse Ox O2 Delivery O2 Flow Rate FiO2 09/18/20 02:52 98.0 58 18 134/76 (95) 98 Room Air 98.0 09/17/20 12:05 6 Physical Exam: PHYSICAL EXAM GENERAL: Alert oriented x3 male in no acute distress HEENT: Normocephalic, atraumatic. Anicteric. NECK: Supple. No JVD. LUNGS: Clear bilaterally. No wheezing. HEART: S1, S2. No gallops. No murmurs. ABDOMEN: Soft, nondistended. Dressing from recent surgery in place. Dry bowel sounds present. EXTREMITIES: No edema, no cyanosis. CENTRAL NERVOUS SYSTEM: Alert, awake, moves all 4 extremities. DERMATOLOGIC: Warm, dry. No generalized rash. PIV looks clean. Medications: Inpatient Meds: Medications reviewed. Labs: Lab Laboratory Tests Test 09/17/20 14:05 Hemoglobin 11.8 g/dL (13.0-17.5) Objective: Assessment: 1. Low grade fever ,likely from hemoperitoneum 2. Abdominal wall mass, status post biopsy on 09/15/2020. Pathology with gastrointestinal stromal tumor. 3. Moderate hemoperitoneum, moderate mass, status post laparoscopic partial gastrectomy 09/17/2020. 4. Numbness of face,extremities 5. Tobacco dependence. Substance dependence with cocaine. 6. Gastroesophageal reflux disease. 7. Hemoptysis 8. Anxiety. Plan: Plan of Care 1. Continue observation off antibiotics. 2. Wound care per General Surgery. 3. Patient is being started on full liquids today 4. Maintain aspiration precaution. 5. Monitor labs and cultures. 6. Continue supportive care. Discussed with nursing staff POLINA MEJIA MD Sep 18, 2020 06:53
[2020-09-18 07:00] VITALS: BP 113/69
[2020-09-18 07:04] LABS: CALCIUM 8.3 mg/dL (8.5-10.1); CREATININE 0.9 mg/dL (0.7-1.3); GFR 92.1; POTASSIUM 3.8 mmol/L (3.5-5.1)
[2020-09-18 07:26] LABS: BASO % 0 % (0-3); EOS % 0 % (0-3); HEMOGLOBIN 10.7 g/dL (13.0-17.5); LYMPH # 0.9 x10^3/uL (1.0-4.8); LYMPH % 10 % (24-48); MEAN CORPUSCULAR HEMOGLOBIN 30 pg (25-35); MEAN CORPUSCULAR HGB CONC 34 g/dL (31-37); MEAN CORPUSCULAR VOLUME 90 fL (79-100); MONO # 0.6 x10^3/uL (0.0-1.1); MONO % 7 % (0-9); NEUT # 7.3 x10^3/uL (1.8-7.7); NEUT % 83 % (31-73); PLATELET COUNT 149 x10^3/uL (140-400); RED BLOOD COUNT 3.55 x10^6/uL (4.30-5.70); RED CELL DISTRIBUTION WIDTH 12.7 % (11.5-14.5); WHITE BLOOD COUNT 8.8 x10^3/uL (4.0-11.0)
--- NOTE | 2020-09-18 08:39 | PDOC ---
PULMONARY PROGRESS NOTES DATE: 09/18/20 TIME: 08:38 Subjective Pt. is resting on room air no further hemoptysis increased ABD pain at biopsy site Vitals Vital Signs Date Time Temp Pulse Resp B/P (MAP) Pulse Ox O2 Delivery O2 Flow Rate FiO2 09/18/20 02:52 98.0 58 18 134/76 (95) 98 Room Air 98.0 09/17/20 12:05 6 ROS: No Nausea, No Chest Pain, No Increase Cough General: Alert Lungs: Clear Cardiovascular: S1, S2 Abdomen: Soft Extremities: No Edema Skin: Warm Labs Laboratory Tests Test 09/16/20 11:15 09/16/20 18:20 09/16/20 18:30 09/17/20 00:35 White Blood Count 6.4 x10^3/uL (4.0-11.0) Red Blood Count 4.27 x10^6/uL (4.30-5.70) Hemoglobin 12.9 g/dL (13.0-17.5) 12.7 g/dL (13.0-17.5) 11.4 g/dL (13.0-17.5) Hematocrit 38.8 % (39.0-53.0) 38.0 % (39.0-53.0) Mean Corpuscular Volume 91 fL (79-100) Mean Corpuscular Hemoglobin 30 pg (25-35) Mean Corpuscular Hemoglobin Concent 33 g/dL (31-37) 34 g/dL (31-37) Red Cell Distribution Width 12.6 % (11.5-14.5) Platelet Count 158 x10^3/uL (140-400) Neutrophils (%) (Auto) 74 % (31-73) Lymphocytes (%) (Auto) 18 % (24-48) Monocytes (%) (Auto) 7 % (0-9) Eosinophils (%) (Auto) 1 % (0-3) Basophils (%) (Auto) 0 % (0-3) Neutrophils # (Auto) 4.7 x10^3/uL (1.8-7.7) Lymphocytes # (Auto) 1.1 x10^3/uL (1.0-4.8) Monocytes # (Auto) 0.5 x10^3/uL (0.0-1.1) Eosinophils # (Auto) 0.1 x10^3/uL (0.0-0.7) Basophils # (Auto) 0.0 x10^3/uL (0.0-0.2) Prothrombin Time 13.6 SEC (11.7-14.0) Prothromb Time International Ratio 1.0 (0.8-1.1) Test 09/17/20 05:45 09/17/20 14:05 09/18/20 05:35 White Blood Count 6.7 x10^3/uL (4.0-11.0) 8.8 x10^3/uL (4.0-11.0) Red Blood Count 3.78 x10^6/uL (4.30-5.70) 3.55 x10^6/uL (4.30-5.70) Hemoglobin 11.2 g/dL (13.0-17.5) 11.8 g/dL (13.0-17.5) 10.7 g/dL (13.0-17.5) Hematocrit 33.8 % (39.0-53.0) 32.0 % (39.0-53.0) Mean Corpuscular Volume 90 fL (79-100) 90 fL (79-100) Mean Corpuscular Hemoglobin 30 pg (25-35) 30 pg (25-35) Mean Corpuscular Hemoglobin Concent 33 g/dL (31-37) 34 g/dL (31-37) Red Cell Distribution Width 12.8 % (11.5-14.5) 12.7 % (11.5-14.5) Platelet Count 148 x10^3/uL (140-400) 149 x10^3/uL (140-400) Neutrophils (%) (Auto) 65 % (31-73) 83 % (31-73) Lymphocytes (%) (Auto) 25 % (24-48) 10 % (24-48) Monocytes (%) (Auto) 9 % (0-9) 7 % (0-9) Eosinophils (%) (Auto) 2 % (0-3) 0 % (0-3) Basophils (%) (Auto) 0 % (0-3) 0 % (0-3) Neutrophils # (Auto) 4.3 x10^3/uL (1.8-7.7) 7.3 x10^3/uL (1.8-7.7) Lymphocytes # (Auto) 1.7 x10^3/uL (1.0-4.8) 0.9 x10^3/uL (1.0-4.8) Monocytes # (Auto) 0.6 x10^3/uL (0.0-1.1) 0.6 x10^3/uL (0.0-1.1) Eosinophils # (Auto) 0.1 x10^3/uL (0.0-0.7) 0.0 x10^3/uL (0.0-0.7) Basophils # (Auto) 0.0 x10^3/uL (0.0-0.2) 0.0 x10^3/uL (0.0-0.2) Prothrombin Time 13.8 SEC (11.7-14.0) Prothromb Time International Ratio 1.1 (0.8-1.1) Activated Partial Thromboplast Time 34 SEC (24-38) Sodium Level 144 mmol/L (136-145) 147 mmol/L (136-145) Potassium Level 3.8 mmol/L (3.5-5.1) 3.8 mmol/L (3.5-5.1) Chloride Level 107 mmol/L (98-107) 110 mmol/L (98-107) Carbon Dioxide Level 28 mmol/L (21-32) 28 mmol/L (21-32) Anion Gap 9 (6-14) 9 (6-14) Blood Urea Nitrogen 9 mg/dL (8-26) 4 mg/dL (8-26) Creatinine 0.8 mg/dL (0.7-1.3) 0.9 mg/dL (0.7-1.3) Estimated GFR (Cockcroft-Gault) 105.5 92.1 BUN/Creatinine Ratio 11 (6-20) Glucose Level 90 mg/dL (70-99) 143 mg/dL (70-99) Calcium Level 8.1 mg/dL (8.5-10.1) 8.3 mg/dL (8.5-10.1) Total Bilirubin 0.4 mg/dL (0.2-1.0) Aspartate Amino Transf (AST/SGOT) 9 U/L (15-37) Alanine Aminotransferase (ALT/SGPT) 17 U/L (16-63) Alkaline Phosphatase 60 U/L (46-116) Total Protein 6.2 g/dL (6.4-8.2) Albumin 3.2 g/dL (3.4-5.0) Albumin/Globulin Ratio 1.1 (1.0-1.7) Procalcitonin < 0.10 ng/mL (0.00-0.10) Laboratory Tests Test 09/17/20 14:05 09/18/20 05:35 Hemoglobin 11.8 g/dL (13.0-17.5) 10.7 g/dL (13.0-17.5) White Blood Count 8.8 x10^3/uL (4.0-11.0) Red Blood Count 3.55 x10^6/uL (4.30-5.70) Hematocrit 32.0 % (39.0-53.0) Mean Corpuscular Volume 90 fL (79-100) Mean Corpuscular Hemoglobin 30 pg (25-35) Mean Corpuscular Hemoglobin Concent 34 g/dL (31-37) Red Cell Distribution Width 12.7 % (11.5-14.5) Platelet Count 149 x10^3/uL (140-400) Neutrophils (%) (Auto) 83 % (31-73) Lymphocytes (%) (Auto) 10 % (24-48) Monocytes (%) (Auto) 7 % (0-9) Eosinophils (%) (Auto) 0 % (0-3) Basophils (%) (Auto) 0 % (0-3) Neutrophils # (Auto) 7.3 x10^3/uL (1.8-7.7) Lymphocytes # (Auto) 0.9 x10^3/uL (1.0-4.8) Monocytes # (Auto) 0.6 x10^3/uL (0.0-1.1) Eosinophils # (Auto) 0.0 x10^3/uL (0.0-0.7) Basophils # (Auto) 0.0 x10^3/uL (0.0-0.2) Sodium Level 147 mmol/L (136-145) Potassium Level 3.8 mmol/L (3.5-5.1) Chloride Level 110 mmol/L (98-107) Carbon Dioxide Level 28 mmol/L (21-32) Anion Gap 9 (6-14) Blood Urea Nitrogen 4 mg/dL (8-26) Creatinine 0.9 mg/dL (0.7-1.3) Estimated GFR (Cockcroft-Gault) 92.1 Glucose Level 143 mg/dL (70-99) Calcium Level 8.3 mg/dL (8.5-10.1) Medications Active Scripts Medications Dose Route/Sig Max Daily Dose Days Date Category Tylenol (Acetaminophen) 325 Mg Tablet 1,000 Mg PO PRN Q6HRS PRN 09/14/[address] chest reviewed : 1. No evidence of metastatic disease or acute infiltrates. No endobronchial lesions. Recommend ongoing follow-up for hemoptysis. Impression . Hemoptysis related to cocaine inhalation Tobacco dependent Substance Abuse + Cocaine Shortness of air related to COPD and anxiety Monitor no additional work-up necessary Abdominal mass s/p biopsy on 09/15/20 GERD Plan . Updated 09/16/20 Pt. respiratory status is compensated, remains on room air No Further hemoptysis NEBS PRN CT chest reviewed Follow surgery recs--Abdominal mass s/p biopsy on 09/15/20 Follow GI recs Educated on importance of cessation of smoking and drug use Anxiety per PCP DVT/GI PPX D/W RN Pancho MORA today from our standpoint follow up in Office with me in November PLAN: 09/15/20 1. Respiratory status appears to be compensated, no further workup needed. 2. Suspect patient's symptoms of shortness of breath related to anxiety more than anything else. 3. P.r.n. albuterol. HERB WAYNE MD Sep 18, 2020 08:38
[2020-09-18] MEDS ORDERED: ASA/APAP/CAFFEINE 250/250/65MG TABLET. PO PRN (09:00)
[2020-09-18] MEDS: DOCUSATE SODIUM 100 MG CAPSULE. PO SCH ×2 (09:06→20:36)
[2020-09-18] MEDS: FAMOTIDINE 20 MG TABLET. PO SCH ×2 (09:06→20:35)
[2020-09-18] MEDS: ENOXAPARIN 40 MG/0.4 ML SYRINGE. SQ SCH (09:09)
--- NOTE | 2020-09-18 09:15 | NUR ---
NS BAG NONADMINISTERED DUE TO PREVIOUS BAG STILL RUNNING.
[2020-09-18] MEDS: MORPHINE SULFATE 2 MG/ML VIAL. IV PRN ×2 (09:22→16:31)
--- NOTE | 2020-09-18 09:22 | PDOC ---
PROGRESS NOTES Date of Service DATE: 09/18/20 TIME: 09:21 Assessment Problems Medical Problems: (1) Abdominal mass Status: Acute (2) Cocaine use Status: Acute Stroke symptoms following cocaine use, resolved. Stroke work-up is negative. Work-up for GI mass in progress Occasional migraines Occasional right ear tinnitus Plan No additional neurological studies needed Patient intends to abstain from cocaine indefinitely Stop smoking Daily aspirin Excedrin as needed for migraine Follow-up as outpatient with an ENT regarding the right ear Subjective Says he has occasional migraines and tinnitus in the right ear Objective Vital Signs Date Time Temp Pulse Resp B/P (MAP) Pulse Ox O2 Delivery O2 Flow Rate FiO2 09/18/20 07:00 98.1 80 16 113/69 (84) 97 Room Air 98.1 09/17/20 12:05 6 Intake and Output 09/18/20 07:00 Intake Total 4140 ml Output Total 3650 ml Balance 490 ml Intake Oral 1940 ml IV Total 2200 ml Output Urine Total 3150 ml Estimated Blood Loss 500 ml PHYSICAL EXAM Alert. Oriented to time, place and person. PERRL. EOMI. CN: no focal findings. Muscle tone: normal. Muscle strength: 5/5 DTR: 2+ Plantar reflex: Flexor Gait: not examined in bed. Sensory exam: no abnormal findings. No cerebellar signs elicited Review of Relevant I have reviewed the following items dina (where applicable) has been applied. Labs Laboratory Tests Test 09/16/20 11:15 09/16/20 18:20 09/16/20 18:30 09/17/20 00:35 White Blood Count 6.4 x10^3/uL (4.0-11.0) Red Blood Count 4.27 x10^6/uL (4.30-5.70) Hemoglobin 12.9 g/dL (13.0-17.5) 12.7 g/dL (13.0-17.5) 11.4 g/dL (13.0-17.5) Hematocrit 38.8 % (39.0-53.0) 38.0 % (39.0-53.0) Mean Corpuscular Volume 91 fL (79-100) Mean Corpuscular Hemoglobin 30 pg (25-35) Mean Corpuscular Hemoglobin Concent 33 g/dL (31-37) 34 g/dL (31-37) Red Cell Distribution Width 12.6 % (11.5-14.5) Platelet Count 158 x10^3/uL (140-400) Neutrophils (%) (Auto) 74 % (31-73) Lymphocytes (%) (Auto) 18 % (24-48) Monocytes (%) (Auto) 7 % (0-9) Eosinophils (%) (Auto) 1 % (0-3) Basophils (%) (Auto) 0 % (0-3) Neutrophils # (Auto) 4.7 x10^3/uL (1.8-7.7) Lymphocytes # (Auto) 1.1 x10^3/uL (1.0-4.8) Monocytes # (Auto) 0.5 x10^3/uL (0.0-1.1) Eosinophils # (Auto) 0.1 x10^3/uL (0.0-0.7) Basophils # (Auto) 0.0 x10^3/uL (0.0-0.2) Prothrombin Time 13.6 SEC (11.7-14.0) Prothromb Time International Ratio 1.0 (0.8-1.1) Test 09/17/20 05:45 09/17/20 14:05 09/18/20 05:35 White Blood Count 6.7 x10^3/uL (4.0-11.0) 8.8 x10^3/uL (4.0-11.0) Red Blood Count 3.78 x10^6/uL (4.30-5.70) 3.55 x10^6/uL (4.30-5.70) Hemoglobin 11.2 g/dL (13.0-17.5) 11.8 g/dL (13.0-17.5) 10.7 g/dL (13.0-17.5) Hematocrit 33.8 % (39.0-53.0) 32.0 % (39.0-53.0) Mean Corpuscular Volume 90 fL (79-100) 90 fL (79-100) Mean Corpuscular Hemoglobin 30 pg (25-35) 30 pg (25-35) Mean Corpuscular Hemoglobin Concent 33 g/dL (31-37) 34 g/dL (31-37) Red Cell Distribution Width 12.8 % (11.5-14.5) 12.7 % (11.5-14.5) Platelet Count 148 x10^3/uL (140-400) 149 x10^3/uL (140-400) Neutrophils (%) (Auto) 65 % (31-73) 83 % (31-73) Lymphocytes (%) (Auto) 25 % (24-48) 10 % (24-48) Monocytes (%) (Auto) 9 % (0-9) 7 % (0-9) Eosinophils (%) (Auto) 2 % (0-3) 0 % (0-3) Basophils (%) (Auto) 0 % (0-3) 0 % (0-3) Neutrophils # (Auto) 4.3 x10^3/uL (1.8-7.7) 7.3 x10^3/uL (1.8-7.7) Lymphocytes # (Auto) 1.7 x10^3/uL (1.0-4.8) 0.9 x10^3/uL (1.0-4.8) Monocytes # (Auto) 0.6 x10^3/uL (0.0-1.1) 0.6 x10^3/uL (0.0-1.1) Eosinophils # (Auto) 0.1 x10^3/uL (0.0-0.7) 0.0 x10^3/uL (0.0-0.7) Basophils # (Auto) 0.0 x10^3/uL (0.0-0.2) 0.0 x10^3/uL (0.0-0.2) Prothrombin Time 13.8 SEC (11.7-14.0) Prothromb Time International Ratio 1.1 (0.8-1.1) Activated Partial Thromboplast Time 34 SEC (24-38) Sodium Level 144 mmol/L (136-145) 147 mmol/L (136-145) Potassium Level 3.8 mmol/L (3.5-5.1) 3.8 mmol/L (3.5-5.1) Chloride Level 107 mmol/L (98-107) 110 mmol/L (98-107) Carbon Dioxide Level 28 mmol/L (21-32) 28 mmol/L (21-32) Anion Gap 9 (6-14) 9 (6-14) Blood Urea Nitrogen 9 mg/dL (8-26) 4 mg/dL (8-26) Creatinine 0.8 mg/dL (0.7-1.3) 0.9 mg/dL (0.7-1.3) Estimated GFR (Cockcroft-Gault) 105.5 92.1 BUN/Creatinine Ratio 11 (6-20) Glucose Level 90 mg/dL (70-99) 143 mg/dL (70-99) Calcium Level 8.1 mg/dL (8.5-10.1) 8.3 mg/dL (8.5-10.1) Total Bilirubin 0.4 mg/dL (0.2-1.0) Aspartate Amino Transf (AST/SGOT) 9 U/L (15-37) Alanine Aminotransferase (ALT/SGPT) 17 U/L (16-63) Alkaline Phosphatase 60 U/L (46-116) Total Protein 6.2 g/dL (6.4-8.2) Albumin 3.2 g/dL (3.4-5.0) Albumin/Globulin Ratio 1.1 (1.0-1.7) Procalcitonin < 0.10 ng/mL (0.00-0.10) Laboratory Tests Test 09/17/20 14:05 09/18/20 05:35 Hemoglobin 11.8 g/dL (13.0-17.5) 10.7 g/dL (13.0-17.5) White Blood Count 8.8 x10^3/uL (4.0-11.0) Red Blood Count 3.55 x10^6/uL (4.30-5.70) Hematocrit 32.0 % (39.0-53.0) Mean Corpuscular Volume 90 fL (79-100) Mean Corpuscular Hemoglobin 30 pg (25-35) Mean Corpuscular Hemoglobin Concent 34 g/dL (31-37) Red Cell Distribution Width 12.7 % (11.5-14.5) Platelet Count 149 x10^3/uL (140-400) Neutrophils (%) (Auto) 83 % (31-73) Lymphocytes (%) (Auto) 10 % (24-48) Monocytes (%) (Auto) 7 % (0-9) Eosinophils (%) (Auto) 0 % (0-3) Basophils (%) (Auto) 0 % (0-3) Neutrophils # (Auto) 7.3 x10^3/uL (1.8-7.7) Lymphocytes # (Auto) 0.9 x10^3/uL (1.0-4.8) Monocytes # (Auto) 0.6 x10^3/uL (0.0-1.1) Eosinophils # (Auto) 0.0 x10^3/uL (0.0-0.7) Basophils # (Auto) 0.0 x10^3/uL (0.0-0.2) Sodium Level 147 mmol/L (136-145) Potassium Level 3.8 mmol/L (3.5-5.1) Chloride Level 110 mmol/L (98-107) Carbon Dioxide Level 28 mmol/L (21-32) Anion Gap 9 (6-14) Blood Urea Nitrogen 4 mg/dL (8-26) Creatinine 0.9 mg/dL (0.7-1.3) Estimated GFR (Cockcroft-Gault) 92.1 Glucose Level 143 mg/dL (70-99) Calcium Level 8.3 mg/dL (8.5-10.1) Microbiology 09/16/20 Blood Culture - Preliminary, Resulted NO GROWTH AFTER 1 DAY Medications Current Medications Ondansetron HCl (Zofran) 4 mg 1X ONCE IVP Last administered on 09/13/20at 16:30; Start 09/13/20 at 16:30; Stop 09/13/20 at 16:31; Status DC Fentanyl Citrate (Fentanyl 2ml Vial) 50 mcg 1X ONCE IVP ; Start 09/13/20 at 16:30; Stop 09/13/20 at 16:31; Status DC Iohexol (Omnipaque 300 Mg/ml) 75 ml 1X ONCE IV Last administered on 09/13/20at 16:57; Start 09/13/20 at 16:45; Stop 09/13/20 at 16:46; Status DC Info (CONTRAST GIVEN -- Rx MONITORING) 1 each PRN DAILY PRN MC SEE COMMENTS; Start 09/13/20 at 16:45; Stop 09/15/20 at 16:44; Status DC Sodium Chloride 1,000 ml @ 1,000 mls/hr 1X ONCE IV Last administered on 09/13/20at 16:45; Start 09/13/20 at 16:45; Stop 09/13/20 at 17:44; Status DC Sodium Chloride 1,000 ml @ 1,000 mls/hr 1X ONCE IV Last administered on 09/13/20at 18:00; Start 09/13/20 at 18:00; Stop 09/13/20 at 18:59; Status DC Acetaminophen (Tylenol) 1,000 mg 1X ONCE PO Last administered on 09/13/20at 22:30; Start 09/13/20 at 22:30; Stop 09/13/20 at 22:31; Status DC Pantoprazole Sodium (Protonix) 40 mg DAILYAC PO Last administered on 09/14/20at 11:57; Start 09/14/20 at 11:30; Stop 09/16/20 at 17:08; Status DC Acetaminophen (Tylenol) 1,000 mg PRN Q6HRS PRN PO MILD PAIN / TEMP > 100.3'F; Start 09/14/20 at 12:45; Stop 09/16/20 at 17:08; Status DC Sodium Chloride (Normal Saline Flush) 3 ml QSHIFT PRN IV AFTER MEDS AND BLOOD DRAWS; Start 09/14/20 at 12:45; Stop 09/16/20 at 17:11; Status DC Ondansetron HCl (Zofran) 4 mg PRN Q4HRS PRN IV NAUSEA/VOMITING; Start 09/14/20 at 12:45; Stop 09/17/20 at 16:22; Status DC Al Hydroxide/Mg Hydroxide (Mylanta Plus Xs) 30 ml PRN DAILY PRN PO HEARTBURN / GAS; Start 09/14/20 at 12:45 Sodium Monofluorophosphate (Fleet Adult) 133 ml PRN DAILY PRN [place] CONSTIPATION; Start 09/14/20 at 12:45 Docusate Sodium (Colace) 100 mg PRN BID PRN PO HARD STOOLS Last administered on 09/16/20at 09:26; Start 09/14/20 at 12:45; Stop 09/16/20 at 17:08; Status DC Albuterol Sulfate (Ventolin Neb Soln) 2.5 mg PRN Q4HRS PRN NEB SHORTNESS OF BREATH; Start 09/14/20 at 12:45 Guaifenesin (Robitussin) 200 mg PRN Q4HRS PRN PO COUGH; Start 09/14/20 at 12:45 Lorazepam (Ativan) 0.5 mg PRN Q4HRS PRN PO ANXIETY / AGITATION; Start 09/14/20 at 12:45; Stop 09/16/20 at 17:08; Status DC Enoxaparin Sodium (Lovenox 40mg Syringe) 40 mg Q24H SQ ; Start 09/14/20 at 14:00; Stop 09/16/20 at 17:08; Status DC Sodium Chloride 1,000 ml @ 100 mls/hr 1X ONCE IV Last administered on 09/14/20at 14:23; Start 09/14/20 at 14:00; Stop 09/14/20 at 23:59; Status DC Sodium Chloride 1,000 ml @ 100 mls/hr Q10H IV Last administered on 09/16/20at 11:49; Start 09/14/20 at 16:00; Stop 09/16/20 at 17:08; Status DC Acetaminophen (Tylenol) 650 mg PRN Q6HRS PRN PO MILD PAIN / TEMP > 100.3'F; Start 09/14/20 at 15:15; Stop 09/14/20 at 15:10; Status DC Aspirin (Ecotrin) 325 mg DAILYWBKFT PO Last administered on 09/14/20at 16:27; Start 09/14/20 at 16:00; Stop 09/16/20 at 17:08; Status DC Aspirin (Aspirin Rectal Supp) 300 mg PRN DAILY PRN NH IF UNABLE TO TAKE PO; Start 09/14/20 at 15:15; Stop 09/16/20 at 17:08; Status DC Polyethylene Glycol (miraLAX PACKET) 17 gm DAILY PO Last administered on 09/16/20at 09:29; Start 09/15/20 at 10:00; Stop 09/16/20 at 17:08; Status DC Bisacodyl (Dulcolax Tab) 5 mg 1X ONCE PO ; Start 09/15/20 at 09:45; Stop 09/15/20 at 09:46; Status DC Gadoterate Meglumine (Clariscan) 12 ml 1X ONCE IVP Last administered on 09/15/20at 11:30; Start 09/15/20 at 11:45; Stop 09/15/20 at 11:46; Status DC Lidocaine HCl (Buffered Lidocaine 1%) 9 ml 1X ONCE INJ Last administered on 09/15/20at 14:45; Start 09/15/20 at 14:45; Stop 09/15/20 at 14:53; Status DC Iohexol (Omnipaque 300 Mg/ml) 75 ml 1X ONCE IV Last administered on 09/15/20at 14:45; Start 09/15/20 at 14:45; Stop 09/15/20 at 14:53; Status DC Bisacodyl (Dulcolax Tab) 5 mg 1X ONCE PO ; Start 09/16/20 at 09:30; Stop 09/16/20 at 17:08; Status DC Acetaminophen/ Hydrocodone Bitart (Lortab 5/325) 1 tab PRN Q4HRS PRN PO MODERATE-SEVERE PAIN Last administered on 09/16/20at 11:47; Start 09/16/20 at 11:30; Stop 09/16/20 at 17:08; Status DC Bisacodyl (Dulcolax Tab) 5 mg PRN DAILY PRN PO CONSTIPATION; Start 09/16/20 at 14:15 Hydromorphone HCl (Dilaudid) 0.6 mg PRN Q3HRS PRN IVP PAIN Last administered on 09/16/20at 15:02; Start 09/16/20 at 15:00; Stop 09/16/20 at 17:24; Status DC Iohexol (Omnipaque 300 Mg/ml) 75 ml 1X ONCE IV Last administered on 09/16/20at 16:14; Start 09/16/20 at 16:15; Stop 09/16/20 at 16:16; Status DC Info (CONTRAST GIVEN -- Rx MONITORING) 1 each PRN DAILY PRN MC SEE COMMENTS; Start 09/16/20 at 16:15; Stop 09/18/20 at 16:14 Ondansetron HCl (Zofran) 4 mg PRN Q6HRS PRN IVP NAUSEA/VOMITING; Start 09/16/20 at 17:15; Stop 09/17/20 at 16:22; Status DC Famotidine (Pepcid Vial) 20 mg BID IVP Last administered on 09/17/20at 14:27; Start 09/16/20 at 21:00; Stop 09/17/20 at 16:21; Status DC Sodium Chloride (Normal Saline Flush) 3 ml QSHIFT PRN IV AFTER MEDS AND BLOOD DRAWS; Start 09/16/20 at 17:15; Stop 09/18/20 at 08:46; Status DC Sodium Chloride 1,000 ml @ 150 mls/hr Q6H40M IV Last administered on 09/18/20at 06:01; Start 09/16/20 at 17:15 Hydromorphone HCl (Dilaudid) 1 mg PRN Q3HRS PRN IVP SEVERE PAIN Last administered on 09/18/20at 01:50; Start 09/16/20 at 17:30 Cefoxitin Sodium (Mefoxin) 2 gm 1X PREOP ONCE IVP Last administered on 09/17/20at 10:25; Start 09/17/20 at 07:30; Stop 09/17/20 at 07:32; Status DC Fentanyl Citrate (Fentanyl 2ml Vial) 25 mcg PRN Q5MIN PRN IVP MILD PAIN 1-3; Start 09/17/20 at 09:00; Stop 09/18/20 at 08:59; Status DC Fentanyl Citrate (Fentanyl 2ml Vial) 50 mcg PRN Q5MIN PRN IVP MODERATE PAIN 4- 6; Start 09/17/20 at 09:00; Stop 09/18/20 at 08:59; Status DC Morphine Sulfate (Morphine Sulfate) 1 mg PRN Q10MIN PRN IVP SEVERE PAIN 7-10; Start 09/17/20 at 09:00; Stop 09/18/20 at 08:59; Status DC Ringer's Solution 1,000 ml @ 30 mls/hr Q24H IV ; Start 09/17/20 at 09:00; Stop 09/17/20 at 20:59; Status DC Hydromorphone HCl (Dilaudid) 0.5 mg PRN Q10MIN PRN IVP SEVERE PAIN 7-10, 2nd CHOICE; Start 09/17/20 at 09:00; Stop 09/18/20 at 08:59; Status DC Prochlorperazine Edisylate (Compazine) 5 mg PACU PRN PRN IVP NAUSEA, MRX1; Start 09/17/20 at 09:00; Stop 09/18/20 at 08:59; Status DC Dexmedetomidine HCl (Precedex) 200 mcg STK-MED ONCE IV ; Start 09/17/20 at 09:25; Stop 09/17/20 at 09:25; Status DC Magnesium Sulfate (Magnesium Sulfate) 5 gm STK-MED ONCE .ROUTE ; Start 09/17/20 at 09:25; Stop 09/17/20 at 09:25; Status DC Bupivacaine HCl/ Epinephrine Bitart (Sensorcain-Epi 0.5% Kit) 30 ml STK-MED ONCE INJ Last administered on 09/17/20at 10:33; Start 09/17/20 at 10:33; Stop 09/17/20 at 11:09; Status DC Calcium Carbonate/ Glycine (Tums) 500 mg PRN Q3HRS PRN PO HEARTBURN / GAS; Start 09/17/20 at 11:30 Famotidine (Pepcid) 20 mg BID PO Last administered on 09/18/20at 09:06; Start 09/17/20 at 21:00 Enoxaparin Sodium (Lovenox 40mg Syringe) 40 mg Q24H SQ Last administered on 09/18/20at 09:09; Start 09/18/20 at 09:00 Sodium Chloride (Normal Saline Flush) 3 ml QSHIFT PRN IV AFTER MEDS AND BLOOD DRAWS; Start 09/17/20 at 11:30 Ringer's Solution 1,000 ml @ 100 mls/hr Q10H IV Last administered on 09/17/20at 12:20; Start 09/17/20 at 11:30 Acetaminophen/ Hydrocodone Bitart (Lortab 5/325) 1 tab PRN Q4HRS PRN PO MILD PAIN 1-3 Last administered on 09/17/20at 23:59; Start 09/17/20 at 11:30 Naloxone HCl (Narcan) 0.4 mg PRN Q2MIN PRN IV SEE INSTRUCTIONS; Start 09/17/20 at 11:30 Sodium Chloride 1,000 ml @ 25 mls/hr Q24H IV ; Start 09/17/20 at 11:30; Stop 09/17/20 at 16:23; Status DC Morphine Sulfate (Morphine Sulfate) 1 mg PRN Q1HR PRN IV MODERATE PAIN Last administered on 09/17/20at 14:27; Start 09/17/20 at 11:30 Docusate Sodium (Colace) 100 mg BID PO Last administered on 09/18/20at 09:06; Start 09/17/20 at 21:00 Ondansetron HCl (Zofran) 4 mg PRN Q6HRS PRN IVP NAUESA, 1ST CHOICE; Start 09/17/20 at 11:30 Acetaminophen/ Aspirin/Caffeine (Excedrin Migraine) 1 tab PRN Q6HRS PRN PO MIGRAINE HEADACHE; Start 09/18/20 at 09:00 Active Scripts Active Reported Tylenol (Acetaminophen) 325 Mg Tablet 1,000 Mg PO PRN Q6HRS PRN Vitals/I & O Vital Sign - Last 24 Hours 09/17/20 09/17/20 09/17/20 09/17/20 11:54 11:54 12:05 12:20 Temp 97.6 97.6 Pulse 58 69 75 Resp 16 16 16 B/P (MAP) 86/57 105/69 102/73 Pulse Ox 100 100 100 O2 Delivery Simple Mask Mask Simple Mask Room Air O2 Flow Rate 6 6 6 09/17/20 09/17/20 09/17/20 09/17/20 12:35 12:35 12:45 13:00 Temp 97.7 97.7 Pulse 70 64 56 Resp 16 B/P (MAP) 111/82 111/74 (86) 108/74 (85) Pulse Ox 100 96 O2 Delivery Room Air Room Air Room Air 09/17/20 09/17/20 09/17/20 09/17/20 13:15 13:30 13:45 14:00 Pulse 66 62 61 62 B/P (MAP) 111/77 (88) 111/76 (88) 113/68 (83) 113/72 (86) Pulse Ox 96 99 92 95 O2 Delivery Room Air Room Air Room Air Room Air 09/17/20 09/17/20 09/17/20 09/17/20 14:27 14:30 15:00 15:11 Temp 98.9 98.9 Pulse 57 62 53 Resp 16 B/P (MAP) 107/66 (80) 114/64 (81) 114/64 (81) Pulse Ox 98 95 98 O2 Delivery Room Air Room Air Room Air Room Air 09/17/20 09/17/20 09/17/20 09/17/20 15:30 16:00 17:00 18:46 Pulse 52 55 58 B/P (MAP) 115/78 (90) 104/67 (79) 93/58 (70) Pulse Ox 98 97 O2 Delivery Room Air Room Air Room Air Room Air 09/17/20 09/17/20 09/17/20 09/17/20 19:00 19:16 20:00 20:00 Temp 99.3 99.3 Pulse 56 Resp 16 B/P (MAP) 119/68 (85) Pulse Ox 99 O2 Delivery Room Air Room Air Room Air Room Air 09/17/20 09/17/20 09/17/20 09/17/20 21:10 21:40 23:00 23:59 Temp 98.2 98.2 Pulse 56 Resp 18 16 B/P (MAP) 104/62 (76) Pulse Ox 97 O2 Delivery Room Air Room Air Room Air Room Air 09/18/20 09/18/20 09/18/20 09/18/20 00:29 01:50 02:20 02:52 Temp 98.0 98.0 Pulse 58 Resp 18 B/P (MAP) 134/76 (95) Pulse Ox 98 O2 Delivery Room Air Room Air Room Air Room Air 09/18/20 07:00 Temp 98.1 98.1 Pulse 80 Resp 16 B/P (MAP) 113/69 (84) Pulse Ox 97 O2 Delivery Room Air Intake and Output 09/17/20 09/17/20 09/18/20 15:00 23:00 07:00 Intake Total 2200 ml 1840 ml 100 ml Output Total 1350 ml 1400 ml 900 ml Balance 850 ml 440 ml -800 ml Justicifation of Admission Dx: Justifications for Admission: Justification of Admission Dx: Yes YAQUELIN KULKARNI MD Sep 18, 2020 09:22
--- NOTE | 2020-09-18 09:37 | PDOC ---
Date of Service: DATE: 09/18/20 TIME: 09:34 Subjective: Subjective: Feels bloated, has some pains in right abdomen, taking some clears, no flatus yet. Objective: Vital Signs: Vital Signs Date Time Temp Pulse Resp B/P (MAP) Pulse Ox O2 Delivery O2 Flow Rate FiO2 09/18/20 09:22 16 09/18/20 07:00 98.1 80 113/69 (84) 97 Room Air 98.1 09/17/20 12:05 6 Labs: Laboratory Tests Test 09/17/20 14:05 09/18/20 05:35 Hemoglobin 11.8 g/dL 10.7 g/dL White Blood Count 8.8 x10^3/uL Red Blood Count 3.55 x10^6/uL Hematocrit 32.0 % Mean Corpuscular Volume 90 fL Mean Corpuscular Hemoglobin 30 pg Mean Corpuscular Hemoglobin Concent 34 g/dL Red Cell Distribution Width 12.7 % Platelet Count 149 x10^3/uL Neutrophils (%) (Auto) 83 % Lymphocytes (%) (Auto) 10 % Monocytes (%) (Auto) 7 % Eosinophils (%) (Auto) 0 % Basophils (%) (Auto) 0 % Neutrophils # (Auto) 7.3 x10^3/uL Lymphocytes # (Auto) 0.9 x10^3/uL Monocytes # (Auto) 0.6 x10^3/uL Eosinophils # (Auto) 0.0 x10^3/uL Basophils # (Auto) 0.0 x10^3/uL Sodium Level 147 mmol/L Potassium Level 3.8 mmol/L Chloride Level 110 mmol/L Carbon Dioxide Level 28 mmol/L Anion Gap 9 Blood Urea Nitrogen 4 mg/dL Creatinine 0.9 mg/dL Estimated GFR (Cockcroft-Gault) 92.1 Glucose Level 143 mg/dL Calcium Level 8.3 mg/dL BLOOD CULTURE Preliminary NO GROWTH AFTER 1 DAY Imaging: Pre-Op Diagnosis: Intraabdominal mass, favor GIST Post-Op Diagnosis: same, pedunculated mass off stomach 7 cm diameter Procedure Performed: laparoscopic partial gastrectomy Findings: moderate size mass (7 cm), arising from anterior distal stomach, with 1 cm stalk, moderate hemoperitoneum PE: GEN: NAD LUNGS: CTAB HEART: RRR ABD: some distention, dressing in place, BS+ NEURO/PSYCH: A & O 3 A/P: Mass arising from stomach, s/p partial gastrectomy - ?GIST -- Continue per surgery, await path. Justicifation of Admission Dx: Justifications for Admission: Justification of Admission Dx: Yes ALYSSA BRANCH Sep 18, 2020 09:37
--- NOTE | 2020-09-18 09:47 | PDOC ---
PROGRESS NOTES Date of Service: DATE: 09/18/20 TIME: 09:47 Chief Complaint Chief Complaint VTE Prophylaxis Ordered VTE Prophylaxis Devices: Yes VTE Pharmacological Prophylaxi: Yes Assessment/Plan Assessment/Plan IMPRESSION: Abdominal pain 5.0 x 4.1 cm soft tissue mass centered within the mesentery of the right hemiabdomen. differential considerations include GIST. Correlate for malignancy MRI of the abdomen would better evaluate. abdominal mass The 5.0 cm mass of concern is now in the left upper quadrant, indicating that it is mobile. Considerations include a large wandering accessory spleen, a mesenteric mass such as a mesenchymal neoplasm, or gastrointestinal stromal tumor arising from a bowel loop or the stomach via a thin pedicle. Surgical consultation reviewed Cocaine use bradycardia, asymptomatic, mild Right-sided numbness/ paresthesia , headache, sinus congestion, ON ct head, No acute intracranial abnormality. will consult neurology, neg MRI HEAD Stroke symptoms following cocaine use, sensory loss on the right side is the only finding, improving, only subjective now. unintentional weight loss Tobacco abuse disorder right lower leg paresthesia Hemorrhage surrounding the mass in the right upper quadrant hemorrhagic area measures 9.3 x 5.1 x 5 cm. 09-16 PLAN ADMITTED dvt prophylaxis mri abdomen GI CONSULT GEN SURGERY CONSULT Neurology consult consider MRI HEAD ct guided bx 09-15 Justifications for Admission Other Justification History of Present Illness History of Present Illness Identification/Chief Complaint Chief Complaint right upper abdominal discomfort, right facial numbness that has improved since admit History of Present Illness History of Present Illness 45 year old Male from [place] who presented to the ER began having right side of the face, right arm and leg numbness or heaviness and tingling that he rates about a 4 out of 10. He states that he also had some nausea and is having left-sided abdominal pain with pain with urination as well //. RIGHT leg paresthesia described as medial upper leg radiates to right ankle Patient denie s fever, vomiting, diarrhea, constipation, cough, focal weakness, vision change, syncope, dizziness. He has a history of smoking, anxiety, GERD. Patient admits to smoking cocaine yesterday. he has lost 20 lbs in last year on CT Abdomen, a 5.0 x 4.1 cm soft tissue mass is centered within the mesentery of the right hemiabdomen. // differential considerations include GIST. Correlate for malignancy MRI of the abdomen would better evaluate. plan GI CONSULT / GEN SURGERY CONSULT Neurology consult Past Medical History Past Medical History Past Medical History Past Medical History Past Medical History: Anxiety, GERD Past Surgical History: No Surgical History Smoking Status: Current Every Day Smoker Alcohol Use: None Drug Use: None FHX COPD Cardiovascular: No pertinent hx Pulmonary: No pertinent hx GI: GERD Psych: Anxiety, Addictions Infectious disease: No pertinent hx ENT: No pertinent hx Renal/: No pertinent hx Endocrine: No pertinent hx Dermatology: No pertinent hx Family History Family History: Diabetes, Heart Disease Family History: Parent (father) Social History Smoke: <1 pack per day ALCOHOL: occassional Drugs: Cocaine Current Problem List Problem List Problems Medical Problems: (1) Abdominal mass Status: Acute (2) Cocaine use Status: Acute Current Medications Current Medications Current Medications Ondansetron HCl (Zofran) 4 mg 1X ONCE IVP Last administered on 09/13/20at 16:30; Start 09/13/20 at 16:30; Stop 09/13/20 at 16:31; Status DC Fentanyl Citrate (Fentanyl 2ml Vial) 50 mcg 1X ONCE IVP ; Start 09/13/20 at 16:30; Stop 09/13/20 at 16:31; Status DC Iohexol (Omnipaque 300 Mg/ml) 75 ml 1X ONCE IV Last administered on 09/13/20at 16:57; Start 09/13/20 at 16:45; Stop 09/13/20 at 16:46; Status DC Info (CONTRAST GIVEN -- Rx MONITORING) 1 each PRN DAILY PRN MC SEE COMMENTS; Start 09/13/20 at 16:45; Stop 09/15/20 at 16:44 Sodium Chloride 1,000 ml @ 1,000 mls/hr 1X ONCE IV Last administered on 09/13/20at 16:45; Start 09/13/20 at 16:45; Stop 09/13/20 at 17:44; Status DC Sodium Chloride 1,000 ml @ 1,000 mls/hr 1X ONCE IV Last administered on 09/13/20at 18:00; Start 09/13/20 at 18:00; Stop 09/13/20 at 18:59; Status DC Acetaminophen (Tylenol) 1,000 mg 1X ONCE PO Last administered on 09/13/20at 22:30; Start 09/13/20 at 22:30; Stop 09/13/20 at 22:31; Status DC Active Scripts Active Reported Tylenol (Acetaminophen) 325 Mg Tablet 1,000 Mg PO PRN Q6HRS PRN Allergies Allergies: Coded Allergies: No Known Drug Allergies (Unverified , 04/29/17) ROS Review of System Constitutional: Denies fever or chills. [] Eyes: Denies change in visual acuity. [] HENT: Denies nasal congestion or sore throat. [] Respiratory: Denies cough or shortness of breath. [] Cardiovascular: Denies chest pain or edema. [] GI: + abdominal pain, +nausea, denies vomiting, bloody stools or diarrhea. [] : Denies dysuria. [] Musculoskeletal: Denies back pain or joint pain. [] Integument: Denies rash. [] Neurologic: + Right-sided headache, denies focal weakness or sensory changes. + Tingling and numbness to right side of face, arm and leg [] improved since admit Endocrine: Denies polyuria or polydipsia. [] Lymphatic: Denies swollen glands. [] Psychiatric: Denies depression or anxiety. [] 14 pt ros otherwise neg PSYCHOLOGICAL ROS: No: Anxiety, Behavioral Disorder, Concentration difficultie, Decreased libido, Depression, Disorientation, Hallucinations, Hostility, Irritablity, Memory difficulties, Mood Swings, Obsessive thoughts, Physical abuse, Sexual abuse, Sleep disturbances, Suicidal ideation, Other Eyes: No Blurry vision, No Decreased vision, No Double vision, No Dry eyes, No Excessive tearing, No Eye Pain, No Itchy Eyes, No Loss of vision, No Photophobia, No Scotomata, No Uses contacts, No Uses glasses, No Other HEENT: YES: Heacaches; No: Visual Changes, Hearing change, Nasal congestion, Nasal discharge, Oral lesions, Sinus pain, Sore Throat, Epistaxis, Sneezing, Snoring, Tinnitus, Vertig o, Vocal changes, Other ALLERGY AND IMMUNOLOGY: No: Hives, Insect Bite Sensitivity, Itchy/Watery Eyes, Nasal Congestion, Post Nasal Drip, Seasonal Allergies, Other Hematological and Lymphatic: No: Bleeding Problems, Blood Clots, Blood Transfusions, Brusing, Night Sweats, Pallor, Swollen Lymph Nodes, Other ENDOCRINE: No: Breast Changes, Galactorrhea, Hair Pattern Changes, Hot Flashes, Malaise/lethargy, Mood Swings, Palpitations, Polydipsia/polyuria, Skin Changes, Temperature Intolerance, Unexpected Weight Changes, Other Breast: No New/Changing Breast Lumps, No Nipple changes, No Nipple discharge, No Other Cardiovascular: No Chest Pain, No Palpitations, No Orthopnea, No Paroxysmal Noc. Dyspnea, No Edema, No Lt Headedness, No Other Gastrointestinal: Yes Abdominal Pain; No Nausea, No Vomiting, No Diarrhea, No Constipation, No Melena, No Hematochezia, No Other Genitourinary: No Dysuria, No Frequency, No Incontinence, No Hematuria, No Retention, No Discharge, No Urgency, No Pain, No Flank Pain, No Other, No , No , No , No , No , No , No Neurological: Yes Gait Disturbance; No Behavorial Changes, No Bowel/Bladder ControlChng, No Confusion, No Dizziness, No Headaches, No Impaired Coord/balance, No Memory Loss, No Numbness/Tingling, No Seizures, No Speech Problems, No Tremors, No Visual Changes, No Weakness, No Other Skin: Yes Dry Skin; No Eczema, No Hair Changes, No Lumps, No Mole Changes, No Mottling, No Nail Changes, No Pruritus, No Rash, No Skin Lesion Changes, No Other, No Acne 6-22 mri head and abdomen pending Abdominal pain 5.0 x 4.1 cm soft tissue mass centered within the mesentery of the right hemiabdomen. differential considerations include GIST. Correlate for malignancy MRI of the abdomen would better evaluate. abdominal mass Cocaine use bradycardia, asymptomatic, mild MOVED TO CVC Right-sided numbness/ paresthesia , headache, sinus congestion, ON ct head, No acute intracranial abnormality. will consult neurology, consider MRI HEAD unintentional weight loss Tobacco abuse disorder right lower leg paresthesia mri abdomen pending GI CONSULT GEN SURGERY CONSULT Neurology consult d/w RN 6-23 The 5.0 cm mass of concern is now in the left upper quadrant, indicating that it is mobile. Considerations include a large wandering accessory spleen, a mesenteric mass such as a mesenchymal neoplasm, or gastrointestinal stromal tumor arising from a bowel loop or the stomach via a thin pedicle. Surgical consultation reviewed states abd pain is more severe RLQ and mild luq 7/10 will check cbc and re-e hussein prior to discharge D/W Gaby RN in room mri head and abdomen reviewed Abdominal pain post bx 5.0 x 4.1 cm soft tissue mass centered within the mesentery of the right hemiabdomen. differential considerations include GIST. Correlate for malignancy MRI of the abdomen would better evaluate. abdominal mass Cocaine use bradycardia, asymptomatic, mild MOVED TO CVC Right-sided numbness/ paresthesia , headache, sinus congestion, ON ct head, No acute intracranial abnormality. will consult neurology, consider MRI HEAD unintentional weight loss Tobacco abuse disorder right lower leg paresthesia mri abdomen REVIEWED GI CONSULT GEN SURGERY CONSULT STAT Neurology consult D/C ASA, LOVENOX, ALL PO MEDS NPO H/H Q 6 HRS TYPE, CROSS 2 UNITS PRBC'S Hemorrhage surrounding the mass in the right upper quadrant hemorrhagic area measures 9.3 x 5.1 x 5 cm. 6 d/w RN 35 MIN CC TIME 6-24 LOW grade fever overnight , blood cultured 6-24, ID consult PLAN proceeding with excision of mass now, given bleeding and increased pain and need for resection The 5.0 cm mass of concern is now in the left upper quadrant, indicating that it is mobile. Considerations include a large wandering accessory spleen, a mesenteric mass such as a mesenchymal neoplasm, or gastrointestinal stromal tumor arising from a bowel loop or the stomach via a thin pedicle. Surgical consultation reviewed states abd pain is more severe RLQ and mild luq 7/10 will check cbc and re- eval prior to discharge D/W Gaby RN in room mri head and abdomen reviewed Abdominal pain post bx 5.0 x 4.1 cm soft tissue mass centered within the mesentery of the right he miabdomen. differential considerations include GIST. Correlate for malignancy MRI of the abdomen would better evaluate. abdominal mass Cocaine use bradycardia, asymptomatic, mild MOVED TO CVC Right-sided numbness/ paresthesia , headache, sinus congestion, ON ct head, No acute intracranial abnormality. will consult neurology, consider MRI HEAD unintentional weight loss Tobacco abuse disorder right lower leg paresthesia mri abdomen REVIEWED GI CONSULT GEN SURGERY CONSULT STAT Neurology consult D/C ASA, LOVENOX, ALL PO MEDS NPO H/H Q 6 HRS TYPE, CROSS 2 UNITS PRBC'S Hemorrhage surrounding the mass in the right upper quadrant hemorrhagic area measures 9.3 x 5.1 x 5 cm. 6- TO OR TODAY moderate size mass (7 cm), arising from anterior distal stomach, with 1 cm stalk, moderate hemoperitoneum d/w RN 09-18 pod # 1 LOW grade fever overnight , blood cultured 6-24, ID consult PLAN proceeding with excision of mass now, given bleeding and increased pain and need for resection The 5.0 cm mass of concern is now in the left upper quadrant, indicating that it is mobile. Considerations include a large wandering accessory spleen, a mesenteric mass such as a mesenchymal neoplasm, or gastrointestinal stromal tumor arising from a bowel loop or the stomach via a thin pedicle. Surgical consultation reviewed states abd pain is more severe RLQ and mild luq 10/03 will check cbc and re- eval prior to discharge D/W Gaby RN in room mri head and abdomen reviewed Abdominal pain post bx 5.0 x 4.1 cm soft tissue mass centered within the mesentery of the right hemiabdomen. differential considerations include GIST. Correlate for malignancy MRI of the abdomen would better evaluate. abdominal mass Cocaine use bradycardia, asymptomatic, mild MOVED TO CVC Right-sided numbness/ paresthesia , headache, sinus congestion, ON ct head, No acute intracranial abnormality. will consult neurology, consider MRI HEAD unintentional weight loss Tobacco abuse disorder right lower leg paresthesia mri abdomen REVIEWED GI CONSULT GEN SURGERY CONSULT STAT Neurology consult D/C ASA, LOVENOX, ALL PO MEDS NPO H/H Q 6 HRS TYPE, CROSS 2 UNITS PRBC'S Hemorrhage surrounding the mass in the right upper quadrant hemorrhagic area measures 9.3 x 5.1 x 5 cm. 09-16 TO OR TODAY moderate size mass (7 cm), arising from anterior distal stomach, with 1 cm stalk, moderate hemoperitoneum d/w RN Vitals Vitals Vital Signs Date Time Temp Pulse Resp B/P (MAP) Pulse Ox O2 Delivery O2 Flow Rate FiO2 09/18/20 09:22 16 09/18/20 07:00 98.1 80 113/69 (84) 97 Room Air 98.1 09/17/20 12:05 6 Physical Exam General: Alert, Oriented X3, Cooperative, No acute distress Heart: Regular rate, Normal S1, Normal S2, No murmurs Lungs: Clear Abdomen: Normal bowel sounds, Soft, No tenderness, Other (dressing intact) Extremities: No cyanosis, No edema Skin: No breakdown, No significant lesion Labs LABS Laboratory Tests Test 09/17/20 14:05 09/18/20 05:35 Hemoglobin 11.8 g/dL (13.0-17.5) 10.7 g/dL (13.0-17.5) White Blood Count 8.8 x10^3/uL (4.0-11.0) Red Blood Count 3.55 x10^6/uL (4.30-5.70) Hematocrit 32.0 % (39.0-53.0) Mean Corpuscular Volume 90 fL (79-100) Mean Corpuscular Hemoglobin 30 pg (25-35) Mean Corpuscular Hemoglobin Concent 34 g/dL (31-37) Red Cell Distribution Width 12.7 % (11.5-14.5) Platelet Count 149 x10^3/uL (140-400) Neutrophils (%) (Auto) 83 % (31-73) Lymphocytes (%) (Auto) 10 % (24-48) Monocytes (%) (Auto) 7 % (0-9) Eosinophils (%) (Auto) 0 % (0-3) Basophils (%) (Auto) 0 % (0-3) Neutrophils # (Auto) 7.3 x10^3/uL (1.8-7.7) Lymphocytes # (Auto) 0.9 x10^3/uL (1.0-4.8) Monocytes # (Auto) 0.6 x10^3/uL (0.0-1.1) Eosinophils # (Auto) 0.0 x10^3/uL (0.0-0.7) Basophils # (Auto) 0.0 x10^3/uL (0.0-0.2) Sodium Level 147 mmol/L (136-145) Potassium Level 3.8 mmol/L (3.5-5.1) Chloride Level 110 mmol/L (98-107) Carbon Dioxide Level 28 mmol/L (21-32) Anion Gap 9 (6-14) Blood Urea Nitrogen 4 mg/dL (8-26) Creatinine 0.9 mg/dL (0.7-1.3) Estimated GFR (Cockcroft-Gault) 92.1 Glucose Level 143 mg/dL (70-99) Calcium Level 8.3 mg/dL (8.5-10.1) Assessment and Plan Assessmemt and Plan Problems Medical Problems: (1) Abdominal mass Status: Acute (2) Cocaine use Status: Acute Comment Review of Relevant I have reviewed the following items dina (where applicable) has been applied. Labs Laboratory Tests Test 09/16/20 11:15 09/16/20 18:20 09/16/20 18:30 09/17/20 00:35 White Blood Count 6.4 x10^3/uL (4.0-11.0) Red Blood Count 4.27 x10^6/uL (4.30-5.70) Hemoglobin 12.9 g/dL (13.0-17.5) 12.7 g/dL (13.0-17.5) 11.4 g/dL (13.0-17.5) Hematocrit 38.8 % (39.0-53.0) 38.0 % (39.0-53.0) Mean Corpuscular Volume 91 fL (79-100) Mean Corpuscular Hemoglobin 30 pg (25-35) Mean Corpuscular Hemoglobin Concent 33 g/dL (31-37) 34 g/dL (31-37) Red Cell Distribution Width 12.6 % (11.5-14.5) Platelet Count 158 x10^3/uL (140-400) Neutrophils (%) (Auto) 74 % (31-73) Lymphocytes (%) (Auto) 18 % (24-48) Monocytes (%) (Auto) 7 % (0-9) Eosinophils (%) (Auto) 1 % (0-3) Basophils (%) (Auto) 0 % (0-3) Neutrophils # (Auto) 4.7 x10^3/uL (1.8-7.7) Lymphocytes # (Auto) 1.1 x10^3/uL (1.0-4.8) Monocytes # (Auto) 0.5 x10^3/uL (0.0-1.1) Eosinophils # (Auto) 0.1 x10^3/uL (0.0-0.7) Basophils # (Auto) 0.0 x10^3/uL (0.0-0.2) Prothrombin Time 13.6 SEC (11.7-14.0) Prothromb Time International Ratio 1.0 (0.8-1.1) Test 09/17/20 05:45 09/17/20 14:05 09/18/20 05:35 White Blood Count 6.7 x10^3/uL (4.0-11.0) 8.8 x10^3/uL (4.0-11.0) Red Blood Count 3.78 x10^6/uL (4.30-5.70) 3.55 x10^6/uL (4.30-5.70) Hemoglobin 11.2 g/dL (13.0-17.5) 11.8 g/dL (13.0-17.5) 10.7 g/dL (13.0-17.5) Hematocrit 33.8 % (39.0-53.0) 32.0 % (39.0-53.0) Mean Corpuscular Volume 90 fL (79-100) 90 fL (79-100) Mean Corpuscular Hemoglobin 30 pg (25-35) 30 pg (25-35) Mean Corpuscular Hemoglobin Concent 33 g/dL (31-37) 34 g/dL (31-37) Red Cell Distribution Width 12.8 % (11.5-14.5) 12.7 % (11.5-14.5) Platelet Count 148 x10^3/uL (140-400) 149 x10^3/uL (140-400) Neutrophils (%) (Auto) 65 % (31-73) 83 % (31-73) Lymphocytes (%) (Auto) 25 % (24-48) 10 % (24-48) Monocytes (%) (Auto) 9 % (0-9) 7 % (0-9) Eosinophils (%) (Auto) 2 % (0-3) 0 % (0-3) Basophils (%) (Auto) 0 % (0-3) 0 % (0-3) Neutrophils # (Auto) 4.3 x10^3/uL (1.8-7.7) 7.3 x10^3/uL (1.8-7.7) Lymphocytes # (Auto) 1.7 x10^3/uL (1.0-4.8) 0.9 x10^3/uL (1.0-4.8) Monocytes # (Auto) 0.6 x10^3/uL (0.0-1.1) 0.6 x10^3/uL (0.0-1.1) Eosinophils # (Auto) 0.1 x10^3/uL (0.0-0.7) 0.0 x10^3/uL (0.0-0.7) Basophils # (Auto) 0.0 x10^3/uL (0.0-0.2) 0.0 x10^3/uL (0.0-0.2) Prothrombin Time 13.8 SEC (11.7-14.0) Prothromb Time International Ratio 1.1 (0.8-1.1) Activated Partial Thromboplast Time 34 SEC (24-38) Sodium Level 144 mmol/L (136-145) 147 mmol/L (136-145) Potassium Level 3.8 mmol/L (3.5-5.1) 3.8 mmol/L (3.5-5.1) Chloride Level 107 mmol/L (98-107) 110 mmol/L (98-107) Carbon Dioxide Level 28 mmol/L (21-32) 28 mmol/L (21-32) Anion Gap 9 (6-14) 9 (6-14) Blood Urea Nitrogen 9 mg/dL (8-26) 4 mg/dL (8-26) Creatinine 0.8 mg/dL (0.7-1.3) 0.9 mg/dL (0.7-1.3) Estimated GFR (Cockcroft-Gault) 105.5 92.1 BUN/Creatinine Ratio 11 (6-20) Glucose Level 90 mg/dL (70-99) 143 mg/dL (70-99) Calcium Level 8.1 mg/dL (8.5-10.1) 8.3 mg/dL (8.5-10.1) Total Bilirubin 0.4 mg/dL (0.2-1.0) Aspartate Amino Transf (AST/SGOT) 9 U/L (15-37) Alanine Aminotransferase (ALT/SGPT) 17 U/L (16-63) Alkaline Phosphatase 60 U/L (46-116) Total Protein 6.2 g/dL (6.4-8.2) Albumin 3.2 g/dL (3.4-5.0) Albumin/Globulin Ratio 1.1 (1.0-1.7) Procalcitonin < 0.10 ng/mL (0.00-0.10) Laboratory Tests Test 09/17/20 14:05 09/18/20 05:35 Hemoglobin 11.8 g/dL (13.0-17.5) 10.7 g/dL (13.0-17.5) White Blood Count 8.8 x10^3/uL (4.0-11.0) Red Blood Count 3.55 x10^6/uL (4.30-5.70) Hematocrit 32.0 % (39.0-53.0) Mean Corpuscular Volume 90 fL (79-100) Mean Corpuscular Hemoglobin 30 pg (25-35) Mean Corpuscular Hemoglobin Concent 34 g/dL (31-37) Red Cell Distribution Width 12.7 % (11.5-14.5) Platelet Count 149 x10^3/uL (140-400) Neutrophils (%) (Auto) 83 % (31-73) Lymphocytes (%) (Auto) 10 % (24-48) Monocytes (%) (Auto) 7 % (0-9) Eosinophils (%) (Auto) 0 % (0-3) Basophils (%) (Auto) 0 % (0-3) Neutrophils # (Auto) 7.3 x10^3/uL (1.8-7.7) Lymphocytes # (Auto) 0.9 x10^3/uL (1.0-4.8) Monocytes # (Auto) 0.6 x10^3/uL (0.0-1.1) Eosinophils # (Auto) 0.0 x10^3/uL (0.0-0.7) Basophils # (Auto) 0.0 x10^3/uL (0.0-0.2) Sodium Level 147 mmol/L (136-145) Potassium Level 3.8 mmol/L (3.5-5.1) Chloride Level 110 mmol/L (98-107) Carbon Dioxide Level 28 mmol/L (21-32) Anion Gap 9 (6-14) Blood Urea Nitrogen 4 mg/dL (8-26) Creatinine 0.9 mg/dL (0.7-1.3) Estimated GFR (Cockcroft-Gault) 92.1 Glucose Level 143 mg/dL (70-99) Calcium Level 8.3 mg/dL (8.5-10.1) Microbiology 09/16/20 Blood Culture - Preliminary, Resulted NO GROWTH AFTER 1 DAY Medications Current Medications Ondansetron HCl (Zofran) 4 mg 1X ONCE IVP Last administered on 09/13/20at 16:30; Start 09/13/20 at 16:30; Stop 09/13/20 at 16:31; Status DC Fentanyl Citrate (Fentanyl 2ml Vial) 50 mcg 1X ONCE IVP ; Start 09/13/20 at 1 6:30; Stop 09/13/20 at 16:31; Status DC Iohexol (Omnipaque 300 Mg/ml) 75 ml 1X ONCE IV Last administered on 09/13/20at 16:57; Start 09/13/20 at 16:45; Stop 09/13/20 at 16:46; Status DC Info (CONTRAST GIVEN -- Rx MONITORING) 1 each PRN DAILY PRN MC SEE COMMENTS; Start 09/13/20 at 16:45; Stop 09/15/20 at 16:44; Status DC Sodium Chloride 1,000 ml @ 1,000 mls/hr 1X ONCE IV Last administered on 09/13/20at 16:45; Start 09/13/20 at 16:45; Stop 09/13/20 at 17:44; Status DC Sodium Chloride 1,000 ml @ 1,000 mls/hr 1X ONCE IV Last administered on 09/13/20at 18:00; Start 09/13/20 at 18:00; Stop 09/13/20 at 18:59; Status DC Acetaminophen (Tylenol) 1,000 mg 1X ONCE PO Last administered on 09/13/20at 22:30; Start 09/13/20 at 22:30; Stop 09/13/20 at 22:31; Status DC Pantoprazole Sodium (Protonix) 40 mg DAILYAC PO Last administered on 09/14/20at 11:57; Start 09/14/20 at 11:30; Stop 09/16/20 at 17:08; Status DC Acetaminophen (Tylenol) 1,000 mg PRN Q6HRS PRN PO MILD PAIN / TEMP > 100.3'F; Start 09/14/20 at 12:45; Stop 09/16/20 at 17:08; Status DC Sodium Chloride (Normal Saline Flush) 3 ml QSHIFT PRN IV AFTER MEDS AND BLOOD DRAWS; Start 09/14/20 at 12:45; Stop 09/16/20 at 17:11; Status DC Ondansetron HCl (Zofran) 4 mg PRN Q4HRS PRN IV NAUSEA/VOMITING; Start 09/14/20 at 12:45; Stop 09/17/20 at 16:22; Status DC Al Hydroxide/Mg Hydroxide (Mylanta Plus Xs) 30 ml PRN DAILY PRN PO HEARTBURN / GAS; Start 09/14/20 at 12:45 Sodium Monofluorophosphate (Fleet Adult) 133 ml PRN DAILY PRN SD CONSTIPATION; Start 09/14/20 at 12:45 Docusate Sodium (Colace) 100 mg PRN BID PRN PO HARD STOOLS Last administered on 09/16/20at 09:26; Start 09/14/20 at 12:45; Stop 09/16/20 at 17:08; Status DC Albuterol Sulfate (Ventolin Neb Soln) 2.5 mg PRN Q4HRS PRN NEB SHORTNESS OF BREATH; Start 09/14/20 at 12:45 Guaifenesin (Robitussin) 200 mg PRN Q4HRS PRN PO COUGH; Start 09/14/20 at 12:45 Lorazepam (Ativan) 0.5 mg PRN Q4HRS PRN PO ANXIETY / AGITATION; Start 09/14/20 at 12:45; Stop 09/16/20 at 17:08; Status DC Enoxaparin Sodium (Lovenox 40mg Syringe) 40 mg Q24H SQ ; Start 09/14/20 at 14:00; Stop 09/16/20 at 17:08; Status DC Sodium Chloride 1,000 ml @ 100 mls/hr 1X ONCE IV Last administered on 09/14/20at 14:23; Start 09/14/20 at 14:00; Stop 09/14/20 at 23:59; Status DC Sodium Chloride 1,000 ml @ 100 mls/hr Q10H IV Last administered on 09/16/20at 11:49; Start 09/14/20 at 16:00; Stop 09/16/20 at 17:08; Status DC Acetaminophen (Tylenol) 650 mg PRN Q6HRS PRN PO MILD PAIN / TEMP > 100.3'F; Start 09/14/20 at 15:15; Stop 09/14/20 at 15:10; Status DC Aspirin (Ecotrin) 325 mg DAILYWBKFT PO Last administered on 09/14/20at 16:27; Start 09/14/20 at 16:00; Stop 09/16/20 at 17:08; Status DC Aspirin (Aspirin Rectal Supp) 300 mg PRN DAILY PRN SD IF UNABLE TO TAKE PO; Start 09/14/20 at 15:15; Stop 09/16/20 at 17:08; Status DC Polyethylene Glycol (miraLAX PACKET) 17 gm DAILY PO Last administered on 09/16/20at 09:29; Start 09/15/20 at 10:00; Stop 09/16/20 at 17:08; Status DC Bisacodyl (Dulcolax Tab) 5 mg 1X ONCE PO ; Start 09/15/20 at 09:45; Stop 09/15 at 09:46; Status DC Gadoterate Meglumine (Clariscan) 12 ml 1X ONCE IVP Last administered on 09/15/20at 11:30; Start 09/15/20 at 11:45; Stop 09/15/20 at 11:46; Status DC Lidocaine HCl (Buffered Lidocaine 1%) 9 ml 1X ONCE INJ Last administered on at 14:45; Start 09/15/20 at 14:45; Stop 09/15/20 at 14:53; Status DC Iohexol (Omnipaque 300 Mg/ml) 75 ml 1X ONCE IV Last administered on 09/15/20at 14:45; Start 09/15/20 at 14:45; Stop 09/15/20 at 14:53; Status DC Bisacodyl (Dulcolax Tab) 5 mg 1X ONCE PO ; Start 09/16/20 at 09:30; Stop 09/16/20 at 17:08; Status DC Acetaminophen/ Hydrocodone Bitart (Lortab 5/325) 1 tab PRN Q4HRS PRN PO MODERATE-SEVERE PAIN Last administered on 09/16/20at 11:47; Start 09/16/20 at 11:30; Stop 09/16/20 at 17:08; Status DC Bisacodyl (Dulcolax Tab) 5 mg PRN DAILY PRN PO CONSTIPATION; Start 09/16/20 at 14:15 Hydromorphone HCl (Dilaudid) 0.6 mg PRN Q3HRS PRN IVP PAIN Last administered on 09/16/20at 15:02; Start 09/16/20 at 15:00; Stop 09/16/20 at 17:24; Status DC Iohexol (Omnipaque 300 Mg/ml) 75 ml 1X ONCE IV Last administered on 09/16/20at 16:14; Start 09/16/20 at 16:15; Stop 09/16/20 at 16:16; Status DC Info (CONTRAST GIVEN -- Rx MONITORING) 1 each PRN DAILY PRN MC SEE COMMENTS; Start 09/16/20 at 16:15; Stop 09/18/20 at 16:14 Ondansetron HCl (Zofran) 4 mg PRN Q6HRS PRN IVP NAUSEA/VOMITING; Start 09/16/20 at 17:15; Stop 09/17/20 at 16:22; Status DC Famotidine (Pepcid Vial) 20 mg BID IVP Last administered on 09/17/20at 14:27; Start 09/16/20 at 21:00; Stop 09/17/20 at 16:21; Status DC Sodium Chloride (Normal Saline Flush) 3 ml QSHIFT PRN IV AFTER MEDS AND BLOOD DRAWS; Start 09/16/20 at 17:15; Stop 09/18/20 at 08:46; Status DC Sodium Chloride 1,000 ml @ 150 mls/hr Q6H40M IV Last administered on 09/18/20at 06:01; Start 09/16/20 at 17:15 Hydromorphone HCl (Dilaudid) 1 mg PRN Q3HRS PRN IVP SEVERE PAIN Last administered on 09/18/20at 01:50; Start 09/16/20 at 17:30 Cefoxitin Sodium (Mefoxin) 2 gm 1X PREOP ONCE IVP Last administered on 09/17/20at 10:25; Start 09/17/20 at 07:30; Stop 09/17/20 at 07:32; Status DC Fentanyl Citrate (Fentanyl 2ml Vial) 25 mcg PRN Q5MIN PRN IVP MILD PAIN 1-3; Start 09/17/20 at 09:00; Stop 09/18/20 at 08:59; Status DC Fentanyl Citrate (Fentanyl 2ml Vial) 50 mcg PRN Q5MIN PRN IVP MODERATE PAIN 4- 6; Start 09/17/20 at 09:00; Stop 09/18/20 at 08:59; Status DC Morphine Sulfate (Morphine Sulfate) 1 mg PRN Q10MIN PRN IVP SEVERE PAIN 7-10; Start 09/17/20 at 09:00; Stop 09/18/20 at 08:59; Status DC Ringer's Solution 1,000 ml @ 30 mls/hr Q24H IV ; Start 09/17/20 at 09:00; Stop 09/17/20 at 20:59; Status DC Hydromorphone HCl (Dilaudid) 0.5 mg PRN Q10MIN PRN IVP SEVERE PAIN 7-10, 2nd CHOICE; Start 09/17/20 at 09:00; Stop 09/18/20 at 08:59; Status DC Prochlorperazine Edisylate (Compazine) 5 mg PACU PRN PRN IVP NAUSEA, MRX1; Start 09/17/20 at 09:00; Stop 09/18/20 at 08:59; Status DC Dexmedetomidine HCl (Precedex) 200 mcg STK-MED ONCE IV ; Start 09/17/20 at 09:25; Stop 09/17/20 at 09:25; Status DC Magnesium Sulfate (Magnesium Sulfate) 5 gm STK-MED ONCE .ROUTE ; Start 09/17/20 at 09:25; Stop 09/17/20 at 09:25; Status DC Bupivacaine HCl/ Epinephrine Bitart (Sensorcain-Epi 0.5% Kit) 30 ml STK-MED ONCE INJ Last administered on 09/17/20at 10:33; Start 09/17/20 at 10:33; Stop 09/17/20 at 11:09; Status DC Calcium Carbonate/ Glycine (Tums) 500 mg PRN Q3HRS PRN PO HEARTBURN / GAS; Start 09/17/20 at 11:30 Famotidine (Pepcid) 20 mg BID PO Last administered on 09/18/20at 09:06; Start 09/17/20 at 21:00 Enoxaparin Sodium (Lovenox 40mg Syringe) 40 mg Q24H SQ Last administered on 09/18/20at 09:09; Start 09/18/20 at 09:00 Sodium Chloride (Normal Saline Flush) 3 ml QSHIFT PRN IV AFTER MEDS AND BLOOD DRAWS; Start 09/17/20 at 11:30 Ringer's Solution 1,000 ml @ 100 mls/hr Q10H IV Last administered on 09/17/20at 12:20; Start 09/17/20 at 11:30 Acetaminophen/ Hydrocodone Bitart (Lortab 5/325) 1 tab PRN Q4HRS PRN PO MILD PAIN 1-3 Last administered on 09/17/20at 23:59; Start 09/17/20 at 11:30 Naloxone HCl (Narcan) 0.4 mg PRN Q2MIN PRN IV SEE INSTRUCTIONS; Start 09/17/20 at 11:30 Sodium Chloride 1,000 ml @ 25 mls/hr Q24H IV ; Start 09/17/20 at 11:30; Stop 09/17/20 at 16:23; Status DC Morphine Sulfate (Morphine Sulfate) 1 mg PRN Q1HR PRN IV MODERATE PAIN Last administered on 09/18/20at 09:22; Start 09/17/20 at 11:30 Docusate Sodium (Colace) 100 mg BID PO Last administered on 09/18/20at 09:06; Start 09/17/20 at 21:00 Ondansetron HCl (Zofran) 4 mg PRN Q6HRS PRN IVP NAUESA, 1ST CHOICE; Start 09/17/20 at 11:30 Acetaminophen/ Aspirin/Caffeine (Excedrin Migraine) 1 tab PRN Q6HRS PRN PO MIGRAINE HEADACHE; Start 09/18/20 at 09:00 Active Scripts Active Reported Tylenol (Acetaminophen) 325 Mg Tablet 1,000 Mg PO PRN Q6HRS PRN Vitals/I & O Vital Sign - Last 24 Hours 09/17/20 09/17/20 09/17/20 09/17/20 11:54 11:54 12:05 12:20 Temp 97.6 97.6 Pulse 58 69 75 Resp 16 16 16 B/P (MAP) 86/57 105/69 102/73 Pulse Ox 100 100 100 O2 Delivery Simple Mask Mask Simple Mask Room Air O2 Flow Rate 6 6 6 09/17/20 09/17/20 09/17/20 09/17/20 12:35 12:35 12:45 13:00 Temp 97.7 97.7 Pulse 70 64 56 Resp 16 B/P (MAP) 111/82 111/74 (86) 108/74 (85) Pulse Ox 100 96 O2 Delivery Room Air Room Air Room Air 09/17/20 09/17/20 09/17/20 09/17/20 13:15 13:30 13:45 14:00 Pulse 66 62 61 62 B/P (MAP) 111/77 (88) 111/76 (88) 113/68 (83) 113/72 (86) Pulse Ox 96 99 92 95 O2 Delivery Room Air Room Air Room Air Room Air 09/17/20 09/17/20 09/17/20 09/17/20 14:27 14:30 15:00 15:11 Temp 98.9 98.9 Pulse 57 62 53 Resp 16 B/P (MAP) 107/66 (80) 114/64 (81) 114/64 (81) Pulse Ox 98 95 98 O2 Delivery Room Air Room Air Room Air Room Air 09/17/20 09/17/20 09/17/20 09/17/20 15:30 16:00 17:00 18:46 Pulse 52 55 58 B/P (MAP) 115/78 (90) 104/67 (79) 93/58 (70) Pulse Ox 98 97 O2 Delivery Room Air Room Air Room Air Room Air 09/17/20 09/17/20 09/17/20 09/17/20 19:00 19:16 20:00 20:00 Temp 99.3 99.3 Pulse 56 Resp 16 B/P (MAP) 119/68 (85) Pulse Ox 99 O2 Delivery Room Air Room Air Room Air Room Air 09/17/20 09/17/20 09/17/20 09/17/20 21:10 21:40 23:00 23:59 Temp 98.2 98.2 Pulse 56 Resp 18 16 B/P (MAP) 104/62 (76) Pulse Ox 97 O2 Delivery Room Air Room Air Room Air Room Air 09/18/20 09/18/20 09/18/20 09/18/20 00:29 01:50 02:20 02:52 Temp 98.0 98.0 Pulse 58 Resp 18 B/P (MAP) 134/76 (95) Pulse Ox 98 O2 Delivery Room Air Room Air Room Air Room Air 09/18/20 09/18/20 07:00 09:22 Temp 98.1 98.1 Pulse 80 Resp 16 16 B/P (MAP) 113/69 (84) Pulse Ox 97 O2 Delivery Room Air Intake and Output 09/17/20 09/17/20 09/18/20 15:00 23:00 07:00 Intake Total 2200 ml 1840 ml 100 ml Output Total 1350 ml 1400 ml 900 ml Balance 850 ml 440 ml -800 ml Justicifation of Admission Dx: Justifications for Admission: Justification of Admission Dx: Yes ARMIN URBANO MD Sep 18, 2020 09:47
[2020-09-18 11:00] VITALS: BP 106/61
--- NOTE | 2020-09-18 14:28 | NUR ---
SS following up with discharge planning. SS reviewed pt chart and discussed with pt RN. Pt is currently on room air. PT/OT recommended home independent. Discharge plan is to home when medically ready. SS will continue to follow for discharge planning.
[2020-09-18 15:00] VITALS: BP 116/72
--- NOTE | 2020-09-18 15:52 | PDOC ---
SURGICAL PROGRESS NOTE DATE: 09/18/20 TIME: 15:51 Subjective Pt with c/o incisional pain, but otherwise doing better Vital Signs Vital Signs Date Time Temp Pulse Resp B/P (MAP) Pulse Ox O2 Delivery O2 Flow Rate FiO2 09/18/20 11:00 98.1 59 16 106/61 (76) 99 Room Air 98.1 09/17/20 12:05 6 I&O Intake and Output 09/18/20 07:00 Intake Total 4140 ml Output Total 3650 ml Balance 490 ml Intake Oral 1940 ml IV Total 2200 ml Output Urine Total 3150 ml Estimated Blood Loss 500 ml General: Alert, Oriented X3, Cooperative, No acute distress Abdomen: Soft, No tenderness, Other (dressing intact) Labs Laboratory Tests Test 09/16/20 18:20 09/16/20 18:30 09/17/20 00:35 09/17/20 05:45 Prothrombin Time 13.6 SEC (11.7-14.0) 13.8 SEC (11.7-14.0) Prothromb Time International Ratio 1.0 (0.8-1.1) 1.1 (0.8-1.1) Hemoglobin 12.7 g/dL (13.0-17.5) 11.4 g/dL (13.0-17.5) 11.2 g/dL (13.0-17.5) Hematocrit 38.0 % (39.0-53.0) 33.8 % (39.0-53.0) Mean Corpuscular Hemoglobin Concent 34 g/dL (31-37) 33 g/dL (31-37) White Blood Count 6.7 x10^3/uL (4.0-11.0) Red Blood Count 3.78 x10^6/uL (4.30-5.70) Mean Corpuscular Volume 90 fL (79-100) Mean Corpuscular Hemoglobin 30 pg (25-35) Red Cell Distribution Width 12.8 % (11.5-14.5) Platelet Count 148 x10^3/uL (140-400) Neutrophils (%) (Auto) 65 % (31-73) Lymphocytes (%) (Auto) 25 % (24-48) Monocytes (%) (Auto) 9 % (0-9) Eosinophils (%) (Auto) 2 % (0-3) Basophils (%) (Auto) 0 % (0-3) Neutrophils # (Auto) 4.3 x10^3/uL (1.8-7.7) Lymphocytes # (Auto) 1.7 x10^3/uL (1.0-4.8) Monocytes # (Auto) 0.6 x10^3/uL (0.0-1.1) Eosinophils # (Auto) 0.1 x10^3/uL (0.0-0.7) Basophils # (Auto) 0.0 x10^3/uL (0.0-0.2) Activated Partial Thromboplast Time 34 SEC (24-38) Sodium Level 144 mmol/L (136-145) Potassium Level 3.8 mmol/L (3.5-5.1) Chloride Level 107 mmol/L (98-107) Carbon Dioxide Level 28 mmol/L (21-32) Anion Gap 9 (6-14) Blood Urea Nitrogen 9 mg/dL (8-26) Creatinine 0.8 mg/dL (0.7-1.3) Estimated GFR (Cockcroft-Gault) 105.5 BUN/Creatinine Ratio 11 (6-20) Glucose Level 90 mg/dL (70-99) Calcium Level 8.1 mg/dL (8.5-10.1) Total Bilirubin 0.4 mg/dL (0.2-1.0) Aspartate Amino Transf (AST/SGOT) 9 U/L (15-37) Alanine Aminotransferase (ALT/SGPT) 17 U/L (16-63) Alkaline Phosphatase 60 U/L (46-116) Total Protein 6.2 g/dL (6.4-8.2) Albumin 3.2 g/dL (3.4-5.0) Albumin/Globulin Ratio 1.1 (1.0-1.7) Procalcitonin < 0.10 ng/mL (0.00-0.10) Test 09/17/20 14:05 09/18/20 05:35 09/18/20 12:05 Hemoglobin 11.8 g/dL (13.0-17.5) 10.7 g/dL (13.0-17.5) 11.0 g/dL (13.0-17.5) White Blood Count 8.8 x10^3/uL (4.0-11.0) Red Blood Count 3.55 x10^6/uL (4.30-5.70) Hematocrit 32.0 % (39.0-53.0) 33.0 % (39.0-53.0) Mean Corpuscular Volume 90 fL (79-100) Mean Corpuscular Hemoglobin 30 pg (25-35) Mean Corpuscular Hemoglobin Concent 34 g/dL (31-37) 33 g/dL (31-37) Red Cell Distribution Width 12.7 % (11.5-14.5) Platelet Count 149 x10^3/uL (140-400) Neutrophils (%) (Auto) 83 % (31-73) Lymphocytes (%) (Auto) 10 % (24-48) Monocytes (%) (Auto) 7 % (0-9) Eosinophils (%) (Auto) 0 % (0-3) Basophils (%) (Auto) 0 % (0-3) Neutrophils # (Auto) 7.3 x10^3/uL (1.8-7.7) Lymphocytes # (Auto) 0.9 x10^3/uL (1.0-4.8) Monocytes # (Auto) 0.6 x10^3/uL (0.0-1.1) Eosinophils # (Auto) 0.0 x10^3/uL (0.0-0.7) Basophils # (Auto) 0.0 x10^3/uL (0.0-0.2) Sodium Level 147 mmol/L (136-145) Potassium Level 3.8 mmol/L (3.5-5.1) Chloride Level 110 mmol/L (98-107) Carbon Dioxide Level 28 mmol/L (21-32) Anion Gap 9 (6-14) Blood Urea Nitrogen 4 mg/dL (8-26) Creatinine 0.9 mg/dL (0.7-1.3) Estimated GFR (Cockcroft-Gault) 92.1 Glucose Level 143 mg/dL (70-99) Calcium Level 8.3 mg/dL (8.5-10.1) Laboratory Tests Test 09/18/20 05:35 09/18/20 12:05 White Blood Count 8.8 x10^3/uL (4.0-11.0) Red Blood Count 3.55 x10^6/uL (4.30-5.70) Hemoglobin 10.7 g/dL (13.0-17.5) 11.0 g/dL (13.0-17.5) Hematocrit 32.0 % (39.0-53.0) 33.0 % (39.0-53.0) Mean Corpuscular Volume 90 fL (79-100) Mean Corpuscular Hemoglobin 30 pg (25-35) Mean Corpuscular Hemoglobin Concent 34 g/dL (31-37) 33 g/dL (31-37) Red Cell Distribution Width 12.7 % (11.5-14.5) Platelet Count 149 x10^3/uL (140-400) Neutrophils (%) (Auto) 83 % (31-73) Lymphocytes (%) (Auto) 10 % (24-48) Monocytes (%) (Auto) 7 % (0-9) Eosinophils (%) (Auto) 0 % (0-3) Basophils (%) (Auto) 0 % (0-3) Neutrophils # (Auto) 7.3 x10^3/uL (1.8-7.7) Lymphocytes # (Auto) 0.9 x10^3/uL (1.0-4.8) Monocytes # (Auto) 0.6 x10^3/uL (0.0-1.1) Eosinophils # (Auto) 0.0 x10^3/uL (0.0-0.7) Basophils # (Auto) 0.0 x10^3/uL (0.0-0.2) Sodium Level 147 mmol/L (136-145) Potassium Level 3.8 mmol/L (3.5-5.1) Chloride Level 110 mmol/L (98-107) Carbon Dioxide Level 28 mmol/L (21-32) Anion Gap 9 (6-14) Blood Urea Nitrogen 4 mg/dL (8-26) Creatinine 0.9 mg/dL (0.7-1.3) Estimated GFR (Cockcroft-Gault) 92.1 Glucose Level 143 mg/dL (70-99) Calcium Level 8.3 mg/dL (8.5-10.1) Problem List Problems Medical Problems: (1) Abdominal mass Status: Acute (2) Cocaine use Status: Acute Assessment/Plan s/p partial gastrectomy of exophytic mass ADAT and supportive care. Await path Justicifation of Admission Dx: Justifications for Admission: Justification of Admission Dx: Yes BIANKA CARDENAS MD Sep 18, 2020 15:52
[2020-09-18 19:55] VITALS: BP 111/72
[2020-09-18] MEDS: HYDROcodone/APAP 5/325MG 1 TAB TABLET PO PRN (20:38)
[2020-09-18 23:33] VITALS: BP 108/63
[2020-09-19] MEDS: HYDROcodone/APAP 5/325MG 1 TAB TABLET PO PRN (02:02)
[2020-09-19] MEDS: HYDROmorphone 2 MG/ML VIAL IVP PRN (02:03)
[2020-09-19 03:40] VITALS: BP 128/62
[2020-09-19] MEDS: IV NORMAL SALINE 1000ML BAG 1,000 ML IV SCH ×3 (05:59→21:33)
[2020-09-19 07:00] VITALS: BP 121/81
[2020-09-19 07:52] LABS: HEMATOCRIT 30.7 % (39.0-53.0); HEMOGLOBIN 10.2 g/dL (13.0-17.5)
[2020-09-19] MEDS: FAMOTIDINE 20 MG TABLET. PO SCH ×2 (08:18→21:25)
[2020-09-19] MEDS: ENOXAPARIN 40 MG/0.4 ML SYRINGE. SQ SCH (08:18)
[2020-09-19] MEDS: DOCUSATE SODIUM 100 MG CAPSULE. PO SCH ×2 (08:18→21:25)
--- NOTE | 2020-09-19 09:55 | PDOC ---
PROGRESS NOTES Date of Service: DATE: 09/19/20 TIME: 09:54 Chief Complaint Chief Complaint VTE Prophylaxis Ordered VTE Prophylaxis Devices: Yes VTE Pharmacological Prophylaxi: Yes Assessment/Plan Assessment/Plan IMPRESSION: Abdominal pain 5.0 x 4.1 cm soft tissue mass centered within the mesentery of the right hemiabdomen. differential considerations include GIST. Correlate for malignancy MRI of the abdomen would better evaluate. abdominal mass The 5.0 cm mass of concern is now in the left upper quadrant, indicating that it is mobile. Considerations include a large wandering accessory spleen, a mesenteric mass such as a mesenchymal neoplasm, or gastrointestinal stromal tumor arising from a bowel loop or the stomach via a thin pedicle. Surgical consultation reviewed Cocaine use bradycardia, asymptomatic, mild Right-sided numbness/ paresthesia , headache, sinus congestion, ON ct head, No acute intracranial abnormality. will consult neurology, neg MRI HEAD Stroke symptoms following cocaine use, sensory loss on the right side is the only finding, improving, only subjective now. unintentional weight loss Tobacco abuse disorder right lower leg paresthesia Hemorrhage surrounding the mass in the right upper quadrant hemorrhagic area measures 9.3 x 5.1 x 5 cm. 09-16 PLAN ADMITTED dvt prophylaxis mri abdomen GI CONSULT GEN SURGERY CONSULT Neurology consult consider MRI HEAD ct guided bx 09-15 Justifications for Admission Other Justification History of Present Illness History of Present Illness Identification/Chief Complaint Chief Complaint right upper abdominal discomfort, right facial numbness that has improved since admit History of Present Illness History of Present Illness 45 year old Male from [place] who presented to the ER began having right side of the face, right arm and leg numbness or heaviness and tingling that he rates about a 4 out of 10. He states that he also had some nausea and is having left-sided abdominal pain with pain with urination as well //. RIGHT leg paresthesia described as medial upper leg radiates to right ankle Patient denie s fever, vomiting, diarrhea, constipation, cough, focal weakness, vision change, syncope, dizziness. He has a history of smoking, anxiety, GERD. Patient admits to smoking cocaine yesterday. he has lost 20 lbs in last year on CT Abdomen, a 5.0 x 4.1 cm soft tissue mass is centered within the mesentery of the right hemiabdomen. // differential considerations include GIST. Correlate for malignancy MRI of the abdomen would better evaluate. plan GI CONSULT / GEN SURGERY CONSULT Neurology consult Past Medical History Past Medical History Past Medical History Past Medical History Past Medical History: Anxiety, GERD Past Surgical History: No Surgical History Smoking Status: Current Every Day Smoker Alcohol Use: None Drug Use: None FHX COPD Cardiovascular: No pertinent hx Pulmonary: No pertinent hx GI: GERD Psych: Anxiety, Addictions Infectious disease: No pertinent hx ENT: No pertinent hx Renal/: No pertinent hx Endocrine: No pertinent hx Dermatology: No pertinent hx Family History Family History: Diabetes, Heart Disease Family History: Parent (father) Social History Smoke: <1 pack per day ALCOHOL: occassional Drugs: Cocaine Current Problem List Problem List Problems Medical Problems: (1) Abdominal mass Status: Acute (2) Cocaine use Status: Acute Current Medications Current Medications Current Medications Ondansetron HCl (Zofran) 4 mg 1X ONCE IVP Last administered on 09/13/20at 16:30; Start 09/13/20 at 16:30; Stop 09/13/20 at 16:31; Status DC Fentanyl Citrate (Fentanyl 2ml Vial) 50 mcg 1X ONCE IVP ; Start 09/13/20 at 16:30; Stop 09/13/20 at 16:31; Status DC Iohexol (Omnipaque 300 Mg/ml) 75 ml 1X ONCE IV Last administered on 09/13/20at 16:57; Start 09/13/20 at 16:45; Stop 09/13/20 at 16:46; Status DC Info (CONTRAST GIVEN -- Rx MONITORING) 1 each PRN DAILY PRN MC SEE COMMENTS; Start 09/13/20 at 16:45; Stop 09/15/20 at 16:44 Sodium Chloride 1,000 ml @ 1,000 mls/hr 1X ONCE IV Last administered on 09/13/20at 16:45; Start 09/13/20 at 16:45; Stop 09/13/20 at 17:44; Status DC Sodium Chloride 1,000 ml @ 1,000 mls/hr 1X ONCE IV Last administered on 09/13/20at 18:00; Start 09/13/20 at 18:00; Stop 09/13/20 at 18:59; Status DC Acetaminophen (Tylenol) 1,000 mg 1X ONCE PO Last administered on 09/13/20at 22:30; Start 09/13/20 at 22:30; Stop 09/13/20 at 22:31; Status DC Active Scripts Active Reported Tylenol (Acetaminophen) 325 Mg Tablet 1,000 Mg PO PRN Q6HRS PRN Allergies Allergies: Coded Allergies: No Known Drug Allergies (Unverified , 04/29/17) ROS Review of System Constitutional: Denies fever or chills. [] Eyes: Denies change in visual acuity. [] HENT: Denies nasal congestion or sore throat. [] Respiratory: Denies cough or shortness of breath. [] Cardiovascular: Denies chest pain or edema. [] GI: + abdominal pain, +nausea, denies vomiting, bloody stools or diarrhea. [] : Denies dysuria. [] Musculoskeletal: Denies back pain or joint pain. [] Integument: Denies rash. [] Neurologic: + Right-sided headache, denies focal weakness or sensory changes. + Tingling and numbness to right side of face, arm and leg [] improved since admit Endocrine: Denies polyuria or polydipsia. [] Lymphatic: Denies swollen glands. [] Psychiatric: Denies depression or anxiety. [] 14 pt ros otherwise neg PSYCHOLOGICAL ROS: No: Anxiety, Behavioral Disorder, Concentration difficultie, Decreased libido, Depression, Disorientation, Hallucinations, Hostility, Irritablity, Memory difficulties, Mood Swings, Obsessive thoughts, Physical abuse, Sexual abuse, Sleep disturbances, Suicidal ideation, Other Eyes: No Blurry vision, No Decreased vision, No Double vision, No Dry eyes, No Excessive tearing, No Eye Pain, No Itchy Eyes, No Loss of vision, No Photophobia, No Scotomata, No Uses contacts, No Uses glasses, No Other HEENT: YES: Heacaches; No: Visual Changes, Hearing change, Nasal congestion, Nasal discharge, Oral lesions, Sinus pain, Sore Throat, Epistaxis, Sneezing, Snoring, Tinnitus, Vertig o, Vocal changes, Other ALLERGY AND IMMUNOLOGY: No: Hives, Insect Bite Sensitivity, Itchy/Watery Eyes, Nasal Congestion, Post Nasal Drip, Seasonal Allergies, Other Hematological and Lymphatic: No: Bleeding Problems, Blood Clots, Blood Transfusions, Brusing, Night Sweats, Pallor, Swollen Lymph Nodes, Other ENDOCRINE: No: Breast Changes, Galactorrhea, Hair Pattern Changes, Hot Flashes, Malaise/lethargy, Mood Swings, Palpitations, Polydipsia/polyuria, Skin Changes, Temperature Intolerance, Unexpected Weight Changes, Other Breast: No New/Changing Breast Lumps, No Nipple changes, No Nipple discharge, No Other Cardiovascular: No Chest Pain, No Palpitations, No Orthopnea, No Paroxysmal Noc. Dyspnea, No Edema, No Lt Headedness, No Other Gastrointestinal: Yes Abdominal Pain; No Nausea, No Vomiting, No Diarrhea, No Constipation, No Melena, No Hematochezia, No Other Genitourinary: No Dysuria, No Frequency, No Incontinence, No Hematuria, No Retention, No Discharge, No Urgency, No Pain, No Flank Pain, No Other, No , No , No , No , No , No , No Neurological: Yes Gait Disturbance; No Behavorial Changes, No Bowel/Bladder ControlChng, No Confusion, No Dizziness, No Headaches, No Impaired Coord/balance, No Memory Loss, No Numbness/Tingling, No Seizures, No Speech Problems, No Tremors, No Visual Changes, No Weakness, No Other Skin: Yes Dry Skin; No Eczema, No Hair Changes, No Lumps, No Mole Changes, No Mottling, No Nail Changes, No Pruritus, No Rash, No Skin Lesion Changes, No Other, No Acne 6-22 mri head and abdomen pending Abdominal pain 5.0 x 4.1 cm soft tissue mass centered within the mesentery of the right hemiabdomen. differential considerations include GIST. Correlate for malignancy MRI of the abdomen would better evaluate. abdominal mass Cocaine use bradycardia, asymptomatic, mild MOVED TO CVC Right-sided numbness/ paresthesia , headache, sinus congestion, ON ct head, No acute intracranial abnormality. will consult neurology, consider MRI HEAD unintentional weight loss Tobacco abuse disorder right lower leg paresthesia mri abdomen pending GI CONSULT GEN SURGERY CONSULT Neurology consult d/w RN 6-23 The 5.0 cm mass of concern is now in the left upper quadrant, indicating that it is mobile. Considerations include a large wandering accessory spleen, a mesenteric mass such as a mesenchymal neoplasm, or gastrointestinal stromal tumor arising from a bowel loop or the stomach via a thin pedicle. Surgical consultation reviewed states abd pain is more severe RLQ and mild luq 7/10 will check cbc and re-e hussein prior to discharge D/W Gaby RN in room mri head and abdomen reviewed Abdominal pain post bx 5.0 x 4.1 cm soft tissue mass centered within the mesentery of the right hemiabdomen. differential considerations include GIST. Correlate for malignancy MRI of the abdomen would better evaluate. abdominal mass Cocaine use bradycardia, asymptomatic, mild MOVED TO CVC Right-sided numbness/ paresthesia , headache, sinus congestion, ON ct head, No acute intracranial abnormality. will consult neurology, consider MRI HEAD unintentional weight loss Tobacco abuse disorder right lower leg paresthesia mri abdomen REVIEWED GI CONSULT GEN SURGERY CONSULT STAT Neurology consult D/C ASA, LOVENOX, ALL PO MEDS NPO H/H Q 6 HRS TYPE, CROSS 2 UNITS PRBC'S Hemorrhage surrounding the mass in the right upper quadrant hemorrhagic area measures 9.3 x 5.1 x 5 cm. 6 d/w RN 35 MIN CC TIME 6-24 LOW grade fever overnight , blood cultured 6-24, ID consult PLAN proceeding with excision of mass now, given bleeding and increased pain and need for resection The 5.0 cm mass of concern is now in the left upper quadrant, indicating that it is mobile. Considerations include a large wandering accessory spleen, a mesenteric mass such as a mesenchymal neoplasm, or gastrointestinal stromal tumor arising from a bowel loop or the stomach via a thin pedicle. Surgical consultation reviewed states abd pain is more severe RLQ and mild luq 7/10 will check cbc and re- eval prior to discharge D/W Gaby RN in room mri head and abdomen reviewed Abdominal pain post bx 5.0 x 4.1 cm soft tissue mass centered within the mesentery of the right he miabdomen. differential considerations include GIST. Correlate for malignancy MRI of the abdomen would better evaluate. abdominal mass Cocaine use bradycardia, asymptomatic, mild MOVED TO CVC Right-sided numbness/ paresthesia , headache, sinus congestion, ON ct head, No acute intracranial abnormality. will consult neurology, consider MRI HEAD unintentional weight loss Tobacco abuse disorder right lower leg paresthesia mri abdomen REVIEWED GI CONSULT GEN SURGERY CONSULT STAT Neurology consult D/C ASA, LOVENOX, ALL PO MEDS NPO H/H Q 6 HRS TYPE, CROSS 2 UNITS PRBC'S Hemorrhage surrounding the mass in the right upper quadrant hemorrhagic area measures 9.3 x 5.1 x 5 cm. 6- TO OR TODAY moderate size mass (7 cm), arising from anterior distal stomach, with 1 cm stalk, moderate hemoperitoneum d/w RN 6-25 pod # 1 LOW grade fever overnight , blood cultured 6-24, ID consult PLAN proceeding with excision of mass now, given bleeding and increased pain and need for resection The 5.0 cm mass of concern is now in the left upper quadrant, indicating that it is mobile. Considerations include a large wandering accessory spleen, a mesenteric mass such as a mesenchymal neoplasm, or gastrointestinal stromal tumor arising from a bowel loop or the stomach via a thin pedicle. Surgical consultation reviewed states abd pain is more severe RLQ and mild luq 7/10 will check cbc and re- eval prior to discharge D/W Gaby GANNON in room mri head and abdomen reviewed Abdominal pain post bx 5.0 x 4.1 cm soft tissue mass centered within the mesentery of the right hemiabdomen. differential considerations include GIST. Correlate for malignancy MRI of the abdomen would better evaluate. abdominal mass Cocaine use bradycardia, asymptomatic, mild MOVED TO CVC Right-sided numbness/ paresthesia , headache, sinus congestion, ON ct head, No acute intracranial abnormality. will consult neurology, consider MRI HEAD unintentional weight loss Tobacco abuse disorder right lower leg paresthesia mri abdomen REVIEWED GI CONSULT GEN SURGERY CONSULT STAT Neurology consult D/C ASA, LOVENOX, ALL PO MEDS NPO H/H Q 6 HRS TYPE, CROSS 2 UNITS PRBC'S Hemorrhage surrounding the mass in the right upper quadrant hemorrhagic area measures 9.3 x 5.1 x 5 cm. 6-23 TO OR TODAY moderate size mass (7 cm), arising from anterior distal stomach, with 1 cm stalk, moderate hemoperitoneum d/w RN 6-26 BLOOD CULTURE Final GRAM POSITIVE COCCI IN CLUSTERS, SUGGESTIVE OF STAPH, IN 1 OF 4 BOTTLES, TWO SETS DRAWN. pod # 2 LOW grade fever overnight , blood cultured 6-24, ID consult PLAN proceeding with excision of mass now, given bleeding and increased pain and need for resection The 5.0 cm mass of concern is now in the left upper quadrant, indicating that it is mobile. Considerations include a large wandering accessory spleen, a mesenteric mass such as a mesenchymal neoplasm, or gastrointestinal stromal tumor arising from a bowel loop or the stomach via a thin pedicle. Surgical consultation reviewed states abd pain is more severe RLQ and mild luq 7/10 will check cbc and re- eval prior to discharge D/W Gaby RN in room mri head and abdomen reviewed Abdominal pain post bx 5.0 x 4.1 cm soft tissue mass centered within the mesentery of the right hemiabdomen. differential considerations include GIST. Correlate for malignancy MRI of the abdomen would better evaluate. abdominal mass Cocaine use bradycardia, asymptomatic, mild MOVED TO CVC Right-sided numbness/ paresthesia , headache, sinus congestion, ON ct head, No acute intracranial abnormality. will consult neurology, consider MRI HEAD unintentional weight loss Tobacco abuse disorder right lower leg paresthesia mri abdomen REVIEWED GI CONSULT GEN SURGERY CONSULT STAT Neurology consult D/C ASA, LOVENOX, ALL PO MEDS NPO H/H Q 6 HRS TYPE, CROSS 2 UNITS PRBC'S Hemorrhage surrounding the mass in the right upper quadrant hemorrhagic area measures 9.3 x 5.1 x 5 cm. 6-23 TO OR 6-24 moderate size mass (7 cm), arising from anterior distal stomach, with 1 cm stalk, moderate hemoperitoneum d/w RN 38 MIN PT EXAM, CHART REVIEW, > 50% OF TIME SPENT WITH EXAM, chart review, pt care coordination 6-26Start IV Vanco and cefepime, pharmacy to assist with vancomycin dosing, monitor renal function Wound care per General Surgery. Vitals Vitals Vital Signs Date Time Temp Pulse Resp B/P (MAP) Pulse Ox O2 Delivery O2 Flow Rate FiO2 09/19/20 07:00 98.0 16 121/81 (94) 99 Room Air 98.0 09/19/20 03:40 50 Physical Exam Physical Exam GENERAL: Alert oriented x3 male in no acute distress HEENT: Normocephalic, atraumatic. Anicteric. NECK: Supple. No JVD. LUNGS: Clear bilaterally. No wheezing. HEART: S1, S2. No gallops. No murmurs. ABDOMEN: Soft, nondistended. Dressing from recent surgery in place. Dry bowel sounds present. EXTREMITIES: No edema, no cyanosis. CENTRAL NERVOUS SYSTEM: Alert, awake, moves all 4 extremities. DERMATOLOGIC: Warm, dry. No generalized rash. PIV looks clean. General: Alert, Oriented X3, Cooperative, No acute distress Heart: Regular rate, Normal S1, Normal S2, No murmurs Lungs: Clear Abdomen: Soft, No tenderness, Other (dressing intact) Extremities: No cyanosis, No edema Skin: No breakdown, No significant lesion Labs LABS SPEC #: [id number] SOTERO: 09/18/20 STATUS: COMP REQ #: [id number] RECD: 09/18/[address] [facility] [address]: ARMIN URBANO MD SOURCE: BLOOD ENTR: 09/17/20-[address]: YAQUELIN KULKARNI MD [facility]: KANDI HOBBS III,BIANKA ORTIZ MD, MD,HERB PHILLIP MD, MD ORDERED: BCULT Procedure Result BLOOD CULTURE Final GRAM POSITIVE COCCI IN CLUSTERS, SUGGESTIVE OF STAPH, IN 1 OF 4 BOTTLES, TWO SETS DRAWN. CALLED TO AURELIA RINALDI RN ON [address] [place] [address] AT 7:30 ON 09/19/20 DW MT SENT TO [facility] FOR FURTHER WORKUP. Laboratory Tests Test 09/18/20 12:05 09/19/20 07:00 Hemoglobin 11.0 g/dL (13.0-17.5) 10.2 g/dL (13.0-17.5) Hematocrit 33.0 % (39.0-53.0) 30.7 % (39.0-53.0) Mean Corpuscular Hemoglobin Concent 33 g/dL (31-37) 33 g/dL (31-37) Assessment and Plan Assessmemt and Plan Problems Medical Problems: (1) Abdominal mass Status: Acute (2) Cocaine use Status: Acute Comment Review of Relevant I have reviewed the following items dina (where applicable) has been applied. Labs Laboratory Tests Test 09/17/20 14:05 09/18/20 05:35 09/18/20 12:05 09/19/20 07:00 Hemoglobin 11.8 g/dL (13.0-17.5) 10.7 g/dL (13.0-17.5) 11.0 g/dL (13.0-17.5) 10.2 g/dL (13.0-17.5) White Blood Count 8.8 x10^3/uL (4.0-11.0) Red Blood Count 3.55 x10^6/uL (4.30-5.70) Hematocrit 32.0 % (39.0-53.0) 33.0 % (39.0-53.0) 30.7 % (39.0-53.0) Mean Corpuscular Volume 90 fL (79-100) Mean Corpuscular Hemoglobin 30 pg (25-35) Mean Corpuscular Hemoglobin Concent 34 g/dL (31-37) 33 g/dL (31-37) 33 g/dL (31-37) Red Cell Distribution Width 12.7 % (11.5-14.5) Platelet Count 149 x10^3/uL (140-400) Neutrophils (%) (Auto) 83 % (31-73) Lymphocytes (%) (Auto) 10 % (24-48) Monocytes (%) (Auto) 7 % (0-9) Eosinophils (%) (Auto) 0 % (0-3) Basophils (%) (Auto) 0 % (0-3) Neutrophils # (Auto) 7.3 x10^3/uL (1.8-7.7) Lymphocytes # (Auto) 0.9 x10^3/uL (1.0-4.8) Monocytes # (Auto) 0.6 x10^3/uL (0.0-1.1) Eosinophils # (Auto) 0.0 x10^3/uL (0.0-0.7) Basophils # (Auto) 0.0 x10^3/uL (0.0-0.2) Sodium Level 147 mmol/L (136-145) Potassium Level 3.8 mmol/L (3.5-5.1) Chloride Level 110 mmol/L (98-107) Carbon Dioxide Level 28 mmol/L (21-32) Anion Gap 9 (6-14) Blood Urea Nitrogen 4 mg/dL (8-26) Creatinine 0.9 mg/dL (0.7-1.3) Estimated GFR (Cockcroft-Gault) 92.1 Glucose Level 143 mg/dL (70-99) Calcium Level 8.3 mg/dL (8.5-10.1) Laboratory Tests Test 09/18/20 12:05 09/19/20 07:00 Hemoglobin 11.0 g/dL (13.0-17.5) 10.2 g/dL (13.0-17.5) Hematocrit 33.0 % (39.0-53.0) 30.7 % (39.0-53.0) Mean Corpuscular Hemoglobin Concent 33 g/dL (31-37) 33 g/dL (31-37) Microbiology 09/18/20 Blood Culture - Final, Complete Medications Current Medications Ondansetron HCl (Zofran) 4 mg 1X ONCE IVP Last administered on 09/13/20at 16:30; Start 09/13/20 at 16:30; Stop 09/13/20 at 16:31; Status DC Fentanyl Citrate (Fentanyl 2ml Vial) 50 mcg 1X ONCE IVP ; Start 09/13/20 at 16:30; Stop 09/13/20 at 16:31; Status DC Iohexol (Omnipaque 300 Mg/ml) 75 ml 1X ONCE IV Last administered on 09/13/20at 16:57; Start 09/13/20 at 16:45; Stop 09/13/20 at 16:46; Status DC Info (CONTRAST GIVEN -- Rx MONITORING) 1 each PRN DAILY PRN MC SEE COMMENTS; Start 09/13/20 at 16:45; Stop 09/15/20 at 16:44; Status DC Sodium Chloride 1,000 ml @ 1,000 mls/hr 1X ONCE IV Last administered on 09/13/20at 16:45; Start 09/13/20 at 16:45; Stop 09/13/20 at 17:44; Status DC Sodium Chloride 1,000 ml @ 1,000 mls/hr 1X ONCE IV Last administered on 09/13/20at 18:00; Start 09/13/20 at 18:00; Stop 09/13/20 at 18:59; Status DC Acetaminophen (Tylenol) 1,000 mg 1X ONCE PO Last administered on 09/13/20at 22:30; Start 09/13/20 at 22:30; Stop 09/13/20 at 22:31; Status DC Pantoprazole Sodium (Protonix) 40 mg DAILYAC PO Last administered on 09/14/20at 11:57; Start 09/14/20 at 11:30; Stop 09/16/20 at 17:08; Status DC Acetaminophen (Tylenol) 1,000 mg PRN Q6HRS PRN PO MILD PAIN / TEMP > 100.3'F; Start 09/14/20 at 12:45; Stop 09/16/20 at 17:08; Status DC Sodium Chloride (Normal Saline Flush) 3 ml QSHIFT PRN IV AFTER MEDS AND BLOOD DRAWS; Start 09/14/20 at 12:45; Stop 09/16/20 at 17:11; Status DC Ondansetron HCl (Zofran) 4 mg PRN Q4HRS PRN IV NAUSEA/VOMITING; Start 09/14/20 at 12:45; Stop 09/17/20 at 16:22; Status DC Al Hydroxide/Mg Hydroxide (Mylanta Plus Xs) 30 ml PRN DAILY PRN PO HEARTBURN / GAS; Start 09/14/20 at 12:45 Sodium Monofluorophosphate (Fleet Adult) 133 ml PRN DAILY PRN CA CONSTIPATION; Start 09/14/20 at 12:45 Docusate Sodium (Colace) 100 mg PRN BID PRN PO HARD STOOLS Last administered on 09/16/20at 09:26; Start 09/14/20 at 12:45; Stop 09/16/20 at 17:08; Status DC Albuterol Sulfate (Ventolin Neb Soln) 2.5 mg PRN Q4HRS PRN NEB SHORTNESS OF BREATH; Start 09/14/20 at 12:45 Guaifenesin (Robitussin) 200 mg PRN Q4HRS PRN PO COUGH; Start 09/14/20 at 12:45 Lorazepam (Ativan) 0.5 mg PRN Q4HRS PRN PO ANXIETY / AGITATION; Start 09/14/20 at 12:45; Stop 09/16/20 at 17:08; Status DC Enoxaparin Sodium (Lovenox 40mg Syringe) 40 mg Q24H SQ ; Start 09/14/20 at 14:00; Stop 09/16/20 at 17:08; Status DC Sodium Chloride 1,000 ml @ 100 mls/hr 1X ONCE IV Last administered on 09/14/20at 14:23; Start 09/14/20 at 14:00; Stop 09/14/20 at 23:59; Status DC Sodium Chloride 1,000 ml @ 100 mls/hr Q10H IV Last administered on 09/16/20at 11:49; Start 09/14/20 at 16:00; Stop 09/16/20 at 17:08; Status DC Acetaminophen (Tylenol) 650 mg PRN Q6HRS PRN PO MILD PAIN / TEMP > 100.3'F; Start 09/14/20 at 15:15; Stop 09/14/20 at 15:10; Status DC Aspirin (Ecotrin) 325 mg DAILYWBKFT PO Last administered on 09/14/20at 16:27; Start 09/14/20 at 16:00; Stop 09/16/20 at 17:08; Status DC Aspirin (Aspirin Rectal Supp) 300 mg PRN DAILY PRN CA IF UNABLE TO TAKE PO; St art 09/14/20 at 15:15; Stop 09/16/20 at 17:08; Status DC Polyethylene Glycol (miraLAX PACKET) 17 gm DAILY PO Last administered on 09/16/20at 09:29; Start 09/15/20 at 10:00; Stop 09/16/20 at 17:08; Status DC Bisacodyl (Dulcolax Tab) 5 mg 1X ONCE PO ; Start 09/15/20 at 09:45; Stop 09/15/20 at 09:46; Status DC Gadoterate Meglumine (Clariscan) 12 ml 1X ONCE IVP Last administered on 09/15/20at 11:30; Start 09/15/20 at 11:45; Stop 09/15/20 at 11:46; Status DC Lidocaine HCl (Buffered Lidocaine 1%) 9 ml 1X ONCE INJ Last administered on 09/15/20at 14:45; Start 09/15/20 at 14:45; Stop 09/15/20 at 14:53; Status DC Iohexol (Omnipaque 300 Mg/ml) 75 ml 1X ONCE IV Last administered on 09/15/20at 14:45; Start 09/15/20 at 14:45; Stop 09/15/20 at 14:53; Status DC Bisacodyl (Dulcolax Tab) 5 mg 1X ONCE PO ; Start 09/16/20 at 09:30; Stop 09/16/20 at 17:08; Status DC Acetaminophen/ Hydrocodone Bitart (Lortab 5/325) 1 tab PRN Q4HRS PRN PO MODERATE-SEVERE PAIN Last administered on 09/16/20at 11:47; Start 09/16/20 at 11:30; Stop 09/16/20 at 17:08; Status DC Bisacodyl (Dulcolax Tab) 5 mg PRN DAILY PRN PO CONSTIPATION; Start 09/16/20 at 14:15 Hydromorphone HCl (Dilaudid) 0.6 mg PRN Q3HRS PRN IVP PAIN Last administered on 09/16/20at 15:02; Start 09/16/20 at 15:00; Stop 09/16/20 at 17:24; Status DC Iohexol (Omnipaque 300 Mg/ml) 75 ml 1X ONCE IV Last administered on 09/16/20at 16:14; Start 09/16/20 at 16:15; Stop 09/16/20 at 16:16; Status DC Info (CONTRAST GIVEN -- Rx MONITORING) 1 each PRN DAILY PRN MC SEE COMMENTS; Start 09/16/20 at 16:15; Stop 09/18/20 at 16:14; Status DC Ondansetron HCl (Zofran) 4 mg PRN Q6HRS PRN IVP NAUSEA/VOMITING; Start 09/16/20 at 17:15; Stop 09/17/20 at 16:22; Status DC Famotidine (Pepcid Vial) 20 mg BID IVP Last administered on 09/17/20at 14:27; Start 09/16/20 at 21:00; Stop 09/17/20 at 16:21; Status DC Sodium Chloride (Normal Saline Flush) 3 ml QSHIFT PRN IV AFTER MEDS AND BLOOD DRAWS; Start 09/16/20 at 17:15; Stop 09/18/20 at 08:46; Status DC Sodium Chloride 1,000 ml @ 150 mls/hr Q6H40M IV Last administered on 09/19/20at 05:59; Start 09/16/20 at 17:15 Hydromorphone HCl (Dilaudid) 1 mg PRN Q3HRS PRN IVP SEVERE PAIN Last administered on 09/19/20at 02:03; Start 09/16/20 at 17:30 Cefoxitin Sodium (Mefoxin) 2 gm 1X PREOP ONCE IVP Last administered on 09/17/20at 10:25; Start 09/17/20 at 07:30; Stop 09/17/20 at 07:32; Status DC Fentanyl Citrate (Fentanyl 2ml Vial) 25 mcg PRN Q5MIN PRN IVP MILD PAIN 1-3; Start 09/17/20 at 09:00; Stop 09/18/20 at 08:59; Status DC Fentanyl Citrate (Fentanyl 2ml Vial) 50 mcg PRN Q5MIN PRN IVP MODERATE PAIN 4- 6; Start 09/17/20 at 09:00; Stop 09/18/20 at 08:59; Status DC Morphine Sulfate (Morphine Sulfate) 1 mg PRN Q10MIN PRN IVP SEVERE PAIN 7-10; Start 09/17/20 at 09:00; Stop 09/18/20 at 08:59; Status DC Ringer's Solution 1,000 ml @ 30 mls/hr Q24H IV ; Start 09/17/20 at 09:00; Stop 09/17/20 at 20:59; Status DC Hydromorphone HCl (Dilaudid) 0.5 mg PRN Q10MIN PRN IVP SEVERE PAIN 7-10, 2nd CHOICE; Start 09/17/20 at 09:00; Stop 09/18/20 at 08:59; Status DC Prochlorperazine Edisylate (Compazine) 5 mg PACU PRN PRN IVP NAUSEA, MRX1; Start 09/17/20 at 09:00; Stop 09/18/20 at 08:59; Status DC Dexmedetomidine HCl (Precedex) 200 mcg STK-MED ONCE IV ; Start 09/17/20 at 09:25; Stop 09/17/20 at 09:25; Status DC Magnesium Sulfate (Magnesium Sulfate) 5 gm STK-MED ONCE .ROUTE ; Start 09/17/20 at 09:25; Stop 09/17/20 at 09:25; Status DC Bupivacaine HCl/ Epinephrine Bitart (Sensorcain-Epi 0.5% Kit) 30 ml STK-MED ONCE INJ Last administered on 09/17/20at 10:33; Start 09/17/20 at 10:33; Stop 09/17/20 at 11:09; Status DC Calcium Carbonate/ Glycine (Tums) 500 mg PRN Q3HRS PRN PO HEARTBURN / GAS; Start 09/17/20 at 11:30 Famotidine (Pepcid) 20 mg BID PO Last administered on 09/19/20at 08:18; Start 09/17/20 at 21:00 Enoxaparin Sodium (Lovenox 40mg Syringe) 40 mg Q24H SQ Last administered on 09/19/20at 08:18; Start 09/18/20 at 09:00 Sodium Chloride (Normal Saline Flush) 3 ml QSHIFT PRN IV AFTER MEDS AND BLOOD DRAWS; Start 09/17/20 at 11:30 Ringer's Solution 1,000 ml @ 100 mls/hr Q10H IV Last administered on 09/17/20at 12:20; Start 09/17/20 at 11:30; Stop 09/18/20 at 12:14; Status DC Acetaminophen/ Hydrocodone Bitart (Lortab 5/325) 1 tab PRN Q4HRS PRN PO MILD PAIN 1-3 Last administered on 09/19/20at 02:02; Start 09/17/20 at 11:30 Naloxone HCl (Narcan) 0.4 mg PRN Q2MIN PRN IV SEE INSTRUCTIONS; Start 09/17/20 at 11:30 Sodium Chloride 1,000 ml @ 25 mls/hr Q24H IV ; Start 09/17/20 at 11:30; Stop 09/17/20 at 16:23; Status DC Morphine Sulfate (Morphine Sulfate) 1 mg PRN Q1HR PRN IV MODERATE PAIN Last administered on 09/18/20at 16:31; Start 09/17/20 at 11:30 Docusate Sodium (Colace) 100 mg BID PO Last administered on 09/19/20at 08:18; Start 09/17/20 at 21:00 Ondansetron HCl (Zofran) 4 mg PRN Q6HRS PRN IVP NAUESA, 1ST CHOICE; Start 09/17/20 at 11:30 Acetaminophen/ Aspirin/Caffeine (Excedrin Migraine) 1 tab PRN Q6HRS PRN PO MIGRAINE HEADACHE; Start 09/18/20 at 09:00 Lidocaine HCl (Buffered Lidocaine 1%) 3 ml STK-MED ONCE .ROUTE ; Start 09/15/20 at 12:25; Stop 09/18/20 at 15:30; Status DC Iohexol (Omnipaque 300 Mg/ml) 100 ml STK-MED ONCE .ROUTE ; Start 09/15/20 at 14:29; Stop 09/18/20 at 15:32; Status DC Gelatin (Gelfoam Size 12-7mm) 1 each STK-MED ONCE .ROUTE ; Start 09/15/20 at 14:55; Stop 09/18/20 at 15:32; Status DC Propofol (Diprivan) 200 mg STK-MED ONCE IV ; Start 09/17/20 at 08:56; Stop 09/18/20 at 15:54; Status DC Lidocaine HCl (Lidocaine Pf 2% Vial) 5 ml STK-MED ONCE .ROUTE ; Start 09/17/20 at 08:56; Stop 09/18/20 at 15:54; Status DC Rocuronium Wendell (Zemuron) 50 mg STK-MED ONCE .ROUTE ; Start 09/17/20 at 08:56; Stop 09/18/20 at 15:54; Status DC Fentanyl Citrate (Fentanyl 2ml Vial) 100 mcg STK-MED ONCE .ROUTE ; Start 09/17/20 at 08:57; Stop 09/18/20 at 15:54; Status DC Midazolam HCl (Versed) 2 mg STK-MED ONCE .ROUTE ; Start 09/17/20 at 08:57; Stop 09/18/20 at 15:54; Status DC Ketamine HCl (Ketamine) 50 mg STK-MED ONCE .ROUTE ; Start 09/17/20 at 09:22; Stop 09/18/20 at 15:54; Status DC Ropivacaine (Naropin 0.5%) 20 ml STK-MED ONCE .ROUTE ; Start 09/17/20 at 09:26; Stop 09/18/20 at 15:54; Status DC Bupivacaine HCl/ Epinephrine Bitart (Sensorcain-Epi 0.5% Kit) 30 ml STK-MED ONCE .ROUTE ; Start 09/17/20 at 09:51; Stop 09/18/20 at 15:54; Status DC Neostigmine Wendell (Neostigmine Methylsulfate) 5 mg STK-MED ONCE .ROUTE ; Start 09/17/20 at 10:50; Stop 09/18/20 at 15:55; Status DC Glycopyrrolate (Robinul) 1 mg STK-MED ONCE .ROUTE ; Start 09/17/20 at 10:50; Stop 09/18/20 at 15:55; Status DC Cellulose (Surgicel Hemostat 4x8) 1 each STK-MED ONCE .ROUTE ; Start 09/17/20 at 11:08; Stop 09/18/20 at 15:55; Status DC Sevoflurane (Ultane) 60 ml STK-MED ONCE IH ; Start 09/17/20 at 11:44; Stop 09/18/20 at 15:55; Status DC Phenylephrine HCl (PHENYLEPHRINE in 0.9% NACL PF) 1 mg STK-MED ONCE IV ; Start 09/17/20 at 17:53; Stop 09/18/20 at 15:58; Status DC Ondansetron HCl (Zofran) 4 mg STK-MED ONCE .ROUTE ; Start 09/17/20 at 17:53; Stop 09/18/20 at 15:58; Status DC Dexamethasone Sodium Phosphate (Decadron) 4 mg STK-MED ONCE .ROUTE ; Start 09/17/20 at 17:53; Stop 09/18/20 at 15:58; Status DC Active Scripts Active Reported Tylenol (Acetaminophen) 325 Mg Tablet 1,000 Mg PO PRN Q6HRS PRN Vitals/I & O Vital Sign - Last 24 Hours 09/18/20 09/18/20 09/18/20 09/18/20 11:00 15:00 16:31 17:38 Temp 98.1 98.0 98.1 98.0 Pulse 59 61 Resp 16 16 B/P (MAP) 106/61 (76) 116/72 (87) Pulse Ox 99 100 O2 Delivery Room Air Room Air Room Air Room Air 09/18/20 09/18/20 09/18/20 09/18/20 19:55 20:05 20:38 20:48 Temp 98.0 98.0 Pulse 55 Resp 17 20 20 B/P (MAP) 111/72 (85) Pulse Ox 99 99 O2 Delivery Room Air Room Air Room Air 09/18/20 09/18/20 09/18/20 09/19/20 21:08 21:08 23:33 02:02 Temp 98.1 98.1 Pulse 51 Resp 20 20 16 20 B/P (MAP) 108/63 (78) Pulse Ox 95 95 O2 Delivery Room Air Room Air Room Air Room Air 09/19/20 09/19/20 09/19/20 09/19/20 02:03 02:32 02:32 03:40 Temp 98.0 98.0 Pulse 50 Resp 20 20 20 16 B/P (MAP) 128/62 (84) Pulse Ox 95 98 O2 Delivery Room Air Room Air Room Air Room Air 09/19/20 07:00 Temp 98.0 98.0 Resp 16 B/P (MAP) 121/81 (94) Pulse Ox 99 O2 Delivery Room Air Intake and Output 09/18/20 09/18/20 09/19/20 15:00 23:00 07:00 Intake Total 1160 ml 800 ml 545 ml Output Total 1025 ml Balance 1160 ml 800 ml -480 ml Justicifation of Admission Dx: Justifications for Admission: Justification of Admission Dx: Yes ARMIN URBANO MD Sep 19, 2020 09:55
--- NOTE | 2020-09-19 10:05 | PDOC ---
Infectious Disease Note Subjective: Subjective Patient complains of postop abdominal pain Tolerating p.o. intake well Does not pass any flatus Denies any fever, chills, nausea, vomiting, diarrhea, symptoms, rash Eager for discharge home today Vital Signs: Vital Signs Vital Signs Date Time Temp Pulse Resp B/P (MAP) Pulse Ox O2 Delivery O2 Flow Rate FiO2 09/19/20 07:00 98.0 16 121/81 (94) 99 Room Air 98.0 09/19/20 03:40 50 Physical Exam: PHYSICAL EXAM GENERAL: Alert oriented x3 male in no acute distress HEENT: Normocephalic, atraumatic. Anicteric. NECK: Supple. No JVD. LUNGS: Clear bilaterally. No wheezing. HEART: S1, S2. No gallops. No murmurs. ABDOMEN: Soft, nondistended. Dressing from recent surgery in place. Dry bowel sounds present. EXTREMITIES: No edema, no cyanosis. CENTRAL NERVOUS SYSTEM: Alert, awake, moves all 4 extremities. DERMATOLOGIC: Warm, dry. No generalized rash. PIV looks clean. Medications: Inpatient Meds: Medications reviewed. Labs: Lab Laboratory Tests Test 09/18/20 12:05 09/19/20 07:00 Hemoglobin 11.0 g/dL (13.0-17.5) 10.2 g/dL (13.0-17.5) Hematocrit 33.0 % (39.0-53.0) 30.7 % (39.0-53.0) Mean Corpuscular Hemoglobin Concent 33 g/dL (31-37) 33 g/dL (31-37) Objective: Assessment: 1. Low grade fever ,likely from hemoperitoneum 2. Abdominal wall mass, status post biopsy on 09/15/2020. Pathology with gastrointestinal stromal tumor. 3. Moderate hemoperitoneum, moderate mass, status post laparoscopic partial gastrectomy 09/17/2020. 4. Numbness of face,extremities 5. Tobacco dependence. Substance dependence with cocaine. 6. Gastroesophageal reflux disease. 7. Hemoptysis 8. Anxiety. September 18, 2020 blood culture positive 1 out of 4 bottles for GPC in clusters Plan: Plan of Care 1. Start IV Vanco and cefepime, pharmacy to assist with vancomycin dosing, monitor renal function closely 2. Wound care per General Surgery. 3. Follow-up repeat blood cultures 4. Maintain aspiration precaution. 5. Monitor labs and cultures. 6. Continue supportive care. Discussed with nursing staff POLINA MEJIA MD Sep 19, 2020 10:05
[2020-09-19 10:52] VITALS: BP 123/71
[2020-09-19] MEDS: CEFEPIME HCL IV Push 1 GM VIAL. IVP SCH ×2 (10:54→21:25)
[2020-09-19] MEDS ORDERED: VANCOMYCIN 1.5 GM in IV NORMAL SALINE 500ML BAG 500 ML IV ONE (11:00)
--- NOTE | 2020-09-19 11:12 | PDOC ---
SURGICAL PROGRESS NOTE DATE: 09/19/20 TIME: 11:11 Subjective Pt with c/o some incisional pain, miki diet, no flatus or stools today Vital Signs Vital Signs Date Time Temp Pulse Resp B/P (MAP) Pulse Ox O2 Delivery O2 Flow Rate FiO2 09/19/20 10:52 98.3 60 16 123/71 (88) 100 Room Air 98.3 I&O Intake and Output 09/19/20 07:00 Intake Total 2505 ml Output Total 1025 ml Balance 1480 ml Intake Oral 2505 ml Output Urine Total 1025 ml General: Alert, Oriented X3, Cooperative, No acute distress Abdomen: Soft, No tenderness, Other (incisions healing nicely) Labs Laboratory Tests Test 09/17/20 14:05 09/18/20 05:35 09/18/20 12:05 09/19/20 07:00 Hemoglobin 11.8 g/dL (13.0-17.5) 10.7 g/dL (13.0-17.5) 11.0 g/dL (13.0-17.5) 10.2 g/dL (13.0-17.5) White Blood Count 8.8 x10^3/uL (4.0-11.0) Red Blood Count 3.55 x10^6/uL (4.30-5.70) Hematocrit 32.0 % (39.0-53.0) 33.0 % (39.0-53.0) 30.7 % (39.0-53.0) Mean Corpuscular Volume 90 fL (79-100) Mean Corpuscular Hemoglobin 30 pg (25-35) Mean Corpuscular Hemoglobin Concent 34 g/dL (31-37) 33 g/dL (31-37) 33 g/dL (31-37) Red Cell Distribution Width 12.7 % (11.5-14.5) Platelet Count 149 x10^3/uL (140-400) Neutrophils (%) (Auto) 83 % (31-73) Lymphocytes (%) (Auto) 10 % (24-48) Monocytes (%) (Auto) 7 % (0-9) Eosinophils (%) (Auto) 0 % (0-3) Basophils (%) (Auto) 0 % (0-3) Neutrophils # (Auto) 7.3 x10^3/uL (1.8-7.7) Lymphocytes # (Auto) 0.9 x10^3/uL (1.0-4.8) Monocytes # (Auto) 0.6 x10^3/uL (0.0-1.1) Eosinophils # (Auto) 0.0 x10^3/uL (0.0-0.7) Basophils # (Auto) 0.0 x10^3/uL (0.0-0.2) Sodium Level 147 mmol/L (136-145) Potassium Level 3.8 mmol/L (3.5-5.1) Chloride Level 110 mmol/L (98-107) Carbon Dioxide Level 28 mmol/L (21-32) Anion Gap 9 (6-14) Blood Urea Nitrogen 4 mg/dL (8-26) Creatinine 0.9 mg/dL (0.7-1.3) Estimated GFR (Cockcroft-Gault) 92.1 Glucose Level 143 mg/dL (70-99) Calcium Level 8.3 mg/dL (8.5-10.1) Laboratory Tests Test 09/18/20 12:05 09/19/20 07:00 Hemoglobin 11.0 g/dL (13.0-17.5) 10.2 g/dL (13.0-17.5) Hematocrit 33.0 % (39.0-53.0) 30.7 % (39.0-53.0) Mean Corpuscular Hemoglobin Concent 33 g/dL (31-37) 33 g/dL (31-37) Problem List Problems Medical Problems: (1) Abdominal mass Status: Acute (2) Cocaine use Status: Acute Assessment/Plan s/p excision of gastric mass ADAT and OK to work towards d/c when cleared by others f/u in two weeks to review path Justicifation of Admission Dx: Justifications for Admission: Justification of Admission Dx: Yes BIANKA CARDENAS MD Sep 19, 2020 11:12
[2020-09-19] MEDS: VANCOMYCIN PER PHARMACY MC PRN (12:38)
--- NOTE | 2020-09-19 12:38 | NUR ---
Pharmacy Vancomycin Dosing Note S:Consulted to monitor and dose vancomycin started 09/19/20. O:HARIKA FALCON is a 45 year old M with Bacteremia. Height: 5 feet, 9 inches Weight: 59.7 kg [place] Body Weight: 70.70 Adjusted Body Weight: 66.30 Dosing Weight: Actual Other Antibiotics: cefepime LABS: Last BUN: 4 Last Creatinine: 0.9 Creatinine Clearance: 89 mL/min Last WBC: 8.8 Last Procalcitonin: < 0.1 Tmax (past 24 hours): 98.3 Microbiology: 09/16: blood cx- NGTD 09/17: blood cx- NGTD 09/18: blood cx - gram positive cocci in clusters (1/4 bottles) I/O: 2505 / 1025 Last dose given 09/19/20 at 1054 Vancomycin Dosing: Loading Dose: 1500 mg x1 Dosing Weight: Actual Target Trough: 15-20 A: Based on: patient's age, weight and renal function. P: 1. Begin Vancomycin 1000 mg IV q12h after initial loading dose. 2. Follow up Trough level on 09/20/20 at 2230. 3. Pharmacy will continue to monitor, follow and adjust therapy as needed. MAJOR CORDERO RPH, 09/19/20 [id number]
[2020-09-19 12:50] LABS: BASO % 0 % (0-3); EOS # 0.2 x10^3/uL (0.0-0.7); EOS % 3 % (0-3); HEMATOCRIT 33.7 % (39.0-53.0); HEMOGLOBIN 11.1 g/dL (13.0-17.5); LYMPH # 2.2 x10^3/uL (1.0-4.8); LYMPH % 35 % (24-48); MEAN CORPUSCULAR HEMOGLOBIN 30 pg (25-35); MEAN CORPUSCULAR HGB CONC 33 g/dL (31-37); MEAN CORPUSCULAR VOLUME 91 fL (79-100); MONO # 0.4 x10^3/uL (0.0-1.1); MONO % 6 % (0-9); NEUT # 3.5 x10^3/uL (1.8-7.7); NEUT % 56 % (31-73); PLATELET COUNT 174 x10^3/uL (140-400); RED BLOOD COUNT 3.71 x10^6/uL (4.30-5.70); RED CELL DISTRIBUTION WIDTH 12.7 % (11.5-14.5); WHITE BLOOD COUNT 6.3 x10^3/uL (4.0-11.0)
[2020-09-19 13:06] LABS: ALBUMIN 3.6 g/dL (3.4-5.0); CALCIUM 8.9 mg/dL (8.5-10.1); CREATININE 0.8 mg/dL (0.7-1.3); GFR 105.5; POTASSIUM 3.2 mmol/L (3.5-5.1); TOTAL BILIRUBIN 0.4 mg/dL (0.2-1.0); TOTAL PROTEIN 7.3 g/dL (6.4-8.2)
[2020-09-19] MEDS ORDERED: POTASSIUM CHLORIDE 20 MEQ TABLET.ER. PO ONE (13:15)
[2020-09-19 15:00] VITALS: BP 115/70
--- NOTE | 2020-09-19 19:11 | PDOC ---
PULMONARY PROGRESS NOTES DATE: 09/19/20 TIME: 19:06 Subjective Pt. is resting on room air reports productive cough no overnight concerns Vitals Vital Signs Date Time Temp Pulse Resp B/P (MAP) Pulse Ox O2 Delivery O2 Flow Rate FiO2 09/19/20 15:00 98.0 57 16 115/70 (85) 98 Room Air 98.0 ROS: No Nausea, No Chest Pain, No Increase Cough General: Alert Lungs: Clear Cardiovascular: S1, S2 Abdomen: Soft Extremities: No Edema Skin: Warm Labs Laboratory Tests Test 09/18/20 05:35 09/18/20 12:05 09/19/20 07:00 09/19/20 12:15 White Blood Count 8.8 x10^3/uL (4.0-11.0) 6.3 x10^3/uL (4.0-11.0) Red Blood Count 3.55 x10^6/uL (4.30-5.70) 3.71 x10^6/uL (4.30-5.70) Hemoglobin 10.7 g/dL (13.0-17.5) 11.0 g/dL (13.0-17.5) 10.2 g/dL (13.0-17.5) 11.1 g/dL (13.0-17.5) Hematocrit 32.0 % (39.0-53.0) 33.0 % (39.0-53.0) 30.7 % (39.0-53.0) 33.7 % (39.0-53.0) Mean Corpuscular Volume 90 fL (79-100) 91 fL (79-100) Mean Corpuscular Hemoglobin 30 pg (25-35) 30 pg (25-35) Mean Corpuscular Hemoglobin Concent 34 g/dL (31-37) 33 g/dL (31-37) 33 g/dL (31-37) 33 g/dL (31-37) Red Cell Distribution Width 12.7 % (11.5-14.5) 12.7 % (11.5-14.5) Platelet Count 149 x10^3/uL (140-400) 174 x10^3/uL (140-400) Neutrophils (%) (Auto) 83 % (31-73) 56 % (31-73) Lymphocytes (%) (Auto) 10 % (24-48) 35 % (24-48) Monocytes (%) (Auto) 7 % (0-9) 6 % (0-9) Eosinophils (%) (Auto) 0 % (0-3) 3 % (0-3) Basophils (%) (Auto) 0 % (0-3) 0 % (0-3) Neutrophils # (Auto) 7.3 x10^3/uL (1.8-7.7) 3.5 x10^3/uL (1.8-7.7) Lymphocytes # (Auto) 0.9 x10^3/uL (1.0-4.8) 2.2 x10^3/uL (1.0-4.8) Monocytes # (Auto) 0.6 x10^3/uL (0.0-1.1) 0.4 x10^3/uL (0.0-1.1) Eosinophils # (Auto) 0.0 x10^3/uL (0.0-0.7) 0.2 x10^3/uL (0.0-0.7) Basophils # (Auto) 0.0 x10^3/uL (0.0-0.2) 0.0 x10^3/uL (0.0-0.2) Sodium Level 147 mmol/L (136-145) 146 mmol/L (136-145) Potassium Level 3.8 mmol/L (3.5-5.1) 3.2 mmol/L (3.5-5.1) Chloride Level 110 mmol/L (98-107) 108 mmol/L (98-107) Carbon Dioxide Level 28 mmol/L (21-32) 32 mmol/L (21-32) Anion Gap 9 (6-14) 6 (6-14) Blood Urea Nitrogen 4 mg/dL (8-26) 4 mg/dL (8-26) Creatinine 0.9 mg/dL (0.7-1.3) 0.8 mg/dL (0.7-1.3) Estimated GFR (Cockcroft-Gault) 92.1 105.5 Glucose Level 143 mg/dL (70-99) 97 mg/dL (70-99) Calcium Level 8.3 mg/dL (8.5-10.1) 8.9 mg/dL (8.5-10.1) BUN/Creatinine Ratio 5 (6-20) Total Bilirubin 0.4 mg/dL (0.2-1.0) Aspartate Amino Transf (AST/SGOT) 24 U/L (15-37) Alanine Aminotransferase (ALT/SGPT) 28 U/L (16-63) Alkaline Phosphatase 58 U/L (46-116) Total Protein 7.3 g/dL (6.4-8.2) Albumin 3.6 g/dL (3.4-5.0) Albumin/Globulin Ratio 1.0 (1.0-1.7) Laboratory Tests Test 09/19/20 07:00 09/19/20 12:15 Hemoglobin 10.2 g/dL (13.0-17.5) 11.1 g/dL (13.0-17.5) Hematocrit 30.7 % (39.0-53.0) 33.7 % (39.0-53.0) Mean Corpuscular Hemoglobin Concent 33 g/dL (31-37) 33 g/dL (31-37) White Blood Count 6.3 x10^3/uL (4.0-11.0) Red Blood Count 3.71 x10^6/uL (4.30-5.70) Mean Corpuscular Volume 91 fL (79-100) Mean Corpuscular Hemoglobin 30 pg (25-35) Red Cell Distribution Width 12.7 % (11.5-14.5) Platelet Count 174 x10^3/uL (140-400) Neutrophils (%) (Auto) 56 % (31-73) Lymphocytes (%) (Auto) 35 % (24-48) Monocytes (%) (Auto) 6 % (0-9) Eosinophils (%) (Auto) 3 % (0-3) Basophils (%) (Auto) 0 % (0-3) Neutrophils # (Auto) 3.5 x10^3/uL (1.8-7.7) Lymphocytes # (Auto) 2.2 x10^3/uL (1.0-4.8) Monocytes # (Auto) 0.4 x10^3/uL (0.0-1.1) Eosinophils # (Auto) 0.2 x10^3/uL (0.0-0.7) Basophils # (Auto) 0.0 x10^3/uL (0.0-0.2) Sodium Level 146 mmol/L (136-145) Potassium Level 3.2 mmol/L (3.5-5.1) Chloride Level 108 mmol/L (98-107) Carbon Dioxide Level 32 mmol/L (21-32) Anion Gap 6 (6-14) Blood Urea Nitrogen 4 mg/dL (8-26) Creatinine 0.8 mg/dL (0.7-1.3) Estimated GFR (Cockcroft-Gault) 105.5 BUN/Creatinine Ratio 5 (6-20) Glucose Level 97 mg/dL (70-99) Calcium Level 8.9 mg/dL (8.5-10.1) Total Bilirubin 0.4 mg/dL (0.2-1.0) Aspartate Amino Transf (AST/SGOT) 24 U/L (15-37) Alanine Aminotransferase (ALT/SGPT) 28 U/L (16-63) Alkaline Phosphatase 58 U/L (46-116) Total Protein 7.3 g/dL (6.4-8.2) Albumin 3.6 g/dL (3.4-5.0) Albumin/Globulin Ratio 1.0 (1.0-1.7) Medications Active Scripts Medications Dose Route/Sig Max Daily Dose Days Date Category Tylenol (Acetaminophen) 325 Mg Tablet 1,000 Mg PO PRN Q6HRS PRN 09/14/[address] chest reviewed : 1. No evidence of metastatic disease or acute infiltrates. No endobronchial lesions. Recommend ongoing follow-up for hemoptysis. Impression . Hemoptysis related to cocaine inhalation--improved Tobacco dependent Substance Abuse + Cocaine Shortness of air related to COPD and anxiety Monitor no additional work-up necessary Abdominal mass s/p biopsy on 09/15/20 GERD September 18, 2020 blood culture positive 1 out of 4 bottles for GPC in clusters Moderate hemoperitoneum, moderate mass, status post laparoscopic partial gastrectomy 09/17/2020 Plan . Updated 09/19/20 Pt. respiratory status is compensated, remains on room air add IS, encourage hourly use Follow ID recs fro ABX --September 18, 2020 blood culture positive 1 out of 4 bottles for GPC in clusters NEBS PRN CT chest reviewed Follow surgery recs--Abdominal mass s/p biopsy on 09/15/20 and Moderate hemoperitoneum, moderate mass, status post laparoscopic partial gastrectomy 09/17/2020 Follow GI recs DVT/GI PPX D/W RN follow up in Office with me in November Updated 09/16/20 Pt. respiratory status is compensated, remains on room air No Further hemoptysis NEBS PRN CT chest reviewed Follow surgery recs--Abdominal mass s/p biopsy on 09/15/20 Follow GI recs Educated on importance of cessation of smoking and drug use Anxiety per PCP DVT/GI PPX D/W RN Pancho DC today from our standpoint follow up in Office with me in November PLAN: 09/15/20 1. Respiratory status appears to be compensated, no further workup needed. 2. Suspect patient's symptoms of shortness of breath related to anxiety more than anything else. 3. P.r.n. albuterol. HERB WAYNE MD Sep 19, 2020 19:11
[2020-09-19 19:55] VITALS: BP 126/60
[2020-09-19 23:20] VITALS: BP 102/48
[2020-09-20] MEDS: VANCOMYCIN 1 GM in IV NORMAL SALINE 250ML 250 ML IV SCH ×2 (00:16→11:00)
[2020-09-20] MEDS: IV NORMAL SALINE 1000ML BAG 1,000 ML IV SCH ×4 (01:15→20:46)
[2020-09-20 03:55] VITALS: BP 111/57
[2020-09-20] MEDS: CEFEPIME HCL IV Push 1 GM VIAL. IVP SCH (06:33)
[2020-09-20 07:00] VITALS: BP 122/74
[2020-09-20 07:41] LABS: BASO % 0 % (0-3); EOS # 0.2 x10^3/uL (0.0-0.7); EOS % 5 % (0-3); HEMOGLOBIN 11.2 g/dL (13.0-17.5); LYMPH # 1.3 x10^3/uL (1.0-4.8); LYMPH % 25 % (24-48); MEAN CORPUSCULAR HEMOGLOBIN 30 pg (25-35); MEAN CORPUSCULAR HGB CONC 34 g/dL (31-37); MEAN CORPUSCULAR VOLUME 90 fL (79-100); MONO # 0.4 x10^3/uL (0.0-1.1); MONO % 7 % (0-9); NEUT # 3.2 x10^3/uL (1.8-7.7); NEUT % 62 % (31-73); PLATELET COUNT 174 x10^3/uL (140-400); RED BLOOD COUNT 3.68 x10^6/uL (4.30-5.70); RED CELL DISTRIBUTION WIDTH 12.9 % (11.5-14.5); WHITE BLOOD COUNT 5.1 x10^3/uL (4.0-11.0)
[2020-09-20 08:00] LABS: ALBUMIN 2.9 g/dL (3.4-5.0); ALBUMIN/GLOBULIN RATIO 0.8 (1.0-1.7); CALCIUM 8.5 mg/dL (8.5-10.1); CREATININE 0.8 mg/dL (0.7-1.3); GFR 105.5; POTASSIUM 3.9 mmol/L (3.5-5.1); TOTAL BILIRUBIN 0.4 mg/dL (0.2-1.0); TOTAL PROTEIN 6.4 g/dL (6.4-8.2)
[2020-09-20] MEDS: FAMOTIDINE 20 MG TABLET. PO SCH ×2 (08:02→20:45)
[2020-09-20] MEDS: DOCUSATE SODIUM 100 MG CAPSULE. PO SCH ×2 (08:02→20:45)
[2020-09-20] MEDS: POTASSIUM CHLORIDE 20 MEQ TABLET.ER. PO SCH (08:03)
[2020-09-20] MEDS: ENOXAPARIN 40 MG/0.4 ML SYRINGE. SQ SCH (08:13)
[2020-09-20] MEDS: VANCOMYCIN PER PHARMACY MC PRN (08:48)
--- NOTE | 2020-09-20 08:52 | PDOC ---
[facility] PROGRESS NOTE Date of Service DOS: DATE: 09/20/20 TIME: 08:49 Chief Complaint Chief Complaint A/P: Abdominal pain - with mass resected on 09/17 and lavage of hemoperitoneum. Still with pain today Cocaine use Bradycardia, asymptomatic, mild Right-sided numbness/ paresthesia , headache, sinus congestion, ON ct head, No acute intracranial abnormality. will consult neurology, neg MRI HEAD Stroke symptoms following cocaine use, sensory loss on the right side is the only finding, improving, only subjective now. unintentional weight loss Tobacco abuse disorder right lower leg paresthesia Hemorrhage surrounding the mass in the right upper quadrant hemorrhagic area measures 9.3 x 5.1 x 5 cm. 09-16 PLAN ADMITTED dvt prophylaxis mri abdomen GI CONSULT GEN SURGERY CONSULT Neurology consult consider MRI HEAD ct guided bx 09-15 History of Present Illness History of Present Illness Mr Li is a 45 year old Male from [place] who presented to the ER began having right side of the face, right arm and leg numbness or heaviness and tingling that he rates about a 4 out of 10. He states that he also had some n ausea and is having left-sided abdominal pain with pain with urination as well //. RIGHT leg paresthesia described as medial upper leg radiates to right ankle Patient denies fever, vomiting, diarrhea, constipation, cough, focal weakness, vision change, syncope, dizziness. He has a history of smoking, anxiety, GERD. Patient admits to smoking cocaine yesterday. he has lost 20 lbs in last year on CT Abdomen, a 5.0 x 4.1 cm soft tissue mass is centered within the mesentery of the right hemiabdomen. // differential considerations include GIST. Correlate for malignancy MRI of the abdomen would better evaluate. Admitted with GI CONSULT / GEN SURGERY CONSULT Neurology consult 09/14: He had stroke symptoms following cocaine use. MRI of the brain was perfo rmed. It is showing no acute intracranial findings. L 09/15: Pulmonary consulted, moved to CVC 09/16: Abdominal mass biopsy 09/17: To the OR for gastric mass resection (7cm from anterior distal stomach with 1cm stalk) and moderate hemoperitoneum lavage. 09/18: pod # 1. LOW grade fever overnight , blood cultured 6-24, ID consult. NGTD 09/19: pod # 2, Start IV Vanco and cefepime, pharmacy to assist with vancomycin dosing, monitor renal function T-max 99 6 F overnight.c/o constipation, abdominal pain. "Bubbles when urinating". Asking when he can go home and if he is still bleeding. No shortness of breath or chest pain. No numbness of his arm and leg improved. Very anxious. Vitals/I&O Vitals/I&O: Vital Signs Date Time Temp Pulse Resp B/P (MAP) Pulse Ox O2 Delivery O2 Flow Rate FiO2 09/20/20 03:55 99.0 56 18 111/57 (75) 98 Room Air 99.0 I & O 09/19/20 09/19/20 09/20/20 15:00 23:00 07:00 Intake Total 1900 ml 120 ml Output Total 1950 ml 550 ml 2300 ml Balance -50 ml -430 ml -2300 ml Physical Exam Physical Exam: GENERAL: Alert oriented x3 male in no acute distress HEENT: Normocephalic, atraumatic. Anicteric. NECK: Supple. No JVD. LUNGS: Clear bilaterally. No wheezing. HEART: S1, S2. No gallops. No murmurs. ABDOMEN: Soft, nondistended. Dressing from recent surgery in place. Dry bowel sounds present. EXTREMITIES: No edema, no cyanosis. CENTRAL NERVOUS SYSTEM: Alert, awake, moves all 4 extremities. DERMATOLOGIC: Warm, dry. No generalized rash. PIV looks clean. General: Alert, Oriented X3, Cooperative, No acute distress Heart: Regular rate, Normal S1, Normal S2, No murmurs Lungs: Clear Abdomen: Soft, No tenderness, Other (incisions healing nicely) Extremities: No cyanosis, No edema Skin: No breakdown, No significant lesion Labs Labs: Laboratory Tests Test 09/19/20 12:15 09/20/20 07:15 White Blood Count 6.3 x10^3/uL (4.0-11.0) 5.1 x10^3/uL (4.0-11.0) Red Blood Count 3.71 x10^6/uL (4.30-5.70) 3.68 x10^6/uL (4.30-5.70) Hemoglobin 11.1 g/dL (13.0-17.5) 11.2 g/dL (13.0-17.5) Hematocrit 33.7 % (39.0-53.0) 33.0 % (39.0-53.0) Mean Corpuscular Volume 91 fL (79-100) 90 fL (79-100) Mean Corpuscular Hemoglobin 30 pg (25-35) 30 pg (25-35) Mean Corpuscular Hemoglobin Concent 33 g/dL (31-37) 34 g/dL (31-37) Red Cell Distribution Width 12.7 % (11.5-14.5) 12.9 % (11.5-14.5) Platelet Count 174 x10^3/uL (140-400) 174 x10^3/uL (140-400) Neutrophils (%) (Auto) 56 % (31-73) 62 % (31-73) Lymphocytes (%) (Auto) 35 % (24-48) 25 % (24-48) Monocytes (%) (Auto) 6 % (0-9) 7 % (0-9) Eosinophils (%) (Auto) 3 % (0-3) 5 % (0-3) Basophils (%) (Auto) 0 % (0-3) 0 % (0-3) Neutrophils # (Auto) 3.5 x10^3/uL (1.8-7.7) 3.2 x10^3/uL (1.8-7.7) Lymphocytes # (Auto) 2.2 x10^3/uL (1.0-4.8) 1.3 x10^3/uL (1.0-4.8) Monocytes # (Auto) 0.4 x10^3/uL (0.0-1.1) 0.4 x10^3/uL (0.0-1.1) Eosinophils # (Auto) 0.2 x10^3/uL (0.0-0.7) 0.2 x10^3/uL (0.0-0.7) Basophils # (Auto) 0.0 x10^3/uL (0.0-0.2) 0.0 x10^3/uL (0.0-0.2) Sodium Level 146 mmol/L (136-145) 143 mmol/L (136-145) Potassium Level 3.2 mmol/L (3.5-5.1) 3.9 mmol/L (3.5-5.1) Chloride Level 108 mmol/L (98-107) 108 mmol/L (98-107) Carbon Dioxide Level 32 mmol/L (21-32) 27 mmol/L (21-32) Anion Gap 6 (6-14) 8 (6-14) Blood Urea Nitrogen 4 mg/dL (8-26) 5 mg/dL (8-26) Creatinine 0.8 mg/dL (0.7-1.3) 0.8 mg/dL (0.7-1.3) Estimated GFR (Cockcroft-Gault) 105.5 105.5 BUN/Creatinine Ratio 5 (6-20) 6 (6-20) Glucose Level 97 mg/dL (70-99) 93 mg/dL (70-99) Calcium Level 8.9 mg/dL (8.5-10.1) 8.5 mg/dL (8.5-10.1) Total Bilirubin 0.4 mg/dL (0.2-1.0) 0.4 mg/dL (0.2-1.0) Aspartate Amino Transf (AST/SGOT) 24 U/L (15-37) 17 U/L (15-37) Alanine Aminotransferase (ALT/SGPT) 28 U/L (16-63) 22 U/L (16-63) Alkaline Phosphatase 58 U/L (46-116) 53 U/L (46-116) Total Protein 7.3 g/dL (6.4-8.2) 6.4 g/dL (6.4-8.2) Albumin 3.6 g/dL (3.4-5.0) 2.9 g/dL (3.4-5.0) Albumin/Globulin Ratio 1.0 (1.0-1.7) 0.8 (1.0-1.7) Assessment and Plan Assessmemt and Plan Problems Medical Problems: (1) Abdominal mass Status: Acute (2) Cocaine use Status: Acute Comment Review of Relevant I have reviewed the following items dina (where applicable) has been applied. Medications: Current Medications Medications (Trade) Dose Ordered Sig/Cresencio Route PRN Reason Start Time Stop Time Status Last Admin Dose Admin Vancomycin HCl (Vanco Per Pharmacy) 1 each PRN DAILY PRN MC SEE COMMENTS 09/19/20 10:15 09/19/20 12:38 Cefepime HCl (Maxipime) 1 gm Q8HRS IVP 09/19/20 11:00 09/20/20 06:33 Vancomycin HCl 1.5 gm/Sodium Chloride 500 ml @ 250 mls/hr 1X ONCE IV 09/19/20 11:00 09/19/20 12:59 DC 09/19/20 10:54 Vancomycin HCl 1 gm/Sodium Chloride 250 ml @ 250 mls/hr Q12H IV 09/19/20 23:00 09/20/20 00:16 Potassium Chloride (Klor-Con) 40 meq 1X ONCE PO 09/19/20 13:15 09/19/20 13:16 DC 09/19/20 14:23 Potassium Chloride (Klor-Con) 20 meq [id number] PO 09/20/20 08:00 09/20/20 08:03 Justifications for Admission Other Justification POST BX HEMORRHAGE // abdominal mass SON ROMAN MD Sep 20, 2020 08:52
[2020-09-20 11:15] VITALS: BP 126/79
[2020-09-20] MEDS ORDERED: POLYETHYLENE GLYCOL 3350 17 GM PACKET. PO PRN (11:15)
--- NOTE | 2020-09-20 11:18 | PDOC ---
Infectious Disease Note Subjective: Subjective Patient complains of right lower quadrant abdominal pain which is new He has expected pain or previous surgical site He had hard BM yesterday T-max 99.6 Tolerating p.o. intake well Vital Signs: Vital Signs Vital Signs Date Time Temp Pulse Resp B/P (MAP) Pulse Ox O2 Delivery O2 Flow Rate FiO2 09/20/20 08:00 Room Air 09/20/20 07:00 98.5 59 18 122/74 (90) 100 98.5 Physical Exam: PHYSICAL EXAM GENERAL: Alert oriented x3 male in no acute distress HEENT: Normocephalic, atraumatic. Anicteric. NECK: Supple. No JVD. LUNGS: Clear bilaterally. No wheezing. HEART: S1, S2. No gallops. No murmurs. ABDOMEN: Soft, nondistended. Dressing from recent surgery in place. Dry bowel sounds present. EXTREMITIES: No edema, no cyanosis. CENTRAL NERVOUS SYSTEM: Alert, awake, moves all 4 extremities. DERMATOLOGIC: Warm, dry. No generalized rash. PIV looks clean. Medications: Inpatient Meds: Medications reviewed. Labs: Lab Laboratory Tests Test 09/19/20 12:15 09/20/20 07:15 White Blood Count 6.3 x10^3/uL (4.0-11.0) 5.1 x10^3/uL (4.0-11.0) Red Blood Count 3.71 x10^6/uL (4.30-5.70) 3.68 x10^6/uL (4.30-5.70) Hemoglobin 11.1 g/dL (13.0-17.5) 11.2 g/dL (13.0-17.5) Hematocrit 33.7 % (39.0-53.0) 33.0 % (39.0-53.0) Mean Corpuscular Volume 91 fL (79-100) 90 fL (79-100) Mean Corpuscular Hemoglobin 30 pg (25-35) 30 pg (25-35) Mean Corpuscular Hemoglobin Concent 33 g/dL (31-37) 34 g/dL (31-37) Red Cell Distribution Width 12.7 % (11.5-14.5) 12.9 % (11.5-14.5) Platelet Count 174 x10^3/uL (140-400) 174 x10^3/uL (140-400) Neutrophils (%) (Auto) 56 % (31-73) 62 % (31-73) Lymphocytes (%) (Auto) 35 % (24-48) 25 % (24-48) Monocytes (%) (Auto) 6 % (0-9) 7 % (0-9) Eosinophils (%) (Auto) 3 % (0-3) 5 % (0-3) Basophils (%) (Auto) 0 % (0-3) 0 % (0-3) Neutrophils # (Auto) 3.5 x10^3/uL (1.8-7.7) 3.2 x10^3/uL (1.8-7.7) Lymphocytes # (Auto) 2.2 x10^3/uL (1.0-4.8) 1.3 x10^3/uL (1.0-4.8) Monocytes # (Auto) 0.4 x10^3/uL (0.0-1.1) 0.4 x10^3/uL (0.0-1.1) Eosinophils # (Auto) 0.2 x10^3/uL (0.0-0.7) 0.2 x10^3/uL (0.0-0.7) Basophils # (Auto) 0.0 x10^3/uL (0.0-0.2) 0.0 x10^3/uL (0.0-0.2) Sodium Level 146 mmol/L (136-145) 143 mmol/L (136-145) Potassium Level 3.2 mmol/L (3.5-5.1) 3.9 mmol/L (3.5-5.1) Chloride Level 108 mmol/L (98-107) 108 mmol/L (98-107) Carbon Dioxide Level 32 mmol/L (21-32) 27 mmol/L (21-32) Anion Gap 6 (6-14) 8 (6-14) Blood Urea Nitrogen 4 mg/dL (8-26) 5 mg/dL (8-26) Creatinine 0.8 mg/dL (0.7-1.3) 0.8 mg/dL (0.7-1.3) Estimated GFR (Cockcroft-Gault) 105.5 105.5 BUN/Creatinine Ratio 5 (6-20) 6 (6-20) Glucose Level 97 mg/dL (70-99) 93 mg/dL (70-99) Calcium Level 8.9 mg/dL (8.5-10.1) 8.5 mg/dL (8.5-10.1) Total Bilirubin 0.4 mg/dL (0.2-1.0) 0.4 mg/dL (0.2-1.0) Aspartate Amino Transf (AST/SGOT) 24 U/L (15-37) 17 U/L (15-37) Alanine Aminotransferase (ALT/SGPT) 28 U/L (16-63) 22 U/L (16-63) Alkaline Phosphatase 58 U/L (46-116) 53 U/L (46-116) Total Protein 7.3 g/dL (6.4-8.2) 6.4 g/dL (6.4-8.2) Albumin 3.6 g/dL (3.4-5.0) 2.9 g/dL (3.4-5.0) Albumin/Globulin Ratio 1.0 (1.0-1.7) 0.8 (1.0-1.7) Micro ------ ------ RUN DATE: 09/20/20 [facility] *LIVE* PAGE 1 RUN TIME: 075 Specimen Inquiry PATIENT: HARIKA FALCON ACCT: [id number] LOC: [address] [place] [address] U: [id number] AGE/SX: 45/M ROOM: 262 RE09/14/[address]: KANDI HOBBS III, DO : 1975 BED: 1 DIS: STATUS: ADM IN TLOC: SPEC #: [id number] SOTERO: 09/18/20 STATUS: RES REQ #: [id number] RECD: 09/18/[address] [facility] [address]: ARMIN URBANO MD SOURCE: BLOOD ENTR: 09/19/20-[address]: YAQUELIN KULKARNI MD SPDESC: KANDI HOBBS III, PRASHANTH S MD LOWRY, STEPHEN J MD NO PCP PROPECK, SCOTT S MD SISILLO, SABATO MD ORDERED: BLD CULT - LC --------- --- Procedure Result BLOOD CULTURE LC Preliminary Preliminary SEPSITYPER ID= STAPHYLOCOCCUS EPIDERMIDIS IDENTIFICATION OBTAINED UTILIZING MBT SEPSITYPER CONFIRMATION TO FOLLOW. FINAL ID= [STAPHYLOCOCCUS EPIDERMIDIS] (ISOLATE 1) FINAL ID= [STAPHYLOCOCCUS CAPITIS] (ISOLATE 2) Growth of organism in only one of multiple sets; isolation does not necessarily indicate infection. Contact Microbiology Lab if further testing is clinically warranted. CRITICAL RESULTS WERE CALLED TO AND READ BACK BY JEN HAQ ON THE UNIT on 09/19/20 at 1351 by ALAINA MCKINLEY. STAPHYLOCOCCUS CAPITIS STAPHYLOCOCCUS EPIDERMIDIS Unless otherwise specified, Testing Performed by: [facility] [address] [place] [address] For Inquires, the Physician may contact the Microbiology department at [phone] Objective: Assessment: 1. Low grade fever ,likely from hemoperitoneum 2. Abdominal wall mass, status post biopsy on 09/15/2020. Pathology with gastrointestinal stromal tumor. 3. Moderate hemoperitoneum, moderate mass, status post laparoscopic partial gastrectomy 09/17/2020. 4. Numbness of face,extremities 5. Tobacco dependence. Substance dependence with cocaine. 6. Gastroesophageal reflux disease. 7. Hemoptysis 8. Anxiety. September 18, 2020 blood culture positive 1 out of 4 bottles 2 strains of [employer] likely contaminant Plan: Plan of Care DC IV Vanco and cefepime Monitor off antibiotics Monitor for right lower quadrant abdominal pain which is new per patient Further imaging if needed per general surgery Follow-up repeat blood cultures Continue supportive care. Discussed with nursing staff POLINA MEJIA MD Sep 20, 2020 11:18
[2020-09-20] MEDS: LACTOBACILLUS RHAMNOSUS GG 1 CAPSULE. PO SCH ×2 (11:51→20:45)
[2020-09-20 15:00] VITALS: BP 108/70
[2020-09-20] MEDS ORDERED: BISACODYL 10 MG SUPP.RECT. PR ONE (18:45)
[2020-09-20 20:25] VITALS: BP_SYST 135; BP_SYST 160; BP_DIAS 74; BP_DIAS 76
[2020-09-20] MEDS: PSYLLIUM HUSK (SUGAR FREE) 1 PKT PACKET PO SCH (20:45)
[2020-09-20 23:25] VITALS: BP 108/63
[2020-09-21 03:30] VITALS: BP 93/59
[2020-09-21] MEDS: IV NORMAL SALINE 1000ML BAG 1,000 ML IV SCH ×3 (03:55→16:41)
[2020-09-21 07:00] VITALS: BP 119/72
--- NOTE | 2020-09-21 08:15 | PDOC ---
Infectious Disease Note Subjective Subjective pt is having some abd pain with certain position ROS ROS no n/v/d/sob Vital Sign Vital Signs Vital Signs Date Time Temp Pulse Resp B/P (MAP) Pulse Ox O2 Delivery O2 Flow Rate FiO2 09/21/20 03:30 98.6 43 18 93/59 (70) 95 Room Air 98.6 Physical Exam PHYSICAL EXAM GENERAL: Alert oriented x3 male in no acute distress HEENT: Normocephalic, atraumatic. Anicteric. NECK: Supple. No JVD. LUNGS: Clear bilaterally. No wheezing. HEART: S1, S2. No gallops. No murmurs. ABDOMEN: Soft, nondistended. Dressing from recent surgery in place. Dry bowel sounds present. EXTREMITIES: No edema, no cyanosis. CENTRAL NERVOUS SYSTEM: Alert, awake, moves all 4 extremities. DERMATOLOGIC: Warm, dry. No generalized rash. PIV looks clean. Labs Micro Microbiology 09/19/20 Gram Stain Evaluation - Final, Resulted 09/19/20 Respiratory Culture, Resulted Pending 09/19/20 Blood Culture - Preliminary, Resulted NO GROWTH AFTER 1 DAY Objective Assessment 1. Low grade fever ,likely from hemoperitoneum 2. Abdominal wall mass, status post biopsy on 09/15/2020. Pathology with gastrointestinal stromal tumor. 3. Moderate hemoperitoneum, moderate mass, status post laparoscopic partial gastrectomy 09/17/2020. 4. Numbness of face,extremities 5. Tobacco dependence. Substance dependence with cocaine. 6. Gastroesophageal reflux disease. 7. Hemoptysis 8. Anxiety. September 18, 2020 blood culture positive 1 out of 4 bottles 2 strains of [employer] PROFESS[employer] likely contaminant Plan Plan of Care Monitor off antibiotics Monitor for right lower quadrant abdominal pain which is new per patient Further imaging if needed per general surgery Follow-up repeat blood cultures Continue supportive care. Discussed with nursing staff ok to d/c will s/o please call if questions MAYITO MEJIA MD Sep 21, 2020 08:15
[2020-09-21] MEDS: ENOXAPARIN 40 MG/0.4 ML SYRINGE. SQ SCH (08:58)
[2020-09-21] MEDS: POTASSIUM CHLORIDE 20 MEQ TABLET.ER. PO SCH (08:58)
[2020-09-21] MEDS: FAMOTIDINE 20 MG TABLET. PO SCH (08:58)
[2020-09-21] MEDS: LACTOBACILLUS RHAMNOSUS GG 1 CAPSULE. PO SCH ×2 (08:58→21:25)
[2020-09-21] MEDS: DOCUSATE SODIUM 100 MG CAPSULE. PO SCH ×2 (08:59→21:25)
--- NOTE | 2020-09-21 10:22 | PDOC ---
Date of Service: DATE: 09/21/20 TIME: 10:17 Subjective: Subjective: Tolerating diet. Has some right-sided pain. Wants to know details of surgery. "Was there a mass? Was it removed?" Says he's constipated, then says he had diarrhea yesterday - apparently feels the urge to stool but nothing happens (but it did yesterday)... Objective: Objective: Nurse present for interview - pt has also reported conflicting details re: stooling. Declines some constipation treatments. Vital Signs: Vital Signs Date Time Temp Pulse Resp B/P (MAP) Pulse Ox O2 Delivery O2 Flow Rate FiO2 09/21/20 08:00 Room Air 09/21/20 07:00 98.2 51 18 119/72 (88) 98 98.2 Labs: GRAM STAIN EVALUATION Final Final GRAM NEGATIVE RODS:RARE GRAM POSITIVE RODS:RARE GRAM POSITIVE COCCI:MODERATE SQUAMOUS EPI CELL:MODERATE PMN (WBCs):RARE RESPIRATORY CULTURE Preliminary Preliminary MANY Mixed upper respiratory colt on 09/21/20 at 0855 BLOOD CULTURE Preliminary NO GROWTH AFTER 1 DAY BLOOD CULTURE LC Final Final SEPSITYPER ID= STAPHYLOCOCCUS EPIDERMIDIS PE: GEN: NAD LUNGS: CTAB HEART: bradycardic - stable ABD: BS+, soft, mild discomfort right abdomen NEURO/PSYCH: A & O 3 A/P: Mass arising from stomach, s/p partial gastrectomy - ?GIST (path pending) H/o GERD and irregular bowel habits -- Continue per surgery. Difficult historian (as last week) w/ his complaints re: stooling. Has several optional medication for constipation. DC per primary. Later on, can consider outpt EGD and colonoscopy for chronic GI complaints. Justicifation of Admission Dx: Justifications for Admission: Justification of Admission Dx: Yes ALYSSA BRANCH Sep 21, 2020 10:22
--- NOTE | 2020-09-21 10:54 | PDOC ---
PULMONARY PROGRESS NOTES DATE: 09/21/20 TIME: 10:54 Subjective Pt. is resting on room air reports productive cough no overnight concerns Vitals Vital Signs Date Time Temp Pulse Resp B/P (MAP) Pulse Ox O2 Delivery O2 Flow Rate FiO2 09/21/20 08:00 Room Air 09/21/20 07:00 98.2 51 18 119/72 (88) 98 98.2 ROS: No Nausea, No Chest Pain, No Increase Cough General: Alert Lungs: Clear Cardiovascular: S1, S2 Abdomen: Soft Extremities: No Edema Skin: Warm Labs Laboratory Tests Test 09/19/20 12:15 09/20/20 07:15 White Blood Count 6.3 x10^3/uL (4.0-11.0) 5.1 x10^3/uL (4.0-11.0) Red Blood Count 3.71 x10^6/uL (4.30-5.70) 3.68 x10^6/uL (4.30-5.70) Hemoglobin 11.1 g/dL (13.0-17.5) 11.2 g/dL (13.0-17.5) Hematocrit 33.7 % (39.0-53.0) 33.0 % (39.0-53.0) Mean Corpuscular Volume 91 fL (79-100) 90 fL (79-100) Mean Corpuscular Hemoglobin 30 pg (25-35) 30 pg (25-35) Mean Corpuscular Hemoglobin Concent 33 g/dL (31-37) 34 g/dL (31-37) Red Cell Distribution Width 12.7 % (11.5-14.5) 12.9 % (11.5-14.5) Platelet Count 174 x10^3/uL (140-400) 174 x10^3/uL (140-400) Neutrophils (%) (Auto) 56 % (31-73) 62 % (31-73) Lymphocytes (%) (Auto) 35 % (24-48) 25 % (24-48) Monocytes (%) (Auto) 6 % (0-9) 7 % (0-9) Eosinophils (%) (Auto) 3 % (0-3) 5 % (0-3) Basophils (%) (Auto) 0 % (0-3) 0 % (0-3) Neutrophils # (Auto) 3.5 x10^3/uL (1.8-7.7) 3.2 x10^3/uL (1.8-7.7) Lymphocytes # (Auto) 2.2 x10^3/uL (1.0-4.8) 1.3 x10^3/uL (1.0-4.8) Monocytes # (Auto) 0.4 x10^3/uL (0.0-1.1) 0.4 x10^3/uL (0.0-1.1) Eosinophils # (Auto) 0.2 x10^3/uL (0.0-0.7) 0.2 x10^3/uL (0.0-0.7) Basophils # (Auto) 0.0 x10^3/uL (0.0-0.2) 0.0 x10^3/uL (0.0-0.2) Sodium Level 146 mmol/L (136-145) 143 mmol/L (136-145) Potassium Level 3.2 mmol/L (3.5-5.1) 3.9 mmol/L (3.5-5.1) Chloride Level 108 mmol/L (98-107) 108 mmol/L (98-107) Carbon Dioxide Level 32 mmol/L (21-32) 27 mmol/L (21-32) Anion Gap 6 (6-14) 8 (6-14) Blood Urea Nitrogen 4 mg/dL (8-26) 5 mg/dL (8-26) Creatinine 0.8 mg/dL (0.7-1.3) 0.8 mg/dL (0.7-1.3) Estimated GFR (Cockcroft-Gault) 105.5 105.5 BUN/Creatinine Ratio 5 (6-20) 6 (6-20) Glucose Level 97 mg/dL (70-99) 93 mg/dL (70-99) Calcium Level 8.9 mg/dL (8.5-10.1) 8.5 mg/dL (8.5-10.1) Total Bilirubin 0.4 mg/dL (0.2-1.0) 0.4 mg/dL (0.2-1.0) Aspartate Amino Transf (AST/SGOT) 24 U/L (15-37) 17 U/L (15-37) Alanine Aminotransferase (ALT/SGPT) 28 U/L (16-63) 22 U/L (16-63) Alkaline Phosphatase 58 U/L (46-116) 53 U/L (46-116) Total Protein 7.3 g/dL (6.4-8.2) 6.4 g/dL (6.4-8.2) Albumin 3.6 g/dL (3.4-5.0) 2.9 g/dL (3.4-5.0) Albumin/Globulin Ratio 1.0 (1.0-1.7) 0.8 (1.0-1.7) Medications Active Scripts Medications Dose Route/Sig Max Daily Dose Days Date Category Tylenol (Acetaminophen) 325 Mg Tablet 1,000 Mg PO PRN Q6HRS PRN 09/14/[address] chest reviewed : 1. No evidence of metastatic disease or acute infiltrates. No endobronchial lesions. Recommend ongoing follow-up for hemoptysis. Impression . Hemoptysis related to cocaine inhalation--improved Tobacco dependent Substance Abuse + Cocaine Shortness of air related to COPD and anxiety Monitor no additional work-up necessary Abdominal mass s/p biopsy on 09/15/20 GERD September 18, 2020 blood culture positive 1 out of 4 bottles for GPC in clusters Moderate hemoperitoneum, moderate mass, status post laparoscopic partial gastrectomy 09/17/2020 Plan . Updated 09/19/20 Pt. respiratory status is compensated, remains on room air add IS, encourage hourly use Follow ID recs fro ABX --September 18, 2020 blood culture positive 1 out of 4 bottles for GPC in clusters NEBS PRN CT chest reviewed Follow surgery recs--Abdominal mass s/p biopsy on 09/15/20 and Moderate hemoperitoneum, moderate mass, status post laparoscopic partial gastrectomy 09/17/2020 Follow GI recs DVT/GI PPX D/W RN follow up in Office with me in November Updated 09/16/20 Pt. respiratory status is compensated, remains on room air No Further hemoptysis NEBS PRN CT chest reviewed Follow surgery recs--Abdominal mass s/p biopsy on 09/15/20 Follow GI recs Educated on importance of cessation of smoking and drug use Anxiety per PCP DVT/GI PPX D/W TERESSA Deleon DC today from our standpoint follow up in Office with me in November PLAN: 09/15/20 1. Respiratory status appears to be compensated, no further workup needed. 2. Suspect patient's symptoms of shortness of breath related to anxiety more than anything else. 3. P.r.n. albuterol. HERB WAYNE MD Sep 21, 2020 10:54
[2020-09-21 11:00] VITALS: BP 109/78
--- NOTE | 2020-09-21 11:07 | PDOC3 ---
Discharge Summary Visit Information Date of Admission: Sep 14, 2020 Date of Discharge: Sep 21, 2020 Final Diagnosis Abdominal pain - with mass resected on 09/17 and lavage of hemoperitoneum. Still with pain today Cocaine use Bradycardia, asymptomatic, mild Right-sided numbness/ paresthesia , headache, sinus congestion, ON ct head, No acute intracranial abnormality. will consult neurology, neg MRI HEAD Stroke symptoms following cocaine use, sensory loss on the right side is the only finding, improving, only subjective now. unintentional weight loss Tobacco abuse disorder right lower leg paresthesia Hemorrhage surrounding the mass in the right upper quadrant hemorrhagic area measures 9.3 x 5.1 x 5 cm. 09-16 PLAN ADMITTED dvt prophylaxis mri abdomen GI CONSULT GEN SURGERY CONSULT Neurology consult consider MRI HEAD ct guided bx 09-15 Problems Medical Problems: (1) Abdominal mass Status: Acute (2) Cocaine use Status: Acute Brief Hospital Course Allergies Allergies Coded Allergies Type Severity Reaction Last Updated Verified No Known Drug Allergies 04/29/17 No Vital Signs Vital Signs Date Time Temp Pulse Resp B/P (MAP) Pulse Ox O2 Delivery O2 Flow Rate FiO2 09/21/20 08:00 Room Air 09/21/20 07:00 98.2 51 18 119/72 (88) 98 98.2 Lab Results Laboratory Tests Test 09/19/20 12:15 09/20/20 07:15 White Blood Count 6.3 x10^3/uL (4.0-11.0) 5.1 x10^3/uL (4.0-11.0) Red Blood Count 3.71 x10^6/uL (4.30-5.70) 3.68 x10^6/uL (4.30-5.70) Hemoglobin 11.1 g/dL (13.0-17.5) 11.2 g/dL (13.0-17.5) Hematocrit 33.7 % (39.0-53.0) 33.0 % (39.0-53.0) Mean Corpuscular Volume 91 fL (79-100) 90 fL (79-100) Mean Corpuscular Hemoglobin 30 pg (25-35) 30 pg (25-35) Mean Corpuscular Hemoglobin Concent 33 g/dL (31-37) 34 g/dL (31-37) Red Cell Distribution Width 12.7 % (11.5-14.5) 12.9 % (11.5-14.5) Platelet Count 174 x10^3/uL (140-400) 174 x10^3/uL (140-400) Neutrophils (%) (Auto) 56 % (31-73) 62 % (31-73) Lymphocytes (%) (Auto) 35 % (24-48) 25 % (24-48) Monocytes (%) (Auto) 6 % (0-9) 7 % (0-9) Eosinophils (%) (Auto) 3 % (0-3) 5 % (0-3) Basophils (%) (Auto) 0 % (0-3) 0 % (0-3) Neutrophils # (Auto) 3.5 x10^3/uL (1.8-7.7) 3.2 x10^3/uL (1.8-7.7) Lymphocytes # (Auto) 2.2 x10^3/uL (1.0-4.8) 1.3 x10^3/uL (1.0-4.8) Monocytes # (Auto) 0.4 x10^3/uL (0.0-1.1) 0.4 x10^3/uL (0.0-1.1) Eosinophils # (Auto) 0.2 x10^3/uL (0.0-0.7) 0.2 x10^3/uL (0.0-0.7) Basophils # (Auto) 0.0 x10^3/uL (0.0-0.2) 0.0 x10^3/uL (0.0-0.2) Sodium Level 146 mmol/L (136-145) 143 mmol/L (136-145) Potassium Level 3.2 mmol/L (3.5-5.1) 3.9 mmol/L (3.5-5.1) Chloride Level 108 mmol/L (98-107) 108 mmol/L (98-107) Carbon Dioxide Level 32 mmol/L (21-32) 27 mmol/L (21-32) Anion Gap 6 (6-14) 8 (6-14) Blood Urea Nitrogen 4 mg/dL (8-26) 5 mg/dL (8-26) Creatinine 0.8 mg/dL (0.7-1.3) 0.8 mg/dL (0.7-1.3) Estimated GFR (Cockcroft-Gault) 105.5 105.5 BUN/Creatinine Ratio 5 (6-20) 6 (6-20) Glucose Level 97 mg/dL (70-99) 93 mg/dL (70-99) Calcium Level 8.9 mg/dL (8.5-10.1) 8.5 mg/dL (8.5-10.1) Total Bilirubin 0.4 mg/dL (0.2-1.0) 0.4 mg/dL (0.2-1.0) Aspartate Amino Transf (AST/SGOT) 24 U/L (15-37) 17 U/L (15-37) Alanine Aminotransferase (ALT/SGPT) 28 U/L (16-63) 22 U/L (16-63) Alkaline Phosphatase 58 U/L (46-116) 53 U/L (46-116) Total Protein 7.3 g/dL (6.4-8.2) 6.4 g/dL (6.4-8.2) Albumin 3.6 g/dL (3.4-5.0) 2.9 g/dL (3.4-5.0) Albumin/Globulin Ratio 1.0 (1.0-1.7) 0.8 (1.0-1.7) Brief Hospital Course Mr. Li is a 45 old Male from [place] admti with right arm and leg numbness or heaviness and tingling and marked nausea and is having left-sided abdominal pain he has lost 20 lbs in last year on CT Abdomen, a 5.0 x 4.1 cm soft tissue mass is centered within the mesentery of the right hemiabdomen. // differential considerations include GIST. Dr. 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
--- NOTE | 2020-09-21 12:27 | NUR ---
SS following up with discharge planning. SS reviewed pt chart and discussed with pt RN. Pt is currently on room air. PT/OT recommended home independent. Probable discharge to home today. SS will continue to follow for discharge planning.
--- NOTE | 2020-09-21 12:53 | PDOC2 ---
CONSULT Date of Consult Date of Consult DATE: 09/21/20 TIME: 12:44 Reason for Consult Reason for Consult: Gastric mass Referring Physician Referring Physician: Dr. Nicole Source Source: Caregiver, Chart review, Patient History of Present Illness Reason for Visit: Tru Li is a 45-year-old male of [place] origin who presented to [facility] reporting focal weakness and abdominal discomfort. He reported recent use of cocaine. Neurologic evaluation did not show any acute stroke. He received a CT abdomen for further evaluation of his abdominal pain which showed a 5 cm sized abdominal mass. This was also confirmed on MRI abdomen. On 09/17/2020, Dr. Valentin performed a laparoscopic partial gastrectomy with removal of this mass. Pathology is pending at this time. Medical oncology consultation has been started the patient's suspected cancer diagnosis. He denies a family history of cancer. He states he lives in [place] with his and [facility]. 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 Past Medical History Cardiovascular: No pertinent hx Pulmonary: No pertinent hx GI: GERD Psych: Depression Infectious disease: No pertinent hx ENT: No pertinent hx Renal/: No pertinent hx Endocrine: No pertinent hx Dermatology: No pertinent hx Past Surgical History Past Surgical History: No pertinent history Family History Family History: Coronary Artery Disease (father), Diabetes (father) Social History Social History: Parent (father) <1 pack per day ALCOHOL: occassional Drugs: Cocaine Lives: with Family Current Problem List Problem List Problems Medical Problems: (1) Abdominal mass Status: Acute (2) Cocaine use Status: Acute Current Medications Current Medications Current Medications Ondansetron HCl (Zofran) 4 mg 1X ONCE IVP Last administered on 09/13/20at 16:30; Start 09/13/20 at 16:30; Stop 09/13/20 at 16:31; Status DC Fentanyl Citrate (Fentanyl 2ml Vial) 50 mcg 1X ONCE IVP ; Start 09/13/20 at 16:30; Stop 09/13/20 at 16:31; Status DC Iohexol (Omnipaque 300 Mg/ml) 75 ml 1X ONCE IV Last administered on 09/13/20at 16:57; Start 09/13/20 at 16:45; Stop 09/13/20 at 16:46; Status DC Info (CONTRAST GIVEN -- Rx MONITORING) 1 each PRN DAILY PRN MC SEE COMMENTS; Start 09/13/20 at 16:45; Stop 09/15/20 at 16:44; Status DC Sodium Chloride 1,000 ml @ 1,000 mls/hr 1X ONCE IV Last administered on 09/13/20at 16:45; Start 09/13/20 at 16:45; Stop 09/13/20 at 17:44; Status DC Sodium Chloride 1,000 ml @ 1,000 mls/hr 1X ONCE IV Last administered on 09/13/20at 18:00; Start 09/13/20 at 18:00; Stop 09/13/20 at 18:59; Status DC Acetaminophen (Tylenol) 1,000 mg 1X ONCE PO Last administered on 09/13/20at 22:30; Start 09/13/20 at 22:30; Stop 09/13/20 at 22:31; Status DC Pantoprazole Sodium (Protonix) 40 mg DAILYAC PO Last administered on 09/14/20at 11:57; Start 09/14/20 at 11:30; Stop 09/16/20 at 17:08; Status DC Acetaminophen (Tylenol) 1,000 mg PRN Q6HRS PRN PO MILD PAIN / TEMP > 100.3'F; Start 09/14/20 at 12:45; Stop 09/16/20 at 17:08; Status DC Sodium Chloride (Normal Saline Flush) 3 ml QSHIFT PRN IV AFTER MEDS AND BLOOD DRAWS; Start 09/14/20 at 12:45; Stop 09/16/20 at 17:11; Status DC Ondansetron HCl (Zofran) 4 mg PRN Q4HRS PRN IV NAUSEA/VOMITING; Start 09/14/20 at 12:45; Stop 09/17/20 at 16:22; Status DC Al Hydroxide/Mg Hydroxide (Mylanta Plus Xs) 30 ml PRN DAILY PRN PO HEARTBURN / GAS; Start 09/14/20 at 12:45 Sodium Monofluorophosphate (Fleet Adult) 133 ml PRN DAILY PRN TX CONSTIPATION; Start 09/14/20 at 12:45; Stop 09/20/20 at 11:13; Status DC Docusate Sodium (Colace) 100 mg PRN BID PRN PO HARD STOOLS Last administered on 09/16/20at 09:26; Start 09/14/20 at 12:45; Stop 09/16/20 at 17:08; Status DC Albuterol Sulfate (Ventolin Neb Soln) 2.5 mg PRN Q4HRS PRN NEB SHORTNESS OF BREATH; Start 09/14/20 at 12:45 Guaifenesin (Robitussin) 200 mg PRN Q4HRS PRN PO COUGH; Start 09/14/20 at 12:45 Lorazepam (Ativan) 0.5 mg PRN Q4HRS PRN PO ANXIETY / AGITATION; Start 09/14/20 at 12:45; Stop 09/16/20 at 17:08; Status DC Enoxaparin Sodium (Lovenox 40mg Syringe) 40 mg Q24H SQ ; Start 09/14/20 at 14:00; Stop 09/16/20 at 17:08; Status DC Sodium Chloride 1,000 ml @ 100 mls/hr 1X ONCE IV Last administered on 09/14/20at 14:23; Start 09/14/20 at 14:00; Stop 09/14/20 at 23:59; Status DC Sodium Chloride 1,000 ml @ 100 mls/hr Q10H IV Last administered on 09/16/20at 11:49; Start 09/14/20 at 16:00; Stop 09/16/20 at 17:08; Status DC Acetaminophen (Tylenol) 650 mg PRN Q6HRS PRN PO MILD PAIN / TEMP > 100.3'F; Start 09/14/20 at 15:15; Stop 09/14/20 at 15:10; Status DC Aspirin (Ecotrin) 325 mg DAILYWBKFT PO Last administered on 09/14/20at 16:27; Start 09/14/20 at 16:00; Stop 09/16/20 at 17:08; Status DC Aspirin (Aspirin Rectal Supp) 300 mg PRN DAILY PRN TX IF UNABLE TO TAKE PO; Start 09/14/20 at 15:15; Stop 09/16/20 at 17:08; Status DC Polyethylene Glycol (miraLAX PACKET) 17 gm DAILY PO Last administered on 09/16/20at 09:29; Start 09/15/20 at 10:00; Stop 09/16/20 at 17:08; Status DC Bisacodyl (Dulcolax Tab) 5 mg 1X ONCE PO ; Start 09/15/20 at 09:45; Stop 09/15/20 at 09:46; Status DC Gadoterate Meglumine (Clariscan) 12 ml 1X ONCE IVP Last administered on 09/15/20at 11:30; Start 09/15/20 at 11:45; Stop 09/15/20 at 11:46; Status DC Lidocaine HCl (Buffered Lidocaine 1%) 9 ml 1X ONCE INJ Last administered on 09/15/20at 14:45; Start 09/15/20 at 14:45; Stop 09/15/20 at 14:53; Status DC Iohexol (Omnipaque 300 Mg/ml) 75 ml 1X ONCE IV Last administered on 09/15/20at 14:45; Start 09/15/20 at 14:45; Stop 09/15/20 at 14:53; Status DC Bisacodyl (Dulcolax Tab) 5 mg 1X ONCE PO ; Start 09/16/20 at 09:30; Stop 09/16/20 at 17:08; Status DC Acetaminophen/ Hydrocodone Bitart (Lortab 5/325) 1 tab PRN Q4HRS PRN PO MODERATE-SEVERE PAIN Last administered on 09/16/20at 11:47; Start 09/16/20 at 11:30; Stop 09/16/20 at 17:08; Status DC Bisacodyl (Dulcolax Tab) 5 mg PRN DAILY PRN PO CONSTIPATION; Start 09/16/20 at 14:15 Hydromorphone HCl (Dilaudid) 0.6 mg PRN Q3HRS PRN IVP PAIN Last administered on 09/16/20at 15:02; Start 09/16/20 at 15:00; Stop 09/16/20 at 17:24; Status DC Iohexol (Omnipaque 300 Mg/ml) 75 ml 1X ONCE IV Last administered on 09/16/20at 16:14; Start 09/16/20 at 16:15; Stop 09/16/20 at 16:16; Status DC Info (CONTRAST GIVEN -- Rx MONITORING) 1 each PRN DAILY PRN MC SEE COMMENTS; Start 09/16/20 at 16:15; Stop 09/18/20 at 16:14; Status DC Ondansetron HCl (Zofran) 4 mg PRN Q6HRS PRN IVP NAUSEA/VOMITING; Start 09/16/20 at 17:15; Stop 09/17/20 at 16:22; Status DC Famotidine (Pepcid Vial) 20 mg BID IVP Last administered on 09/17/20at 14:27; Start 09/16/20 at 21:00; Stop 09/17/20 at 16:21; Status DC Sodium Chloride (Normal Saline Flush) 3 ml QSHIFT PRN IV AFTER MEDS AND BLOOD DRAWS; Start 09/16/20 at 17:15; Stop 09/18/20 at 08:46; Status DC Sodium Chloride 1,000 ml @ 150 mls/hr Q6H40M IV Last administered on 09/21/20at 10:05; Start 09/16/20 at 17:15 Hydromorphone HCl (Dilaudid) 1 mg PRN Q3HRS PRN IVP SEVERE PAIN Last administered on 09/19/20at 02:03; Start 09/16/20 at 17:30 Cefoxitin Sodium (Mefoxin) 2 gm 1X PREOP ONCE IVP Last administered on 09/17/20at 10:25; Start 09/17/20 at 07:30; Stop 09/17/20 at 07:32; Status DC Fentanyl Citrate (Fentanyl 2ml Vial) 25 mcg PRN Q5MIN PRN IVP MILD PAIN 1-3; Start 09/17/20 at 09:00; Stop 09/18/20 at 08:59; Status DC Fentanyl Citrate (Fentanyl 2ml Vial) 50 mcg PRN Q5MIN PRN IVP MODERATE PAIN 4- 6; Start 09/17/20 at 09:00; Stop 09/18/20 at 08:59; Status DC Morphine Sulfate (Morphine Sulfate) 1 mg PRN Q10MIN PRN IVP SEVERE PAIN 7-10; Start 09/17/20 at 09:00; Stop 09/18/20 at 08:59; Status DC Ringer's Solution 1,000 ml @ 30 mls/hr Q24H IV ; Start 09/17/20 at 09:00; Stop 09/17/20 at 20:59; Status DC Hydromorphone HCl (Dilaudid) 0.5 mg PRN Q10MIN PRN IVP SEVERE PAIN 7-10, 2nd CHOICE; Start 09/17/20 at 09:00; Stop 09/18/20 at 08:59; Status DC Prochlorperazine Edisylate (Compazine) 5 mg PACU PRN PRN IVP NAUSEA, MRX1; Start 09/17/20 at 09:00; Stop 09/18/20 at 08:59; Status DC Dexmedetomidine HCl (Precedex) 200 mcg STK-MED ONCE IV ; Start 09/17/20 at 09:25; Stop 09/17/20 at 09:25; Status DC Magnesium Sulfate (Magnesium Sulfate) 5 gm STK-MED ONCE .ROUTE ; Start 09/17/20 at 09:25; Stop 09/17/20 at 09:25; Status DC Bupivacaine HCl/ Epinephrine Bitart (Sensorcain-Epi 0.5% Kit) 30 ml STK-MED ONCE INJ Last administered on 09/17/20at 10:33; Start 09/17/20 at 10:33; Stop 09/17/20 at 11:09; Status DC Calcium Carbonate/ Glycine (Tums) 500 mg PRN Q3HRS PRN PO HEARTBURN / GAS; Start 09/17/20 at 11:30 Famotidine (Pepcid) 20 mg BID PO Last administered on 09/21/20at 08:58; Start 09/17/20 at 21:00; Stop 09/21/20 at 10:23; Status DC Enoxaparin Sodium (Lovenox 40mg Syringe) 40 mg Q24H SQ Last administered on 09/19/20at 08:18; Start 09/18/20 at 09:00 Sodium Chloride (Normal Saline Flush) 3 ml QSHIFT PRN IV AFTER MEDS AND BLOOD DRAWS; Start 09/17/20 at 11:30 Ringer's Solution 1,000 ml @ 100 mls/hr Q10H IV Last administered on 09/17/20at 12:20; Start 09/17/20 at 11:30; Stop 09/18/20 at 12:14; Status DC Acetaminophen/ Hydrocodone Bitart (Lortab 5/325) 1 tab PRN Q4HRS PRN PO MILD PAIN 1-3 Last administered on 09/19/20at 02:02; Start 09/17/20 at 11:30 Naloxone HCl (Narcan) 0.4 mg PRN Q2MIN PRN IV SEE INSTRUCTIONS; Start 09/17/20 at 11:30 Sodium Chloride 1,000 ml @ 25 mls/hr Q24H IV ; Start 09/17/20 at 11:30; Stop 09/17/20 at 16:23; Status DC Morphine Sulfate (Morphine Sulfate) 1 mg PRN Q1HR PRN IV MODERATE PAIN Last administered on 09/18/20at 16:31; Start 09/17/20 at 11:30 Docusate Sodium (Colace) 100 mg BID PO Last administered on 09/20/20at 20:45; Start 09/17/20 at 21:00 Ondansetron HCl (Zofran) 4 mg PRN Q6HRS PRN IVP NAUESA, 1ST CHOICE; Start 09/17/20 at 11:30 Acetaminophen/ Aspirin/Caffeine (Excedrin Migraine) 1 tab PRN Q6HRS PRN PO MIGRAINE HEADACHE Last administered on 09/21/20at 10:12; Start 09/18/20 at 09:00 Lidocaine HCl (Buffered Lidocaine 1%) 3 ml STK-MED ONCE .ROUTE ; Start 09/15/20 at 12:25; Stop 09/18/20 at 15:30; Status DC Iohexol (Omnipaque 300 Mg/ml) 100 ml STK-MED ONCE .ROUTE ; Start 09/15/20 at 14:29; Stop 09/18/20 at 15:32; Status DC Gelatin (Gelfoam Size 12-7mm) 1 each STK-MED ONCE .ROUTE ; Start 09/15/20 at 14:55; Stop 09/18/20 at 15:32; Status DC Propofol (Diprivan) 200 mg STK-MED ONCE IV ; Start 09/17/20 at 08:56; Stop 09/18/20 at 15:54; Status DC Lidocaine HCl (Lidocaine Pf 2% Vial) 5 ml STK-MED ONCE .ROUTE ; Start 09/17/20 at 08:56; Stop 09/18/20 at 15:54; Status DC Rocuronium [place] (Zemuron) 50 mg STK-MED ONCE .ROUTE ; Start 09/17/20 at 08:56; Stop 09/18/20 at 15:54; Status DC Fentanyl Citrate (Fentanyl 2ml Vial) 100 mcg STK-MED ONCE .ROUTE ; Start 09/17/20 at 08:57; Stop 09/18/20 at 15:54; Status DC Midazolam HCl (Versed) 2 mg STK-MED ONCE .ROUTE ; Start 09/17/20 at 08:57; Stop 09/18/20 at 15:54; Status DC Ketamine HCl (Ketamine) 50 mg STK-MED ONCE .ROUTE ; Start 09/17/20 at 09:22; Stop 09/18/20 at 15:54; Status DC Ropivacaine (Naropin 0.5%) 20 ml STK-MED ONCE .ROUTE ; Start 09/17/20 at 09:26; Stop 09/18/20 at 15:54; Status DC Bupivacaine HCl/ Epinephrine Bitart (Sensorcain-Epi 0.5% Kit) 30 ml STK-MED ONCE .ROUTE ; Start 09/17/20 at 09:51; Stop 09/18/20 at 15:54; Status DC Neostigmine [place] (Neostigmine Methylsulfate) 5 mg STK-MED ONCE .ROUTE ; Start 09/17/20 at 10:50; Stop 09/18/20 at 15:55; Status DC Glycopyrrolate (Robinul) 1 mg STK-MED ONCE .ROUTE ; Start 09/17/20 at 10:50; Stop 09/18/20 at 15:55; Status DC Cellulose (Surgicel Hemostat 4x8) 1 each STK-MED ONCE .ROUTE ; Start 09/17/20 at 11:08; Stop 09/18/20 at 15:55; Status DC Sevoflurane (Ultane) 60 ml STK-MED ONCE IH ; Start 09/17/20 at 11:44; Stop 09/18/20 at 15:55; Status DC Phenylephrine HCl (PHENYLEPHRINE in 0.9% NACL PF) 1 mg STK-MED ONCE IV ; Start 09/17/20 at 17:53; Stop 09/18/20 at 15:58; Status DC Ondansetron HCl (Zofran) 4 mg STK-MED ONCE .ROUTE ; Start 09/17/20 at 17:53; Stop 09/18/20 at 15:58; Status DC Dexamethasone Sodium Phosphate (Decadron) 4 mg STK-MED ONCE .ROUTE ; Start 09/17/20 at 17:53; Stop 09/18/20 at 15:58; Status DC Vancomycin HCl (Vanco Per Pharmacy) 1 each PRN DAILY PRN MC SEE COMMENTS Last administered on 09/20/20at 08:48; Start 09/19/20 at 10:15; Stop 09/20/20 at 11:39; Status DC Cefepime HCl (Maxipime) 1 gm Q8HRS IVP Last administered on 09/20/20at 06:33; Start 09/19/20 at 11:00; Stop 09/20/20 at 11:38; Status DC Vancomycin HCl 1.5 gm/Sodium Chloride 500 ml @ 250 mls/hr 1X ONCE IV Last administered on 09/19/20at 10:54; Start 09/19/20 at 11:00; Stop 09/19/20 at 12:59; Status DC Vancomycin HCl 1 gm/Sodium Chloride 250 ml @ 250 mls/hr Q12H IV Last administ ered on 09/20/20at 00:16; Start 09/19/20 at 23:00; Stop 09/20/20 at 11:38; Status DC Vancomycin HCl (Vancomycin Trough Level) 1 each 1X ONCE MC ; Start 09/20/20 at 22:30; Stop 09/20/20 at 11:40; Status DC Potassium Chloride (Klor-Con) 40 meq 1X ONCE PO Last administered on 09/19/20at 14:23; Start 09/19/20 at 13:15; Stop 09/19/20 at 13:16; Status DC Potassium Chloride (Klor-Con) 20 meq DAILYWBKFT PO Last administered on 09/21/20at 08:58; Start 09/20/20 at 08:00 Lactobacillus Rhamnosus (Culturelle) 1 cap BID PO Last administered on 09/21/20at 08:58; Start 09/20/20 at 09:00 Psyllium Hydrophilic Mucilloid (Metamucil Fiber Packet) 1 pkt QHS PO Last administered on 09/20/20at 20:45; Start 09/20/20 at 21:00 Polyethylene Glycol (miraLAX PACKET) 17 gm PRN DAILY PRN PO CONSTIPATION; Start 09/20/20 at 11:15 Bisacodyl (Dulcolax Supp) 10 mg 1X ONCE TX Last administered on 09/20/20at 20:45; Start 09/20/20 at 18:45; Stop 09/20/20 at 18:46; Status DC Famotidine (Pepcid) 20 mg DAILY PO ; Start 09/22/20 at 09:00 Active Scripts Active Reported Tylenol (Acetaminophen) 325 Mg Tablet 1,000 Mg PO PRN Q6HRS PRN Allergies Allergies: Coded Allergies: No Known Drug Allergies (Unverified , 04/29/17) ROS Review of System Negative unless stated otherwise in HPI Physical Exam Physical Exam General: Awake, alert, no distress Head: Atraumatic, no conjunctival icterus, normal oral cavity mucosa Neck: Supple, no lymphadenopathy Chest: No trauma noted Cardiovascular: Regular rhythm, normal rate, no murmurs Respiratory: Bilateral air entry noted, lungs clear to auscultation bilaterally. No accessory muscle use Abdominal: Abdomen is soft, nontender, nondistended. Bowel sounds were normal. No hepatomegaly or splenomegaly. Scars from recent laparoscopic surgery noted. Well-healing. Musculoskeletal: No deformity noted Extremities: No edema noted Skin: No rash or lesions Neurologic: Alert and oriented x3, no grossly evident neurologic deficits noted. Full neurological exam was not performed Psychiatric: Appropriate mood and affect Vitals VITALS Vital Signs Date Time Temp Pulse Resp B/P (MAP) Pulse Ox O2 Delivery O2 Flow Rate FiO2 09/21/20 11:00 97.9 61 18 109/78 (88) 98 Room Air 97.9 Labs Labs Laboratory Tests Test 09/20/20 07:15 White Blood Count 5.1 x10^3/uL (4.0-11.0) Red Blood Count 3.68 x10^6/uL (4.30-5.70) Hemoglobin 11.2 g/dL (13.0-17.5) Hematocrit 33.0 % (39.0-53.0) Mean Corpuscular Volume 90 fL (79-100) Mean Corpuscular Hemoglobin 30 pg (25-35) Mean Corpuscular Hemoglobin Concent 34 g/dL (31-37) Red Cell Distribution Width 12.9 % (11.5-14.5) Platelet Count 174 x10^3/uL (140-400) Neutrophils (%) (Auto) 62 % (31-73) Lymphocytes (%) (Auto) 25 % (24-48) Monocytes (%) (Auto) 7 % (0-9) Eosinophils (%) (Auto) 5 % (0-3) Basophils (%) (Auto) 0 % (0-3) Neutrophils # (Auto) 3.2 x10^3/uL (1.8-7.7) Lymphocytes # (Auto) 1.3 x10^3/uL (1.0-4.8) Monocytes # (Auto) 0.4 x10^3/uL (0.0-1.1) Eosinophils # (Auto) 0.2 x10^3/uL (0.0-0.7) Basophils # (Auto) 0.0 x10^3/uL (0.0-0.2) Sodium Level 143 mmol/L (136-145) Potassium Level 3.9 mmol/L (3.5-5.1) Chloride Level 108 mmol/L (98-107) Carbon Dioxide Level 27 mmol/L (21-32) Anion Gap 8 (6-14) Blood Urea Nitrogen 5 mg/dL (8-26) Creatinine 0.8 mg/dL (0.7-1.3) Estimated GFR (Cockcroft-Gault) 105.5 BUN/Creatinine Ratio 6 (6-20) Glucose Level 93 mg/dL (70-99) Calcium Level 8.5 mg/dL (8.5-10.1) Total Bilirubin 0.4 mg/dL (0.2-1.0) Aspartate Amino Transf (AST/SGOT) 17 U/L (15-37) Alanine Aminotransferase (ALT/SGPT) 22 U/L (16-63) Alkaline Phosphatase 53 U/L (46-116) Total Protein 6.4 g/dL (6.4-8.2) Albumin 2.9 g/dL (3.4-5.0) Albumin/Globulin Ratio 0.8 (1.0-1.7) Assessment/Plan Assessment/Plan Assessment: Gastric mass, status post partial gastrectomy Cocaine use Anemia secondary to acute blood loss from surgery Recommendations: -We discussed the role of surgical pathology in establishing diagnosis, cancer staging and postsurgical therapy -I recommended outpatient follow-up to review the results of surgical pathology which are pending at this time -Plan on obtaining CT chest for completion of staging if surgical pathology shows malignancy -No additional inpatient evaluation or management required from oncology standpoint -Discharge per Dr. Nicole -Outpatient medical oncology follow-up will be arranged in 2 weeks to review pathology Geovani Ochoa MD Medical Oncology/Hematology Ph: [phone] RADHA OCHOA MD Sep 21, 2020 12:53
--- NOTE | 2020-09-21 14:07 | PATHOLOGY ---
[facility] Accession Number: [id number] . 01 Material submitted: . abdomen - ABDOMINAL MASS CORE BIOPSY . 01 Clinical history: . ABDOMINAL MASS ABDOMINAL MASS BIOPSY . 02 Diagnosis: Abdominal mass, CT-guided needle biopsy: - Gastrointestinal stromal tumor. See comment. . (JPM:pit/amy/mml; 09/21/2020) P 09/21/2020 1341 Local . 02 Comment: Sections of the abdominal mass CT-guided needle biopsy reveal a spindle cell neoplasm of low to focal intermediate cellularity. The tumor cells have indistinct amounts of pale eosinophilic cytoplasm, and possess elongate, blunt to tapered bland appearing nuclei. The stroma of the tumor has a somewhat loose myxoid appearance. The tumor does not show any significant mitotic activity. There are no areas of necrosis. . A portion of the specimen is submitted for flow cytometric analysis and has a viability of 66.6%. There is no flow immunophenotypic evidence of a lymphoproliferative disorder. See flow report [id number]. . A panel of immunoperoxidase stains is performed on A1 and yields the following results: . CD117: Tumor cells positive *DOG-1: Tumor cells strongly positive CD34: Tumor cells positive Smooth muscle actin: Tumor cells negative S100: Tumor cells negative Desmin: Tumor cells negative AE1/AE3: Tumor cells negative Beta-catenin: Tumor cells positive (cytoplasmic with absence of nuclear staining) . The morphologic and immunophenotypic findings are supportive of the diagnosis of gastrointestinal stromal tumor. Risk assessment is best performed on the excised specimen which is forthcoming. . The case is also examined by Dr. Terra Mccarty, who concurs with the diagnosis. . Special stains performed - Immunoperoxidase stains for: CD117 DOG-1 CD34 Smooth Muscle Actin S100 Desmin AE1/AE3 Beta-catenin . (JPM:pit/amy/mml; 09/21/2020) . . *Technical services performed by [facility] [place], [address] [place] [address], [address], [place] [address]. . 02 Electronically signed: . Kingsley Thomas MD, Pathologist NPI- [id number] . 01 Gross description: . Received in formalin labeled "Abbas, Tru, and abdominal mass core biopsy". Received are 3 abdominal core biopsies ranging from 1.4-1.5 cm in length and 0.1 cm in diameter. The specimen is entirely submitted in cassette A1.(J; 09/15/2020) [facility] 09/15/2020 2329 Local . 02 Pathologist provided ICD-10: D48.1 . 02 CPT . 024426, N84602, [id number], [id number] Specimen Comment: A courtesy copy of this report has been sent to [phone], [phone] Specimen Comment: [id number], , Specimen Comment: Report sent to , DR CARDENAS, DR HOBBS / DR ZAMBRANO Specimen Comment: A duplicate report has been generated due to demographic updates. Performed at: 01 [facility] [address], [place], [place] [id number] MD Shayne Steele MD Phone: [phone] Performed at: 02 [facility] [address] [place], [place] [id number] MD Kingsley Thomas MD Phone: [phone]
[2020-09-21] MEDS ORDERED: POLY17PO52 PO (14:27)
[2020-09-21] MEDS ORDERED: IBUP-1027 PO (14:27)
[2020-09-21 15:00] VITALS: BP 123/81
--- NOTE | 2020-09-21 15:40 | PDOC ---
SURGICAL PROGRESS NOTE DATE: 09/21/20 TIME: 15:39 Subjective Pt with c/o mild incisional pain, miki diet, passing stools Vital Signs Vital Signs Date Time Temp Pulse Resp B/P (MAP) Pulse Ox O2 Delivery O2 Flow Rate FiO2 09/21/20 11:00 97.9 61 18 109/78 (88) 98 Room Air 97.9 I&O Intake and Output 09/21/20 07:00 Intake Total 2880 ml Output Total 600 ml Balance 2280 ml Intake Oral 880 ml IV Total 2000 ml Output Urine Total 600 ml General: Alert, Oriented X3, Cooperative, No acute distress Abdomen: Soft, No tenderness, Other (incision healing nicely) Labs Laboratory Tests Test 09/20/20 07:15 White Blood Count 5.1 x10^3/uL (4.0-11.0) Red Blood Count 3.68 x10^6/uL (4.30-5.70) Hemoglobin 11.2 g/dL (13.0-17.5) Hematocrit 33.0 % (39.0-53.0) Mean Corpuscular Volume 90 fL (79-100) Mean Corpuscular Hemoglobin 30 pg (25-35) Mean Corpuscular Hemoglobin Concent 34 g/dL (31-37) Red Cell Distribution Width 12.9 % (11.5-14.5) Platelet Count 174 x10^3/uL (140-400) Neutrophils (%) (Auto) 62 % (31-73) Lymphocytes (%) (Auto) 25 % (24-48) Monocytes (%) (Auto) 7 % (0-9) Eosinophils (%) (Auto) 5 % (0-3) Basophils (%) (Auto) 0 % (0-3) Neutrophils # (Auto) 3.2 x10^3/uL (1.8-7.7) Lymphocytes # (Auto) 1.3 x10^3/uL (1.0-4.8) Monocytes # (Auto) 0.4 x10^3/uL (0.0-1.1) Eosinophils # (Auto) 0.2 x10^3/uL (0.0-0.7) Basophils # (Auto) 0.0 x10^3/uL (0.0-0.2) Sodium Level 143 mmol/L (136-145) Potassium Level 3.9 mmol/L (3.5-5.1) Chloride Level 108 mmol/L (98-107) Carbon Dioxide Level 27 mmol/L (21-32) Anion Gap 8 (6-14) Blood Urea Nitrogen 5 mg/dL (8-26) Creatinine 0.8 mg/dL (0.7-1.3) Estimated GFR (Cockcroft-Gault) 105.5 BUN/Creatinine Ratio 6 (6-20) Glucose Level 93 mg/dL (70-99) Calcium Level 8.5 mg/dL (8.5-10.1) Total Bilirubin 0.4 mg/dL (0.2-1.0) Aspartate Amino Transf (AST/SGOT) 17 U/L (15-37) Alanine Aminotransferase (ALT/SGPT) 22 U/L (16-63) Alkaline Phosphatase 53 U/L (46-116) Total Protein 6.4 g/dL (6.4-8.2) Albumin 2.9 g/dL (3.4-5.0) Albumin/Globulin Ratio 0.8 (1.0-1.7) Problem List Problems Medical Problems: (1) Abdominal mass Status: Acute (2) Cocaine use Status: Acute Assessment/Plan s/p excision of gastric mass OK to d/c f/u in office for path Justicifation of Admission Dx: Justifications for Admission: Justification of Admission Dx: Yes BIANKA CARDENAS MD Sep 21, 2020 15:40
--- NOTE | 2020-09-21 16:21 | NUR ---
Patient has discharge order and this RN went to talk to patient regarding dc and he refused to leave until he spoke with his surgeon. This RN called Dr. Valentin's office and they sent him a text. Dr. Valentin came and talked to patient and answered all his questions. Patient still refused to leave until he talked to Dr. Nicole. RN discussed with patient that Dr. Nicole had already talked to him and I had orders to discharge. Patient said I was arguing with him and said "Im done talking to you, get out of my room!" Dr. Nicole paged to talk to patient and he cancelled the discharge.
[2020-09-21 19:41] VITALS: BP 109/66
[2020-09-21] MEDS: PSYLLIUM HUSK (SUGAR FREE) 1 PKT PACKET PO SCH (21:25)
[2020-09-21 22:43] VITALS: BP 114/75
[2020-09-22] MEDS: IV NORMAL SALINE 1000ML BAG 1,000 ML IV SCH ×2 (00:02→06:05)
[2020-09-22 02:39] VITALS: BP 110/74
[2020-09-22 07:00] VITALS: BP 159/86
--- NOTE | 2020-09-22 08:19 | PDOC ---
[employer] PROGRESS NOTE Date of Service DOS: DATE: 09/22/20 TIME: 08:18 Chief Complaint Chief Complaint LATE ENTRY, pt seen 09/21, tried to DC, he felt nausea, was worried about pain, did not want to DC pt seen and eval 09/21, exam benign, poor PO intake, willtry to DC in AM Abdominal pain - with mass resected on 09/17 and lavage of hemoperitoneum. , GI stromal tumar s/p resection Cocaine use, he reports as a one time thing Bradycardia, asymptomatic, mild Right-sided numbness/ paresthesia , headache, sinus congestion, ON ct head, No acute intracranial abnormality. will consult neurology, neg MRI HEAD Stroke symptoms following cocaine use, sensory loss on the right side is the only finding, improving, only subjective now. unintentional weight loss Tobacco abuse disorder right lower leg paresthesia Hemorrhage surrounding the mass in the right upper quadrant hemorrhagic area measures 9.3 x 5.1 x 5 cm. 09-16 History of Present Illness History of Present Illness Mr Li is a 45 year old Male from [place] who presented to the ER began having right side of the face, right arm and leg numbness or heaviness and tingling that he rates about a 4 out of 10. He states that he also had some nausea and is having left-sided abdominal pain with pain with urination as well //. RIGHT leg paresthesia described as medial upper leg radiates to right ankle Patient denies fever, vomiting, diarrhea, constipation, cough, focal weakness, vision change, syncope, dizziness. He has a history of smoking, anxiety, GERD. Patient admits to smoking cocaine yesterday. he has lost 20 lbs in last year on CT Abdomen, a 5.0 x 4.1 cm soft tissue mass is centered within the mesentery of the right hemiabdomen. // differential considerations include GIST. Correlate for malignancy MRI of the abdomen would better evaluate. Admitted with GI CONSULT / GEN SURGERY CONSULT Neurology consult 09/14: He had stroke symptoms following cocaine use. MRI of the brain was performed. It is showing no acute intracranial findings. L 09/15: Pulmonary consulted, moved to [facility] 09/16: Abdominal mass biopsy 09/17: To the OR for gastric mass resection (7cm from anterior distal stomach with 1cm stalk) and moderate hemoperitoneum lavage. 09/18: pod # 1. LOW grade fever overnight , blood cultured 09-17, ID consult. NGTD 09/19: pod # 2, Start IV Vanco and cefepime, pharmacy to assist with vancomycin dosing, monitor renal function T-max 99 6 F overnight.c/o constipation, abdominal pain. "Bubbles when urinating". Asking when he can go home and if he is still bleeding. No shortness of breath or chest pain. No numbness of his arm and leg improved. Very anxious. Vitals/I&O Vitals/I&O: Vital Signs Date Time Temp Pulse Resp B/P (MAP) Pulse Ox O2 Delivery O2 Flow Rate FiO2 09/22/20 02:39 98.6 58 18 110/74 (86) 97 Room Air 98.6 I & O 09/21/20 09/21/20 09/22/20 15:00 23:00 07:00 Intake Total 540 ml 2100 ml Output Total 1800 ml 2100 ml 1200 ml Balance -1800 ml -1560 ml 900 ml Physical Exam Physical Exam: GENERAL: Alert oriented x3 male in no acute distress HEENT: Normocephalic, atraumatic. Anicteric. NECK: Supple. No JVD. LUNGS: Clear bilaterally. No wheezing. HEART: S1, S2. No gallops. No murmurs. ABDOMEN: Soft, nondistended. Dressing from recent surgery in place. Dry bowel sounds present. EXTREMITIES: No edema, no cyanosis. CENTRAL NERVOUS SYSTEM: Alert, awake, moves all 4 extremities. DERMATOLOGIC: Warm, dry. No generalized rash. PIV looks clean. General: Alert, Oriented X3, Cooperative, No acute distress Heart: Regular rate, Normal S1, Normal S2, No murmurs Lungs: Clear Abdomen: Soft, No tenderness, Other (incision healing nicely) Extremities: No cyanosis, No edema Skin: No breakdown, No significant lesion Assessment and Plan Assessmemt and Plan Problems Medical Problems: (1) Abdominal mass Status: Acute (2) Cocaine use Status: Acute Comment Review of Relevant I have reviewed the following items dina (where applicable) has been applied. Justifications for Admission Other Justification POST BX HEMORRHAGE // abdominal mass MARIE PHILIP MD Sep 22, 2020 08:19
[2020-09-22] MEDS ORDERED: FAMOTIDINE 20 MG TABLET. PO SCH (09:00)
[2020-09-22] MEDS: ENOXAPARIN 40 MG/0.4 ML SYRINGE. SQ SCH (09:00)
--- NOTE | 2020-09-22 09:00 | NUR ---
Upon Dr. Nicole and this RN entering the room this AM, Dr. Nicole explained to the patient that the patient has discharge orders and would be able to leave this morning. This RN after doing morning assessment asked when the patient's ride would be able to arrive, explaining that our morning meeting at 0900 they would be asking about discharge orders and times. Patient then became very upset asking to speak with performance manager, saying that we were "rushing him out of here". This RN phoned Arelis (geophysical manager) and Arelis then came over and spoke with patient. Arelis was able to phone Dr. Franco who then entered room to discuss plan of care. Discharge paperwork was complete by this RN and taken into room. Discharge discussed with patient, patient refused to sign the discharge paperwork. Arelis (geophysical manager) took in additional information patient was requesting, he then signed the discharge paperwork for her.
[2020-09-22] MEDS: LACTOBACILLUS RHAMNOSUS GG 1 CAPSULE. PO SCH (09:15)
[2020-09-22] MEDS: DOCUSATE SODIUM 100 MG CAPSULE. PO SCH (09:15)
[2020-09-22] MEDS: POTASSIUM CHLORIDE 20 MEQ TABLET.ER. PO SCH (09:15)
--- NOTE | 2020-09-22 10:15 | NUR ---
SS following up with discharge planning. SS reviewed pt chart and discussed with pt RN. Pt is currently on room air. PT/OT recommended home independent. Discharge order on the chart for home with self care.
== END 2020-09-22 11:09 | disposition home or self-care (01) | DRG 326 ==
LOC: ER 15:28 → ED HOLD 20:43 → 4 NORTH 09-14 01:03 → OBSVTOIN 09-14 12:38 → 2 SOUTH 09-14 19:45
PROVIDERS: ADMIT Internal Medicine; ATTEND Internal Medicine
PROC: 0WBF3ZX Excision of Abdominal Wall, Percutaneous Approach, Diagnostic (ICD-10-PCS; 2020-09-15)
PROC: 0DB64ZZ Excision of Stomach, Percutaneous Endoscopic Approach (ICD-10-PCS; principal; 2020-09-17 10:00)
DX: C49.A0 Gastrointestinal stromal tumor, unspecified site (principal); K66.1 Hemoperitoneum; D62 Acute posthemorrhagic anemia; J44.9 Chronic obstructive pulmonary disease, unspecified; E78.5 Hyperlipidemia, unspecified; F14.10 Cocaine abuse, uncomplicated; F17.210 Nicotine dependence, cigarettes, uncomplicated; F41.9 Anxiety disorder, unspecified; G43.909 Migraine, unspecified, not intractable, without status migrainosus; G47.00 Insomnia, unspecified; G89.29 Other chronic pain; H93.11 Tinnitus, right ear; I65.29 Occlusion and stenosis of unspecified carotid artery; K21.9 Gastro-esophageal reflux disease without esophagitis; K59.00 Constipation, unspecified; N32.89 Other specified disorders of bladder; Z20.822 Contact with and (suspected) exposure to COVID-19; Z82.41 Family history of sudden cardiac death; Z82.49 Family history of ischemic heart disease and other diseases of the circulatory system; Z82.5 Family history of asthma and other chronic lower respiratory diseases; Z83.3 Family history of diabetes mellitus; F32.9 Major depressive disorder, single episode, unspecified; I95.9 Hypotension, unspecified; Z79.899 Other long term (current) drug therapy
CPT/HCPCS: 36415; 49180; 70450; 70551; 71045; 71250; 74177; 74183; 77012; 80048; 80053; 80061; 80307; 81001; 82607; 82962; 83540; 83550; 83615; 83690; 84145; 84484; 85014; 85018; 85025; 85610; 85730; 86850; 86900; 86901; 87040; 87070; 87077; 87205; 87426; 88184; 88185; 93005; 93306; 93880; 96361; 96374; A4213; A4222; A4223; A4314; A4930; A6219; A9575; G0378; G0379; G0480; J0692; J0694; J1100; J1170; J1650; J2250; J2270; J2370; J2405; J2704; J2710; J2795; J3010; J3370; J3475; J3490; J7030; J7040; J7050; J7120; Q9967; U0003; 97116-GP; 99285-25

== ENCOUNTER 2020-10-05 17:07 | Emergency (ER) | payer OTHER ==
[~2020-10-05] VITALS: Ht 175.3 cm; Wt 80.0 kg
[~2020-10-05 17:07] MED LIST changes: +ACET325T9 PO; +IBUP-1027 PO; +POLY17PO52 PO
[2020-10-05] MEDS ORDERED: IV NORMAL SALINE 1000ML BAG 1,000 ML IV ONE (21:15)
--- NOTE | 2020-10-05 21:22 | PHYS DOC ---
Past Medical History Past Medical History: Anxiety, GERD Past Surgical History: No Surgical History, Other Additional Past Surgical Histo: stomach tumor removal 09/17/20 Smoking Status: Current Some Day Smoker Alcohol Use: None Drug Use: None General Adult EDM: Chief Complaint: POST-OP PROBLEM HPI: HPI: Patient is a 45 year [id number] male presents with a chief complaint complaint of left-sided abdominal pain. Patient states he had abdominal surgery to remove a mass in his left lower abdomen on September 17. Patient states he was hospitalized for 10 days then discharged home. Patient has followed up outpatient with his general surgeon. Patient states yesterday he started to experience left lower quadrant abdominal discomfort. Patient's pain located in left lower quadrant does not radiate. Patient states he has associated nausea but has not vomited. Patient also complains of constipation and diarrhea which have been present since discharge. He denies any fevers but states he has had chills. Patient states he is concerned that he has some internal bleeding. On exam patient's abdomen is soft without rebound or guarding. Patient is also concerned that he may have had a stroke. Patient states he has felt unsteady on his feet particularly with some weakness on the right side of his body associated with a right-sided headache. Patient states several days ago he fell and hit his head. Patient is concerned that he may have internal bleeding. On exam patient is alert and oriented x4. He answers all questions appropriately. He has no slurred speech no facial droop. Patient arrived by private vehicle ambulated into the ER. Review of Systems: Review of Systems: Review of systems: Constitutional symptoms- No fever, no chills. Eyes- No Discharge, No Visual Loss Respiratory symptoms- No shortness of breath, No wheezing, No Dyspnea on Exertion Cardiovascular Systems; No chest pain, No Palpitations, No syncope Gastrointestinal symptoms: Positive abdominal pain, Positive nausea, no vomiting Positive diarrhea. Genitourinary symptoms: No dysuria. Musculoskeletal symptoms: No back pain No extremity pain. NEUROLOGICAL Symptoms: Positive headache, no generalized weakness; No focal Weakness Skin: No rash. Heart Score: C/O Chest Pain: N/A Risk Factors: Risk Factors: DM, Current or recent (<one month) smoker, HTN, HLP, family history of CAD, obesity. Risk Scores: Score 0 - 3: 2.5% MACE over next 6 weeks - Discharge Home Score 4 - 6: 20.3% MACE over next 6 weeks - Admit for Clinical Observation Score 7 - 10: 72.7% MACE over next 6 weeks - Early Invasive Strategies Allergies: Allergies: Allergies Coded Allergies Type Severity Reaction Last Updated Verified No Known Drug Allergies 04/29/17 No Physical Exam: PE: General: alert, no acute distress. Skin: warm, dry and intact. HENT: bilateral external ears normal, oropharynx moist, nose normal. Head:: Normocephalic, atraumatic. Neck: Trachea midline. Eyes: EOMI, Normal conjunctiva, No drainage CARDIOVASCULAR: Regular rate and rhythm RESPIRATORY: No respiratory distress Back: Full range of motion. Skin: Warm, dry, no erythema, no rash. MUSCULOSKELETAL: Full range of motion of bilateral upper and lower extremities. GASTROINTESTINAL: Abdomen soft without rebound or guarding. NEUROLOGICAL: Alert and noted to person, place and time. No neurological deficits observed Psychiatric: Cooperative. Normal judgment Current Patient Data: Vital Signs: Vital Signs Date Time Temp Pulse Resp B/P (MAP) Pulse Ox O2 Delivery O2 Flow Rate FiO2 10/05/20 20:56 59 18 99 10/05/20 20:46 97.5 130/64 (110) Room Air 97.5 EKG: EKG: [] Radiology/Procedures: Radiology/Procedures: [] Impression: CT HEAD INDICATION: Reason: FALLX 1 WEEK AGO / Spl. Instructions: / History: COMPARISON: 09/13/2020. Exposure: One or more of the following individualized dose reduction techniques were utilized for this examination: 1. Automated exposure control 2. Adjustment of the mA and/or kV according to patient size 3. Use of iterative reconstruction technique TECHNIQUE: 5 mm contiguous axial images were obtained from the skull base to the vertex in both bone and soft tissue algorithm. FINDINGS: No abnormal attenuation within the brain parenchyma. No evidence of acute intracranial hemorrhage. No extra-axial fluid collections. No mass effect or midline shift. Ventricular size is appropriate. Basal cist erns are patent. No fractures identified.Wetzel-white differentiation is preserved.Globes and orbits are within normal limits. Paranasal sinuses and mastoid air cells are clear. IMPRESSION: Unremarkable CT examination of the head without contrast, as above. Specifically, no evidence of an acute intracranial abnormality. CT abdomen/pelvis with contrast 10/05/2020 9:54 PM INDICATION: Abdominal pain. History of stomach cancer resected 09/17/2020 COMPARISON: CT abdomen/pelvis 09/13/2020 TECHNIQUE: Multiple axial CT images of the abdomen and pelvis were obtained after the intravenous administration of nonionic contrast. Coronal and sagittal reformats are provided. FINDINGS: Lung bases are clear. Heart size within normal limits. Liver, spleen, adrenal glands, pancreas and gallbladder are normal in appearance. The kidneys enhance symmetrically. There is no suspicious renal mass. There is no hydronephrosis. There are no suspected calculi within the kidneys, ureters or urinary bladder. Urinary bladder is within normal limits in degree of distention. Prostate and seminal vesicles are normal in appearance. The abdominal aorta is normal in course and caliber. There are no pathologically enlarged lymph nodes in the abdomen and pelvis. There is no abdominal free fluid. There is no free intraperitoneal air. Mild diverticulosis. Stomach is mildly distended with fluid. Post surgical martínez es are identified along the greater curvature. Along the suture margin, there is soft tissue nodules measuring 1.1 x 0.7 cm additional nodule measuring 1.4 x 1.3 cm (series 2, image 42). No bowel obstruction. Appendix is normal. No suspicious osseous normality. IMPRESSION: 1. Postsurgical changes are identified from resection of a gastric mass. Residual soft tissue masses are identified along the peritoneal margin of the resection bed compatible with residual disease. No findings to suggest disease progression. No bowel obstruction. Electronically signed by: Rupali Stanley MD (10/05/2020 10:29 PM) [facility] Course & Med Decision Making: Course & Med Decision Making Pertinent Labs and Imaging studies reviewed. (See chart for details) [] Patient was evaluated for chief complaint. Work-up consisted of laboratory analysis and radiologic imaging. Results reviewed and discussed with patient. CT head no acute injuries. CT abdomen pelvis postsurgical changes nothing acute. Patient labs within normal limits. Patient discharged home instructed to take Tylenol ibuprofen as needed for pain. Michaelon Disclaimer: Garth Disclaimer: This electronic medical record was generated, in whole or in part, using a voice recognition dictation system. Departure Departure Impression: Primary Impression: Abdominal mass Additional Impression: Head injury Disposition: HOME / SELF CARE / HOMELESS Condition: STABLE Referrals: NO PCP (PCP) Patient Instructions: Abdominal Pain (Nonspecific), Head Injury, Adult Scripts Hydroxyzine Hcl (HYDROXYZINE HCL) 25 Mg Tablet 2 TAB PO TID PRN for ANXIETY / AGITATION, #30 TAB Prov: JESUS HERR DO 10/05/20 Tramadol Hcl (ULTRAM) 50 Mg Tablet 1 TAB PO PRN TID PRN for pain MDD 3 Tablet(s) for 30 Days, #90 TAB 0 Refills Prov: JESUS HERR DO 10/05/20 JESUS HERR DO Oct 05, 2020 21:22
[2020-10-05 21:38] LABS: BASO # 0.1 x10^3/uL (0.0-0.2); BASO % 1 % (0-3); EOS % 0 % (0-3); HEMATOCRIT 34.1 % (39.0-53.0); HEMOGLOBIN 11.6 g/dL (13.0-17.5); LYMPH % 20 % (24-48); MEAN CORPUSCULAR HEMOGLOBIN 30 pg (25-35); MEAN CORPUSCULAR HGB CONC 34 g/dL (31-37); MEAN CORPUSCULAR VOLUME 89 fL (79-100); MONO # 0.7 x10^3/uL (0.0-1.1); MONO % 7 % (0-9); NEUT # 7.3 x10^3/uL (1.8-7.7); NEUT % 72 % (31-73); PLATELET COUNT 228 x10^3/uL (140-400); RED BLOOD COUNT 3.84 x10^6/uL (4.30-5.70); WHITE BLOOD COUNT 10.1 x10^3/uL (4.0-11.0)
[2020-10-05] MEDS ORDERED: CONTRAST GIVEN. MC PRN (21:45)
[2020-10-05] MEDS ORDERED: IOHEXOL 300 MG/ML 100ML VIAL. IV ONE (21:45)
[2020-10-05 21:51] LABS: CALCIUM 9.8 mg/dL (8.5-10.1); CREATININE 0.9 mg/dL (0.7-1.3); GFR 92.1; POTASSIUM 3.7 mmol/L (3.5-5.1)
[2020-10-05 21:56] LABS: ALBUMIN 3.8 g/dL (3.4-5.0); TOTAL BILIRUBIN 0.3 mg/dL (0.2-1.0); TOTAL PROTEIN 7.6 g/dL (6.4-8.2)
--- NOTE | 2020-10-05 22:23 | RAD ---
CT HEAD INDICATION: Reason: FALLX 1 WEEK AGO / Spl. Instructions: / History: COMPARISON: 09/13/2020. Exposure: One or more of the following individualized dose reduction techniques were utilized for thi s examination: 1. Automated exposure control 2. Adjustment of the mA and/or kV according to patient size 3. Use of iterative reconstruction technique TECHNIQUE: 5 mm contiguous axial images were obtained from the skull base to the vertex in both bone and soft tissue algorithm. FINDINGS: No abnormal attenuation within the brain parenchyma. No evidence of acute intracranial hemorrhage. No extra-axial fluid collections. No mass effect or midline shift. Ventricular size is appropriate. Basal cisterns are patent. No fractures identified.Wetzel-white differentiation is preserved.Globes and orbits are within normal l imits. Paranasal sinuses and mastoid air cells are clear. IMPRESSION: Unremarkable CT examination of the head without contrast, as above. Specifically, no evidence of an acute intracranial abnormality. Electronically signed by: Abelardo Eagle MD (10/05/2020 10:21 PM) [id number]
--- NOTE | 2020-10-05 22:31 | RAD ---
PQRS Compliance Statement: One or more of the following individualized dose reduction techniques were utilized for this examinat ion: 1. Automated exposure control 2. Adjustment of the mA and/or kV according to patient size 3. Use of iterative reconstruction technique CT abdomen/pelvis with contrast 10/05/2020 9:54 PM INDICATION: Abdominal pain. History of stomach cancer resected 09/17/2020 COMPARISON: CT abdomen/pelvis 09/13/2020 TECHNIQUE: Multiple axial CT images of the abdomen and pelvis were obtained after the intravenous adm inistration of nonionic contrast. Coronal and sagittal reformats are provided. FINDINGS: Lung bases are clear. Heart size within normal limits. Liver, spleen, adrenal glands, pancreas and ga llbladder are normal in appearance. The kidneys enhance symmetrically. There is no suspicious renal m ass. There is no hydronephrosis. There are no suspected calculi within the kidneys, ureters or urinar y bladder. Urinary bladder is within normal limits in degree of distention. Prostate and seminal vesi cles are normal in appearance. The abdominal aorta is normal in course and caliber. There are no pathologically enlarged lymph nodes in the abdomen and pelvis. There is no abdominal free fluid. There is no free intraperitoneal air. Mild diverticulosis. Stomach is mildly distended with fluid. Post surgical changes are identified ti ng the greater curvature. Along the suture margin, there is soft tissue nodules measuring 1.1 x 0.7 c m additional nodule measuring 1.4 x 1.3 cm (series 2, image 42). No bowel obstruction. Appendix is normal. No suspicious osseous normality. IMPRESSION: 1. Postsurgical changes are identified from resection of a gastric mass. Residual soft tissue masses are identified along the peritoneal margin of the resection bed compatible with residual disease. No findings to suggest disease progression. No bowel obstruction. Electronically signed by: Rupali Stanley MD (10/05/2020 10:29 PM) [facility]
[2020-10-05 23:15] VITALS: BP 98/57
[2020-10-05] MEDS ORDERED: HYDR25TA PO (23:24)
[2020-10-05] MEDS ORDERED: TRAM-48 PO (23:24)
== END 2020-10-05 23:44 | disposition home or self-care (01) ==
LOC: ER 17:07
DX: S09.90XA Unspecified injury of head, initial encounter (principal); R19.04 Left lower quadrant abdominal swelling, mass and lump; K21.9 Gastro-esophageal reflux disease without esophagitis; F17.200 Nicotine dependence, unspecified, uncomplicated; W18.39XA Other fall on same level, initial encounter; Y93.89 Activity, other specified; Y92.89 Other specified places as the place of occurrence of the external cause; Y99.8 Other external cause status
CPT/HCPCS: 36415; 70450; 74177; 80053; 85025; 96360; 99285; J7030; Q9967

== ENCOUNTER 2020-10-12 06:19 | Emergency (ER) | payer OTHER ==
[~2020-10-12] VITALS: Ht 175.3 cm; Wt 72.7 kg
[~2020-10-12 06:19] MED LIST changes: +HYDR25TA PO; +TRAM-48 PO
[2020-10-12 07:00] LABS: BASO % 0 % (0-3); EOS % 0 % (0-3); HEMATOCRIT 37.3 % (39.0-53.0); HEMOGLOBIN 12.5 g/dL (13.0-17.5); LYMPH # 0.9 x10^3/uL (1.0-4.8); LYMPH % 18 % (24-48); MEAN CORPUSCULAR HEMOGLOBIN 30 pg (25-35); MEAN CORPUSCULAR HGB CONC 34 g/dL (31-37); MEAN CORPUSCULAR VOLUME 89 fL (79-100); MONO # 0.3 x10^3/uL (0.0-1.1); MONO % 6 % (0-9); NEUT # 3.8 x10^3/uL (1.8-7.7); NEUT % 76 % (31-73); PLATELET COUNT 177 x10^3/uL (140-400); RED BLOOD COUNT 4.18 x10^6/uL (4.30-5.70); RED CELL DISTRIBUTION WIDTH 13.1 % (11.5-14.5)
[2020-10-12 07:01] LABS: CALCIUM 8.7 mg/dL (8.5-10.1); CREATININE 0.8 mg/dL (0.7-1.3); GFR 105.5; POTASSIUM 4.1 mmol/L (3.5-5.1)
[2020-10-12 07:07] LABS: ALBUMIN 4.1 g/dL (3.4-5.0); ALBUMIN/GLOBULIN RATIO 1.1 (1.0-1.7); C-REACTIVE PROTEIN 8.5 mg/L (0-3.3); TOTAL BILIRUBIN 0.4 mg/dL (0.2-1.0); TOTAL PROTEIN 7.7 g/dL (6.4-8.2)
--- NOTE | 2020-10-12 07:16 | RAD ---
AP portable chest radiograph 10/12/2020 Clinical History: Shortness of breath. An AP erect portable digital radiograph of the chest was obtained. Comparison is made to a CT scan of the chest dated 09/16/2020. The cardiac and mediastinal silhouettes are within normal limits in size and configuration. No pulmon victor hugo infiltrate is seen. No pleural effusion or pneumothorax is noted. Osseous structures are grossly intact. IMPRESSION: No acute abnormality is seen. Electronically signed by: Bereket Gonsalez MD (10/12/2020 7:14 AM) [id number]
[2020-10-12 07:29] LABS: BILIRUBIN,URINE NEGATIVE (NEG); CLARITY,URINE CLEAR; COLOR,URINE YELLOW; NITRITE,URINE NEGATIVE (NEG); PH,URINE 5.5 (<5.0-8.0); PROTEIN,URINE NEGATIVE (NEG-TRACE); UROBILINOGEN,URINE 0.2 mg/dL (0.2 mg/dL)
[2020-10-12] MEDS ORDERED: HALOPERIDOL LACTATE 5 MG/ML VIAL. IVP ONE (07:30)
[2020-10-12 07:41] LABS: BACTERIA,URINE 0 /HPF (0-FEW); RBC,URINE 0 /HPF (0-2); WBC,URINE OCC /HPF (0-4)
--- NOTE | 2020-10-12 07:55 | ED.ADGEN ---
Past Medical History Past Medical History: Anxiety, GERD Past Surgical History: Other Additional Past Surgical Histo: stomach tumor removal 09/17/20 Smoking Status: Current Every Day Smoker Alcohol Use: Occasionally Drug Use: None General Adult EDM: Chief Complaint: SHORTNESS OF BREATH HPI: HPI: Patient is a 45-year-old male with past medical history of polysubstance abuse who presents to the emergency room complaining of shortness of breath and a burning sensation in his head. Patient states that he has not had any sleep in the last couple days. He has been on a methamphetamine and cocaine binge. He states he has this burning sensation in his head that he cannot stand. He also feels like he just cannot get enough air. He thinks that he is coughing stuff up. He is unsure if he is having fevers. He did have a tumor removed from his stomach that was noncancerous in August. He denies any severe headache. He denies any numbness or weakness. Review of Systems: Review of Systems: Complete ROS is negative unless otherwise documented in HPI Current Medications: Current Medications Medications (Trade) Dose Ordered Sig/Cresencio Start Time Stop Time Status Last Admin Dose Admin Haloperidol Lactate (Haldol Inj) 5 mg 1X ONCE 10/12/20 07:30 10/12/20 07:31 DC Lorazepam (Ativan Inj) 2 mg 1X ONCE 10/12/20 11:00 10/12/20 11:01 DC Sodium Chloride 1,000 ml @ 1,000 mls/hr 1X ONCE 10/12/20 11:45 10/12/20 12:44 Trazodone HCl (Desyrel) 50 mg 1X PRN 10/12/20 11:45 Allergies: Allergies: Allergies Coded Allergies Type Severity Reaction Last Updated Verified No Known Drug Allergies 04/29/17 No Physical Exam: PE: General: Awake, alert, NAD. Well Nourished, well hydrated. Cooperative HEENT: Atraumatic, EOMI, PERRL, airway patent, moist oral mucosa Neck: Supple, trachea midline Respiratory: CTA bilaterally, normal effort, no wheezing/crackles CV: RRR, no murmur, cap refill <2 GI: Soft, nondistended, nontender, no masses MSK: No obvious deformities Skin: Warm, dry, intact Neuro: A&O x3, speech NL, sensory and motor grossly intact, no focal deficits Psych: Anxious, intoxicated, not suicidal or homicidal Current Patient Data: Labs: Laboratory Tests Test 10/12/20 06:40 10/12/20 07:16 10/12/20 07:27 White Blood Count 5.0 x10^3/uL (4.0-11.0) Red Blood Count 4.18 x10^6/uL (4.30-5.70) L Hemoglobin 12.5 g/dL (13.0-17.5) L Hematocrit 37.3 % (39.0-53.0) L Mean Corpuscular Volume 89 fL (79-100) Mean Corpuscular Hemoglobin 30 pg (25-35) Mean Corpuscular Hemoglobin Concent 34 g/dL (31-37) Red Cell Distribution Width 13.1 % (11.5-14.5) Platelet Count 177 x10^3/uL (140-400) Neutrophils (%) (Auto) 76 % (31-73) H Lymphocytes (%) (Auto) 18 % (24-48) L Monocytes (%) (Auto) 6 % (0-9) Eosinophils (%) (Auto) 0 % (0-3) Basophils (%) (Auto) 0 % (0-3) Neutrophils # (Auto) 3.8 x10^3/uL (1.8-7.7) Lymphocytes # (Auto) 0.9 x10^3/uL (1.0-4.8) L Monocytes # (Auto) 0.3 x10^3/uL (0.0-1.1) Eosinophils # (Auto) 0.0 x10^3/uL (0.0-0.7) Basophils # (Auto) 0.0 x10^3/uL (0.0-0.2) Sodium Level 138 mmol/L (136-145) Potassium Level 4.1 mmol/L (3.5-5.1) Chloride Level 102 mmol/L (98-107) Carbon Dioxide Level 28 mmol/L (21-32) Anion Gap 8 (6-14) Blood Urea Nitrogen 18 mg/dL (8-26) Creatinine 0.8 mg/dL (0.7-1.3) Estimated GFR (Cockcroft-Gault) 105.5 BUN/Creatinine Ratio 23 (6-20) H Glucose Level 109 mg/dL (70-99) H Calcium Level 8.7 mg/dL (8.5-10.1) Magnesium Level 2.0 mg/dL (1.8-2.4) Total Bilirubin 0.4 mg/dL (0.2-1.0) Aspartate Amino Transferase (AST) 27 U/L (15-37) Alanine Aminotransferase (ALT) 35 U/L (16-63) Alkaline Phosphatase 76 U/L (46-116) Lactate Dehydrogenase 189 U/L (85-227) C-Reactive Protein, Quantitative 8.5 mg/L (0-3.3) H GL-Rae-Z-Type Natriuretic Peptide 46 pg/mL (0-124) Total Protein 7.7 g/dL (6.4-8.2) Albumin 4.1 g/dL (3.4-5.0) Albumin/Globulin Ratio 1.1 (1.0-1.7) Urine Collection Type Unknown Urine Color Yellow Urine Clarity Clear Urine pH 5.5 (<5.0-8.0) Urine Specific [place] 1.020 (1.000-1.030) Urine Protein Negative mg/dL (NEG-TRACE) Urine Glucose (UA) Negative mg/dL (NEG) Urine Ketones (Stick) 40 mg/dL (NEG) Urine Blood Negative (NEG) Urine Nitrite Negative (NEG) Urine Bilirubin Negative (NEG) Urine Urobilinogen Dipstick 0.2 mg/dL (0.2 mg/dL) Urine Leukocyte Esterase Negative (NEG) Urine RBC 0 /HPF (0-2) Urine WBC Occ /HPF (0-4) Urine Squamous Epithelial Cells Occ /LPF Urine Bacteria 0 /HPF (0-FEW) D-Dimer (Janie) 0.39 ug/mlFEU (0.00-0.50) Laboratory Tests 10/12/20 06:40 Laboratory Tests 10/12/20 06:40 Vital Signs: Vital Signs Date Time Temp Pulse Resp B/P (MAP) Pulse Ox O2 Delivery O2 Flow Rate FiO2 10/12/20 06:29 98.6 97 18 134/88 (110) 95 Room Air 98.6 EKG: EKG: [] Heart Score: C/O Chest Pain: N/A Risk Factors: Risk Factors: DM, Current or recent (<one month) smoker, HTN, HLP, family history of CAD, obesity. Risk Scores: Score 0 - 3: 2.5% MACE over next 6 weeks - Discharge Home Score 4 - 6: 20.3% MACE over next 6 weeks - Admit for Clinical Observation Score 7 - 10: 72.7% MACE over next 6 weeks - Early Invasive Strategies Radiology/Procedures: Radiology/Procedures: [] Course & Med Decision Making: Course & Med Decision Making Pertinent Labs and Imaging studies reviewed. (See chart for details) Patient is a 45-year-old male presents to the emergency room complaining of shortness of breath and a burning sensation in his head. Patient appears to be intoxicated at this time. EKG is normal. Vitals are unremarkable. Patient has a NIH score of 0. He does not have sudden onset severe headache but a CT head will be done to rule out any signs of hemorrhage. Patient states the burning sensation started within the last couple of hours patient does not need an LP to rule out subarachnoid hemorrhage. Patient is not febrile. Chest x-ray is normal. Patient has had his Covid screen. D-dimer was done due to patient's recent surgery and is negative. Patient was given Haldol and Ativan. He had significant improvement in symptoms. Lab work and CT are unremarkable. Patient is requesting IV fluids. He will be given a liter of fluid. I have discussed with him that we will discharge him home with a dose of trazodone so he is able to get some sleep. His is going to take him home. Patient's test results and vitals while in the ED were fully reviewed and discussed with the patient. Patient is stable and at this time does not need admission to the hospital. We have discussed strict return precautions and the importance of following up with their Primary Care Physician. Patient stated understanding and was given an opportunity to ask any questions. Patient is in agreement with plan. Michaelon Disclaimer: Dragbethany Disclaimer: This electronic medical record was generated, in whole or in part, using a voice recognition dictation system. Departure Departure Impression: Primary Impression: Cocaine use Additional Impressions: Chest pain Paresthesia Insomnia Disposition: HOME / SELF CARE / HOMELESS Condition: STABLE Referrals: NO PCP (PCP) Patient Instructions: Cocaine Abuse-Brief Problem Qualifiers MELISSA ZAVALA MD Oct 12, 2020 07:54
--- NOTE | 2020-10-12 08:13 | RAD ---
INDICATION: Headache COMPARISON: October 12, 2020 TECHNIQUE: Axial CT images obtained through the head without intravenous contrast. One or more of the following individualized dose reduction techniques were utilized for this examinat ion: 1. Automated exposure control; 2. Adjustment of the mA and/or kV according to patient size; 3 . Use of iterative reconstruction technique. FINDINGS: No intracranial hemorrhage. No significant midline shift. Ventricles and sulci are unremarkable. No acute osseous abnormality. Nasal septal deviation to the left. IMPRESSION: * No acute intracranial hemorrhage. * Relative high density in a portion of the dural venous sinuses. This can be seen with hemoconcentr ation but if there is any clinical concern for dural venous thrombosis CT venogram or MRI venogram co uld confirm that this is secondary to hemoconcentration rather than dural venous thrombosis. Electronically signed by: Alfredo Chu MD (10/12/2020 8:11 AM) [id number]
[2020-10-12] MEDS ORDERED: traZODone 50 MG TABLET. PO PRN (11:45)
[2020-10-12] MEDS ORDERED: IV NORMAL SALINE 1000ML BAG 1,000 ML IV ONE (11:45)
[2020-10-12 13:30] VITALS: BP 100/62
== END 2020-10-12 13:56 | disposition home or self-care (01) ==
LOC: ER 06:19
DX: R07.89 Other chest pain (principal); F14.90 Cocaine use, unspecified, uncomplicated; R20.2 Paresthesia of skin; G47.00 Insomnia, unspecified; K21.9 Gastro-esophageal reflux disease without esophagitis; F17.200 Nicotine dependence, unspecified, uncomplicated
CPT/HCPCS: 36415; 70450; 71045; 80053; 81001; 83615; 83735; 83880; 85025; 85379; 86140; 99285-25